=== PATIENT | male | born 1950 | race Caucasian/White ===

== ENCOUNTER → 2017-08-09 | Day surgery (SDC) | payer BC ==
[~2017-08-09] MED LIST: ACETAMINOPHEN 1000 MG/100 ML 100 ML IV ONE; BUPIVACAINE HCL PF 0.25% 30 ML VIAL ONE; KETOROLAC TROMETHAMINE 30 MG/ML (IVP) VIAL IV PUSH ONE; LACTATED RINGER'S 1000 ML INJ 1,000 ML ONE; LIDOCAINE 1%/EPINEPHrine 1:100,000 SOLN 30 ML VIAL ONE; MIDAZOLAM HCL 2 MG/2 ML VIAL ONE; PROPOFOL 200 MG/20 ML AMP IV ONE; ceFAZolin 2 GM PREMIX 50 ML ONE
--- NOTE | 2017-08-09 09:20 | TN ---
cc: Matt Devi MD, Joseph D MD DATE OF SURGERY: 08/09/2017 PREOPERATIVE DIAGNOSIS: Right inguinal hernia. POSTOPERATIVE DIAGNOSIS: Right direct inguinal hernia. PROCEDURE PERFORMED: Repair of right direct inguinal hernia with mesh. ANESTHESIA: General. SURGEON: Matt Devi MD INDICATIONS: This is a pleasant 67-year-old gentleman who has a symptomatic right inguinal hernia. Plans were made for operative repair. DESCRIPTION OF PROCEDURE: The patient was taken to the operating room, placed in the supine position. After anesthesia, his abdomen and groin were prepped with Betadine. Timeout is done. He was given preoperative antibiotics. We made an oblique incision overlying the internal and external ring, dissect down through Enio's fascia identifying the external oblique aponeurosis which was incised. It is noted the patient is very thin. The ilioinguinal nerve was identified. The direct defect was identified and completely reduced. He has no indirect defect. We then placed a piece of polypropylene mesh secured to the pubic tubercle, Bhargav's ligament, and iliopubic tract out laterally. The ilioinguinal nerve is going to be laying right on top of this mesh and for this reason, the ilioinguinal nerve was sacrificed all the way up into the internal oblique aponeurosis. The mesh was then secured to the medial edge with 0 Ethibond. Tails were fashioned and secured to themselves to the internal oblique aponeurosis. We then closed the external oblique aponeurosis with a 2-0 Vicryl, Enio's with 3-0 Vicryl, and skin with 4-0 Vicryl. Steri-Strips applied, sterile bandage was applied. The patient tolerated the procedure well, had no immediate postop complications. Matt Devi MD JDB/DL , 08:55 AM , 09:19 AM
== END | disposition home or self-care (01) ==
LOC: ESDC 06:41
PROVIDERS: ATTEND Surgery
DX: K40.90 Unilateral inguinal hernia, without obstruction or gangrene, not specified as recurrent (principal)
CPT/HCPCS: 00830; 49505; C1781; J0131; J0690; J1885; J3010; J7120; J2250

== ENCOUNTER 2018-02-13 18:20 | Inpatient (IN) ==
[2018-02-13] MEDS ORDERED: Piperacil/Tazo 4.5 GM Premix 4.5 GM/100 ML BAG IV.SIG SCH ×2 (19:45→21:00)
[2018-02-13] MEDS: Sod Chloride 0.9% Inj 1,000 ML IV.SIG SCH ×2 (19:46→21:41)
[2018-02-13] MEDS ORDERED: Vancomycin Inj 1,000 MG in Sodium Chlor 0.9% Inj 250 ML IV.SIG SCH (20:00)
--- NOTE | 2018-02-13 20:10 | XR ---
EXAM DATE: 02/13/2018 8:08 PM EST AGE/SEX: 67 years / Male INDICATIONS: Fever. CLINICAL DATA: This is the patient's initial encounter. Patient reports that signs and symptoms have been present for 1 day and indicates a pain score of 0/10. MEDICAL/SURGICAL HISTORY: Non-responsive. Non-responsive. COMPARISON: No prior exams available for comparison. FINDINGS: A single AP view of the chest demonstrates the lungs to be symmetrically aerated without evidence of mass, infiltrate or effusion. The cardiomediastinal contours are unremarkable. Osseous structures a re intact. CONCLUSION: 1. Negative portable chest. Electronically signed by: Gus Guan MD Board Certified Radiologist 02/13/2018 8:09 PM JUANA T
[2018-02-13 20:28] LABS: Baso % (Auto) 0.1 % (0.0-2.0); Hematocrit 43.5 % (39.0-51.0); Hemoglobin 14.7 gm/dL (13.0-17.0); Lymph % (Auto) 10.5 % (9.0-44.0); Mean Corpuscular HGB Conc 33.7 % (32.0-36.0); Mean Corpuscular Hemoglobin 31.3 pg (27.0-34.0); Mean Corpuscular Volume 92.9 fL (80.0-100.0); Mono # (Auto) 0.6 th/mm3 (0.0-0.9); Mono % (Auto) 6.7 % (0.0-8.0); Neut # (Auto) 7.9 th/mm3 (1.8-7.7); Neut % (Auto) 82.7 % (16.0-70.0); Platelet Count 111 th/mm3 (150-450); Red Blood Count 4.69 mil/mm3 (4.50-5.90); Red Cell Distribution Width 14.4 % (11.6-17.2); White Blood Count 9.6 th/mm3 (4.0-11.0)
[2018-02-13 20:36] LABS: Albumin 3.2 g/dL (3.4-5.0); Anion Gap 9 meq/L (5-15); Aspartate Aminotransferase 72 U/L (15-37); Blood Urea Nitrogen 32 mg/dL (7-18); Calcium 7.8 mg/dL (8.5-10.1); Carbon Dioxide 27.3 meq/L (21.0-32.0); Chloride 106 meq/L (98-107); Glomerular Filtration Rate 39 mL/min (>89); Glucose,Random 129 mg/dL (74-106); Potassium 3.4 meq/L (3.5-5.1); Sodium 142 meq/L (136-145)
[2018-02-13 20:37] LABS: Alanine Aminotransferase 41 U/L (12-78)
[2018-02-13 20:41] LABS: Alkaline Phosphatase 45 U/L (45-117); Total Protein 6.9 g/dL (6.4-8.2); Troponin I 0.09 ng/mL (0.02-0.05)
[2018-02-13 20:55] LABS: Bacteria,Urine Rare /hpf; Bilirubin,Urine Negative (Negative); Clarity,Urine Hazy (Clear); Color,Urine Yellow (Yellw/Straw); Glucose,Urine (UA) Negative (Negative); Leukocyte Esterase,Urine Negative (Negative); Mucus,Urine Few /lpf (Occasional); Nitrite,Urine Negative (Negative); Specific Gravity,Urine 1.021 (1.002-1.035); Squamous Epithelial Cell,Urine <1 /hpf (0-5)
--- NOTE | 2018-02-13 21:31 | CT ---
EXAM DATE: 02/13/2018 9:27 PM EST AGE/SEX: 67 years / Male INDICATIONS: Altered mental status. CLINICAL DATA: This is the patient's initial encounter. Patient reports that signs and symptoms have been present for 1 day and indicates a pain score of 0/10. MEDICAL/SURGICAL HISTORY: Hypertension. . Hernia repair. RADIATION DOSE: 33.68 CTDI (mGy) COMPARISON: No prior exams available for comparison. TECHNIQUE: CT of the head without contrast. Using automated exposure control and adjustment of the mA and/or kV according to patient size, radiation dose was kept as low as reasonably achievable to ob tain optimal diagnostic quality images. DICOM format image data is available electronically for revi ew and comparison. FINDINGS: Cerebrum: The ventricles are normal for age. No evidence of midline shift, mass lesion, hemorrhage or acute infarction. No extraaxial fluid collections are seen. Mild periventricular white matter sma ll vessel ischemic changes are noted bilaterally. Posterior Fossa: The cerebellum and brainstem are intact. The 4th ventricle is midline. The cerebe llopontine angle is unremarkable. Extracranial: The visualized portion of the orbits is intact. Skull: The calvaria is intact. No evidence of skull fracture. CONCLUSION: 1. Mild periventricular white matter small vessel ischemic changes bilaterally. 2. No acute infarct, acute hemorrhage, mass effect or extra axial fluid collections. . Electronically signed by: aJsbir Roman MD Board Certified Radiologist 02/13/2018 9:30 PM EST
--- NOTE | 2018-02-13 22:19 | ED ---
HPI General Chief Complaint: Altered Mental Status Stated Complaint: AMS Time Seen by Provider: 02/13/18 19:10 Source: patient Mode of arrival: EMS Limitations: no limitations History of Present Illness HPI narrative: 67-year-old male came to the emergency room with history of fever , altered mental status as was found by his neighbor today. Patient was last seen with his baseline mental status yesterday morning by another neighbor. Patient appears to be fatigued and a little bit confused. He does say that he has been feeling sick with cough and sore throat for past 4-5 days. The neighbor found out from another neighbor that patient took care of his brother 1 week back who is now with a MRSA infection. Patient had a temperature of 100.5 upon arrival. His oxygen saturation was 93% on room air. Patient has history of COPD and he is a smoker as well. No history of vomiting or diarrhea. He is not complaining of any pain anywhere. Related Data Home Medications Medication Instructions Recorded Confirmed atorvastatin 80 mg PO DAILY 02/13/18 02/13/18 clopidogrel 75 mg PO DAILY 02/13/18 02/13/18 codeine-guaifenesin [Virtussin AC] 5 ml PO Q6H PRN 02/13/18 02/13/18 hydrocodone-acetaminophen 1 tab PO Q6H 02/13/18 02/13/18 ibuprofen 800 mg PO TID 02/13/18 02/13/18 olmesartan 40 mg PO DAILY 02/13/18 02/13/18 vitamin [id number] acid 100 mcg SUBLINGUAL DAILY 02/13/18 02/13/18 cyanocobalamin (vitamin B-12) See Label Instructions .ROUTE 02/17/18 02/17/18 .COMPLEX Allergies Allergy/AdvReac Type Severity Reaction Status Date / Time No Known Allergies Allergy Verified 02/13/18 18:38 Review of Systems ROS Unobtainable ROS Unobtainable: unobtainable due to mental condition ROS: all other systems reviewed are negative [facility] Medical History Medical History Hypertension (Acute) Surgical History Surgical History History of hernia repair (Acute) Social History Social History Substance History: No History of Abuse Second Hand Smoke Exposure: No Smoking Status: Current every day smoker Tobacco Type: Cigarettes How Often Do You Have a Drink Containing Alcohol: Never Recent Travel in [facility] within the Last 8 Weeks: No Recent Out of Country Travel within the Last 8 Weeks: No Immunization History Tetanus Immunization: >5 Years Exam Narrative Exam Narrative: GENERAL: Lethargic, moderate distress, looks older than his age SKIN: Focused skin assessment warm/dry. HEAD: Atraumatic. Normocephalic. EYES: Pupils equal and round. No scleral icterus. No injection or drainage. ENT: No nasal bleeding or discharge. Dry mucous membrane and coated tongue. Erythematous pharynx with no exudate NECK: Trachea midline. No JVD. CARDIOVASCULAR: Regular rate and rhythm. No murmur appreciated. RESPIRATORY: No accessory muscle use. Clear to auscultation. Breath sounds equal bilaterally. GASTROINTESTINAL: Abdomen soft, non-tender, nondistended. Hepatic and splenic margins not palpable. MUSCULOSKELETAL: No obvious deformities. No clubbing. No cyanosis. No edema. NEUROLOGICAL: Lethargic and slightly confused. No obvious cranial nerve deficits. Motor grossly within normal limits. Normal speech. PSYCHIATRIC: Appropriate mood and affect; insight and judgment normal. Course Initial Documented Vital Signs Temperature 100.5 F H 02/13/18 18:26 Pulse Rate 92 H 02/13/18 18:26 Respiratory Rate 18 02/13/18 18:26 Blood Pressure 114/65 02/13/18 18:26 Pulse Oximetry 93 L 02/13/18 18:26 Last Documented Vital Signs Temperature 99.3 F 02/19/18 16:30 Pulse Rate 94 H 02/19/18 19:46 Respiratory Rate 20 02/19/18 19:46 Blood Pressure 111/65 02/19/18 18:30 Pulse Oximetry 98 02/19/18 19:46 Critical Care Time Critical Care Time: Yes Total Critical Care Time: 30 Attestation: Aggregate critical care time was 30 minutes. Time to perform other separately billable procedures was not included in the critical care time. My time did not include minutes spent treating any other patients simultaneously or on activities that did not directly contribute to the patient's treatment. The services I provided to this patient were to treat and/or prevent clinically significant deterioration that could result in: Sepsis, sepsis protocol I provided critical care services requiring my management, as noted below: Chart data review, documentation time, medication orders and management, vital sign assessments/reviewing monitor data, ordering and reviewing lab tests, ordering and interpreting/reviewing x-rays and diagnostic studies, care of the patient and discussion of the patient with the admitting physicians. Medical Decision Making MDM Narrative Medical decision making narrative: 10:17 PM patient was given 2 L of IV fluid bolus. IV Zosyn and vancomycin was initiated as per sepsis protocol. Lactic acid is slightly elevated. Rest of his blood test results are within acceptable limit except for elevated troponin and elevated BUN and creatinine. I discussed the case with the hospitalist and patient is admitted for sepsis. Medical Screen Exam Complete: Yes Emergency Medical Condition: Yes Lab Data Result diagrams: 02/19/18 03:14 02/19/18 03:14 Lab Results 02/13/18 02/13/18 02/13/18 Range/Units 20:00 20:00 20:00 WBC 9.6 (4.0-11.0) th/mm3 RBC 4.69 (4.50-5.90) mil/mm3 Hgb 14.7 (13.0-17.0) gm/dL Hct 43.5 (39.0-51.0) % MCV 92.9 (80.0-100.0) fL MCH 31.3 (27.0-34.0) pg MCHC 33.7 (32.0-36.0) % RDW 14.4 (11.6-17.2) % Plt Count 111 L (150-450) th/mm3 MPV 9.0 (7.0-11.0) fL Prelim Diff (Auto) Neut % (Auto) 82.7 H (16.0-70.0) % Lymph % (Auto) 10.5 (9.0-44.0) % [place] % (Auto) 6.7 (0.0-8.0) % Eos % (Auto) 0.0 (0.0-4.0) % Baso % (Auto) 0.1 (0.0-2.0) % Neut # (Auto) 7.9 H (1.8-7.7) th/mm3 Lymph # (Auto) 1.0 (1.0-4.8) th/mm3 [place] # (Auto) 0.6 (0.0-0.9) th/mm3 Eos # (Auto) 0.0 (0.0-0.4) th/mm3 Baso # (Auto) 0.0 (0.0-0.2) th/mm3 WBC Differential . Seg Neuts % (Manual) (16-70) % Band Neuts % (Manual) (0-6) % Lymphocytes % (Manual) (9-44) % Monocytes % (Manual) (0-8) % Eosinophils % (Manual) (0-4) % Abs Neuts (Manual) (1.8-7.7) th/mm3 Nucleated RBCs/100 WBC (0-0) /100 WBC Differential Comment Auto diff final Platelet Estimate (Normal) Platelet Morphology (Normal) Ovalocytes (None) Acanthocytes (Spur) (None) Smear Path Review Haptoglobin (30-200) mg/dL Puncture Site Patient Temperature O2 Saturation (90-100) % ABG pH (7.380-7.420) ABG pCO2 (38-42) mmHg ABG pO2 (61-120) mmHg ABG HCO3 (22-26) mmol/L ABG O2 Content (12.0-20.0) Vol % ABG Base Excess (-2-2) mmol/L ABG Methemoglobin (0-2) % Jeffery Test Hemoglobin (12.0-16.0) G/DL Carboxyhemoglobin (0-4) % O2 Delivery Device Liter Flow L/M Vent Setting Inspired O2 % Critical Value Sodium 142 (136-145) meq/L Potassium 3.4 L (3.5-5.1) meq/L Chloride 106 (98-107) meq/L Carbon Dioxide 27.3 (21.0-32.0) meq/L Anion Gap 9 (5-15) meq/L BUN 32 H (7-18) mg/dL Creatinine 1.75 H (0.60-1.30) mg/dL Estimated GFR 39 L (>89) mL/min POC Glucose (68-110) mg/dl Random Glucose 129 H (74-106) mg/dL Lactic Acid 2.1 H (0.4-2.0) mmol/L Calcium 7.8 L (8.5-10.1) mg/dL Calcium Adj for Albumin (8.5-10.1) mg/dL Phosphorus (2.5-4.9) mg/dL Magnesium 2.0 (1.5-2.5) mg/dL Total Bilirubin 0.3 (0.2-1.0) mg/dL AST 72 H (15-37) U/L ALT 41 (12-78) U/L Alkaline Phosphatase 45 (45-117) U/L Lactate Dehydrogenase (87-241) U/L Total Creatine Kinase (39-308) U/L CK-MB (CK-2) (0.5-3.6) ng/mL CK-MB (CK-2) % (0.0-4.0) % Troponin I 0.09 H (0.02-0.05) ng/mL B-Natriuretic Peptide (0-100) pg/mL Total Protein 6.9 (6.4-8.2) g/dL Albumin 3.2 L (3.4-5.0) g/dL TSH (0.358-3.740) uIU/mL Urine Color (Yellw/Straw) Urine Clarity (Clear) Urine pH (5.0-8.5) Ur Specific [place] (1.002-1.035) Urine Protein (Neg-Trace) mg/dL Urine Glucose (UA) (Negative) mg/dL Urine Ketones (Negative) mg/dL Urine Occult Blood (Negative) Urine Nitrate (Negative) Urine Bilirubin (Negative) Urine Urobilinogen (Less than 2) mg/dL Ur Leukocyte Esterase (Negative) Urine RBC (0-3) /hpf Urine WBC (0-5) /hpf Ur Squamous Epith Cells (0-5) /hpf Urine Bacteria (None) /hpf Urine Mucus (Occasional) /lpf Micro UA Comment Ur Microscopic Review Urine Culture Comments Urine Eosinophils (None Seen) /HPF Ur Random Creatinine (27-300) mg/dL Ur Random Sodium meq/L Vancomycin Trough (5.0-10.0) mcg/mL 02/13/18 02/13/18 02/14/18 Range/Units 20:36 22:35 02:55 WBC (4.0-11.0) th/mm3 RBC (4.50-5.90) mil/mm3 Hgb (13.0-17.0) gm/dL Hct (39.0-51.0) % MCV (80.0-100.0) fL MCH (27.0-34.0) pg MCHC (32.0-36.0) % RDW (11.6-17.2) % Plt Count (150-450) th/mm3 MPV (7.0-11.0) fL Prelim Diff (Auto) Neut % (Auto) (16.0-70.0) % Lymph % (Auto) (9.0-44.0) % [place] % (Auto) (0.0-8.0) % Eos % (Auto) (0.0-4.0) % Baso % (Auto) (0.0-2.0) % Neut # (Auto) (1.8-7.7) th/mm3 Lymph # (Auto) (1.0-4.8) th/mm3 [place] # (Auto) (0.0-0.9) th/mm3 Eos # (Auto) (0.0-0.4) th/mm3 Baso # (Auto) (0.0-0.2) th/mm3 WBC Differential Seg Neuts % (Manual) (16-70) % Band Neuts % (Manual) (0-6) % Lymphocytes % (Manual) (9-44) % Monocytes % (Manual) (0-8) % Eosinophils % (Manual) (0-4) % Abs Neuts (Manual) (1.8-7.7) th/mm3 Nucleated RBCs/100 WBC (0-0) /100 WBC Differential Comment Platelet Estimate (Normal) Platelet Morphology (Normal) Ovalocytes (None) Acanthocytes (Spur) (None) Smear Path Review Haptoglobin (30-200) mg/dL Puncture Site Patient Temperature O2 Saturation (90-100) % ABG pH (7.380-7.420) ABG pCO2 (38-42) mmHg ABG pO2 (61-120) mmHg ABG HCO3 (22-26) mmol/L ABG O2 Content (12.0-20.0) Vol % ABG Base Excess (-2-2) mmol/L ABG Methemoglobin (0-2) % Jeffery Test Hemoglobin (12.0-16.0) G/DL Carboxyhemoglobin (0-4) % O2 Delivery Device Liter Flow L/M Vent Setting Inspired O2 % Critical Value Sodium (136-145) meq/L Potassium (3.5-5.1) meq/L Chloride (98-107) meq/L Carbon Dioxide (21.0-32.0) meq/L Anion Gap (5-15) meq/L BUN (7-18) mg/dL Creatinine (0.60-1.30) mg/dL Estimated GFR (>89) mL/min POC Glucose (68-110) mg/dl Random Glucose (74-106) mg/dL Lactic Acid 0.9 (0.4-2.0) mmol/L Calcium (8.5-10.1) mg/dL Calcium Adj for Albumin (8.5-10.1) mg/dL Phosphorus (2.5-4.9) mg/dL Magnesium (1.5-2.5) mg/dL Total Bilirubin (0.2-1.0) mg/dL AST (15-37) U/L ALT (12-78) U/L Alkaline Phosphatase (45-117) U/L Lactate Dehydrogenase (87-241) U/L Total Creatine Kinase 751 H (39-308) U/L CK-MB (CK-2) 1.5 (0.5-3.6) ng/mL CK-MB (CK-2) % 0.2 (0.0-4.0) % Troponin I 0.09 H (0.02-0.05) ng/mL B-Natriuretic Peptide (0-100) pg/mL Total Protein (6.4-8.2) g/dL Albumin (3.4-5.0) g/dL TSH (0.358-3.740) uIU/mL Urine Color Yellow (Yellw/Straw) Urine Clarity Hazy H (Clear) Urine pH 5.0 (5.0-8.5) Ur Specific [place] 1.021 (1.002-1.035) Urine Protein 100 H (Neg-Trace) mg/dL Urine Glucose (UA) Negative (Negative) mg/dL Urine Ketones Negative (Negative) mg/dL Urine Occult Blood Small H (Negative) Urine Nitrate Negative (Negative) Urine Bilirubin Negative (Negative) Urine Urobilinogen Less than 2 (Less than 2) mg/dL Ur Leukocyte Esterase Negative (Negative) Urine RBC 8 H (0-3) /hpf Urine WBC 4 (0-5) /hpf Ur Squamous Epith Cells <1 (0-5) /hpf Urine Bacteria Rare H (None) /hpf Urine Mucus Few H (Occasional) /lpf Micro UA Comment Culture not ind Ur Microscopic Review Not Reportable Urine Culture Comments Culture not ind Urine Eosinophils (None Seen) /HPF Ur Random Creatinine (27-300) mg/dL Ur Random Sodium meq/L Vancomycin Trough (5.0-10.0) mcg/mL 02/14/18 02/14/18 02/15/18 Range/Units 08:14 16:50 06:22 WBC 5.7 (4.0-11.0) th/mm3 RBC 3.89 L (4.50-5.90) mil/mm3 Hgb 12.4 L D (13.0-17.0) gm/dL Hct 36.1 L (39.0-51.0) % MCV 92.6 (80.0-100.0) fL MCH 31.9 (27.0-34.0) pg MCHC 34.4 (32.0-36.0) % RDW 14.5 (11.6-17.2) % Plt Count 79 L (150-450) th/mm3 MPV 9.4 (7.0-11.0) fL Prelim Diff (Auto) Slide review pending Neut % (Auto) 79.8 H (16.0-70.0) % Lymph % (Auto) 12.4 (9.0-44.0) % [place] % (Auto) 7.7 (0.0-8.0) % Eos % (Auto) 0.0 (0.0-4.0) % Baso % (Auto) 0.1 (0.0-2.0) % Neut # (Auto) 4.5 (1.8-7.7) th/mm3 Lymph # (Auto) 0.7 L (1.0-4.8) th/mm3 [place] # (Auto) 0.4 (0.0-0.9) th/mm3 Eos # (Auto) 0.0 (0.0-0.4) th/mm3 Baso # (Auto) 0.0 (0.0-0.2) th/mm3 WBC Differential Manual diff final Seg Neuts % (Manual) 77 H (16-70) % Band Neuts % (Manual) 12 H (0-6) % Lymphocytes % (Manual) 8 L (9-44) % Monocytes % (Manual) 2 (0-8) % Eosinophils % (Manual) 1 (0-4) % Abs Neuts (Manual) 5.1 (1.8-7.7) th/mm3 Nucleated RBCs/100 WBC (0-0) /100 WBC Differential Comment . Platelet Estimate Low L (Normal) Platelet Morphology Enlarged H (Normal) Ovalocytes 1+ H (None) Acanthocytes (Spur) Occ H (None) Smear Path Review Haptoglobin (30-200) mg/dL Puncture Site Patient Temperature O2 Saturation (90-100) % ABG pH (7.380-7.420) ABG pCO2 (38-42) mmHg ABG pO2 (61-120) mmHg ABG HCO3 (22-26) mmol/L ABG O2 Content (12.0-20.0) Vol % ABG Base Excess (-2-2) mmol/L ABG Methemoglobin (0-2) % Jeffery Test Hemoglobin (12.0-16.0) G/DL Carboxyhemoglobin (0-4) % O2 Delivery Device Liter Flow L/M Vent Setting Inspired O2 % Critical Value Sodium 145 (136-145) meq/L Potassium 3.9 (3.5-5.1) meq/L Chloride 113 H (98-107) meq/L Carbon Dioxide 25.4 (21.0-32.0) meq/L Anion Gap 7 (5-15) meq/L BUN 24 H (7-18) mg/dL Creatinine 1.31 H (0.60-1.30) mg/dL Estimated GFR 55 L (>89) mL/min POC Glucose (68-110) mg/dl Random Glucose 114 H (74-106) mg/dL Lactic Acid (0.4-2.0) mmol/L Calcium 7.5 L (8.5-10.1) mg/dL Calcium Adj for Albumin (8.5-10.1) mg/dL Phosphorus (2.5-4.9) mg/dL Magnesium (1.5-2.5) mg/dL Total Bilirubin (0.2-1.0) mg/dL AST (15-37) U/L ALT (12-78) U/L Alkaline Phosphatase (45-117) U/L Lactate Dehydrogenase (87-241) U/L Total Creatine Kinase 686 H (39-308) U/L CK-MB (CK-2) 1.9 (0.5-3.6) ng/mL CK-MB (CK-2) % 0.3 (0.0-4.0) % Troponin I 0.08 H (0.02-0.05) ng/mL B-Natriuretic Peptide (0-100) pg/mL Total Protein (6.4-8.2) g/dL Albumin (3.4-5.0) g/dL TSH (0.358-3.740) uIU/mL Urine Color (Yellw/Straw) Urine Clarity (Clear) Urine pH (5.0-8.5) Ur Specific [place] (1.002-1.035) Urine Protein (Neg-Trace) mg/dL Urine Glucose (UA) (Negative) mg/dL Urine Ketones (Negative) mg/dL Urine Occult Blood (Negative) Urine Nitrate (Negative) Urine Bilirubin (Negative) Urine Urobilinogen (Less than 2) mg/dL Ur Leukocyte Esterase (Negative) Urine RBC (0-3) /hpf Urine WBC (0-5) /hpf Ur Squamous Epith Cells (0-5) /hpf Urine Bacteria (None) /hpf Urine Mucus (Occasional) /lpf Micro UA Comment Ur Microscopic Review Urine Culture Comments Urine Eosinophils (None Seen) /HPF Ur Random Creatinine (27-300) mg/dL Ur Random Sodium meq/L Vancomycin Trough (5.0-10.0) mcg/mL 02/15/18 02/15/18 02/16/18 Range/Units 06:22 18:35 05:53 WBC 6.8 (4.0-11.0) th/mm3 RBC 3.88 L (4.50-5.90) mil/mm3 Hgb 12.3 L (13.0-17.0) gm/dL Hct 36.4 L (39.0-51.0) % MCV 93.7 (80.0-100.0) fL MCH 31.7 (27.0-34.0) pg MCHC 33.9 (32.0-36.0) % RDW 14.7 (11.6-17.2) % Plt Count 80 L (150-450) th/mm3 MPV 9.4 (7.0-11.0) fL Prelim Diff (Auto) Slide review pending Neut % (Auto) 83.4 H (16.0-70.0) % Lymph % (Auto) 9.3 (9.0-44.0) % [place] % (Auto) 7.1 (0.0-8.0) % Eos % (Auto) 0.0 (0.0-4.0) % Baso % (Auto) 0.2 (0.0-2.0) % Neut # (Auto) 5.7 (1.8-7.7) th/mm3 Lymph # (Auto) 0.6 L (1.0-4.8) th/mm3 [place] # (Auto) 0.5 (0.0-0.9) th/mm3 Eos # (Auto) 0.0 (0.0-0.4) th/mm3 Baso # (Auto) 0.0 (0.0-0.2) th/mm3 WBC Differential Manual diff final Seg Neuts % (Manual) 79 H (16-70) % Band Neuts % (Manual) 12 H (0-6) % Lymphocytes % (Manual) 6 L (9-44) % Monocytes % (Manual) 3 (0-8) % Eosinophils % (Manual) (0-4) % Abs Neuts (Manual) 6.2 (1.8-7.7) th/mm3 Nucleated RBCs/100 WBC 1 H (0-0) /100 WBC Differential Comment . Platelet Estimate Low L (Normal) Platelet Morphology Normal (Normal) Ovalocytes (None) Acanthocytes (Spur) (None) Smear Path Review Haptoglobin (30-200) mg/dL Puncture Site Patient Temperature O2 Saturation (90-100) % ABG pH (7.380-7.420) ABG pCO2 (38-42) mmHg ABG pO2 (61-120) mmHg ABG HCO3 (22-26) mmol/L ABG O2 Content (12.0-20.0) Vol % ABG Base Excess (-2-2) mmol/L ABG Methemoglobin (0-2) % Jeffery Test Hemoglobin (12.0-16.0) G/DL Carboxyhemoglobin (0-4) % O2 Delivery Device Liter Flow L/M Vent Setting Inspired O2 % Critical Value Sodium 147 H (136-145) meq/L Potassium 3.6 (3.5-5.1) meq/L Chloride 114 H (98-107) meq/L Carbon Dioxide 25.6 (21.0-32.0) meq/L Anion Gap 7 (5-15) meq/L BUN 21 H (7-18) mg/dL Creatinine 1.38 H (0.60-1.30) mg/dL Estimated GFR 52 L (>89) mL/min POC Glucose (68-110) mg/dl Random Glucose 118 H (74-106) mg/dL Lactic Acid (0.4-2.0) mmol/L Calcium 7.1 L* (8.5-10.1) mg/dL Calcium Adj for Albumin 8.5 (8.5-10.1) mg/dL Phosphorus (2.5-4.9) mg/dL Magnesium (1.5-2.5) mg/dL Total Bilirubin (0.2-1.0) mg/dL AST (15-37) U/L ALT (12-78) U/L Alkaline Phosphatase (45-117) U/L Lactate Dehydrogenase (87-241) U/L Total Creatine Kinase (39-308) U/L CK-MB (CK-2) (0.5-3.6) ng/mL CK-MB (CK-2) % (0.0-4.0) % Troponin I (0.02-0.05) ng/mL B-Natriuretic Peptide (0-100) pg/mL Total Protein (6.4-8.2) g/dL Albumin 2.3 L D (3.4-5.0) g/dL TSH (0.358-3.740) uIU/mL Urine Color (Yellw/Straw) Urine Clarity (Clear) Urine pH (5.0-8.5) Ur Specific [place] (1.002-1.035) Urine Protein (Neg-Trace) mg/dL Urine Glucose (UA) (Negative) mg/dL Urine Ketones (Negative) mg/dL Urine Occult Blood (Negative) Urine Nitrate (Negative) Urine Bilirubin (Negative) Urine Urobilinogen (Less than 2) mg/dL Ur Leukocyte Esterase (Negative) Urine RBC (0-3) /hpf Urine WBC (0-5) /hpf Ur Squamous Epith Cells (0-5) /hpf Urine Bacteria (None) /hpf Urine Mucus (Occasional) /lpf Micro UA Comment Ur Microscopic Review Urine Culture Comments Urine Eosinophils (None Seen) /HPF Ur Random Creatinine 160 (27-300) mg/dL Ur Random Sodium 53 meq/L Vancomycin Trough (5.0-10.0) mcg/mL 02/16/18 02/16/18 02/16/18 Range/Units 05:53 05:53 17:08 WBC (4.0-11.0) th/mm3 RBC (4.50-5.90) mil/mm3 Hgb (13.0-17.0) gm/dL Hct (39.0-51.0) % MCV (80.0-100.0) fL MCH (27.0-34.0) pg MCHC (32.0-36.0) % RDW (11.6-17.2) % Plt Count (150-450) th/mm3 MPV (7.0-11.0) fL Prelim Diff (Auto) Neut % (Auto) (16.0-70.0) % Lymph % (Auto) (9.0-44.0) % [place] % (Auto) (0.0-8.0) % Eos % (Auto) (0.0-4.0) % Baso % (Auto) (0.0-2.0) % Neut # (Auto) (1.8-7.7) th/mm3 Lymph # (Auto) (1.0-4.8) th/mm3 [place] # (Auto) (0.0-0.9) th/mm3 Eos # (Auto) (0.0-0.4) th/mm3 Baso # (Auto) (0.0-0.2) th/mm3 WBC Differential Seg Neuts % (Manual) (16-70) % Band Neuts % (Manual) (0-6) % Lymphocytes % (Manual) (9-44) % Monocytes % (Manual) (0-8) % Eosinophils % (Manual) (0-4) % Abs Neuts (Manual) (1.8-7.7) th/mm3 Nucleated RBCs/100 WBC (0-0) /100 WBC Differential Comment Platelet Estimate (Normal) Platelet Morphology (Normal) Ovalocytes (None) Acanthocytes (Spur) (None) Smear Path Review Haptoglobin (30-200) mg/dL Puncture Site Right radial Patient Temperature 98.6 O2 Saturation 93 (90-100) % ABG pH 7.49 H (7.380-7.420) ABG pCO2 29 L (38-42) mmHg ABG pO2 73 (61-120) mmHg ABG HCO3 22 (22-26) mmol/L ABG O2 Content 16.1 (12.0-20.0) Vol % ABG Base Excess -0.9 (-2-2) mmol/L ABG Methemoglobin 1.3 (0-2) % Jeffery Test Present Hemoglobin 12.3 (12.0-16.0) G/DL Carboxyhemoglobin 1.0 (0-4) % O2 Delivery Device Nasal cannula Liter Flow 3.00 L/M Vent Setting Inspired O2 % Critical Value No Sodium 147 H (136-145) meq/L Potassium 3.4 L (3.5-5.1) meq/L Chloride 114 H (98-107) meq/L Carbon Dioxide 26.8 (21.0-32.0) meq/L Anion Gap 6 (5-15) meq/L BUN 21 H (7-18) mg/dL Creatinine 1.43 H (0.60-1.30) mg/dL Estimated GFR 50 L (>89) mL/min POC Glucose (68-110) mg/dl Random Glucose 143 H (74-106) mg/dL Lactic Acid (0.4-2.0) mmol/L Calcium 7.4 L* (8.5-10.1) mg/dL Calcium Adj for Albumin 8.7 (8.5-10.1) mg/dL Phosphorus (2.5-4.9) mg/dL Magnesium (1.5-2.5) mg/dL Total Bilirubin (0.2-1.0) mg/dL AST (15-37) U/L ALT (12-78) U/L Alkaline Phosphatase (45-117) U/L Lactate Dehydrogenase (87-241) U/L Total Creatine Kinase (39-308) U/L CK-MB (CK-2) (0.5-3.6) ng/mL CK-MB (CK-2) % (0.0-4.0) % Troponin I (0.02-0.05) ng/mL B-Natriuretic Peptide 166 H (0-100) pg/mL Total Protein (6.4-8.2) g/dL Albumin 2.4 L (3.4-5.0) g/dL TSH (0.358-3.740) uIU/mL Urine Color (Yellw/Straw) Urine Clarity (Clear) Urine pH (5.0-8.5) Ur Specific [place] (1.002-1.035) Urine Protein (Neg-Trace) mg/dL Urine Glucose (UA) (Negative) mg/dL Urine Ketones (Negative) mg/dL Urine Occult Blood (Negative) Urine Nitrate (Negative) Urine Bilirubin (Negative) Urine Urobilinogen (Less than 2) mg/dL Ur Leukocyte Esterase (Negative) Urine RBC (0-3) /hpf Urine WBC (0-5) /hpf Ur Squamous Epith Cells (0-5) /hpf Urine Bacteria (None) /hpf Urine Mucus (Occasional) /lpf Micro UA Comment Ur Microscopic Review Urine Culture Comments Urine Eosinophils (None Seen) /HPF Ur Random Creatinine (27-300) mg/dL Ur Random Sodium meq/L Vancomycin Trough (5.0-10.0) mcg/mL 02/16/18 02/16/18 02/16/18 Range/Units 18:39 19:51 19:51 WBC (4.0-11.0) th/mm3 RBC (4.50-5.90) mil/mm3 Hgb (13.0-17.0) gm/dL Hct (39.0-51.0) % MCV (80.0-100.0) fL MCH (27.0-34.0) pg MCHC (32.0-36.0) % RDW (11.6-17.2) % Plt Count (150-450) th/mm3 MPV (7.0-11.0) fL Prelim Diff (Auto) Neut % (Auto) (16.0-70.0) % Lymph % (Auto) (9.0-44.0) % [place] % (Auto) (0.0-8.0) % Eos % (Auto) (0.0-4.0) % Baso % (Auto) (0.0-2.0) % Neut # (Auto) (1.8-7.7) th/mm3 Lymph # (Auto) (1.0-4.8) th/mm3 [place] # (Auto) (0.0-0.9) th/mm3 Eos # (Auto) (0.0-0.4) th/mm3 Baso # (Auto) (0.0-0.2) th/mm3 WBC Differential Seg Neuts % (Manual) (16-70) % Band Neuts % (Manual) (0-6) % Lymphocytes % (Manual) (9-44) % Monocytes % (Manual) (0-8) % Eosinophils % (Manual) (0-4) % Abs Neuts (Manual) (1.8-7.7) th/mm3 Nucleated RBCs/100 WBC (0-0) /100 WBC Differential Comment Platelet Estimate (Normal) Platelet Morphology (Normal) Ovalocytes (None) Acanthocytes (Spur) (None) Smear Path Review Haptoglobin (30-200) mg/dL Puncture Site Patient Temperature O2 Saturation (90-100) % ABG pH (7.380-7.420) ABG pCO2 (38-42) mmHg ABG pO2 (61-120) mmHg ABG HCO3 (22-26) mmol/L ABG O2 Content (12.0-20.0) Vol % ABG Base Excess (-2-2) mmol/L ABG Methemoglobin (0-2) % Jeffery Test Hemoglobin (12.0-16.0) G/DL Carboxyhemoglobin (0-4) % O2 Delivery Device Liter Flow L/M Vent Setting Inspired O2 % Critical Value Sodium (136-145) meq/L Potassium (3.5-5.1) meq/L Chloride (98-107) meq/L Carbon Dioxide (21.0-32.0) meq/L Anion Gap (5-15) meq/L BUN (7-18) mg/dL Creatinine (0.60-1.30) mg/dL Estimated GFR (>89) mL/min POC Glucose 136 H (68-110) mg/dl Random Glucose (74-106) mg/dL Lactic Acid (0.4-2.0) mmol/L Calcium (8.5-10.1) mg/dL Calcium Adj for Albumin (8.5-10.1) mg/dL Phosphorus (2.5-4.9) mg/dL Magnesium (1.5-2.5) mg/dL Total Bilirubin (0.2-1.0) mg/dL AST (15-37) U/L ALT (12-78) U/L Alkaline Phosphatase (45-117) U/L Lactate Dehydrogenase (87-241) U/L Total Creatine Kinase (39-308) U/L CK-MB (CK-2) (0.5-3.6) ng/mL CK-MB (CK-2) % (0.0-4.0) % Troponin I (0.02-0.05) ng/mL B-Natriuretic Peptide (0-100) pg/mL Total Protein (6.4-8.2) g/dL Albumin (3.4-5.0) g/dL TSH (0.358-3.740) uIU/mL Urine Color (Yellw/Straw) Urine Clarity (Clear) Urine pH (5.0-8.5) Ur Specific [place] (1.002-1.035) Urine Protein (Neg-Trace) mg/dL Urine Glucose (UA) (Negative) mg/dL Urine Ketones (Negative) mg/dL Urine Occult Blood (Negative) Urine Nitrate (Negative) Urine Bilirubin (Negative) Urine Urobilinogen (Less than 2) mg/dL Ur Leukocyte Esterase (Negative) Urine RBC (0-3) /hpf Urine WBC (0-5) /hpf Ur Squamous Epith Cells (0-5) /hpf Urine Bacteria (None) /hpf Urine Mucus (Occasional) /lpf Micro UA Comment Ur Microscopic Review Urine Culture Comments Urine Eosinophils None seen (None Seen) /HPF Ur Random Creatinine 135 (27-300) mg/dL Ur Random Sodium 60 meq/L Vancomycin Trough (5.0-10.0) mcg/mL 02/16/18 02/16/18 02/17/18 Range/Units 20:23 23:34 04:37 WBC 11.3 H D (4.0-11.0) th/mm3 RBC 4.01 L (4.50-5.90) mil/mm3 Hgb 12.6 L (13.0-17.0) gm/dL Hct 36.9 L (39.0-51.0) % MCV 92.0 (80.0-100.0) fL MCH 31.5 (27.0-34.0) pg MCHC 34.2 (32.0-36.0) % RDW 14.5 (11.6-17.2) % Plt Count 103 L (150-450) th/mm3 MPV 10.0 (7.0-11.0) fL Prelim Diff (Auto) Neut % (Auto) 91.6 H (16.0-70.0) % Lymph % (Auto) 4.2 L (9.0-44.0) % [place] % (Auto) 4.2 (0.0-8.0) % Eos % (Auto) 0.0 (0.0-4.0) % Baso % (Auto) 0.0 (0.0-2.0) % Neut # (Auto) 10.3 H (1.8-7.7) th/mm3 Lymph # (Auto) 0.5 L (1.0-4.8) th/mm3 [place] # (Auto) 0.5 (0.0-0.9) th/mm3 Eos # (Auto) 0.0 (0.0-0.4) th/mm3 Baso # (Auto) 0.0 (0.0-0.2) th/mm3 WBC Differential . Seg Neuts % (Manual) (16-70) % Band Neuts % (Manual) (0-6) % Lymphocytes % (Manual) (9-44) % Monocytes % (Manual) (0-8) % Eosinophils % (Manual) (0-4) % Abs Neuts (Manual) (1.8-7.7) th/mm3 Nucleated RBCs/100 WBC (0-0) /100 WBC Differential Comment Auto diff final Platelet Estimate (Normal) Platelet Morphology (Normal) Ovalocytes (None) Acanthocytes (Spur) (None) Smear Path Review Haptoglobin (30-200) mg/dL Puncture Site Patient Temperature O2 Saturation (90-100) % ABG pH (7.380-7.420) ABG pCO2 (38-42) mmHg ABG pO2 (61-120) mmHg ABG HCO3 (22-26) mmol/L ABG O2 Content (12.0-20.0) Vol % ABG Base Excess (-2-2) mmol/L ABG Methemoglobin (0-2) % Jeffery Test Hemoglobin (12.0-16.0) G/DL Carboxyhemoglobin (0-4) % O2 Delivery Device Liter Flow L/M Vent Setting Inspired O2 % Critical Value Sodium (136-145) meq/L Potassium (3.5-5.1) meq/L Chloride (98-107) meq/L Carbon Dioxide (21.0-32.0) meq/L Anion Gap (5-15) meq/L BUN (7-18) mg/dL Creatinine (0.60-1.30) mg/dL Estimated GFR (>89) mL/min POC Glucose 138 H (68-110) mg/dl Random Glucose (74-106) mg/dL Lactic Acid (0.4-2.0) mmol/L Calcium (8.5-10.1) mg/dL Calcium Adj for Albumin (8.5-10.1) mg/dL Phosphorus (2.5-4.9) mg/dL Magnesium (1.5-2.5) mg/dL Total Bilirubin (0.2-1.0) mg/dL AST (15-37) U/L ALT (12-78) U/L Alkaline Phosphatase (45-117) U/L Lactate Dehydrogenase (87-241) U/L Total Creatine Kinase (39-308) U/L CK-MB (CK-2) (0.5-3.6) ng/mL CK-MB (CK-2) % (0.0-4.0) % Troponin I (0.02-0.05) ng/mL B-Natriuretic Peptide (0-100) pg/mL Total Protein (6.4-8.2) g/dL Albumin (3.4-5.0) g/dL TSH (0.358-3.740) uIU/mL Urine Color (Yellw/Straw) Urine Clarity (Clear) Urine pH (5.0-8.5) Ur Specific [place] (1.002-1.035) Urine Protein (Neg-Trace) mg/dL Urine Glucose (UA) (Negative) mg/dL Urine Ketones (Negative) mg/dL Urine Occult Blood (Negative) Urine Nitrate (Negative) Urine Bilirubin (Negative) Urine Urobilinogen (Less than 2) mg/dL Ur Leukocyte Esterase (Negative) Urine RBC (0-3) /hpf Urine WBC (0-5) /hpf Ur Squamous Epith Cells (0-5) /hpf Urine Bacteria (None) /hpf Urine Mucus (Occasional) /lpf Micro UA Comment Ur Microscopic Review Urine Culture Comments Urine Eosinophils (None Seen) /HPF Ur Random Creatinine (27-300) mg/dL Ur Random Sodium meq/L Vancomycin Trough (5.0-10.0) mcg/mL 02/17/18 02/17/18 02/17/18 Range/Units 04:37 04:37 11:36 WBC (4.0-11.0) th/mm3 RBC (4.50-5.90) mil/mm3 Hgb (13.0-17.0) gm/dL Hct (39.0-51.0) % MCV (80.0-100.0) fL MCH (27.0-34.0) pg MCHC (32.0-36.0) % RDW (11.6-17.2) % Plt Count (150-450) th/mm3 MPV (7.0-11.0) fL Prelim Diff (Auto) Neut % (Auto) (16.0-70.0) % Lymph % (Auto) (9.0-44.0) % [place] % (Auto) (0.0-8.0) % Eos % (Auto) (0.0-4.0) % Baso % (Auto) (0.0-2.0) % Neut # (Auto) (1.8-7.7) th/mm3 Lymph # (Auto) (1.0-4.8) th/mm3 [place] # (Auto) (0.0-0.9) th/mm3 Eos # (Auto) (0.0-0.4) th/mm3 Baso # (Auto) (0.0-0.2) th/mm3 WBC Differential Seg Neuts % (Manual) (16-70) % Band Neuts % (Manual) (0-6) % Lymphocytes % (Manual) (9-44) % Monocytes % (Manual) (0-8) % Eosinophils % (Manual) (0-4) % Abs Neuts (Manual) (1.8-7.7) th/mm3 Nucleated RBCs/100 WBC (0-0) /100 WBC Differential Comment Platelet Estimate (Normal) Platelet Morphology (Normal) Ovalocytes (None) Acanthocytes (Spur) (None) Smear Path Review Haptoglobin 405 H (30-200) mg/dL Puncture Site Patient Temperature O2 Saturation (90-100) % ABG pH (7.380-7.420) ABG pCO2 (38-42) mmHg ABG pO2 (61-120) mmHg ABG HCO3 (22-26) mmol/L ABG O2 Content (12.0-20.0) Vol % ABG Base Excess (-2-2) mmol/L ABG Methemoglobin (0-2) % Jeffery Test Hemoglobin (12.0-16.0) G/DL Carboxyhemoglobin (0-4) % O2 Delivery Device Liter Flow L/M Vent Setting Inspired O2 % Critical Value Sodium 146 H (136-145) meq/L Potassium 3.5 (3.5-5.1) meq/L Chloride 112 H (98-107) meq/L Carbon Dioxide 27.5 (21.0-32.0) meq/L Anion Gap 7 (5-15) meq/L BUN 20 H (7-18) mg/dL Creatinine 1.24 (0.60-1.30) mg/dL Estimated GFR 59 L (>89) mL/min POC Glucose (68-110) mg/dl Random Glucose 172 H (74-106) mg/dL Lactic Acid 2.3 H 1.8 (0.4-2.0) mmol/L Calcium 7.5 L (8.5-10.1) mg/dL Calcium Adj for Albumin (8.5-10.1) mg/dL Phosphorus (2.5-4.9) mg/dL Magnesium 2.3 (1.5-2.5) mg/dL Total Bilirubin (0.2-1.0) mg/dL AST (15-37) U/L ALT (12-78) U/L Alkaline Phosphatase (45-117) U/L Lactate Dehydrogenase 530 H (87-241) U/L Total Creatine Kinase (39-308) U/L CK-MB (CK-2) (0.5-3.6) ng/mL CK-MB (CK-2) % (0.0-4.0) % Troponin I 0.27 H (0.02-0.05) ng/mL B-Natriuretic Peptide (0-100) pg/mL Total Protein (6.4-8.2) g/dL Albumin (3.4-5.0) g/dL TSH 0.398 (0.358-3.740) uIU/mL Urine Color (Yellw/Straw) Urine Clarity (Clear) Urine pH (5.0-8.5) Ur Specific [place] (1.002-1.035) Urine Protein (Neg-Trace) mg/dL Urine Glucose (UA) (Negative) mg/dL Urine Ketones (Negative) mg/dL Urine Occult Blood (Negative) Urine Nitrate (Negative) Urine Bilirubin (Negative) Urine Urobilinogen (Less than 2) mg/dL Ur Leukocyte Esterase (Negative) Urine RBC (0-3) /hpf Urine WBC (0-5) /hpf Ur Squamous Epith Cells (0-5) /hpf Urine Bacteria (None) /hpf Urine Mucus (Occasional) /lpf Micro UA Comment Ur Microscopic Review Urine Culture Comments Urine Eosinophils (None Seen) /HPF Ur Random Creatinine (27-300) mg/dL Ur Random Sodium meq/L Vancomycin Trough (5.0-10.0) mcg/mL 02/17/18 02/17/18 02/17/18 Range/Units 11:39 16:28 17:31 WBC (4.0-11.0) th/mm3 RBC (4.50-5.90) mil/mm3 Hgb (13.0-17.0) gm/dL Hct (39.0-51.0) % MCV (80.0-100.0) fL MCH (27.0-34.0) pg MCHC (32.0-36.0) % RDW (11.6-17.2) % Plt Count (150-450) th/mm3 MPV (7.0-11.0) fL Prelim Diff (Auto) Neut % (Auto) (16.0-70.0) % Lymph % (Auto) (9.0-44.0) % [place] % (Auto) (0.0-8.0) % Eos % (Auto) (0.0-4.0) % Baso % (Auto) (0.0-2.0) % Neut # (Auto) (1.8-7.7) th/mm3 Lymph # (Auto) (1.0-4.8) th/mm3 [place] # (Auto) (0.0-0.9) th/mm3 Eos # (Auto) (0.0-0.4) th/mm3 Baso # (Auto) (0.0-0.2) th/mm3 WBC Differential Seg Neuts % (Manual) (16-70) % Band Neuts % (Manual) (0-6) % Lymphocytes % (Manual) (9-44) % Monocytes % (Manual) (0-8) % Eosinophils % (Manual) (0-4) % Abs Neuts (Manual) (1.8-7.7) th/mm3 Nucleated RBCs/100 WBC (0-0) /100 WBC Differential Comment Platelet Estimate (Normal) Platelet Morphology (Normal) Ovalocytes (None) Acanthocytes (Spur) (None) Smear Path Review Haptoglobin (30-200) mg/dL Puncture Site Patient Temperature O2 Saturation (90-100) % ABG pH (7.380-7.420) ABG pCO2 (38-42) mmHg ABG pO2 (61-120) mmHg ABG HCO3 (22-26) mmol/L ABG O2 Content (12.0-20.0) Vol % ABG Base Excess (-2-2) mmol/L ABG Methemoglobin (0-2) % Jeffery Test Hemoglobin (12.0-16.0) G/DL Carboxyhemoglobin (0-4) % O2 Delivery Device Liter Flow L/M Vent Setting Inspired O2 % Critical Value Sodium (136-145) meq/L Potassium 3.3 L (3.5-5.1) meq/L Chloride (98-107) meq/L Carbon Dioxide (21.0-32.0) meq/L Anion Gap (5-15) meq/L BUN (7-18) mg/dL Creatinine (0.60-1.30) mg/dL Estimated GFR (>89) mL/min POC Glucose 182 H 199 H (68-110) mg/dl Random Glucose (74-106) mg/dL Lactic Acid (0.4-2.0) mmol/L Calcium (8.5-10.1) mg/dL Calcium Adj for Albumin (8.5-10.1) mg/dL Phosphorus (2.5-4.9) mg/dL Magnesium (1.5-2.5) mg/dL Total Bilirubin (0.2-1.0) mg/dL AST (15-37) U/L ALT (12-78) U/L Alkaline Phosphatase (45-117) U/L Lactate Dehydrogenase (87-241) U/L Total Creatine Kinase (39-308) U/L CK-MB (CK-2) (0.5-3.6) ng/mL CK-MB (CK-2) % (0.0-4.0) % Troponin I (0.02-0.05) ng/mL B-Natriuretic Peptide (0-100) pg/mL Total Protein (6.4-8.2) g/dL Albumin (3.4-5.0) g/dL TSH (0.358-3.740) uIU/mL Urine Color (Yellw/Straw) Urine Clarity (Clear) Urine pH (5.0-8.5) Ur Specific [place] (1.002-1.035) Urine Protein (Neg-Trace) mg/dL Urine Glucose (UA) (Negative) mg/dL Urine Ketones (Negative) mg/dL Urine Occult Blood (Negative) Urine Nitrate (Negative) Urine Bilirubin (Negative) Urine Urobilinogen (Less than 2) mg/dL Ur Leukocyte Esterase (Negative) Urine RBC (0-3) /hpf Urine WBC (0-5) /hpf Ur Squamous Epith Cells (0-5) /hpf Urine Bacteria (None) /hpf Urine Mucus (Occasional) /lpf Micro UA Comment Ur Microscopic Review Urine Culture Comments Urine Eosinophils (None Seen) /HPF Ur Random Creatinine (27-300) mg/dL Ur Random Sodium meq/L Vancomycin Trough (5.0-10.0) mcg/mL 02/17/18 02/18/18 02/18/18 Range/Units 23:04 04:47 04:47 WBC 18.8 H (4.0-11.0) th/mm3 RBC 4.34 L (4.50-5.90) mil/mm3 Hgb 13.8 (13.0-17.0) gm/dL Hct 39.6 (39.0-51.0) % MCV 91.3 (80.0-100.0) fL MCH 31.8 (27.0-34.0) pg MCHC 34.9 (32.0-36.0) % RDW 14.6 (11.6-17.2) % Plt Count 190 D (150-450) th/mm3 MPV 9.7 (7.0-11.0) fL Prelim Diff (Auto) Neut % (Auto) 91.4 H (16.0-70.0) % Lymph % (Auto) 3.8 L (9.0-44.0) % [place] % (Auto) 4.6 (0.0-8.0) % Eos % (Auto) 0.0 (0.0-4.0) % Baso % (Auto) 0.2 (0.0-2.0) % Neut # (Auto) 17.2 H (1.8-7.7) th/mm3 Lymph # (Auto) 0.7 L (1.0-4.8) th/mm3 [place] # (Auto) 0.9 (0.0-0.9) th/mm3 Eos # (Auto) 0.0 (0.0-0.4) th/mm3 Baso # (Auto) 0.0 (0.0-0.2) th/mm3 WBC Differential . Seg Neuts % (Manual) (16-70) % Band Neuts % (Manual) (0-6) % Lymphocytes % (Manual) (9-44) % Monocytes % (Manual) (0-8) % Eosinophils % (Manual) (0-4) % Abs Neuts (Manual) (1.8-7.7) th/mm3 Nucleated RBCs/100 WBC (0-0) /100 WBC Differential Comment Auto diff final Platelet Estimate (Normal) Platelet Morphology (Normal) Ovalocytes (None) Acanthocytes (Spur) (None) Smear Path Review Haptoglobin (30-200) mg/dL Puncture Site Patient Temperature O2 Saturation (90-100) % ABG pH (7.380-7.420) ABG pCO2 (38-42) mmHg ABG pO2 (61-120) mmHg ABG HCO3 (22-26) mmol/L ABG O2 Content (12.0-20.0) Vol % ABG Base Excess (-2-2) mmol/L ABG Methemoglobin (0-2) % Jeffery Test Hemoglobin (12.0-16.0) G/DL Carboxyhemoglobin (0-4) % O2 Delivery Device Liter Flow L/M Vent Setting Inspired O2 % Critical Value Sodium 145 (136-145) meq/L Potassium 3.4 L (3.5-5.1) meq/L Chloride 109 H (98-107) meq/L Carbon Dioxide 26.9 (21.0-32.0) meq/L Anion Gap 9 (5-15) meq/L BUN 25 H (7-18) mg/dL Creatinine 1.19 (0.60-1.30) mg/dL Estimated GFR 61 L (>89) mL/min POC Glucose 132 H (68-110) mg/dl Random Glucose 136 H (74-106) mg/dL Lactic Acid (0.4-2.0) mmol/L Calcium 8.0 L (8.5-10.1) mg/dL Calcium Adj for Albumin (8.5-10.1) mg/dL Phosphorus 1.5 L (2.5-4.9) mg/dL Magnesium 2.1 (1.5-2.5) mg/dL Total Bilirubin (0.2-1.0) mg/dL AST (15-37) U/L ALT (12-78) U/L Alkaline Phosphatase (45-117) U/L Lactate Dehydrogenase (87-241) U/L Total Creatine Kinase (39-308) U/L CK-MB (CK-2) (0.5-3.6) ng/mL CK-MB (CK-2) % (0.0-4.0) % Troponin I (0.02-0.05) ng/mL B-Natriuretic Peptide (0-100) pg/mL Total Protein (6.4-8.2) g/dL Albumin (3.4-5.0) g/dL TSH (0.358-3.740) uIU/mL Urine Color (Yellw/Straw) Urine Clarity (Clear) Urine pH (5.0-8.5) Ur Specific [place] (1.002-1.035) Urine Protein (Neg-Trace) mg/dL Urine Glucose (UA) (Negative) mg/dL Urine Ketones (Negative) mg/dL Urine Occult Blood (Negative) Urine Nitrate (Negative) Urine Bilirubin (Negative) Urine Urobilinogen (Less than 2) mg/dL Ur Leukocyte Esterase (Negative) Urine RBC (0-3) /hpf Urine WBC (0-5) /hpf Ur Squamous Epith Cells (0-5) /hpf Urine Bacteria (None) /hpf Urine Mucus (Occasional) /lpf Micro UA Comment Ur Microscopic Review Urine Culture Comments Urine Eosinophils (None Seen) /HPF Ur Random Creatinine (27-300) mg/dL Ur Random Sodium meq/L Vancomycin Trough (5.0-10.0) mcg/mL 02/18/18 02/18/18 02/18/18 Range/Units 05:10 12:20 14:40 WBC (4.0-11.0) th/mm3 RBC (4.50-5.90) mil/mm3 Hgb (13.0-17.0) gm/dL Hct (39.0-51.0) % MCV (80.0-100.0) fL MCH (27.0-34.0) pg MCHC (32.0-36.0) % RDW (11.6-17.2) % Plt Count (150-450) th/mm3 MPV (7.0-11.0) fL Prelim Diff (Auto) Neut % (Auto) (16.0-70.0) % Lymph % (Auto) (9.0-44.0) % [place] % (Auto) (0.0-8.0) % Eos % (Auto) (0.0-4.0) % Baso % (Auto) (0.0-2.0) % Neut # (Auto) (1.8-7.7) th/mm3 Lymph # (Auto) (1.0-4.8) th/mm3 [place] # (Auto) (0.0-0.9) th/mm3 Eos # (Auto) (0.0-0.4) th/mm3 Baso # (Auto) (0.0-0.2) th/mm3 WBC Differential Seg Neuts % (Manual) (16-70) % Band Neuts % (Manual) (0-6) % Lymphocytes % (Manual) (9-44) % Monocytes % (Manual) (0-8) % Eosinophils % (Manual) (0-4) % Abs Neuts (Manual) (1.8-7.7) th/mm3 Nucleated RBCs/100 WBC (0-0) /100 WBC Differential Comment Platelet Estimate (Normal) Platelet Morphology (Normal) Ovalocytes (None) Acanthocytes (Spur) (None) Smear Path Review Haptoglobin (30-200) mg/dL Puncture Site Patient Temperature O2 Saturation (90-100) % ABG pH (7.380-7.420) ABG pCO2 (38-42) mmHg ABG pO2 (61-120) mmHg ABG HCO3 (22-26) mmol/L ABG O2 Content (12.0-20.0) Vol % ABG Base Excess (-2-2) mmol/L ABG Methemoglobin (0-2) % Jeffery Test Hemoglobin (12.0-16.0) G/DL Carboxyhemoglobin (0-4) % O2 Delivery Device Liter Flow L/M Vent Setting Inspired O2 % Critical Value Sodium (136-145) meq/L Potassium 3.3 L (3.5-5.1) meq/L Chloride (98-107) meq/L Carbon Dioxide (21.0-32.0) meq/L Anion Gap (5-15) meq/L BUN (7-18) mg/dL Creatinine (0.60-1.30) mg/dL Estimated GFR (>89) mL/min POC Glucose 127 H 155 H (68-110) mg/dl Random Glucose (74-106) mg/dL Lactic Acid (0.4-2.0) mmol/L Calcium (8.5-10.1) mg/dL Calcium Adj for Albumin (8.5-10.1) mg/dL Phosphorus 1.7 L (2.5-4.9) mg/dL Magnesium (1.5-2.5) mg/dL Total Bilirubin (0.2-1.0) mg/dL AST (15-37) U/L ALT (12-78) U/L Alkaline Phosphatase (45-117) U/L Lactate Dehydrogenase (87-241) U/L Total Creatine Kinase (39-308) U/L CK-MB (CK-2) (0.5-3.6) ng/mL CK-MB (CK-2) % (0.0-4.0) % Troponin I (0.02-0.05) ng/mL B-Natriuretic Peptide (0-100) pg/mL Total Protein (6.4-8.2) g/dL Albumin (3.4-5.0) g/dL TSH (0.358-3.740) uIU/mL Urine Color (Yellw/Straw) Urine Clarity (Clear) Urine pH (5.0-8.5) Ur Specific [place] (1.002-1.035) Urine Protein (Neg-Trace) mg/dL Urine Glucose (UA) (Negative) mg/dL Urine Ketones (Negative) mg/dL Urine Occult Blood (Negative) Urine Nitrate (Negative) Urine Bilirubin (Negative) Urine Urobilinogen (Less than 2) mg/dL Ur Leukocyte Esterase (Negative) Urine RBC (0-3) /hpf Urine WBC (0-5) /hpf Ur Squamous Epith Cells (0-5) /hpf Urine Bacteria (None) /hpf Urine Mucus (Occasional) /lpf Micro UA Comment Ur Microscopic Review Urine Culture Comments Urine Eosinophils (None Seen) /HPF Ur Random Creatinine (27-300) mg/dL Ur Random Sodium meq/L Vancomycin Trough (5.0-10.0) mcg/mL 02/18/18 02/18/18 02/18/18 Range/Units 17:16 18:05 20:58 WBC (4.0-11.0) th/mm3 RBC (4.50-5.90) mil/mm3 Hgb (13.0-17.0) gm/dL Hct (39.0-51.0) % MCV (80.0-100.0) fL MCH (27.0-34.0) pg MCHC (32.0-36.0) % RDW (11.6-17.2) % Plt Count (150-450) th/mm3 MPV (7.0-11.0) fL Prelim Diff (Auto) Neut % (Auto) (16.0-70.0) % Lymph % (Auto) (9.0-44.0) % [place] % (Auto) (0.0-8.0) % Eos % (Auto) (0.0-4.0) % Baso % (Auto) (0.0-2.0) % Neut # (Auto) (1.8-7.7) th/mm3 Lymph # (Auto) (1.0-4.8) th/mm3 [place] # (Auto) (0.0-0.9) th/mm3 Eos # (Auto) (0.0-0.4) th/mm3 Baso # (Auto) (0.0-0.2) th/mm3 WBC Differential Seg Neuts % (Manual) (16-70) % Band Neuts % (Manual) (0-6) % Lymphocytes % (Manual) (9-44) % Monocytes % (Manual) (0-8) % Eosinophils % (Manual) (0-4) % Abs Neuts (Manual) (1.8-7.7) th/mm3 Nucleated RBCs/100 WBC (0-0) /100 WBC Differential Comment Platelet Estimate (Normal) Platelet Morphology (Normal) Ovalocytes (None) Acanthocytes ([place]) (None) Smear Path Review Haptoglobin (30-200) mg/dL Puncture Site Right radial Right radial Patient Temperature 98.6 98.6 O2 Saturation 90 94 (90-100) % ABG pH 7.37 L 7.29 L* (7.380-7.420) ABG pCO2 42 53 H* (38-42) mmHg ABG pO2 69 96 (61-120) mmHg ABG HCO3 24 25 (22-26) mmol/L ABG O2 Content 17.7 17.4 (12.0-20.0) Vol % ABG Base Excess -0.8 -1.1 (-2-2) mmol/L ABG Methemoglobin 1.2 1.3 (0-2) % Jeffery Test Present Present Hemoglobin 13.9 13.0 (12.0-16.0) G/DL Carboxyhemoglobin 0.6 0.5 (0-4) % O2 Delivery Device Nasal cannula Ventilator Liter Flow 3.00 L/M Vent Setting Prvc/ac 18 vt 400 Inspired O2 70 % Critical Value No Yes Sodium (136-145) meq/L Potassium (3.5-5.1) meq/L Chloride (98-107) meq/L Carbon Dioxide (21.0-32.0) meq/L Anion Gap (5-15) meq/L BUN (7-18) mg/dL Creatinine (0.60-1.30) mg/dL Estimated GFR (>89) mL/min POC Glucose 157 H (68-110) mg/dl Random Glucose (74-106) mg/dL Lactic Acid (0.4-2.0) mmol/L Calcium (8.5-10.1) mg/dL Calcium Adj for Albumin (8.5-10.1) mg/dL Phosphorus (2.5-4.9) mg/dL Magnesium (1.5-2.5) mg/dL Total Bilirubin (0.2-1.0) mg/dL AST (15-37) U/L ALT (12-78) U/L Alkaline Phosphatase (45-117) U/L Lactate Dehydrogenase (87-241) U/L Total Creatine Kinase (39-308) U/L CK-MB (CK-2) (0.5-3.6) ng/mL CK-MB (CK-2) % (0.0-4.0) % Troponin I (0.02-0.05) ng/mL B-Natriuretic Peptide (0-100) pg/mL Total Protein (6.4-8.2) g/dL Albumin (3.4-5.0) g/dL TSH (0.358-3.740) uIU/mL Urine Color (Yellw/Straw) Urine Clarity (Clear) Urine pH (5.0-8.5) Ur Specific [place] (1.002-1.035) Urine Protein (Neg-Trace) mg/dL Urine Glucose (UA) (Negative) mg/dL Urine Ketones (Negative) mg/dL Urine Occult Blood (Negative) Urine Nitrate (Negative) Urine Bilirubin (Negative) Urine Urobilinogen (Less than 2) mg/dL Ur Leukocyte Esterase (Negative) Urine RBC (0-3) /hpf Urine WBC (0-5) /hpf Ur Squamous Epith Cells (0-5) /hpf Urine Bacteria (None) /hpf Urine Mucus (Occasional) /lpf Micro UA Comment Ur Microscopic Review Urine Culture Comments Urine Eosinophils (None Seen) /HPF Ur Random Creatinine (27-300) mg/dL Ur Random Sodium meq/L Vancomycin Trough (5.0-10.0) mcg/mL 02/18/18 02/19/18 02/19/18 Range/Units 23:30 03:14 03:14 WBC 14.6 H (4.0-11.0) th/mm3 RBC 3.89 L (4.50-5.90) mil/mm3 Hgb 12.1 L (13.0-17.0) gm/dL Hct 35.4 L (39.0-51.0) % MCV 91.1 (80.0-100.0) fL MCH 31.3 (27.0-34.0) pg MCHC 34.3 (32.0-36.0) % RDW 14.7 (11.6-17.2) % Plt Count 188 (150-450) th/mm3 MPV 9.1 (7.0-11.0) fL Prelim Diff (Auto) Neut % (Auto) 92.8 H (16.0-70.0) % Lymph % (Auto) 3.1 L (9.0-44.0) % [place] % (Auto) 3.9 (0.0-8.0) % Eos % (Auto) 0.0 (0.0-4.0) % Baso % (Auto) 0.2 (0.0-2.0) % Neut # (Auto) 13.5 H (1.8-7.7) th/mm3 Lymph # (Auto) 0.4 L (1.0-4.8) th/mm3 [place] # (Auto) 0.6 (0.0-0.9) th/mm3 Eos # (Auto) 0.0 (0.0-0.4) th/mm3 Baso # (Auto) 0.0 (0.0-0.2) th/mm3 WBC Differential . Seg Neuts % (Manual) (16-70) % Band Neuts % (Manual) (0-6) % Lymphocytes % (Manual) (9-44) % Monocytes % (Manual) (0-8) % Eosinophils % (Manual) (0-4) % Abs Neuts (Manual) (1.8-7.7) th/mm3 Nucleated RBCs/100 WBC (0-0) /100 WBC Differential Comment Auto diff final Platelet Estimate (Normal) Platelet Morphology (Normal) Ovalocytes (None) Acanthocytes (Spur) (None) Smear Path Review Haptoglobin (30-200) mg/dL Puncture Site Patient Temperature O2 Saturation (90-100) % ABG pH (7.380-7.420) ABG pCO2 (38-42) mmHg ABG pO2 (61-120) mmHg ABG HCO3 (22-26) mmol/L ABG O2 Content (12.0-20.0) Vol % ABG Base Excess (-2-2) mmol/L ABG Methemoglobin (0-2) % Jeffery Test Hemoglobin (12.0-16.0) G/DL Carboxyhemoglobin (0-4) % O2 Delivery Device Liter Flow L/M Vent Setting Inspired O2 % Critical Value Sodium 145 (136-145) meq/L Potassium 3.8 (3.5-5.1) meq/L Chloride 112 H (98-107) meq/L Carbon Dioxide 26.9 (21.0-32.0) meq/L Anion Gap 6 (5-15) meq/L BUN 31 H (7-18) mg/dL Creatinine 1.32 H (0.60-1.30) mg/dL Estimated GFR 54 L (>89) mL/min POC Glucose 204 H (68-110) mg/dl Random Glucose 189 H (74-106) mg/dL Lactic Acid (0.4-2.0) mmol/L Calcium 7.2 L* D (8.5-10.1) mg/dL Calcium Adj for Albumin 8.6 (8.5-10.1) mg/dL Phosphorus 3.5 D (2.5-4.9) mg/dL Magnesium 2.3 (1.5-2.5) mg/dL Total Bilirubin 0.4 (0.2-1.0) mg/dL AST 82 H (15-37) U/L ALT 72 (12-78) U/L Alkaline Phosphatase 44 L (45-117) U/L Lactate Dehydrogenase (87-241) U/L Total Creatine Kinase (39-308) U/L CK-MB (CK-2) (0.5-3.6) ng/mL CK-MB (CK-2) % (0.0-4.0) % Troponin I (0.02-0.05) ng/mL B-Natriuretic Peptide (0-100) pg/mL Total Protein 5.6 L D (6.4-8.2) g/dL Albumin 2.2 L (3.4-5.0) g/dL TSH (0.358-3.740) uIU/mL Urine Color (Yellw/Straw) Urine Clarity (Clear) Urine pH (5.0-8.5) Ur Specific [place] (1.002-1.035) Urine Protein (Neg-Trace) mg/dL Urine Glucose (UA) (Negative) mg/dL Urine Ketones (Negative) mg/dL Urine Occult Blood (Negative) Urine Nitrate (Negative) Urine Bilirubin (Negative) Urine Urobilinogen (Less than 2) mg/dL Ur Leukocyte Esterase (Negative) Urine RBC (0-3) /hpf Urine WBC (0-5) /hpf Ur Squamous Epith Cells (0-5) /hpf Urine Bacteria (None) /hpf Urine Mucus (Occasional) /lpf Micro UA Comment Ur Microscopic Review Urine Culture Comments Urine Eosinophils (None Seen) /HPF Ur Random Creatinine (27-300) mg/dL Ur Random Sodium meq/L Vancomycin Trough (5.0-10.0) mcg/mL 02/19/18 02/19/18 02/19/18 Range/Units 06:19 11:26 16:15 WBC (4.0-11.0) th/mm3 RBC (4.50-5.90) mil/mm3 Hgb (13.0-17.0) gm/dL Hct (39.0-51.0) % MCV (80.0-100.0) fL MCH (27.0-34.0) pg MCHC (32.0-36.0) % RDW (11.6-17.2) % Plt Count (150-450) th/mm3 MPV (7.0-11.0) fL Prelim Diff (Auto) Neut % (Auto) (16.0-70.0) % Lymph % (Auto) (9.0-44.0) % [place] % (Auto) (0.0-8.0) % Eos % (Auto) (0.0-4.0) % Baso % (Auto) (0.0-2.0) % Neut # (Auto) (1.8-7.7) th/mm3 Lymph # (Auto) (1.0-4.8) th/mm3 [place] # (Auto) (0.0-0.9) th/mm3 Eos # (Auto) (0.0-0.4) th/mm3 Baso # (Auto) (0.0-0.2) th/mm3 WBC Differential Seg Neuts % (Manual) (16-70) % Band Neuts % (Manual) (0-6) % Lymphocytes % (Manual) (9-44) % Monocytes % (Manual) (0-8) % Eosinophils % (Manual) (0-4) % Abs Neuts (Manual) (1.8-7.7) th/mm3 Nucleated RBCs/100 WBC (0-0) /100 WBC Differential Comment Platelet Estimate (Normal) Platelet Morphology (Normal) Ovalocytes (None) Acanthocytes (Spur) (None) Smear Path Review Haptoglobin (30-200) mg/dL Puncture Site Patient Temperature O2 Saturation (90-100) % ABG pH (7.380-7.420) ABG pCO2 (38-42) mmHg ABG pO2 (61-120) mmHg ABG HCO3 (22-26) mmol/L ABG O2 Content (12.0-20.0) Vol % ABG Base Excess (-2-2) mmol/L ABG Methemoglobin (0-2) % Jeffery Test Hemoglobin (12.0-16.0) G/DL Carboxyhemoglobin (0-4) % O2 Delivery Device Liter Flow L/M Vent Setting Inspired O2 % Critical Value Sodium (136-145) meq/L Potassium (3.5-5.1) meq/L Chloride (98-107) meq/L Carbon Dioxide (21.0-32.0) meq/L Anion Gap (5-15) meq/L BUN (7-18) mg/dL Creatinine (0.60-1.30) mg/dL Estimated GFR (>89) mL/min POC Glucose 154 H 132 H (68-110) mg/dl Random Glucose (74-106) mg/dL Lactic Acid (0.4-2.0) mmol/L Calcium (8.5-10.1) mg/dL Calcium Adj for Albumin (8.5-10.1) mg/dL Phosphorus (2.5-4.9) mg/dL Magnesium (1.5-2.5) mg/dL Total Bilirubin (0.2-1.0) mg/dL AST (15-37) U/L ALT (12-78) U/L Alkaline Phosphatase (45-117) U/L Lactate Dehydrogenase (87-241) U/L Total Creatine Kinase (39-308) U/L CK-MB (CK-2) (0.5-3.6) ng/mL CK-MB (CK-2) % (0.0-4.0) % Troponin I (0.02-0.05) ng/mL B-Natriuretic Peptide (0-100) pg/mL Total Protein (6.4-8.2) g/dL Albumin (3.4-5.0) g/dL TSH (0.358-3.740) uIU/mL Urine Color (Yellw/Straw) Urine Clarity (Clear) Urine pH (5.0-8.5) Ur Specific [place] (1.002-1.035) Urine Protein (Neg-Trace) mg/dL Urine Glucose (UA) (Negative) mg/dL Urine Ketones (Negative) mg/dL Urine Occult Blood (Negative) Urine Nitrate (Negative) Urine Bilirubin (Negative) Urine Urobilinogen (Less than 2) mg/dL Ur Leukocyte Esterase (Negative) Urine RBC (0-3) /hpf Urine WBC (0-5) /hpf Ur Squamous Epith Cells (0-5) /hpf Urine Bacteria (None) /hpf Urine Mucus (Occasional) /lpf Micro UA Comment Ur Microscopic Review Urine Culture Comments Urine Eosinophils (None Seen) /HPF Ur Random Creatinine (27-300) mg/dL Ur Random Sodium meq/L Vancomycin Trough 7.8 (5.0-10.0) mcg/mL 02/19/18 Range/Units 20:37 WBC (4.0-11.0) th/mm3 RBC (4.50-5.90) mil/mm3 Hgb (13.0-17.0) gm/dL Hct (39.0-51.0) % MCV (80.0-100.0) fL MCH (27.0-34.0) pg MCHC (32.0-36.0) % RDW (11.6-17.2) % Plt Count (150-450) th/mm3 MPV (7.0-11.0) fL Prelim Diff (Auto) Neut % (Auto) (16.0-70.0) % Lymph % (Auto) (9.0-44.0) % [place] % (Auto) (0.0-8.0) % Eos % (Auto) (0.0-4.0) % Baso % (Auto) (0.0-2.0) % Neut # (Auto) (1.8-7.7) th/mm3 Lymph # (Auto) (1.0-4.8) th/mm3 [place] # (Auto) (0.0-0.9) th/mm3 Eos # (Auto) (0.0-0.4) th/mm3 Baso # (Auto) (0.0-0.2) th/mm3 WBC Differential Seg Neuts % (Manual) (16-70) % Band Neuts % (Manual) (0-6) % Lymphocytes % (Manual) (9-44) % Monocytes % (Manual) (0-8) % Eosinophils % (Manual) (0-4) % Abs Neuts (Manual) (1.8-7.7) th/mm3 Nucleated RBCs/100 WBC (0-0) /100 WBC Differential Comment Platelet Estimate (Normal) Platelet Morphology (Normal) Ovalocytes (None) Acanthocytes (Spur) (None) Smear Path Review Haptoglobin (30-200) mg/dL Puncture Site Right radial Patient Temperature 98.6 O2 Saturation 96 (90-100) % ABG pH 7.38 (7.380-7.420) ABG pCO2 43 H (38-42) mmHg ABG pO2 109 (61-120) mmHg ABG HCO3 25 (22-26) mmol/L ABG O2 Content 16.3 (12.0-20.0) Vol % ABG Base Excess 0.2 (-2-2) mmol/L ABG Methemoglobin 1.4 (0-2) % Jeffery Test Present Hemoglobin 12.0 (12.0-16.0) G/DL Carboxyhemoglobin 0.5 (0-4) % O2 Delivery Device Ventilator Liter Flow L/M Vent Setting Prvc/ac Inspired O2 45 % Critical Value No Sodium (136-145) meq/L Potassium (3.5-5.1) meq/L Chloride (98-107) meq/L Carbon Dioxide (21.0-32.0) meq/L Anion Gap (5-15) meq/L BUN (7-18) mg/dL Creatinine (0.60-1.30) mg/dL Estimated GFR (>89) mL/min POC Glucose (68-110) mg/dl Random Glucose (74-106) mg/dL Lactic Acid (0.4-2.0) mmol/L Calcium (8.5-10.1) mg/dL Calcium Adj for Albumin (8.5-10.1) mg/dL Phosphorus (2.5-4.9) mg/dL Magnesium (1.5-2.5) mg/dL Total Bilirubin (0.2-1.0) mg/dL AST (15-37) U/L ALT (12-78) U/L Alkaline Phosphatase (45-117) U/L Lactate Dehydrogenase (87-241) U/L Total Creatine Kinase (39-308) U/L CK-MB (CK-2) (0.5-3.6) ng/mL CK-MB (CK-2) % (0.0-4.0) % Troponin I (0.02-0.05) ng/mL B-Natriuretic Peptide (0-100) pg/mL Total Protein (6.4-8.2) g/dL Albumin (3.4-5.0) g/dL TSH (0.358-3.740) uIU/mL Urine Color (Yellw/Straw) Urine Clarity (Clear) Urine pH (5.0-8.5) Ur Specific [place] (1.002-1.035) Urine Protein (Neg-Trace) mg/dL Urine Glucose (UA) (Negative) mg/dL Urine Ketones (Negative) mg/dL Urine Occult Blood (Negative) Urine Nitrate (Negative) Urine Bilirubin (Negative) Urine Urobilinogen (Less than 2) mg/dL Ur Leukocyte Esterase (Negative) Urine RBC (0-3) /hpf Urine WBC (0-5) /hpf Ur Squamous Epith Cells (0-5) /hpf Urine Bacteria (None) /hpf Urine Mucus (Occasional) /lpf Micro UA Comment Ur Microscopic Review Urine Culture Comments Urine Eosinophils (None Seen) /HPF Ur Random Creatinine (27-300) mg/dL Ur Random Sodium meq/L Vancomycin Trough (5.0-10.0) mcg/mL Imaging Data Radiologist's impression: Chest X-Ray 02/13/18 19:41 CONCLUSION: 1. Negative portable chest. Head CT 02/13/18 19:41 CONCLUSION: 1. Mild periventricular white matter small vessel ischemic changes bilaterally. 2. No acute infarct, acute hemorrhage, mass effect or extra axial fluid collections. . Chest X-Ray 02/15/18 14:58 CONCLUSION: 1. Mild streakiness is noted involving the right medial lung base consistent with possible developing infiltrates. Clinical correlation is recommended. 2. Minimal increased perihilar streakiness is noted bilaterally. Chest CT 02/16/18 00:00 CONCLUSION: 1. Nonspecific bilateral pneumonia as described. 2. Tiny right pleural effusion. 3. Upper limits of normal to slightly enlarged mediastinal and hilar lymph nodes. Chest X-Ray 02/16/18 00:00 CONCLUSION: 1. Persistent hazy opacification of the medial right lung base. Recommend clinical correlation for infection. 2. Hyperinflation with streaky opacities radiating from the des, which may be related to underlying chronic obstructive pulmonary disease. Abdomen/Bladder Ultrasound 02/16/18 18:18 CONCLUSION: 1. Echogenic kidneys consistent with medical renal disease. 2. No sonographic evidence for obstructive uropathy. 3. 5 mm cyst in the inferior pole the right kidney. 4. Nonspecific prostate enlargement. Chest X-Ray 02/18/18 00:00 CONCLUSION: NG looped back on itself in the esophagus. This should be repositioned. Endotracheal tube in good position. Worsening bilateral airspace disease since earlier exam. Small effusions. Chest X-Ray 02/18/18 06:00 CONCLUSION: Modest worsening bilateral basilar and upper lobe airspace disease. Small bilateral effusions. Chest X-Ray 02/19/18 06:00 CONCLUSION: Airspace disease seen at the bases being worse on the right. Underlying interstitial disease. Some degree of effusion especially on the right cannot be excluded. Chest X-Ray 02/19/18 07:55 CONCLUSION: 1. Left IJ central line in good position without pneumothorax. 2. Persistent right lower lobe airspace disease and probable small pleural effusion. 3. Persistent minimal airspace disease at the left lung base. ECG Data Attestation: I personally reviewed and interpreted this ECG as follows: Interpretation: Twelve-lead EKG was reviewed by me. Normal sinus rhythm, normal axis, nonspecific ST-T wave changes, PVC. Heart rate of 83 bpm per Discharge Plan Discharge Disposition Patient Disposition: ED Admit(ED Internal Use Only) Discharge Order Discharge Orders: ED Use Only Admit Order (Routine); Ordered 02/13/18 Ordered By: Tu Trinidad Physicians Team ED Provider: Tu Trinidad Primary Care Provider: Yogi Lee Attending Provider: Cayden Du Other Providers: Benigno Kong ; Jessie Valdez ; Branden Sawant V ; Carolynn Moss Status ED Status: Left Department Discharge Information Discharge Date/Time: 02/14/18 01:41
[2018-02-13] MEDS ORDERED: Vancomycin Consult Pharmacy OTHER PRN (23:53)
[2018-02-13] MEDS ORDERED: Bisacodyl 10 MG Supp RECTAL PRN (23:57)
--- NOTE | 2018-02-14 00:15 | P.HP ---
History of Present Illness Service: [facility] Primary Care Physician: Yogi Lee MD History of Present Illness: 67-year-old male with a past medical history significant for peripheral vascular disease s/p right leg stent on Plavix, COPD, hypertension and hyperlipidemia presents to the emergency department for the evaluation of altered mental status. The patient is unclear as to the events that transpired earlier this evening that resulted in his coming to the emergency department for further evaluation. The patient reports he has been feeling ill for approximately 4-5 days. He states he has had a nonproductive cough, fever and diarrhea with accompanying shortness of breath. He endorses associated nausea and anorexia. Denies any chest pain. No focal neurologic deficits. According to his neighbor who is bedside, they went to check on him today and found his door to be partially ajar. They found the patient lying down and he could not remember what day it was. He stated he had not had anything to eat or drink in many days. Inpatient Certification: I certify that the inpatient services were ordered in accordance with Medicare regulations governing the order. This includes certification that hospital inpatient services are reasonable and necessary and in the case of services not specified as inpatient-only under 42 CFR 419.22(n), that they are appropriately provided as inpatient services in accordance to with the 2-midnight benchmark under 43 CFR 412.3(e) Estimated Total Length of Stay (Days): 2 Plans for Post Hospital Care: Not yet determined Review of Systems All other systems reviewed negative except as [facility] - History History Provided By: Patient - Medical History Medical History: Medical History (Last Updated 02/14/18 @ 00:08 by Hawa Pena MD) COPD (chronic obstructive pulmonary disease) Hyperlipidemia Peripheral vascular disease Hypertension - Surgical History Surgical History: Surgical History (Last Reviewed 02/14/18 @ 00:08 by Hawa Pena MD) History of hernia repair - Family History Family History: Family History (Last Updated 02/14/18 @ 00:08 by Hawa Pena MD) Other Family history normal - Social History I have reviewed the patient's Social History: Yes - Tobacco History Smoking Status: Never smoker - Alcohol History How Often Do You Have a Drink Containing Alcohol: Never - Substance Use History Substance History: No History of Abuse - Travel History Recent Travel in the [place] Within the Last 8 Weeks: No Recent Travel Out of the Country Within the Last 8 Weeks: No - Immunization History Tetanus Immunization: >5 Years Medications and Allergies Active Medications: Active Medications Acetaminophen (Tylenol) 650 mg PO Q4H PRN PRN Reason: Temp > 100.4 Al Hydroxide/Mg Hydroxide (Milk Of Magnesia Liq) 30 ml PO Q12H PRN PRN Reason: Mild Constipation Albuterol (Duoneb Neb (Prn)) 1 ampul NEB Q4HR NEB PRN PRN Reason: sob/wheezing Atorvastatin Calcium (Lipitor) 80 mg PO DAILY ERWIN Bisacodyl (Dulcolax Supp) 10 mg RECTAL DAILY PRN PRN Reason: SEVERE CONSITIPATION Clopidogrel Bisulfate (Plavix) 75 mg PO DAILY ERWIN Heparin Sodium (Porcine) (Heparin Inj) 5,000 units SQ Q12H ERWIN Piperacillin/Tazobactam/Dextrose (Zosyn 4.5 Gm Premix) 4.5 gm in 100 mls @ 200 mls/hr IV.SIG ONCE ERWIN Last Infusion: 02/13/18 21:23 Dose: Infused Vancomycin HCl 1,000 mg/ (Sodium Chloride) 250 mls @ 250 mls/hr IV.SIG LICENSED PRACTICAL VOCATIONAL NURSE ERWIN Last Infusion: 02/13/18 22:59 Dose: Infused Piperacillin/Tazobactam/Dextrose (Zosyn 4.5 Gm Premix) 4.5 gm in 100 mls @ 200 mls/hr IV.SIG ONCE ERWIN Lactulose (Lactulose Liq) 30 ml PO DAILY PRN PRN Reason: SEVERE CONSITIPATION Allergies Allergy/AdvReac Type Severity Reaction Status Date / Time No Known Allergies Allergy Verified 02/13/18 18:38 Home Medications Medication Instructions Recorded Confirmed Type atorvastatin 80 mg PO DAILY 02/13/18 02/13/18 History clopidogrel 75 mg PO DAILY 02/13/18 02/13/18 History codeine-guaifenesin [Virtussin AC] 5 ml PO Q6H PRN 02/13/18 02/13/18 History hydrocodone-acetaminophen 1 tab PO Q6H 02/13/18 02/13/18 History ibuprofen 800 mg PO TID 02/13/18 02/13/18 History olmesartan 40 mg PO DAILY 02/13/18 02/13/18 History vitamin T34-pqqad acid 100 mcg SUBLINGUAL DAILY 02/13/18 02/13/18 History Exam Vital signs: Vital Signs 02/13/18 18:26 02/13/18 18:43 02/13/18 20:54 Temperature 100.5 F H Pulse Rate 92 H 78 Respiratory Rate 18 18 Blood Pressure 114/65 142/63 H Pulse Oximetry 93 L 94 L 92 L 02/13/18 20:55 02/13/18 22:13 02/13/18 23:13 Temperature Pulse Rate 71 63 68 Respiratory Rate 20 17 17 Blood Pressure 120/63 130/68 131/70 Pulse Oximetry 92 L 96 96 Intake & Output 02/13/18 02/13/18 02/14/18 06:59 18:59 06:59 Intake Total 2350 / 2350 Balance 2350 / 2350 Weight 72.575 kg Intake: IV 2350 / 2350 Zosyn 4.5 GM Premix 4.5 gm In 100 / 100 100 ml @ 200 mls/hr IV.SIG ONCE ERWIN Rx#:[id number] NS Inj 1,000 ML @ 2000 mls/hr 1999 / 2000 IV.SIG Q30M ERWIN Rx#:[id number] Vancomycin Inj 1,000 MG In NS 250 / 250 Inj 250 ML @ 250 mls/hr IV.SIG LICENSED PRACTICAL VOCATIONAL NURSE ERWIN Rx#:[id number] Narrative: Gen.: No acute distress Head: Normocephalic. Atraumatic. EENT: Pupils equal round and reactive to light. Nose without drainage. Airway intact. Throat without injection. Cardiovascular: Regular rate and rhythm. No murmurs, rubs or gallops. Respiratory: Bilateral rhonchi and poor air movement. No wheezes. Abdomen: Soft, nontender, nondistended. No peritoneal signs. Musculoskeletal: No gross deformities. No edema. Skin: No obvious rashes or erythema. Neuro: Sensory and motor grossly intact. Cranial nerves II through XII grossly intact. Results - Labs CBC & Chem 7: 02/13/18 20:00 02/13/18 20:00 Labs: Laboratory Results - last 24 hr 02/13/18 02/13/18 02/13/18 20:00 20:00 20:00 WBC 9.6 RBC 4.69 Hgb 14.7 Hct 43.5 MCV 92.9 MCH 31.3 MCHC 33.7 RDW 14.4 Plt Count 111 L MPV 9.0 Neut % (Auto) 82.7 H Lymph % (Auto) 10.5 [place] % (Auto) 6.7 Eos % (Auto) 0.0 Baso % (Auto) 0.1 Neut # (Auto) 7.9 H Lymph # (Auto) 1.0 [place] # (Auto) 0.6 Eos # (Auto) 0.0 Baso # (Auto) 0.0 WBC Differential . Differential Comment Auto diff final Sodium 142 Potassium 3.4 L Chloride 106 Carbon Dioxide 27.3 Anion Gap 9 BUN 32 H Creatinine 1.75 H Estimated GFR 39 L Random Glucose 129 H Lactic Acid 2.1 H Calcium 7.8 L Magnesium 2.0 Total Bilirubin 0.3 AST 72 H ALT 41 Alkaline Phosphatase 45 Troponin I 0.09 H Total Protein 6.9 Albumin 3.2 L Urine Color Urine Clarity Urine pH Ur Specific [place] Urine Protein Urine Glucose (UA) Urine Ketones Urine Occult Blood Urine Nitrate Urine Bilirubin Urine Urobilinogen Ur Leukocyte Esterase Urine RBC Urine WBC Ur Squamous Epith Cells Urine Bacteria Urine Mucus Micro UA Comment Ur Microscopic Review Urine Culture Comments 02/13/18 02/13/18 20:36 22:35 WBC RBC Hgb Hct MCV MCH MCHC RDW Plt Count MPV Neut % (Auto) Lymph % (Auto) [place] % (Auto) Eos % (Auto) Baso % (Auto) Neut # (Auto) Lymph # (Auto) [place] # (Auto) Eos # (Auto) Baso # (Auto) WBC Differential Differential Comment Sodium Potassium Chloride Carbon Dioxide Anion Gap BUN Creatinine Estimated GFR Random Glucose Lactic Acid 0.9 Calcium Magnesium Total Bilirubin AST ALT Alkaline Phosphatase Troponin I Total Protein Albumin Urine Color Yellow Urine Clarity Hazy H Urine pH 5.0 Ur Specific [place] 1.021 Urine Protein 100 H Urine Glucose (UA) Negative Urine Ketones Negative Urine Occult Blood Small H Urine Nitrate Negative Urine Bilirubin Negative Urine Urobilinogen Less than 2 Ur Leukocyte Esterase Negative Urine RBC 8 H Urine WBC 4 Ur Squamous Epith Cells <1 Urine Bacteria Rare H Urine Mucus Few H Micro UA Comment Culture not ind Ur Microscopic Review Not Reportable Urine Culture Comments Culture not ind - Imaging Impressions Chest X-Ray 02/13/18 19:41 CONCLUSION: 1. Negative portable chest. Head CT 02/13/18 19:41 CONCLUSION: 1. Mild periventricular white matter small vessel ischemic changes bilaterally. 2. No acute infarct, acute hemorrhage, mass effect or extra axial fluid collections. . Caprini VTE Risk Assessment Caprini VTE Risk Assessment: Moderate/High Risk (score >= 2) Caprini Risk Assessment Model: Point Value = 1 Point Value = 2 Point Value = 3 Point Value = 5 Age 41-60 Minor surgery BMI > 25 kg/m2 Swollen legs Varicose veins or History of unexplained or recurrent spontaneous Oral contraceptives or hormone replacement Sepsis (< 1 month) Serious lung disease, including pneumonia (< 1 month) Abnormal pulmonary function Acute myocardial infarction Congestive heart failure (< 1 month) History of inflammatory bowel disease Medical patient at bed rest Age 61-74 Arthroscopic surgery Major open surgery (> 45 min) Laparoscopic surgery (> 45 min) Malignancy Confined to bed (> 72 hours) Immobilizing plaster cast Central venous access Age >= 75 History of VTE Family history of VTE Factor V Leiden Prothrombin [id number] Lupus anticoagulant Anticardiolipin antibodies Elevated serum homocysteine Heparin-induced thrombocytopenia Other congenital or acquired thrombophilia Stroke (< 1 month) Elective arthroplasty Hip, pelvis, or leg fracture Acute spinal cord injury (< 1 month) Prophylaxis Regimen: Total Risk Factor Score Risk Level Prophylaxis Regimen 0-1 Low Early ambulation 2 Moderate Order ONE of the following: *Sequential Compression Device (SCD) *Heparin 5000 units SQ BID 3-4 Higher Order ONE of the following medications: *Heparin 5000 units SQ TID *Enoxaparin/Lovenox 40 mg SQ daily (WT < 150 kg, CrCl > 30 mL/min) *Enoxaparin/Lovenox 30 mg SQ daily (WT < 150 kg, CrCl > 10-29 mL/min) *Enoxaparin/Lovenox 30 mg SQ BID (WT < 150 kg, CrCl > 30 mL/min) AND/OR *Sequential Compression Device (SCD) 5 or more Highest Order ONE of the following medications: *Heparin 5000 units SQ TID (Preferred with Epidurals) *Enoxaparin/Lovenox 40 mg SQ daily (WT < 150 kg, CrCl > 30 mL/min) *Enoxaparin/Lovenox 30 mg SQ daily (WT < 150 kg, CrCl > 10-29 mL/min) *Enoxaparin/Lovenox 30 mg SQ BID (WT < 150 kg, CrCl > 30 mL/min) AND *Sequential Compression Device (SCD) Assessment and Plan - Plan Assessment/plan: 1. Elevated troponin Patient denies chest pain, endorses shortness of breath Troponin 0.09 EKG shows sinus rhythm with PVCs, no ST segment elevation or depression, personally reviewed ACS rule out pending; serial troponins/EKGs 2. Clinical pneumonia Patient with fever, shortness of breath and cough Treated for sepsis in the emergency department with vancomycin/Zosyn, elevated lactic acid at 2.1, now 0.9 No leukocytosis, + fever Continue IV antibiotics pending culture results 3. Altered mental status Resolved Head CT negative Monitor 4. Peripheral vascular disease Patient reports stent in the right lower extremity Continue Plavix 5. Hypertension/hyperlipidemia Continue home medications Holding ARB for MONICA 6. Shortness of breath/COPD Supplemental oxygen as needed Duo nebs 7. MONICA BUN/creatinine 32/1.75 Likely secondary to dehydration IV fluid hydration Monitor renal function DN N.p.o. Electrolytes: Status post p.o. repletion of potassium, monitor BMP NS at 100 cc/hour Heparin
[2018-02-14] MEDS: Sod Chloride 0.9% Inj 1,000 ML IV.CONT SCH ×3 (01:28→21:38)
[2018-02-14] MEDS: Piperacil/Tazo 3.375 GM Premix 3.375 GM/50 ML PIGGYBACK IV.SIG SCH ×4 (01:55→20:00)
[2018-02-14 03:28] LABS: Troponin I 0.09 ng/mL (0.02-0.05)
[2018-02-14 03:41] LABS: CKMB Percent 0.2 % (0.0-4.0); Creatine Kinase MB 1.5 ng/mL (0.5-3.6)
[2018-02-14 09:07] LABS: Troponin I 0.08 ng/mL (0.02-0.05)
[2018-02-14 09:20] LABS: CKMB Percent 0.3 % (0.0-4.0); Creatine Kinase MB 1.9 ng/mL (0.5-3.6)
[2018-02-14] MEDS: Senna/Docusate Sodium 8.6/50 MG Tablet PO SCH ×2 (09:50→21:43)
--- NOTE | 2018-02-14 10:48 | P.PNIM ---
Subjective Interval history: Follow up cough, clinical pneumonia. Patient denies any chest pain. More alert today. Still complaining of a cough. No fever or chills. Physical Exam Vital signs: Last Vital Signs Temp 98.6 F 02/14/18 08:00 Pulse 62 02/14/18 08:00 Resp 17 02/14/18 08:00 BP 133/78 02/14/18 08:00 Pulse Ox 94 L 02/14/18 08:00 Intake & Output 02/12/18 02/13/18 02/14/18 02/15/18 06:59 06:59 06:59 06:59 Intake Total 2400 / 2400 50 / 50 Balance 2400 / 2400 50 / 50 Weight 68.9 kg Narrative: Gen.: No acute distress Head: Normocephalic. Atraumatic. EENT: Pupils equal round and reactive to light. Nose without drainage. Airway intact. Throat without injection. Cardiovascular: Regular rate and rhythm. No murmurs, rubs or gallops. Respiratory: Bilateral rhonchi and poor air movement. No wheezes. Abdomen: Soft, nontender, nondistended. No peritoneal signs. Musculoskeletal: No gross deformities. No edema. Skin: No obvious rashes or erythema. Neuro: Sensory and motor grossly intact. Alert and oriented. Cranial nerves II through XII grossly intact. Results Labs CBC & Chem 7: 02/13/18 20:00 02/13/18 20:00 Labs: Microbiology 02/13/18 20:36 Urine - Clean Catch Urine Legionella Antigen - Final Presumptive negative for Legionella pneumophila serogroup 1 antigen in urine, suggesting no recent or recurrent infection. Infection due to Legionella cannot be ruled out since other serogroups and species may cause disease, antigen may not be present in urine in early infection, and the level of antigen present in the urine may be below the detection limit of the test. 02/13/18 20:36 Urine - Clean Catch Urine Streptococcus pneumoniae Antigen ( M - Final POS S. pneumoniae antigen 02/13/18 21:00 Throat Group A Streptococcus Screen (CRUZ) - Final 02/13/18 20:32 Nasal Wash Influenza Types A,B Antigen - Final Negative for FLU A and B antigen Infection due to influenza A or B cannot be ruled out since the antigen present in the sample may be below the detection limit of the test. Imaging Imaging: Impressions Chest X-Ray 02/13/18 19:41 CONCLUSION: 1. Negative portable chest. Head CT 02/13/18 19:41 CONCLUSION: 1. Mild periventricular white matter small vessel ischemic changes bilaterally. 2. No acute infarct, acute hemorrhage, mass effect or extra axial fluid collections. . Assessment and Plan Plan Elevated troponin, likey secondary to MONICA Patient denies chest pain, endorses shortness of breath -Troponin 0.09-->.09-->.08 -EKG shows sinus rhythm with PVCs, no ST segment elevation or depression -Patient continues to deny chest pain, will hold off on cardiology as troponin is likely related to acute kidney injury Clinical pneumonia,sepsis, fever, tachycardia, elevated lactic acid at 2.1, now 0.9, in patient with COPD -Cont IV vanco and Zosyn -DuoNeb -Tessalon pearls for cough Altered mental status, Resolved Head CT negative -Monitor Peripheral vascular disease Patient reports stent in the right lower extremity -Continue Plavix Hypertension/hyperlipidemia -Continue home medications -Holding ARB for MONICA MONICA BUN/creatinine 32/1.75 -Likely secondary to dehydration -IV fluid hydration -BMP pending DVT prophylaxis: Heparin Progress Note: Quality VTE Deep Vein Thrombosis/Pulmonary Embolism Present on Admission: No
[2018-02-14] MEDS ORDERED: Benzonatate 100 MG Capsule PO PRN (12:33)
[2018-02-14 17:18] LABS: Calcium 7.5 mg/dL (8.5-10.1); Carbon Dioxide 25.4 meq/L (21.0-32.0); Potassium 3.9 meq/L (3.5-5.1)
--- NOTE | 2018-02-14 18:16 | ECG ---
Date Performed: 02/14/2018 Time Performed: 07:03:22 PTAGE: 67 years EKG: Sinus rhythm MODERATE INTRAVENTRICULAR CONDUCTION DELAY BORDERLINE ECG PREVIOUS TRACING : 02/14/2018 02.15 Since the previous tracing, no significant change noted DOCTOR: Scot Harden Interpretating Date/Time 02/14/2018 18:14:47
--- NOTE | 2018-02-14 18:22 | ECG ---
Date Performed: 02/14/2018 Time Performed: 02:15:44 PTAGE: 67 years EKG: Sinus rhythm . Poor R wave progression Borderline ECG PREVIOUS TRACING : 02/13/2018 19.34 Since the previous tracing, no significant change noted DOCTOR: Scot Harden Interpretating Date/Time 02/14/2018 18:22:18
--- NOTE | 2018-02-14 18:39 | ECG ---
Date Performed: 02/13/2018 Time Performed: 19:34:05 PTAGE: 67 years EKG: Sinus rhythm WITH OCCASIONAL VENTRICULAR PREMATURE COMPLEXES INDETERMINATE AXIS MODERATE INTRAVENTRICULAR CONDUCT ION DELAY BORDERLINE ECG NO PREVIOUS TRACING DOCTOR: Scot Harden Interpretating Date/Time 02/14/2018 18:38:44
[2018-02-14] MEDS ORDERED: Vancomycin Inj 1,000 MG in Sodium Chlor 0.9% Inj 250 ML IV.SIG SCH (21:00)
[2018-02-15] MEDS: Piperacil/Tazo 3.375 GM Premix 3.375 GM/50 ML PIGGYBACK IV.SIG SCH ×3 (01:27→14:20)
[2018-02-15] MEDS: Heparin - SQ 10,000 UNITS/ML Vial SQ SCH ×3 (01:28→23:16)
[2018-02-15] MEDS: Sod Chloride 0.9% Inj 1,000 ML IV.CONT SCH ×2 (04:52→12:22)
[2018-02-15 07:48] LABS: Baso % (Auto) 0.1 % (0.0-2.0); Hematocrit 36.1 % (39.0-51.0); Hemoglobin 12.4 gm/dL (13.0-17.0); Lymph # (Auto) 0.7 th/mm3 (1.0-4.8); Lymph % (Auto) 12.4 % (9.0-44.0); Mean Corpuscular HGB Conc 34.4 % (32.0-36.0); Mean Corpuscular Hemoglobin 31.9 pg (27.0-34.0); Mean Corpuscular Volume 92.6 fL (80.0-100.0); Mean Platelet Volume 9.4 fL (7.0-11.0); Mono # (Auto) 0.4 th/mm3 (0.0-0.9); Mono % (Auto) 7.7 % (0.0-8.0); Neut # (Auto) 4.5 th/mm3 (1.8-7.7); Neut % (Auto) 79.8 % (16.0-70.0); Platelet Count 79 th/mm3 (150-450); Red Blood Count 3.89 mil/mm3 (4.50-5.90); Red Cell Distribution Width 14.5 % (11.6-17.2); White Blood Count 5.7 th/mm3 (4.0-11.0)
[2018-02-15 08:07] LABS: Calcium 7.1 mg/dL (8.5-10.1); Carbon Dioxide 25.6 meq/L (21.0-32.0); Potassium 3.6 meq/L (3.5-5.1)
[2018-02-15 08:14] LABS: Albumin 2.3 g/dL (3.4-5.0); Calcium-Albumin Corrected 8.5 mg/dL (8.5-10.1)
[2018-02-15 08:42] LABS: Eosinophils 1 % (0-4); Lymphocytes 8 % (9-44); Monocytes 2 % (0-8); Ovalocytes 1+
[2018-02-15 08:43] LABS: Acanthocytes Occ
[2018-02-15] MEDS: Senna/Docusate Sodium 8.6/50 MG Tablet PO SCH ×2 (09:20→20:46)
[2018-02-15] MEDS: Sodium Chloride 0.45 % Inj 1,000 ML IV.CONT SCH (14:58)
--- NOTE | 2018-02-15 15:03 | P.PNIM ---
Subjective Interval history: The patient feels very congested in the chest and around his neck. He is having some shortness of breath. He feels like he is having a fever. He denies any chest pain. He has not been able to eat too much. He says he will not smoke anymore cigarettes. Discussed with nursing. Physical Exam Vital signs: Vital Signs 02/14/18 16:00 02/14/18 16:59 02/14/18 19:51 Temperature 98.7 F Pulse Rate 68 68 63 Respiratory Rate 19 Blood Pressure 143/74 H Pulse Oximetry 92 L 02/14/18 20:00 02/14/18 23:18 02/14/18 23:49 Temperature 98 F 98.6 F Pulse Rate 66 62 52 L Respiratory Rate 18 20 Blood Pressure 144/78 H 140/76 Pulse Oximetry 95 94 L 02/15/18 03:57 02/15/18 04:00 02/15/18 08:00 Temperature 99.9 F H 99.4 F Pulse Rate 51 L 54 L 59 L Respiratory Rate 18 16 Blood Pressure 129/102 H 137/72 Pulse Oximetry 93 L 94 L 02/15/18 12:00 Temperature 99.2 F Pulse Rate 64 Respiratory Rate 16 Blood Pressure 143/72 H Pulse Oximetry 96 Intake & Output 02/14/18 02/15/18 02/15/18 18:59 06:59 18:59 Intake Total 1580 / 1580 1450 / 1450 1150 / 1150 Output Total 600 / 600 200 / 200 Balance 980 / 980 1250 / 1250 1150 / 1150 Weight 70.3 kg Intake: IV 1100 / 1100 1350 / 1350 1150 / 1150 NS Inj 1,000 ML @ 100 mls/hr IV 1000 / 1000 1000 / 1000 1050 / 1050 .CONT .Q10H [facility] Rx#:[id number] Zosyn 3.375 GM Premix 3.375 gm 100 / 100 100 / 100 100 / 100 In 50 ml @ 100 mls/hr IV.SIG Q6H [facility] Rx#:[id number] Vancomycin Inj 1,000 MG In NS 250 / 250 Inj 250 ML @ 250 mls/hr IV.SIG Q24H [facility] Rx#:[id number] Oral 480 / 480 100 / 100 Output: Urine 600 / 600 200 / 200 Other: Date of Last Bowel Movement 02/14/18 02/14/18 # Bowel Movements 0 Narrative: Gen.: No acute distress. Head: Normocephalic. Atraumatic. EENT: Pupils equal round and reactive to light. Nose without drainage. Airway intact. Throat without injection. Cardiovascular: Regular rate and rhythm. No murmurs, rubs or gallops. Respiratory: Mild wheezing appreciated. Abdomen: Soft, nontender, nondistended. No peritoneal signs. Musculoskeletal: No gross deformities. No edema. Skin: No obvious rashes or erythema. Neuro: Sensory and motor grossly intact. Alert and oriented. Cranial nerves II through XII grossly intact. Results - Labs CBC & Chem 7: 02/15/18 06:22 02/15/18 06:22 Laboratory Results - last 24 hr 02/14/18 02/15/18 02/15/18 16:50 06:22 06:22 WBC 5.7 RBC 3.89 L Hgb 12.4 L D Hct 36.1 L MCV 92.6 MCH 31.9 MCHC 34.4 RDW 14.5 Plt Count 79 L MPV 9.4 Prelim Diff (Auto) Slide review pending Neut % (Auto) 79.8 H Lymph % (Auto) 12.4 [place] % (Auto) 7.7 Eos % (Auto) 0.0 Baso % (Auto) 0.1 Neut # (Auto) 4.5 Lymph # (Auto) 0.7 L [place] # (Auto) 0.4 Eos # (Auto) 0.0 Baso # (Auto) 0.0 WBC Differential Manual diff final Seg Neuts % (Manual) 77 H Band Neuts % (Manual) 12 H Lymphocytes % (Manual) 8 L Monocytes % (Manual) 2 Eosinophils % (Manual) 1 Abs Neuts (Manual) 5.1 Differential Comment . Platelet Estimate Low L Platelet Morphology Enlarged H Ovalocytes 1+ H Acanthocytes (Spur) Occ H Sodium 145 147 H Potassium 3.9 3.6 Chloride 113 H 114 H Carbon Dioxide 25.4 25.6 Anion Gap 7 7 BUN 24 H 21 H Creatinine 1.31 H 1.38 H Estimated GFR 55 L 52 L Random Glucose 114 H 118 H Calcium 7.5 L 7.1 L* Calcium Adj for Albumin 8.5 Albumin 2.3 L D Microbiology 02/13/18 21:00 Throat Group A Streptococcus Screen/Cult - Final No Beta Streptococci isolated. 02/13/18 20:00 Blood - Peripheral Aerobic Blood Culture - Preliminary No growth in 2 days 02/13/18 20:00 Blood - Peripheral Anaerobic Blood Culture - Preliminary No growth in 2 days 02/13/18 19:50 Blood - Peripheral Aerobic Blood Culture - Preliminary No growth in 2 days 02/13/18 19:50 Blood - Peripheral Anaerobic Blood Culture - Preliminary No growth in 2 days 02/13/18 20:36 Urine - Clean Catch Urine Legionella Antigen - Final Presumptive negative for Legionella pneumophila serogroup 1 antigen in urine, suggesting no recent or recurrent infection. Infection due to Legionella cannot be ruled out since other serogroups and species may cause disease, antigen may not be present in urine in early infection, and the level of antigen present in the urine may be below the detection limit of the test. 02/13/18 20:36 Urine - Clean Catch Urine Streptococcus pneumoniae Antigen ( M - Final POS S. pneumoniae antigen Assessment and Plan - Plan Elevated troponin, likey secondary to MONICA and sepsis Patient denies chest pain, endorses shortness of breath -Troponin 0.09-->.09-->.08 -EKG shows sinus rhythm with PVCs, no ST segment elevation or depression -Patient continues to deny chest pain, will hold off on cardiology as troponin is likely related to acute kidney injury and sepsis Clinical pneumonia,sepsis, fever, tachycardia, elevated lactic acid at 2.1, now 0.9, in patient with COPD Urine streptococcal antigen positive. -Change antibiotics to ceftriaxone and azithromycin IV. -DuoNeb as needed and standing -Tessalon pearls for cough -Mucinex for congestion -Incentive spirometry Altered mental status, Resolved Head CT negative -Monitor -Treat sepsis as above -Physical therapy evaluation Peripheral vascular disease Patient reports stent in the right lower extremity -Continue Plavix Hypertension/hyperlipidemia -Continue home medications -Holding ARB for MONICA MONICA BUN/creatinine 32/1.75 -Likely secondary to dehydration -IV fluid hydration -Calculate FENa. DVT prophylaxis: Heparin
--- NOTE | 2018-02-15 16:00 | XR ---
EXAM DATE: 02/15/2018 3:56 PM EST AGE/SEX: 67 years / Male INDICATIONS: Pneumonia CLINICAL DATA: This is the patient's subsequent encounter. Patient reports that signs and symptoms h ave been present for 3 days and indicates a pain score of 0/10. MEDICAL/SURGICAL HISTORY: Chronic obstructive pulmonary disease. None. COMPARISON: [facility] – [place]ST 1V SINGLE AP, 02/13/2018. . FINDINGS: Mild streakiness is noted involving the right medial lung base consistent with possible developing in filtrates. Clinical correlation is recommended. Minimal increased perihilar streakiness is noted bila terally. The heart is stable. CONCLUSION: 1. Mild streakiness is noted involving the right medial lung base consistent with possible developin g infiltrates. Clinical correlation is recommended. 2. Minimal increased perihilar streakiness is noted bilaterally. Electronically signed by: Jasbir Roman MD Board Certified Radiologist 02/15/2018 3:59 PM EST
[2018-02-15] MEDS: Azithromycin Inj 500 MG in Sodium Chlor 0.9% Inj 250 ML IV.SIG SCH (16:10)
[2018-02-15 19:00] LABS: Creatinine,Urine Random 160 mg/dL (27-300); Sodium,Urine Random 53 meq/L
[2018-02-15] MEDS: Acetaminophen 325 MG Tablet PO PRN (20:46)
[2018-02-16] MEDS: Sodium Chloride 0.45 % Inj 1,000 ML IV.CONT SCH ×3 (01:20→19:16)
[2018-02-16 06:11] LABS: Baso % (Auto) 0.2 % (0.0-2.0); Hematocrit 36.4 % (39.0-51.0); Hemoglobin 12.3 gm/dL (13.0-17.0); Lymph # (Auto) 0.6 th/mm3 (1.0-4.8); Lymph % (Auto) 9.3 % (9.0-44.0); Mean Corpuscular HGB Conc 33.9 % (32.0-36.0); Mean Corpuscular Hemoglobin 31.7 pg (27.0-34.0); Mean Corpuscular Volume 93.7 fL (80.0-100.0); Mean Platelet Volume 9.4 fL (7.0-11.0); Mono # (Auto) 0.5 th/mm3 (0.0-0.9); Mono % (Auto) 7.1 % (0.0-8.0); Neut # (Auto) 5.7 th/mm3 (1.8-7.7); Neut % (Auto) 83.4 % (16.0-70.0); Platelet Count 80 th/mm3 (150-450); Red Blood Count 3.88 mil/mm3 (4.50-5.90); Red Cell Distribution Width 14.7 % (11.6-17.2); White Blood Count 6.8 th/mm3 (4.0-11.0)
[2018-02-16 06:40] LABS: Calcium 7.4 mg/dL (8.5-10.1); Carbon Dioxide 26.8 meq/L (21.0-32.0); Potassium 3.4 meq/L (3.5-5.1)
[2018-02-16 06:47] LABS: Albumin 2.4 g/dL (3.4-5.0); Calcium-Albumin Corrected 8.7 mg/dL (8.5-10.1)
[2018-02-16 08:17] LABS: Lymphocytes 6 % (9-44); Monocytes 3 % (0-8); Platelet Morphology Normal (Normal); Tallied Nucleated RBC 1 (0-0)
[2018-02-16] MEDS: Senna/Docusate Sodium 8.6/50 MG Tablet PO SCH ×2 (08:27→20:40)
[2018-02-16] MEDS: Acetaminophen 325 MG Tablet PO PRN ×2 (08:29→16:55)
[2018-02-16] MEDS: Heparin - SQ 10,000 UNITS/ML Vial SQ SCH ×2 (12:00→23:25)
[2018-02-16] MEDS ORDERED: Sodium Chloride 0.45 % Inj 1,000 ML IV.CONT SCH (12:00)
[2018-02-16] MEDS: Azithromycin Inj 500 MG in Sodium Chlor 0.9% Inj 250 ML IV.SIG SCH (15:20)
--- NOTE | 2018-02-16 15:34 | P.PNIM ---
Subjective Interval history: The patient feels a little bit better compared to yesterday. He has not been eating much because he does not like the taste of the food here. He has some chest discomfort from the shortness of breath and coughing. Discussed with nursing. Physical Exam Vital signs: Vital Signs 02/15/18 15:51 02/15/18 16:00 02/15/18 19:45 Temperature 100.4 F H 101.3 F H Pulse Rate 80 59 L 65 Respiratory Rate 22 15 20 Blood Pressure 156/69 H 146/75 H Pulse Oximetry 96 94 L 02/15/18 19:46 02/15/18 19:47 02/15/18 20:00 Temperature Pulse Rate 71 72 Respiratory Rate 22 Blood Pressure Pulse Oximetry 93 L 02/15/18 23:16 02/16/18 00:00 02/16/18 03:11 Temperature 98.7 F 99.6 F Pulse Rate 63 57 L 73 Respiratory Rate 20 20 Blood Pressure 111/64 161/79 H Pulse Oximetry 96 95 02/16/18 04:00 02/16/18 04:24 02/16/18 04:26 Temperature Pulse Rate 55 L 75 Respiratory Rate 24 Blood Pressure Pulse Oximetry 97 02/16/18 08:00 02/16/18 08:53 02/16/18 12:00 Temperature 102.6 F H 98.9 F Pulse Rate 68 88 69 Respiratory Rate 14 22 16 Blood Pressure 144/73 H 137/63 Pulse Oximetry 96 93 L 95 Intake & Output 02/15/18 02/16/18 02/16/18 18:59 06:59 18:59 Intake Total 1880 / 1880 1220 / 1220 1000 / 1000 Output Total 200 / 200 300 / 300 Balance 1680 / 1680 920 / 920 1000 / 1000 Weight 70.8 kg Intake: IV 1400 / 1400 1100 / 1100 1000 / 1000 NS Inj 1,000 ML @ 100 mls/hr IV 1050 / 1050 .CONT .Q10H [facility] Rx#:[id number] 1/2 Normal Saline Inj 1,000 ML 1000 / 1000 1000 / 1000 @ 100 mls/hr IV.CONT .Q10H [facility] Rx#:[id number] Azithromycin Inj 500 MG In NS 250 / 250 Inj 250 ML @ 250 mls/hr IV.SIG Q24H [facility] Rx#:[id number] Zosyn 3.375 GM Premix 3.375 gm 100 / 100 In 50 ml @ 100 mls/hr IV.SIG Q6H [facility] Rx#:[id number] Rocephin Inj 1,000 MG In NS Inj 100 / 100 100 ML @ 200 mls/hr IV.SIG Q24H [facility] Rx#:[id number] Oral 480 / 480 120 / 120 Output: Urine 200 / 200 300 / 300 Other: Date of Last Bowel Movement 02/14/18 # Bowel Movements 0 Narrative: Gen.: No acute distress. Head: Normocephalic. Atraumatic. EENT: Pupils equal round and reactive to light. Nose without drainage. Airway intact. Throat without injection. Cardiovascular: Regular rate and rhythm. No murmurs, rubs or gallops. Respiratory: Diffuse wheezing appreciated. Abdomen: Soft, nontender, nondistended. No peritoneal signs. Musculoskeletal: No gross deformities. No edema. Skin: No obvious rashes or erythema. Neuro: Sensory and motor grossly intact. Alert and oriented. Cranial nerves II through XII grossly intact. Results - Labs CBC & Chem 7: 02/16/18 05:53 02/16/18 05:53 Laboratory Results - last 24 hr 02/15/18 02/16/18 02/16/18 18:35 05:53 05:53 WBC 6.8 RBC 3.88 L Hgb 12.3 L Hct 36.4 L MCV 93.7 MCH 31.7 MCHC 33.9 RDW 14.7 Plt Count 80 L MPV 9.4 Prelim Diff (Auto) Slide review pending Neut % (Auto) 83.4 H Lymph % (Auto) 9.3 [place] % (Auto) 7.1 Eos % (Auto) 0.0 Baso % (Auto) 0.2 Neut # (Auto) 5.7 Lymph # (Auto) 0.6 L [place] # (Auto) 0.5 Eos # (Auto) 0.0 Baso # (Auto) 0.0 WBC Differential Manual diff final Seg Neuts % (Manual) 79 H Band Neuts % (Manual) 12 H Lymphocytes % (Manual) 6 L Monocytes % (Manual) 3 Abs Neuts (Manual) 6.2 Nucleated RBCs/100 WBC 1 H Differential Comment . Platelet Estimate Low L Platelet Morphology Normal Sodium 147 H Potassium 3.4 L Chloride 114 H Carbon Dioxide 26.8 Anion Gap 6 BUN 21 H Creatinine 1.43 H Estimated GFR 50 L Random Glucose 143 H Calcium 7.4 L* Calcium Adj for Albumin 8.7 Albumin 2.4 L Ur Random Creatinine 160 Ur Random Sodium 53 Microbiology 02/13/18 20:00 Blood - Peripheral Aerobic Blood Culture - Preliminary No growth in 3 days 02/13/18 20:00 Blood - Peripheral Anaerobic Blood Culture - Preliminary No growth in 3 days 02/13/18 19:50 Blood - Peripheral Aerobic Blood Culture - Preliminary No growth in 3 days 02/13/18 19:50 Blood - Peripheral Anaerobic Blood Culture - Preliminary No growth in 3 days 02/13/18 21:00 Throat Group A Streptococcus Screen/Cult - Final No Beta Streptococci isolated. - Imaging Impressions Chest X-Ray 02/15/18 14:58 CONCLUSION: 1. Mild streakiness is noted involving the right medial lung base consistent with possible developing infiltrates. Clinical correlation is recommended. 2. Minimal increased perihilar streakiness is noted bilaterally. Assessment and Plan - Plan Elevated troponin, likey secondary to MONICA and sepsis Patient denies chest pain, endorses shortness of breath -Troponin 0.09-->.09-->.08 -EKG shows sinus rhythm with PVCs, no ST segment elevation or depression -Patient continues to deny chest pain, will hold off on cardiology as troponin is likely related to acute kidney injury and sepsis Clinical pneumonia,sepsis, fever, tachycardia, elevated lactic acid at 2.1, now 0.9, in patient with COPD Urine streptococcal antigen positive. Repeat CXR indicative of PNA. -Changed antibiotics to ceftriaxone and azithromycin IV. -DuoNeb as needed and standing. -Tessalon pearls standing for now. -Mucinex for congestion. -Incentive spirometry. -add IV Solumedrol. -sputum culture. Altered mental status, Resolved Head CT negative -Monitor -Treat sepsis as above -Physical therapy evaluation Peripheral vascular disease Patient reports stent in the right lower extremity -Continue Plavix Hypertension/hyperlipidemia -Continue home medications -Holding ARB for MONICA MONICA BUN/creatinine 32/1.75 FENa indicated pre-renal etiology. -IV fluid hydration -avoid nephrotoxins. DVT prophylaxis: Heparin
[2018-02-16] MEDS: MethylPREDNISolone Sod Succinate Inj 40 MG/ML Vial IV.PUSH SCH ×2 (15:59→23:27)
[2018-02-16] MEDS: Benzonatate 100 MG Capsule PO SCH ×2 (15:59→23:26)
[2018-02-16 17:19] LABS: ABG Base Excess -0.9 mmol/L (-2-2); ABG PCO2 29 mmHg (38-42); ABG PO2 73 mmHg (61-120)
[2018-02-16] MEDS ORDERED: Vancomycin Consult Pharmacy OTHER PRN (17:23)
[2018-02-16] MEDS ORDERED: Vancomycin Inj 1,000 MG in Sodium Chlor 0.9% Inj 250 ML IV.SIG SCH (17:24)
--- NOTE | 2018-02-16 17:40 | XR ---
EXAM DATE: 02/16/2018 5:34 PM EST AGE/SEX: 67 years / Male INDICATIONS: Shortness of breath. CLINICAL DATA: This is the patient's initial encounter. Patient reports that signs and symptoms have been present for 1 day and indicates a pain score of 0/10. MEDICAL/SURGICAL HISTORY: Chronic obstructive pulmonary disease. None. COMPARISON: [facility] – [place] 1V SINGLE AP, 02/15/2018. . FINDINGS: A single AP view of the chest demonstrates the lungs to be symmetrically hyperinflated, consistent wi th history of chronic obstructive pulmonary disease. Streaky opacities again radiate from the des, p articularly superiorly, and may represent interstitial prominence related to underlying chronic obstr uctive pulmonary disease. Persistent hazy opacification of the medial right lung base. Stable mild b lunting of the left lateral costophrenic angle. The cardiomediastinal contours are unremarkable. Deg enerative changes of the spine. CONCLUSION: 1. Persistent hazy opacification of the medial right lung base. Recommend clinical correlation for i nfection. 2. Hyperinflation with streaky opacities radiating from the des, which may be related to underlying chronic obstructive pulmonary disease. Electronically signed by: Sara Diego MD Board Certified Radiologist 02/16/2018 5:39 PM EST
[2018-02-16] MEDS ORDERED: Acetaminophen 325 MG Tablet PO PRN (18:03)
[2018-02-16] MEDS ORDERED: Sodium Phosphate Inj 30 MMOL in Sodium Chlor 0.9% Inj 250 ML IV.SIG PRN (18:17)
[2018-02-16] MEDS ORDERED: Magnesium Oxide 400 MG Tablet PO PRN (18:17)
[2018-02-16] MEDS ORDERED: Potassium Chlor 20 mEq Premix 20 MEQ/100 ML PIGGYBACK IV.SIG PRN ×2 (18:17)
[2018-02-16] MEDS ORDERED: Potassium Phosphate 500 MG Soluble Tablet PO PRN ×2 (18:17)
[2018-02-16] MEDS ORDERED: Potassium Chlor 40 mEq Premix 40 MEQ/100 ML PIGGYBACK IV.SIG PRN ×2 (18:17)
[2018-02-16] MEDS ORDERED: Magnesium Sulfate Inj 2 GM in Sodium Chlor 0.9% Inj 96 ML IV.SIG PRN (18:17)
[2018-02-16] MEDS ORDERED: Magnesium Sulfate Inj 4 GM in Sodium Chlor 0.9% Inj 92 ML IV.SIG PRN (18:17)
[2018-02-16] MEDS ORDERED: Potassium Phosphate Inj 30 MMOL in Sodium Chlor 0.9% Inj 250 ML IV.SIG PRN (18:17)
--- NOTE | 2018-02-16 18:17 | P.CONCC ---
History of Present Illness Service: Critical care medicine Consult date: 02/16/18 Requesting Physician: Kenneth Peña Reason for Consult: Management of streptococcal pneumonia Primary Care Provider: Yogi Lee MD Chief Complaint: Shortness of breath History of Present Illness: This is a 67-year-old male. Date of admission 02/13/2018. Date of consultation 02/08/2018. Past medical history includes ongoing tobaccoism, COPD , peripheral vascular disease including sent to the right lower extremity on clopidogrel, hyperlipidemia, essential hypertension who presents to the emergency department at [facility] on 02/13 for the evaluation of altered mental status. Events is document states he had acute delirium times 4-5 days. He also was documented stating he had a nonproductive cough, fever and diarrhea with accompanying shortness of breath. Lack of appetite. He denied any chest pain. According to his neighbor per documentation, they went to check on him and found his door to be partially ajar. They found the patient lying down and he could not remember what day it was. He stated he had not had anything to eat or drink in many days. Patient was admitted on the hospital service after CT of the brain revealed small vessel ischemic changes. Influenza a and B are negative. Blood cultures negative. His urine pneumococcal antigen was positive. He was treated with ceftriaxone and azithromycin. He was treated with bronchodilators every 6 hours and methylprednisolone Succinate 40 mg IV every 8 hours. He is on 2 L nasal cannula. Today, breath. Rapid response was called. He was noted to be febrile temperature of 102.5 Fahrenheit and noted to be tachypneic. He received bronchodilator therapy. Chest x-ray revealed a right middle lobe infiltrate. He was transferred to the ICU for evaluation. On my evaluation patient is on 2 L nasal cannula. He is not using accessory muscles. He is able to complete sentences. He does have a cough present time with white sputum. Denies hemoptysis. Review of Systems Constitutional: Reports anorexia, Reports body ache(s), Reports chills, Reports daytime sleepiness, Reports weakness, Denies weight gain Eyes: Denies blind spots, Denies blurry vision, Denies dry eyes Ears, Nose, Mouth, and Throat: Reports sore throat, Denies abnormal hearing, Denies nasal obstruction, Denies nasal trauma, Denies poor balance, Denies post nasal drip, Denies sinus pressure Cardiovascular: Reports shortness of breath, Reports shortness of breath with activity, Denies chest pain, Denies chest pain at rest, Denies chest pain with activity, Denies irregular heart rhythm, Denies shortness of breath when lying down Respiratory: Reports change in phlegm color, Reports chest congestion, Reports cough, Denies coughing up blood, Denies excessive phlegm production Gastrointestinal: Denies abdominal pain, Denies black, tarry stools, Denies nausea, Denies vomiting Genitourinary: Denies urinary frequency, Denies urinary hesitancy Musculoskeletal: Denies abnormal walking, Denies back pain Skin/Breast: Denies acne, Denies bleeding lesions, Denies non-healing lesions Neurologic: Denies abnormal hearing, Denies abnormal movements, Denies convulsions, Denies sensory deficit Psychiatric: Denies abnormal sleep pattern, Denies anxiety, Denies confusion, Denies depression, Denies difficulty concentrating Endocrine: Denies cold intolerance, Denies excessive sweating Hematologic/Lymphatic: Denies easy bleeding Allergic/Immunologic: Denies GI upset with certain foods PMFSH - History History Provided By: Patient - Medical History Medical History: Medical History (Last Reviewed 02/16/18 @ 18:10 by Cayden Du MD) COPD (chronic obstructive pulmonary disease) Hyperlipidemia Peripheral vascular disease Hypertension - Surgical History Surgical History: Surgical History (Last Reviewed 02/16/18 @ 18:10 by Cayden Du MD) History of hernia repair - Family History Family History: Family History (Last Reviewed 02/16/18 @ 18:10 by Cayden Du MD) Other Family history normal - Tobacco History Second Hand Smoke Exposure: No Tobacco Use In Past 30 Days: Yes Smoking Status: Current every day smoker Tobacco Type: Cigarettes - Alcohol History How Often Do You Have a Drink Containing Alcohol: Never - Substance Use History Substance History: No History of Abuse - Travel History Recent Travel in the [place] Within the Last 8 Weeks: No Recent Travel Out of the Country Within the Last 8 Weeks: No - Immunization History Tetanus Immunization: <5 Years Hx Influenza Vaccine This Season: No Medications and Allergies Active Medications: Active Medications Acetaminophen (Tylenol) 650 mg PO Q6H PRN PRN Reason: Temp > 100.4 Al Hydroxide/Mg Hydroxide (Milk Of Magnesia Liq) 30 ml PO Q12H PRN PRN Reason: Mild Constipation Albuterol (Duoneb Neb (Jakob)) 1 ampul NEB Q4HR NEB JAKOB Albuterol (Albuterol Neb (Prn)) 2.5 mg NEB Q2HR NEB PRN PRN Reason: DYSPNEA Atorvastatin Calcium (Lipitor) 80 mg PO DAILY [facility] Last Admin: 02/16/18 08:26 Dose: 80 mg Benzonatate (Tessalon Perles) 200 mg PO Q8H [facility] Last Admin: 02/16/18 15:59 Dose: 200 mg Bisacodyl (Dulcolax Supp) 10 mg RECTAL DAILY PRN PRN Reason: SEVERE CONSITIPATION Budesonide (Pulmocort Respule Neb) 0.5 mg NEB Q12HR NEB JAKOB Clopidogrel Bisulfate (Plavix) 75 mg PO DAILY [facility] Last Admin: 02/16/18 08:26 Dose: 75 mg Famotidine (Pepcid) 20 mg PO HS JAKOB Heparin Sodium (Porcine) (Heparin Inj) 5,000 units SQ Q12H [facility] Last Admin: 02/16/18 12:00 Dose: 5,000 units Azithromycin 500 mg/ Sodium (Chloride) 250 mls @ 250 mls/hr IV.SIG Q24H [facility] Last Infusion: 02/16/18 16:26 Dose: Infused Sodium Chloride (1/2 Normal Saline Inj) 1,000 mls @ 125 mls/hr IV.CONT .Q8H [facility] Stop: 02/17/18 11:59 Last Admin: 02/16/18 11:57 Dose: 125 mls/hr Vancomycin HCl 1,000 mg/ (Sodium Chloride) 250 mls @ 250 mls/hr IV.SIG Q12H JAKOB Piperacillin/Tazobactam/Dextrose (Zosyn 4.5 Gm Premix) 4.5 gm in 100 mls @ 200 mls/hr IV.SIG Q6H JAKOB Lactulose (Lactulose Liq) 30 ml PO DAILY PRN PRN Reason: SEVERE CONSITIPATION Methylprednisolone Sodium Succinate (Solumedrol Inj) 40 mg IV.PUSH Q8H [facility] Last Admin: 02/16/18 15:59 Dose: 40 mg Ondansetron HCl (Zofran Inj) 4 mg IV.PUSH Q6H PRN PRN Reason: NAUSEA OR VOMITING Pharmacy Profile Note (Vancomycin Consult Pharmacy) 1 each OTHER UNSCH PRN PRN Reason: Pharmacy to dose Senna/Docusate Sodium (Tiera-Colace) 1 tab PO BID [facility] Last Admin: 02/16/18 08:27 Dose: Not Given Sennosides (Senokot) 17.2 mg PO Q12H PRN PRN Reason: Moderate Constipation Sodium Chloride (Ns Flush) 2 ml IV.FLUSH BID [facility] Last Admin: 02/16/18 08:27 Dose: Not Given Sodium Chloride (Ns Flush) 2 ml IV.FLUSH PRN PRN PRN Reason: FLUSH AFTER USING IV ACCESS Allergies Allergy/AdvReac Type Severity Reaction Status Date / Time No Known Allergies Allergy Verified 02/13/18 18:38 Home Medications Medication Instructions Recorded Confirmed Type atorvastatin 80 mg PO DAILY 02/13/18 02/13/18 History clopidogrel 75 mg PO DAILY 02/13/18 02/13/18 History codeine-guaifenesin [Virtussin AC] 5 ml PO Q6H PRN 02/13/18 02/13/18 History hydrocodone-acetaminophen 1 tab PO Q6H 02/13/18 02/13/18 History ibuprofen 800 mg PO TID 02/13/18 02/13/18 History olmesartan 40 mg PO DAILY 02/13/18 02/13/18 History vitamin H47-oduve acid 100 mcg SUBLINGUAL DAILY 02/13/18 02/13/18 History Physical Exam Vital signs: Vital Signs 02/15/18 19:45 02/15/18 19:46 02/15/18 19:47 Temperature 101.3 F H Pulse Rate 65 71 Respiratory Rate 20 22 Blood Pressure 146/75 H Pulse Oximetry 94 L 93 L 02/15/18 20:00 02/15/18 23:16 02/16/18 00:00 Temperature 98.7 F Pulse Rate 72 63 57 L Respiratory Rate 20 Blood Pressure 111/64 Pulse Oximetry 96 02/16/18 03:11 02/16/18 04:00 02/16/18 04:24 Temperature 99.6 F Pulse Rate 73 55 L 75 Respiratory Rate 20 24 Blood Pressure 161/79 H Pulse Oximetry 95 02/16/18 04:26 02/16/18 08:00 02/16/18 08:53 Temperature 102.6 F H Pulse Rate 68 88 Respiratory Rate 14 22 Blood Pressure 144/73 H Pulse Oximetry 97 96 93 L 02/16/18 12:00 02/16/18 16:09 02/16/18 16:56 Temperature 98.9 F 102.5 F H Pulse Rate 69 69 90 Respiratory Rate 16 16 31 H Blood Pressure 137/63 147/70 H Pulse Oximetry 95 95 Intake & Output 02/15/18 02/16/18 02/16/18 18:59 06:59 18:59 Intake Total 1880 / 1880 1220 / 1220 1250 / 1250 Output Total 200 / 200 300 / 300 Balance 1680 / 1680 920 / 920 1250 / 1250 Weight 70.8 kg Intake: IV 1400 / 1400 1100 / 1100 1250 / 1250 NS Inj 1,000 ML @ 100 mls/hr IV 1050 / 1050 .CONT .Q10H JAKOB Rx#:[id number] 1/2 Normal Saline Inj 1,000 ML 1000 / 1000 1000 / 1000 @ 100 mls/hr IV.CONT .Q10H JAKOB Rx#:[id number] Azithromycin Inj 500 MG In NS 250 / 250 250 / 250 Inj 250 ML @ 250 mls/hr IV.SIG Q24H JAKOB Rx#:[id number] Zosyn 3.375 GM Premix 3.375 gm 100 / 100 In 50 ml @ 100 mls/hr IV.SIG Q6H JAKOB Rx#:[id number] Rocephin Inj 1,000 MG In NS Inj 100 / 100 100 ML @ 200 mls/hr IV.SIG Q24H JAKOB Rx#:[id number] Oral 480 / 480 120 / 120 Output: Urine 200 / 200 300 / 300 Other: Date of Last Bowel Movement 02/14/18 # Bowel Movements 0 - Constitutional no acute distress - Routine HEENT Exam Head: Present: normocephalic, atraumatic Eye: Present: EOMI, PERRL, normal accommodation ENT: Present: mucous membranes moist - Routine Neck Exam Present: supple, full ROM. Absent: JVD - Routine Respiratory Exam Present: wheezes, crackles. Absent: accessory muscle use, prolonged expiratory phase - Routine Cardiovascular Exam Present: RRR, S1, S2. Absent: murmur - Routine Abdominal Exam Present: soft, normoactive bowel sounds - Routine Exam Patient deferred: penile exam, testicular exam, scrotal exam, groin exam, perineal exam Groin: Absent: inguinal hernia - Routine Extremities Exam Absent: cyanosis, clubbing, edema - Routine Skin Exam Present: intact - Routine Neurological Exam Present: alert, oriented X3, CN II-XII intact. Absent: sensory deficit, motor deficit - Detailed Neurological Exam: Coma Scale Eye Opening: Spontaneous Verbal Response: Oriented Motor Response: Obey commands Iliana Coma Scale Total: 15 - Routine Psychiatric Exam Present: normal affect Septic Shock Reassessment Septic shock perfusion: reassessment completed Assessment and Plan - Assessment and Plan Plan: Neuro/Psych: Admission with acute delirium/encephalopathy toxic metabolic due to underlying pneumonia/community acquired Acetaminophen 650 p.o. every 6 hours as needed fever Hydrocodone/acetaminophen 5/325 1 tablet every 4 hours as needed pain [address] brain 02/13 revealed small vessel ischemic changes bilaterally. No acute infarction CV: Essential hypertension Hyperlipidemia Peripheral vascular disease stenting to right lower extremity Holding olmesartan 40 mg daily/home medication for hypertension. Resume if clinically indicated Currently on atorvastatin 80 mg daily for hyperlipidemia. We will check 2D echocardiogram with underlying shortness of breath. EKG chest troponin will be ordered for a.m. Continue home medication clopidogrel 75 mg daily Resp: Acute respiratory insufficiency COPD Community-acquired pneumonia ongoing tobaccoism Nasal cannula to maintain saturations greater than or equal to 92% Incentive spirometry while awake Lung hyperinflation protocol initiated Albuterol/ipratropium aerosols every 4 hours with albuterol aerosols every 2 hours as needed dyspnea Continue furosemide 0.5/2 1 inhalation twice daily Blunting left costophrenic angle. Medial right lobe infiltrate on hyperinflation likely secondary to emphysema. Continue methylprednisolone succinate 40 mg IV every 8 hours Tobacco cessation self evaluation booklet provided. Currently not requesting nicotine patch GI: Hypoalbuminemia Currently on a regular diet Famotidine for GI prophylaxis Docusate sodium/senna 1 tablet twice daily for bowel regimen : No indication for Armstrong catheter Endo: Sliding scale insulin with aspart insulin Accu-Cheks AC/at bedtime to maintain euglycemia while on steroids Check TSH Renal: Acute kidney injury Check urine eosinophils, sodium and creatinine Avoid nephrotoxic medications. Patient was on ibuprofen as an outpatient. Check renal ultrasound Heme: Normocytic anemia Thrombocytopenia Monitor CBC daily. Follow trends. No indication for transfusion of blood products at this time. ID: Streptococcal urinary antigen positive for community acquired pneumonia Currently on vancomycin, piperacillin/tazobactam started 02/16 azithromycin started 02/13. Previously on ceftriaxone since 02/13 Blood cultures x2/influenza A/B 02/13 no growth today. MSK: PT evaluate and treat FEN: Hypernatremia Hypopotassemia Replace electrolytes as clinically indicated per ICU electrolyte protocol Currently on one half normal saline 42 cc an hour Access -Utilize peripheral IV. Central line if indicated Prophylaxis -GI -famotidine -DVT -SCD/heparin subcu Level 3 consult Code Status: Full code Discussed Condition With: Patient. ISC RN. CARE plan discussed and all questions answered.
[2018-02-16] MEDS ORDERED: Dextrose 50% in Water 50 ML Vial IV.PUSH PRN (18:19)
[2018-02-16] MEDS ORDERED: Vancomycin Inj 1,000 MG in Sodium Chlor 0.9% Inj 250 ML IV.SIG ONE (18:20)
[2018-02-16] MEDS: Piperacil/Tazo 4.5 GM Premix 4.5 GM/100 ML BAG IV.SIG SCH ×2 (19:16→23:26)
[2018-02-16 20:08] LABS: Creatinine,Urine Random 135 mg/dL (27-300); Sodium,Urine Random 60 meq/L
[2018-02-16] MEDS: Famotidine 20 MG Tablet PO SCH (20:40)
[2018-02-16] MEDS ORDERED: Pharmacy Ordered Lab Info OTHER ONE (20:45)
--- NOTE | 2018-02-16 21:19 | US ---
EXAM DATE: 02/16/2018 9:10 PM EST AGE/SEX: 67 years / Male INDICATIONS: Increased lab values. CLINICAL DATA: This is the patient's initial encounter. Patient reports that signs and symptoms have been present for 1 day and indicates a pain score of 0/10. MEDICAL/SURGICAL HISTORY: Chronic obstructive pulmonary disease. Hypertension. Peripheral vas cular disease. Hyperlipidemia. . History of hernia repair. COMPARISON: No prior exams available for comparison. MEASUREMENTS: Right Kidney:__10.6 x 5.4 x 4.9 cm Left Kidney:__11.8 x 6.2 x 5.5 cm FINDINGS: Right Kidney: Increased echogenicity. No mass or hydronephrosis. Small anechoic cyst measuring 5 x 5 x 5 mm in the inferior pole. Left Kidney: Slightly increased echogenicity and cortical thickness. No mass or hydronephrosis. Bladder: Within normal limits given the degree of distension. Other: Enlarged prostate measuring 7.9 x 6.0 x 3.3 cm. CONCLUSION: 1. Echogenic kidneys consistent with medical renal disease. 2. No sonographic evidence for obstructive uropathy. 3. 5 mm cyst in the inferior pole the right kidney. 4. Nonspecific prostate enlargement. Electronically signed by: Gus Guan MD Board Certified Radiologist 02/16/2018 9:18 PM JUANA Acevedo
--- NOTE | 2018-02-16 23:17 | CT ---
EXAM DATE: 02/16/2018 11:07 PM EST AGE/SEX: 67 years / Male INDICATIONS: Shortness of breath. CLINICAL DATA: This is the patient's subsequent encounter. Patient reports that signs and symptoms h ave been present for 3 days and indicates a pain score of 0/10. MEDICAL/SURGICAL HISTORY: Chronic obstructive pulmonary disease. None. RADIATION DOSE: 6.25 CTDI (mGy) COMPARISON: No prior exams available for comparison. TECHNIQUE: Multiple contiguous axial images were obtained through the chest without contrast. Image s were obtained in suspended respiration using multiple row detector helical technique. Using automa evette exposure control and adjustment of the mA and/or kV according to patient size, radiation dose was kept as low as reasonably achievable to obtain optimal diagnostic quality images. DICOM format imag e data is available electronically for review and comparison. FINDINGS: Patchy pneumonia seen of both lungs. There is a perihilar, subpleural and posterior basilar predomina nce. A very small right pleural effusion is present. There is no pneumothorax. There are bilateral hilar lymph nodes that measure up to 1.4 cm in greatest short axis dimension ther e are scattered mediastinal lymph nodes that measure up to 1.1 cm. Heart size within normal limits. There is coronary artery calcification. CONCLUSION: 1. Nonspecific bilateral pneumonia as described. 2. Tiny right pleural effusion. 3. Upper limits of normal to slightly enlarged mediastinal and hilar lymph nodes. Electronically signed by: Branden Black MD Board Certified Radiologist 02/16/2018 11:16 PM EST
[2018-02-16] MEDS: Insulin NovoLOG Aspart Correctional Sugar Inj SQ SCH (23:37)
[2018-02-17 04:50] LABS: Hematocrit 36.9 % (39.0-51.0); Hemoglobin 12.6 gm/dL (13.0-17.0); Lymph # (Auto) 0.5 th/mm3 (1.0-4.8); Lymph % (Auto) 4.2 % (9.0-44.0); Mean Corpuscular HGB Conc 34.2 % (32.0-36.0); Mean Corpuscular Hemoglobin 31.5 pg (27.0-34.0); Mono # (Auto) 0.5 th/mm3 (0.0-0.9); Mono % (Auto) 4.2 % (0.0-8.0); Neut # (Auto) 10.3 th/mm3 (1.8-7.7); Neut % (Auto) 91.6 % (16.0-70.0); Platelet Count 103 th/mm3 (150-450); Red Blood Count 4.01 mil/mm3 (4.50-5.90); Red Cell Distribution Width 14.5 % (11.6-17.2); White Blood Count 11.3 th/mm3 (4.0-11.0)
[2018-02-17 05:12] LABS: Calcium 7.5 mg/dL (8.5-10.1); Carbon Dioxide 27.5 meq/L (21.0-32.0); Magnesium 2.3 mg/dL (1.5-2.5); Potassium 3.5 meq/L (3.5-5.1)
[2018-02-17 05:20] LABS: Thyroid Stimulating Hormone 0.398 uIU/mL (0.358-3.740); Troponin I 0.27 ng/mL (0.02-0.05)
[2018-02-17] MEDS: Piperacil/Tazo 4.5 GM Premix 4.5 GM/100 ML BAG IV.SIG SCH ×4 (06:03→23:36)
[2018-02-17] MEDS: Insulin NovoLOG Aspart Correctional Sugar Inj SQ SCH ×4 (06:04→23:37)
[2018-02-17] MEDS: Benzonatate 100 MG Capsule PO SCH ×3 (08:27→23:36)
[2018-02-17] MEDS: MethylPREDNISolone Sod Succinate Inj 40 MG/ML Vial IV.PUSH SCH ×4 (08:28→22:02)
[2018-02-17] MEDS: Senna/Docusate Sodium 8.6/50 MG Tablet PO SCH ×2 (08:28→22:02)
--- NOTE | 2018-02-17 10:08 | P.PNCC ---
Subjective Subjective Remarks/Hospital Course: This is a 67-year-old male. Date of admission 02/13/2018. Date of consultation 02/08/2018. Past medical history includes ongoing tobaccoism, COPD , peripheral vascular disease including sent to the right lower extremity on clopidogrel, hyperlipidemia, essential hypertension who presents to the emergency department at [facility] on 02/13 for the evaluation of altered mental status. Events is document states he had acute delirium times 4-5 days. He also was documented stating he had a nonproductive cough, fever and diarrhea with accompanying shortness of breath. Lack of appetite. He denied any chest pain. According to his neighbor per documentation, they went to check on him and found his door to be partially ajar. They found the patient lying down and he could not remember what day it was. He stated he had not had anything to eat or drink in many days. Patient was admitted on the hospital service after CT of the brain revealed small vessel ischemic changes. Influenza a and B are negative. Blood cultures negative. His urine pneumococcal antigen was positive. He was treated with ceftriaxone and azithromycin. He was treated with bronchodilators every 6 hours and methylprednisolone Succinate 40 mg IV every 8 hours. He is on 2 L nasal cannula. Today, breath. Rapid response was called. He was noted to be febrile temperature of 102.5 Fahrenheit and noted to be tachypneic. He received bronchodilator therapy. Chest x-ray revealed a right middle lobe infiltrate. He was transferred to the ICU for evaluation. On my evaluation patient is on 2 L nasal cannula. He is not using accessory muscles. He is able to complete sentences. He does have a cough present time with white sputum. Denies hemoptysis. Subjective 02/17: Afebrile. Continues to be quite wheezy. Slight retractions. Will increase methylprednisolone. On aggressive pulmonary toilet therapy at the present time. CT chest revealed bilateral patchy pneumonia. Objective Vital Signs / I&O: Vital Signs 02/16/18 12:00 02/16/18 16:09 02/16/18 16:56 Temperature 98.9 F 102.5 F H Pulse Rate 69 69 90 Respiratory Rate 16 16 31 H Blood Pressure 137/63 147/70 H Pulse Oximetry 95 95 02/16/18 18:27 02/16/18 19:00 02/16/18 20:00 Temperature 98.7 F Pulse Rate 84 64 Respiratory Rate 24 24 Blood Pressure 124/66 144/67 H Pulse Oximetry 94 L 97 96 02/16/18 20:16 02/16/18 21:00 02/16/18 22:00 Temperature Pulse Rate 78 67 72 Respiratory Rate 20 24 30 H Blood Pressure 150/68 H 139/71 Pulse Oximetry 100 97 97 02/16/18 22:12 02/16/18 23:00 02/16/18 23:09 Temperature Pulse Rate 72 65 64 Respiratory Rate 30 H 37 H 28 H Blood Pressure 139/71 141/68 H Pulse Oximetry 97 96 98 02/16/18 23:34 02/16/18 23:37 02/17/18 00:00 Temperature 98.6 F Pulse Rate 66 79 Respiratory Rate 24 26 H Blood Pressure 164/77 H Pulse Oximetry 97 94 L 02/17/18 00:47 02/17/18 01:00 02/17/18 02:00 Temperature Pulse Rate 78 70 61 Respiratory Rate 25 H 24 24 Blood Pressure 140/68 136/65 154/70 H Pulse Oximetry 98 98 98 02/17/18 03:00 02/17/18 03:25 02/17/18 04:00 Temperature 98.6 F Pulse Rate 61 92 H 73 Respiratory Rate 25 H 22 26 H Blood Pressure 158/72 H 164/77 H Pulse Oximetry 94 L 98 02/17/18 05:00 02/17/18 06:00 02/17/18 07:30 Temperature Pulse Rate 66 64 76 Respiratory Rate 27 H 20 20 Blood Pressure 157/71 H 162/71 H Pulse Oximetry 98 97 95 02/17/18 08:00 Temperature Pulse Rate 91 H Respiratory Rate Blood Pressure Pulse Oximetry Intake & Output 02/16/18 02/17/18 02/17/18 18:59 06:59 18:59 Intake Total 1250 / 1250 200 / 200 1350 / 1350 Output Total 840 / 840 Balance 1250 / 1250 -640 / -640 1350 / 1350 Weight 72.1 kg Intake: IV 1250 / 1250 200 / 200 1350 / 1350 1/2 Normal Saline Inj 1,000 ML 1000 / 1000 @ 100 mls/hr IV.CONT .Q10H [facility] Rx#:[id number] Azithromycin Inj 500 MG In NS 250 / 250 Inj 250 ML @ 250 mls/hr IV.SIG Q24H [facility] Rx#:[id number] Zosyn 4.5 GM Premix 4.5 gm In 200 / 200 100 / 100 100 ml @ 200 mls/hr IV.SIG Q6H [facility] Rx#:[id number] Output: Urine 840 / 840 Other: # Voids 3 Date of Last Bowel Movement 02/16/18 Result Diagrams: 02/17/18 04:37 02/17/18 04:37 Other Results: Microbiology 02/17/18 04:30 Sputum - Expectorated Sputum Gram Stain - Final 02/13/18 20:00 Blood - Peripheral Aerobic Blood Culture - Preliminary No growth in 3 days 02/13/18 20:00 Blood - Peripheral Anaerobic Blood Culture - Preliminary No growth in 3 days 02/13/18 19:50 Blood - Peripheral Aerobic Blood Culture - Preliminary No growth in 3 days 02/13/18 19:50 Blood - Peripheral Anaerobic Blood Culture - Preliminary No growth in 3 days 02/13/18 21:00 Throat Group A Streptococcus Screen/Cult - Final No Beta Streptococci isolated. 02/13/18 20:36 Urine - Clean Catch Urine Legionella Antigen - Final Presumptive negative for Legionella pneumophila serogroup 1 antigen in urine, suggesting no recent or recurrent infection. Infection due to Legionella cannot be ruled out since other serogroups and species may cause disease, antigen may not be present in urine in early infection, and the level of antigen present in the urine may be below the detection limit of the test. 02/13/18 20:36 Urine - Clean Catch Urine Streptococcus pneumoniae Antigen ( M - Final POS S. pneumoniae antigen 02/13/18 21:00 Throat Group A Streptococcus Screen ([facility]) - Final 02/13/18 20:32 Nasal Wash Influenza Types A,B Antigen - Final Negative for FLU A and B antigen Infection due to influenza A or B cannot be ruled out since the antigen present in the sample may be below the detection limit of the test. Imaging: Chest X-Ray 02/13/18 19:41 CONCLUSION: 1. Negative portable chest. Head CT 02/13/18 19:41 CONCLUSION: 1. Mild periventricular white matter small vessel ischemic changes bilaterally. 2. No acute infarct, acute hemorrhage, mass effect or extra axial fluid collections. . Chest X-Ray 02/15/18 14:58 CONCLUSION: 1. Mild streakiness is noted involving the right medial lung base consistent with possible developing infiltrates. Clinical correlation is recommended. 2. Minimal increased perihilar streakiness is noted bilaterally. Chest CT 02/16/18 00:00 CONCLUSION: 1. Nonspecific bilateral pneumonia as described. 2. Tiny right pleural effusion. 3. Upper limits of normal to slightly enlarged mediastinal and hilar lymph nodes. Chest X-Ray 02/16/18 00:00 CONCLUSION: 1. Persistent hazy opacification of the medial right lung base. Recommend clinical correlation for infection. 2. Hyperinflation with streaky opacities radiating from the des, which may be related to underlying chronic obstructive pulmonary disease. Abdomen/Bladder Ultrasound 02/16/18 18:18 CONCLUSION: 1. Echogenic kidneys consistent with medical renal disease. 2. No sonographic evidence for obstructive uropathy. 3. 5 mm cyst in the inferior pole the right kidney. 4. Nonspecific prostate enlargement. Objective Remarks: GENERAL: 67-year-old male currently resting in bed in mild distress secondary wheezing on nasal cannula SKIN: Warm and dry. HEAD: Atraumatic. Normocephalic. EYES: Pupils equal and round. No scleral icterus. No injection or drainage. ENT: No nasal bleeding or discharge. Mucous membranes pink and moist. NECK: Trachea midline. No JVD. CARDIOVASCULAR: Tachycardic, RR. S1, S2 no S4. RESPIRATORY: Occasional accessory muscle use. Positive inspiratory and expiratory wheeze. Tachypnea. GASTROINTESTINAL: Abdomen soft, non-tender, nondistended. Hepatic and splenic margins not palpable. MUSCULOSKELETAL: Extremities without clubbing, cyanosis, or edema. No obvious deformities. NEUROLOGICAL: Awake and alert. No obvious cranial nerve deficits. Motor grossly within normal limits. Five out of 5 muscle strength in the arms and legs. Normal speech. PSYCHIATRIC: Appropriate mood and affect; insight and judgment normal. Assessment and Plan - Assessment and Plan Plan: Neuro/Psych: Admission with acute delirium/encephalopathy toxic metabolic due to underlying pneumonia/community acquired Acetaminophen 650 p.o. every 6 hours as needed fever Hydrocodone/acetaminophen 5/325 1 tablet every 4 hours as needed pain [address] brain 02/13 revealed small vessel ischemic changes bilaterally. No acute infarction CV: Essential hypertension Hyperlipidemia Peripheral vascular disease stenting to right lower extremity Holding olmesartan 40 mg daily/home medication for hypertension. Resume if clinically indicated Currently on atorvastatin 80 mg daily for hyperlipidemia. We will check 2D echocardiogram with underlying shortness of breath. EKG chest troponin will be ordered for a.m. septal infarct. Troponin 0 0.27. Recheck knee. Likely strain/demand ischemia secondary to tachypnea Continue home medication clopidogrel 75 mg daily Resp: Acute respiratory insufficiency COPD Community-acquired pneumonia ongoing tobaccoism Nasal cannula to maintain saturations greater than or equal to 92% Incentive spirometry while awake Lung hyperinflation protocol initiated Albuterol/ipratropium aerosols every 4 hours with albuterol aerosols every 2 hours as needed dyspnea Continue furosemide 0.5/2 1 inhalation twice daily Blunting left costophrenic angle. Medial right lobe infiltrate on hyperinflation likely secondary to emphysema. Continue methylprednisolone succinate 60 mg IV every 6 hours Tobacco cessation self evaluation booklet provided. Currently not requesting nicotine patch CT thorax revealed patchy bilateral pneumonia. Lymphadenopathy. GI: Hypoalbuminemia Currently on a regular diet Famotidine for GI prophylaxis Docusate sodium/senna 1 tablet twice daily for bowel regimen : No indication for Armstrong catheter Endo: Sliding scale insulin with aspart insulin Accu-Cheks AC/at bedtime to maintain euglycemia while on steroids Normal TSH Renal: Acute kidney injury Right renal cyst Follow-up on urine eosinophils, sodium and creatinine Avoid nephrotoxic medications. Patient was on ibuprofen as an outpatient. Check renal ultrasound -medical renal disease. Right renal cyst Heme: Leukocytosis Normocytic anemia Thrombocytopenia Monitor CBC daily. Follow trends. No indication for transfusion of blood products at this time. ID: Streptococcal urinary antigen positive for community acquired pneumonia Currently on vancomycin, piperacillin/tazobactam started 02/16 azithromycin started 02/13. Previously on ceftriaxone since 02/13 Blood cultures x2/influenza A/B 02/13 no growth to date MSK: PT evaluate and treat FEN: Hypernatremia Replace electrolytes as clinically indicated per ICU electrolyte protocol Currently on one half normal saline 42 cc an hour Access -Utilize peripheral IV. Central line if indicated Prophylaxis -GI -famotidine -DVT -SCD/heparin subcu Level 3 follow-up Code Status: Full code
--- NOTE | 2018-02-17 11:28 | ECG ---
Date Performed: 02/17/2018 Time Performed: 07:21:25 PTAGE: 67 years EKG: Sinus rhythm SEPTAL MYOCARDIAL INFARCTION , OF INDETERMINATE AGE ABNORMAL ECG PREVIOUS TRACING : 02/14/2018 07.03 Since the previous tracing, no significant change noted DOCTOR: Alexandro Schilling Interpretating Date/Time 02/17/2018 11:27:10
[2018-02-17] MEDS: Heparin - SQ 10,000 UNITS/ML Vial SQ SCH ×2 (11:31→23:37)
--- NOTE | 2018-02-17 15:45 | ECHRPT ---
Indication: SHORTNESS OF BREATH CONCLUSIONS The left ventricular systolic function is severely reduced with an estimated ejection fraction in th e range of 30-35%. Moderately dilated left ventricle. Wall thickness is normal. There is global left ventricular dysfunction. BP: / HR: Rhythm: MEASUREMENTS (Male / Female) Normal Values Technical Quality: 2D ECHO LV Diastolic Diameter PLAX 5.9 cm 4.2 - 5.9 / 3.9 - 5.3 cm LV Systolic Diameter PLAX 5.1 cm IVS Diastolic Thickness 1.0 cm 0.6 - 1.0 / 0.6 - 0.9 cm LVPW Diastolic Thickness 1.0 cm 0.6 - 1.0 / 0.6 - 0.9 cm LV Relative Wall Thickness 0.3 LV Ejection Fraction MOD 4C 34.5 % LV Ejection Fraction 4C AL 36.3 % M-MODE LV Diastolic Diameter MM 6.4 cm 4.2 - 5.9 / 3.9 - 5.3 cm LV Systolic Diameter MM 5.5 cm LV Ejection Fraction MM Teich 28.2 % IVS Diastolic Thickness MM 0.9 cm 0.6 - 1.0 / 0.6 - 0.9 cm LVPW Diastolic Thickness MM 0.9 cm 0.6 - 1.0 / 0.6 - 0.9 cm LV Relative Wall Thickness MM 0.3 0.24 - 0.42 / 0.22 - 0.42 FINDINGS LEFT VENTRICLE The left ventricular systolic function is severely reduced with an estimated ejection fraction in th e range of 30-35%. Moderately dilated left ventricle. Wall thickness is normal. There is global left ventricular dysfunction. RIGHT VENTRICLE Normal right ventricular size and systolic function. LEFT ATRIUM The left atrial size is normal. RIGHT ATRIUM The right atrial size is normal. ATRIAL SEPTUM Normal atrial septal thickness without atrial level shunting by limited color doppler interrogation. AORTA The aortic root and proximal ascending aorta are normal in size on limited imaging. MITRAL VALVE Structurally normal mitral valve. No mitral valve stenosis or regurgitation. AORTIC VALVE Trileaflet aortic valve. No aortic valve stenosis or regurgitation. TRICUSPID VALVE Structurally normal tricuspid valve. No tricuspid valve stenosis or regurgitation. PULMONARY VALVE The pulmonary valve is not well visualized. VESSELS The inferior vena cava is normal in size. PERICARDIUM No pericardial effusion. Nato Vázquez MD, FACC (Electronically Signed) Final Date:17 February 2018 15:44
[2018-02-17] MEDS: Azithromycin Inj 500 MG in Sodium Chlor 0.9% Inj 250 ML IV.SIG SCH (16:48)
[2018-02-17] MEDS: Vancomycin Inj 1,250 MG in Sodium Chlor 0.9% Inj 250 ML IV.SIG SCH (18:22)
[2018-02-17] MEDS: Sodium Chloride 0.45 % Inj 1,000 ML IV.CONT SCH (18:22)
[2018-02-17] MEDS: Famotidine 20 MG Tablet PO SCH (22:02)
--- NOTE | 2018-02-17 23:10 | MB ---
cc: Maicol Schaefer MD DATE: 02/17/2018 REASON FOR CONSULTATION: Respiratory insufficiency and COPD. HISTORY OF PRESENT ILLNESS: This is a 67-year-old white male with a history of COPD, hypertension, hyperlipidemia, and peripheral vascular disease, who was admitted with altered mental status and shortness of breath. The patient apparently has been ill for a few days with congestion, cough, fever and nausea. He was seen in the emergency room where he was noted to be hypoxic and apparently was quite dehydrated and was acidotic. He was then admitted to intensive care, was initially on BiPAP and had to be hydrated and started on broad spectrum antibiotic coverage. A chest CT and a head CT were done and the patient had evidence of pneumonia and sepsis and now seems to be better hydrated and running an O2 saturation of 96% on 2 liters of oxygen. Denies any chest pain. He has a cough, but brings up very little mucus. There is no hemoptysis. He has no leg or calf muscle pains. PAST MEDICAL HISTORY: The patient's past history includes a history of COPD and emphysema, hypertension, peripheral vascular disease and a previous history of hernia repair. HABITS: The patient has a prior history of smoking for over 20 years and alcohol use is minimal. ALLERGIES: NO DRUG ALLERGIES ARE LISTED. MEDICATIONS: List included: 1. Atorvastatin 80 mg a day. 2. Plavix 75 mg daily. 3. Olmesartan 40 mg a day. 4. [place] 1 tab every 6 hours p.r.n. REVIEW OF SYSTEMS: The patient has no chest pains. No headaches or blackouts. No urinary symptoms. He has some epigastric distress and nausea as well as loose stools and weakness of his extremities. No calf muscle pains. He has some joint pains of his extremities and some depression. PHYSICAL EXAMINATION: GENERAL: This is an averagely built, elderly man pale and mildly dyspneic at rest. VITAL SIGNS: Blood pressure 110/70, pulse is 88, respirations 20, temperature 97.8. HEENT: Head is normocephalic. Pupils reactive. Tongue is dry. Throat is injected. Ears: No inflammation. NECK: Supple. No venous distention. No thyromegaly or lymphadenopathy. CHEST: Distant breath sounds with occasional basilar crackles. HEART: The heart sounds are irregular. S1 and S2 with no murmur. No S3. ABDOMEN: Soft, protuberant. No mass. No organomegaly or tenderness. Bowel sounds are active. EXTREMITIES: With minimal edema and decreased peripheral pulses. NEUROLOGIC: The patient does move all his extremities with no gross motor deficits. Cranial nerves grossly intact. RECTAL: Deferred. IMPRESSION: 1. Sepsis with basilar pneumonia. 2. Chronic obstructive pulmonary disease with an acute exacerbation. 3. Peripheral vascular disease. 4. Hypertension. 5. Encephalopathy. PLAN: The patient will be maintained on antibiotic coverage including vancomycin and Zosyn. Blood cultures and sputum cultures are pending. The patient will be placed on O2 at 2 liters and also continued on IV fluids for hydration. Nebulized DuoNeb solution added every 6 hours and Solu-Medrol 40 mg IV every 8 hours. Followup chest x-ray tomorrow and once his clinical condition improves, a PFT will be obtained. We will get a blood gas study and a repeat lactic acid level. Thank you for this consultation. Maicol Schaefer MD VJD/debbie , 10:23 PM , 10:34 PM
[2018-02-17] MEDS: Potassium Chloride 25 MEQ Effervescent Tablet PO PRN (23:40)
--- NOTE | 2018-02-18 04:02 | XR ---
EXAM DATE: 02/18/2018 3:57 AM EST AGE/SEX: 67 years / Male INDICATIONS: Shortness of breath. CLINICAL DATA: This is the patient's subsequent encounter. Patient reports that signs and symptoms h ave been present for 4 - 6 days and indicates a pain score of 0/10. MEDICAL/SURGICAL HISTORY: Hypertension. Chronic obstructive pulmonary disease. Smoker. None. COMPARISON: [facility], CT CHEST W/O CONTRAST, 02/16/2018. [facility], CHEST 1V SINGLE AP, 02/16/2018. . FINDINGS: Ill-defined parenchymal opacities of the bilateral bases and upper lobes seen and modestly worse in t he interim. Very small, bilateral pleural effusions are likely. No pneumothorax. Heart size stable, within normal limits. CONCLUSION: Modest worsening bilateral basilar and upper lobe airspace disease. Small bilateral effusions. Electronically signed by: Branden Black MD Board Certified Radiologist 02/18/2018 4:01 AM EST
[2018-02-18] MEDS: MethylPREDNISolone Sod Succinate Inj 40 MG/ML Vial IV.PUSH SCH ×4 (05:12→22:39)
[2018-02-18] MEDS: Piperacil/Tazo 4.5 GM Premix 4.5 GM/100 ML BAG IV.SIG SCH ×4 (05:15→23:01)
[2018-02-18] MEDS: Insulin NovoLOG Aspart Correctional Sugar Inj SQ SCH ×4 (05:20→23:37)
[2018-02-18 05:55] LABS: Baso % (Auto) 0.2 % (0.0-2.0); Hematocrit 39.6 % (39.0-51.0); Hemoglobin 13.8 gm/dL (13.0-17.0); Lymph # (Auto) 0.7 th/mm3 (1.0-4.8); Lymph % (Auto) 3.8 % (9.0-44.0); Mean Corpuscular HGB Conc 34.9 % (32.0-36.0); Mean Corpuscular Hemoglobin 31.8 pg (27.0-34.0); Mean Corpuscular Volume 91.3 fL (80.0-100.0); Mean Platelet Volume 9.7 fL (7.0-11.0); Mono # (Auto) 0.9 th/mm3 (0.0-0.9); Mono % (Auto) 4.6 % (0.0-8.0); Neut # (Auto) 17.2 th/mm3 (1.8-7.7); Neut % (Auto) 91.4 % (16.0-70.0); Platelet Count 190 th/mm3 (150-450); Red Blood Count 4.34 mil/mm3 (4.50-5.90); Red Cell Distribution Width 14.6 % (11.6-17.2); White Blood Count 18.8 th/mm3 (4.0-11.0)
[2018-02-18 06:14] LABS: Carbon Dioxide 26.9 meq/L (21.0-32.0); Magnesium 2.1 mg/dL (1.5-2.5); Phosphorus 1.5 mg/dL (2.5-4.9); Potassium 3.4 meq/L (3.5-5.1)
[2018-02-18] MEDS: Benzonatate 100 MG Capsule PO SCH ×3 (09:37→23:33)
[2018-02-18] MEDS: Senna/Docusate Sodium 8.6/50 MG Tablet PO SCH ×2 (09:38→20:23)
[2018-02-18] MEDS: Potassium Chloride 25 MEQ Effervescent Tablet PO PRN (09:38)
--- NOTE | 2018-02-18 10:12 | P.PNCC ---
Subjective Subjective Remarks/Hospital Course: This is a 67-year-old male. Date of admission 02/13/2018. Date of consultation 02/08/2018. Past medical history includes ongoing tobaccoism, COPD , peripheral vascular disease including sent to the right lower extremity on clopidogrel, hyperlipidemia, essential hypertension who presents to the emergency department at [facility] on 02/13 for the evaluation of altered mental status. Events is document states he had acute delirium times 4-5 days. He also was documented stating he had a nonproductive cough, fever and diarrhea with accompanying shortness of breath. Lack of appetite. He denied any chest pain. According to his neighbor per documentation, they went to check on him and found his door to be partially ajar. They found the patient lying down and he could not remember what day it was. He stated he had not had anything to eat or drink in many days. Patient was admitted on the hospital service after CT of the brain revealed small vessel ischemic changes. Influenza a and B are negative. Blood cultures negative. His urine pneumococcal antigen was positive. He was treated with ceftriaxone and azithromycin. He was treated with bronchodilators every 6 hours and methylprednisolone Succinate 40 mg IV every 8 hours. He is on 2 L nasal cannula. Today, breath. Rapid response was called. He was noted to be febrile temperature of 102.5 Fahrenheit and noted to be tachypneic. He received bronchodilator therapy. Chest x-ray revealed a right middle lobe infiltrate. He was transferred to the ICU for evaluation. On my evaluation patient is on 2 L nasal cannula. He is not using accessory muscles. He is able to complete sentences. He does have a cough present time with white sputum. Denies hemoptysis. 02/17: Afebrile. Continues to be quite wheezy. Slight retractions. Will increase methylprednisolone. On aggressive pulmonary toilet therapy at the present time. CT chest revealed bilateral patchy pneumonia. Subjective 02/18: Afebrile. On 3 L nasal cannula satting 94-97%. Less wheezy today. In much better spirits. Objective Vital Signs / I&O: Vital Signs 02/17/18 11:00 02/17/18 11:43 02/17/18 12:00 Temperature 98.3 F Pulse Rate 74 104 H 102 H Respiratory Rate 29 H 24 30 H Blood Pressure 161/82 H 164/79 H Pulse Oximetry 97 94 L 02/17/18 13:00 02/17/18 14:00 02/17/18 15:00 Temperature Pulse Rate 110 H 111 H 80 Respiratory Rate 33 H 23 30 H Blood Pressure 151/70 H 130/78 169/78 H Pulse Oximetry 92 L 96 96 02/17/18 15:25 02/17/18 16:00 02/17/18 16:05 Temperature Pulse Rate 116 H 106 H 96 H Respiratory Rate 26 H 28 H 32 H Blood Pressure 155/76 H Pulse Oximetry 96 96 02/17/18 17:00 02/17/18 18:00 02/17/18 19:36 Temperature Pulse Rate 91 H 90 97 H Respiratory Rate 28 H 26 H 17 Blood Pressure 159/73 H 148/72 H Pulse Oximetry 95 95 02/17/18 20:00 02/17/18 21:00 02/17/18 22:00 Temperature 99.6 F Pulse Rate 90 96 H 116 H Respiratory Rate 24 20 22 Blood Pressure 154/81 H 151/77 H 160/83 H Pulse Oximetry 96 95 02/17/18 23:00 02/17/18 23:17 02/18/18 00:00 Temperature 99.2 F Pulse Rate 81 112 H 80 Respiratory Rate 20 22 18 Blood Pressure 142/76 H 135/66 Pulse Oximetry 94 L 02/18/18 01:00 02/18/18 02:00 02/18/18 03:00 Temperature Pulse Rate 98 H 99 H 83 Respiratory Rate 22 20 22 Blood Pressure 159/81 H 167/87 H 148/92 H Pulse Oximetry 95 94 L 94 L 02/18/18 04:00 02/18/18 05:00 02/18/18 06:00 Temperature 98.8 F 98.3 F Pulse Rate 75 83 78 Respiratory Rate 18 22 20 Blood Pressure 170/87 H 165/94 H 155/95 H Pulse Oximetry 97 96 96 02/18/18 07:00 02/18/18 07:42 Temperature Pulse Rate 118 H 130 H Respiratory Rate 22 28 H Blood Pressure 164/97 H Pulse Oximetry 94 L 94 L Intake & Output 02/17/18 02/18/18 02/18/18 18:59 06:59 18:59 Intake Total 2700 / 2700 1182.5 / 1182.5 Output Total 850 / 850 1450 / 1450 Balance 1850 / 1850 -267.5 / -267.5 Weight 72.4 kg Intake: IV 2700 / 2700 462.5 / 462.5 1/2 Normal Saline Inj 1,000 ML 800 / 800 @ 42 mls/hr IV.CONT .[id number] [facility] Rx#:[id number] Azithromycin Inj 500 MG In NS 250 / 250 Inj 250 ML @ 250 mls/hr IV.SIG Q24H [facility] Rx#:[id number] Zosyn 4.5 GM Premix 4.5 gm In 300 / 300 200 / 200 100 ml @ 200 mls/hr IV.SIG Q6H [facility] Rx#:[id number] KCl 20 mEq Premix Inj 20 meq In 100 / 100 100 ml @ 50 mls/hr IV.SIG Q2H PRN Rx#:[id number] Vancomycin Inj 1,250 MG In NS 262.5 / 262.5 Inj 250 ML @ 262.5 mls/hr IV. SIG Q24H [facility] Rx#:[id number] Oral 720 / 720 Output: Urine 850 / 850 1450 / 1450 Other: Date of Last Bowel Movement 02/17/18 02/17/18 # Bowel Movements 2 1 Result Diagrams: 02/18/18 04:47 02/18/18 04:47 Other Results: Microbiology 02/13/18 20:00 Blood - Peripheral Aerobic Blood Culture - Preliminary No growth in 4 days 02/13/18 20:00 Blood - Peripheral Anaerobic Blood Culture - Preliminary No growth in 4 days 02/13/18 19:50 Blood - Peripheral Aerobic Blood Culture - Preliminary No growth in 4 days 02/13/18 19:50 Blood - Peripheral Anaerobic Blood Culture - Preliminary No growth in 4 days 02/17/18 04:30 Sputum - Expectorated Sputum Gram Stain - Final 02/13/18 21:00 Throat Group A Streptococcus Screen/Cult - Final No Beta Streptococci isolated. 02/13/18 20:36 Urine - Clean Catch Urine Legionella Antigen - Final Presumptive negative for Legionella pneumophila serogroup 1 antigen in urine, suggesting no recent or recurrent infection. Infection due to Legionella cannot be ruled out since other serogroups and species may cause disease, antigen may not be present in urine in early infection, and the level of antigen present in the urine may be below the detection limit of the test. 02/13/18 20:36 Urine - Clean Catch Urine Streptococcus pneumoniae Antigen ( M - Final POS S. pneumoniae antigen 02/13/18 21:00 Throat Group A Streptococcus Screen (CRUZ) - Final 02/13/18 20:32 Nasal Wash Influenza Types A,B Antigen - Final Negative for FLU A and B antigen Infection due to influenza A or B cannot be ruled out since the antigen present in the sample may be below the detection limit of the test. Imaging: Chest X-Ray 02/13/18 19:41 CONCLUSION: 1. Negative portable chest. Head CT 02/13/18 19:41 CONCLUSION: 1. Mild periventricular white matter small vessel ischemic changes bilaterally. 2. No acute infarct, acute hemorrhage, mass effect or extra axial fluid collections. . Chest X-Ray 02/15/18 14:58 CONCLUSION: 1. Mild streakiness is noted involving the right medial lung base consistent with possible developing infiltrates. Clinical correlation is recommended. 2. Minimal increased perihilar streakiness is noted bilaterally. Chest CT 02/16/18 00:00 CONCLUSION: 1. Nonspecific bilateral pneumonia as described. 2. Tiny right pleural effusion. 3. Upper limits of normal to slightly enlarged mediastinal and hilar lymph nodes. Chest X-Ray 02/16/18 00:00 CONCLUSION: 1. Persistent hazy opacification of the medial right lung base. Recommend clinical correlation for infection. 2. Hyperinflation with streaky opacities radiating from the des, which may be related to underlying chronic obstructive pulmonary disease. Abdomen/Bladder Ultrasound 02/16/18 18:18 CONCLUSION: 1. Echogenic kidneys consistent with medical renal disease. 2. No sonographic evidence for obstructive uropathy. 3. 5 mm cyst in the inferior pole the right kidney. 4. Nonspecific prostate enlargement. Chest X-Ray 02/18/18 06:00 CONCLUSION: Modest worsening bilateral basilar and upper lobe airspace disease. Small bilateral effusions. Objective Remarks: GENERAL: 67-year-old male currently resting in bed in no acute distress. Previously in some distress secondary wheezing on nasal cannula SKIN: Warm and dry. HEAD: Atraumatic. Normocephalic. EYES: Pupils equal and round. No scleral icterus. No injection or drainage. ENT: No nasal bleeding or discharge. Mucous membranes pink and moist. NECK: Trachea midline. No JVD. CARDIOVASCULAR: Tachycardic, RR. S1, S2 no S4. No murmur appreciated RESPIRATORY: Occasional accessory muscle use. Positive inspiratory and expiratory wheeze appreciated bases bilaterally. Really not cachectic. GASTROINTESTINAL: Abdomen soft, non-tender, nondistended. Hepatic and splenic margins not palpable. MUSCULOSKELETAL: Extremities without clubbing, cyanosis, or edema. No obvious deformities. NEUROLOGICAL: Awake and alert. No obvious cranial nerve deficits. Motor grossly within normal limits. Five out of 5 muscle strength in the arms and legs. Normal speech. PSYCHIATRIC: Appropriate mood and affect; insight and judgment normal. Assessment and Plan - Assessment and Plan Plan: Neuro/Psych: Admission with acute delirium/encephalopathy toxic metabolic due to underlying pneumonia/community acquired Acetaminophen 650 p.o. every 6 hours as needed fever Hydrocodone/acetaminophen 5/325 1 tablet every 4 hours as needed pain [address] brain 02/13 revealed small vessel ischemic changes bilaterally. No acute infarction CV: Essential hypertension Hyperlipidemia Peripheral vascular disease stenting to right lower extremity Holding olmesartan 40 mg daily/home medication for hypertension. Resume if clinically indicated Currently on atorvastatin 80 mg daily for hyperlipidemia. We will check 2D echocardiogram with underlying shortness of breath. EKG chest troponin will be ordered for a.m. septal infarct. Troponin 0 0.27. Recheck tomorrow. Likely strain/demand ischemia secondary to tachypnea Continue home medication clopidogrel 75 mg daily Resp: Acute respiratory insufficiency COPD Community-acquired pneumonia ongoing tobaccoism Nasal cannula to maintain saturations greater than or equal to 92% Incentive spirometry while awake Lung hyperinflation protocol initiated Albuterol/ipratropium aerosols every 4 hours with albuterol aerosols every 2 hours as needed dyspnea Continue budesonide 0.5/2 1 inhalation twice daily Blunting left costophrenic angle. Medial right lobe infiltrate on hyperinflation likely secondary to emphysema. Continue methylprednisolone succinate 60 mg IV every 6 hours Tobacco cessation self evaluation booklet provided. Currently not requesting nicotine patch CT thorax revealed patchy bilateral pneumonia. Lymphadenopathy. GI: Hypoalbuminemia Currently on a regular diet Famotidine for GI prophylaxis Docusate sodium/senna 1 tablet twice daily for bowel regimen : No indication for Armstrong catheter Endo: Sliding scale insulin with aspart insulin Accu-Cheks AC/at bedtime to maintain euglycemia while on steroids Normal TSH Renal: Acute kidney injury -resolving Right renal cyst Avoid nephrotoxic medications. Patient was on ibuprofen as an outpatient. Check renal ultrasound -medical renal disease. Right renal cyst Heme: Leukocytosis Normocytic anemia Monitor CBC daily. Follow trends. No indication for transfusion of blood products at this time. ID: Streptococcal urinary antigen positive for community acquired pneumonia Currently on vancomycin, piperacillin/tazobactam started 02/16 azithromycin started 02/13. Previously on ceftriaxone since 02/13 Blood cultures x2/influenza A/B 02/13 no growth to date MSK: PT evaluate and treat FEN: Hypokalemia Hypophosphatemia Replace electrolytes as clinically indicated per ICU electrolyte protocol Currently on one half normal saline 42 cc an hour Access -Utilize peripheral IV. Central line if indicated Prophylaxis -GI -famotidine -DVT -SCD/heparin subcu Level 2 follow-up Stable from critical care medicine standpoint. Assign care to hospitalist in a.m. 02/19. Code Status: Full code Discussed Condition With: Patient. IMC RN. CARE plan discussed and all questions answered.
[2018-02-18] MEDS ORDERED: Potassium Phosphate Inj 30 MMOL in Sodium Chlor 0.9% Inj 250 ML IV.SIG ONE (11:00)
[2018-02-18] MEDS: Heparin - SQ 10,000 UNITS/ML Vial SQ SCH ×2 (12:13→23:02)
[2018-02-18] MEDS ORDERED: ALPRAZolam 0.25 MG Tablet PO PRN (14:00)
--- NOTE | 2018-02-18 15:01 | P.PN ---
Subjective Interval history: Up in a chair and breathing better. No cough but has wheezing. Physical Exam Vital signs: Vital Signs 02/17/18 15:00 02/17/18 15:25 02/17/18 16:00 Temperature Pulse Rate 80 116 H 106 H Respiratory Rate 30 H 26 H 28 H Blood Pressure 169/78 H Pulse Oximetry 96 96 02/17/18 16:05 02/17/18 17:00 02/17/18 18:00 Temperature Pulse Rate 96 H 91 H 90 Respiratory Rate 32 H 28 H 26 H Blood Pressure 155/76 H 159/73 H 148/72 H Pulse Oximetry 96 95 95 02/17/18 19:00 02/17/18 19:36 02/17/18 20:00 Temperature 99.6 F Pulse Rate 107 H 97 H 92 H Respiratory Rate 17 31 H Blood Pressure 166/81 H 154/81 H Pulse Oximetry 93 L 97 02/17/18 21:00 02/17/18 22:00 02/17/18 23:00 Temperature Pulse Rate 87 116 H 81 Respiratory Rate 46 H 22 20 Blood Pressure 151/77 H 160/83 H 148/76 H Pulse Oximetry 95 88 L 94 L 02/17/18 23:17 02/18/18 00:00 02/18/18 01:00 Temperature 99.2 F Pulse Rate 112 H 92 H 80 Respiratory Rate 22 59 H 49 H Blood Pressure 133/66 159/81 H Pulse Oximetry 93 L 96 02/18/18 02:00 02/18/18 03:00 02/18/18 04:00 Temperature 98.8 F Pulse Rate 100 H 109 H 74 Respiratory Rate 28 H 39 H 27 H Blood Pressure 167/87 H 148/92 H 170/87 H Pulse Oximetry 94 L 90 L 96 02/18/18 05:00 02/18/18 05:06 02/18/18 05:22 Temperature 98.3 F Pulse Rate 83 103 H 92 H Respiratory Rate 22 57 H Blood Pressure 165/94 H 165/94 H Pulse Oximetry 96 89 L 96 02/18/18 06:00 02/18/18 06:05 02/18/18 07:00 Temperature Pulse Rate 78 72 99 H Respiratory Rate 36 H 39 H 45 H Blood Pressure 182/106 H 155/95 H 164/97 H Pulse Oximetry 96 96 94 L 02/18/18 07:42 02/18/18 08:00 02/18/18 09:00 Temperature Pulse Rate 130 H 105 H 95 H Respiratory Rate 28 H 46 H Blood Pressure 160/79 H 152/99 H Pulse Oximetry 94 L 95 97 02/18/18 10:00 02/18/18 11:31 02/18/18 12:00 Temperature Pulse Rate 107 H 80 80 Respiratory Rate 48 H 20 Blood Pressure 158/96 H Pulse Oximetry 95 02/18/18 12:04 Temperature Pulse Rate Respiratory Rate Blood Pressure Pulse Oximetry 96 Intake & Output 02/17/18 02/18/18 02/18/18 18:59 06:59 18:59 Intake Total 2700 / 2700 1182.5 / 1182.5 100 / 100 Output Total 850 / 850 1450 / 1450 Balance 1850 / 1850 -267.5 / -267.5 100 / 100 Weight 72.4 kg Intake: IV 2700 / 2700 462.5 / 462.5 100 / 100 1/2 Normal Saline Inj 1,000 ML 800 / 800 @ 42 mls/hr IV.CONT .[id number] [facility] Rx#:[id number] Azithromycin Inj 500 MG In NS 250 / 250 Inj 250 ML @ 250 mls/hr IV.SIG Q24H [facility] Rx#:[id number] Zosyn 4.5 GM Premix 4.5 gm In 300 / 300 200 / 200 100 / 100 100 ml @ 200 mls/hr IV.SIG Q6H [facility] Rx#:[id number] KCl 20 mEq Premix Inj 20 meq In 100 / 100 100 ml @ 50 mls/hr IV.SIG Q2H PRN Rx#:[id number] Vancomycin Inj 1,250 MG In NS 262.5 / 262.5 Inj 250 ML @ 262.5 mls/hr IV. SIG Q24H [facility] Rx#:[id number] Oral 720 / 720 Output: Urine 850 / 850 1450 / 1450 Other: Date of Last Bowel Movement 02/17/18 02/17/18 02/18/18 # Bowel Movements 2 1 Narrative: Gen.: Elderly W/M alert in No acute distress. Head: Normocephalic. Atraumatic. EENT: Pupils equal round and reactive to light. Nose without drainage. Airway intact. Throat without injection. Cardiovascular: Regular rate and rhythm. No murmurs, rubs or gallops. Respiratory: Diffuse wheezing with basal crackles.. Abdomen: Soft, nontender, nondistended. Musculoskeletal: No gross deformities. No edema. Skin: No obvious rashes or erythema. Neuro: Sensory and motor grossly intact. Alert and oriented. Cranial nerves II through XII grossly intact. Results - Labs CBC & Chem 7: 02/18/18 04:47 02/18/18 04:47 Laboratory Results - last 24 hr 02/17/18 02/17/18 02/17/18 16:28 17:31 23:04 WBC RBC Hgb Hct MCV MCH MCHC RDW Plt Count MPV Neut % (Auto) Lymph % (Auto) [place] % (Auto) Eos % (Auto) Baso % (Auto) Neut # (Auto) Lymph # (Auto) [place] # (Auto) Eos # (Auto) Baso # (Auto) WBC Differential Differential Comment Sodium Potassium 3.3 L Chloride Carbon Dioxide Anion Gap BUN Creatinine Estimated GFR POC Glucose 199 H 132 H Random Glucose Calcium Phosphorus Magnesium 02/18/18 02/18/18 02/18/18 04:47 04:47 05:10 WBC 18.8 H RBC 4.34 L Hgb 13.8 Hct 39.6 MCV 91.3 MCH 31.8 MCHC 34.9 RDW 14.6 Plt Count 190 D MPV 9.7 Neut % (Auto) 91.4 H Lymph % (Auto) 3.8 L [place] % (Auto) 4.6 Eos % (Auto) 0.0 Baso % (Auto) 0.2 Neut # (Auto) 17.2 H Lymph # (Auto) 0.7 L [place] # (Auto) 0.9 Eos # (Auto) 0.0 Baso # (Auto) 0.0 WBC Differential . Differential Comment Auto diff final Sodium 145 Potassium 3.4 L Chloride 109 H Carbon Dioxide 26.9 Anion Gap 9 BUN 25 H Creatinine 1.19 Estimated GFR 61 L POC Glucose 127 H Random Glucose 136 H Calcium 8.0 L Phosphorus 1.5 L Magnesium 2.1 02/18/18 12:20 WBC RBC Hgb Hct MCV MCH MCHC RDW Plt Count MPV Neut % (Auto) Lymph % (Auto) [place] % (Auto) Eos % (Auto) Baso % (Auto) Neut # (Auto) Lymph # (Auto) [place] # (Auto) Eos # (Auto) Baso # (Auto) WBC Differential Differential Comment Sodium Potassium Chloride Carbon Dioxide Anion Gap BUN Creatinine Estimated GFR POC Glucose 155 H Random Glucose Calcium Phosphorus Magnesium Microbiology 02/17/18 04:30 Sputum - Expectorated Sputum Gram Stain - Final 02/17/18 04:30 Sputum - Expectorated Sputum Sputum Culture - Preliminary Mold species-ID to follow 02/13/18 20:00 Blood - Peripheral Aerobic Blood Culture - Final No growth in 5 days 02/13/18 20:00 Blood - Peripheral Anaerobic Blood Culture - Final No growth in 5 days 02/13/18 19:50 Blood - Peripheral Aerobic Blood Culture - Final No growth in 5 days 02/13/18 19:50 Blood - Peripheral Anaerobic Blood Culture - Final No growth in 5 days - Imaging Impressions Chest X-Ray 02/18/18 06:00 CONCLUSION: Modest worsening bilateral basilar and upper lobe airspace disease. Small bilateral effusions. Assessment and Plan - Assessment (1) COPD (chronic obstructive pulmonary disease) with acute bronchitis Code(s): J44.0 - Chronic obstructive pulmonary disease with acute lower respiratory infection; J20.9 - Acute bronchitis, unspecified Status: Acute (2) Emphysema of lung Code(s): J43.9 - Emphysema, unspecified Status: Acute (3) Encephalopathy Code(s): G93.40 - Encephalopathy, unspecified Status: Acute (4) Atelectasis Code(s): J98.11 - Atelectasis Status: Acute - Plan 1. Continue O2 at 3 L. 2. Nebs qid , duoneb. 3. Solumedrol 60 mg IV Q6H 4. Chest Xray , BMP in am 5. Continue antibiotics Zosyn/Zithromax 6. PFT in am. 7. Symbicort 160/4.5 mcg , 2puffs BID
[2018-02-18 15:39] LABS: Phosphorus 1.7 mg/dL (2.5-4.9); Potassium 3.3 meq/L (3.5-5.1)
[2018-02-18] MEDS: Azithromycin Inj 500 MG in Sodium Chlor 0.9% Inj 250 ML IV.SIG SCH (15:54)
[2018-02-18] MEDS ORDERED: Dexmedetomidine Inj 200 MCG in Sodium Chlor 0.9% Inj 48 ML IV.CONT PRN (16:46)
[2018-02-18] MEDS: Sodium Chloride 0.45 % Inj 1,000 ML IV.CONT SCH (17:04)
[2018-02-18] MEDS: Vancomycin Inj 1,250 MG in Sodium Chlor 0.9% Inj 250 ML IV.SIG SCH (17:37)
[2018-02-18 18:15] LABS: ABG Base Excess -0.8 mmol/L (-2-2); ABG PCO2 42 mmHg (38-42); ABG PO2 69 mmHg (61-120)
[2018-02-18] MEDS ORDERED: Midazolam Inj 5 MG/ML 1 ML Vial ONE ×2 (19:17→20:39)
[2018-02-18] MEDS ORDERED: Albumin Human 5% Inj 500 ML IV.SIG ONE (20:00)
--- NOTE | 2018-02-18 20:21 | XR ---
EXAM DATE: 02/18/2018 8:07 PM EST AGE/SEX: 67 years / Male INDICATIONS: S/P ET tube placement. CLINICAL DATA: This is the patient's initial encounter. Patient reports that signs and symptoms have been present for 1 day and indicates a pain score of Nonresponsive. MEDICAL/SURGICAL HISTORY: . Hypertension. Chronic obstructive pulmonary disease. Smoker. None. COMPARISON: [facility], CHEST 1V SINGLE AP, 02/18/2018. . FINDINGS: Endotracheal tube is in good position at the level of the aortic arch. NG is looped back on itself in the distal esophagus and should be repositioned. Bilateral airspace disease relatively perihilar and basilar which is increased from earlier exam. Small effusions. No pneumothorax. CONCLUSION: NG looped back on itself in the esophagus. This should be repositioned. Endotracheal tube in good pos ition. Worsening bilateral airspace disease since earlier exam. Small effusions. Electronically signed by: Matt Horn MD Board Certified Radiologist 02/18/2018 8:20 PM EST
[2018-02-18] MEDS: Famotidine 20 MG Tablet PO SCH (20:34)
[2018-02-18] MEDS ORDERED: Propofol Inj 500 MG/50 ML Vial ONE (20:39)
[2018-02-18] MEDS ORDERED: Sod Chloride 0.9% Inj 1,000 ML IV.SIG ONE (21:00)
[2018-02-18] MEDS ORDERED: Midazolam Inj 5 MG/ML 1 ML Vial IV.PUSH ONE (21:00)
[2018-02-18 21:13] LABS: ABG Base Excess -1.1 mmol/L (-2-2); ABG PCO2 53 mmHg (38-42); ABG PO2 96 mmHg (61-120)
--- NOTE | 2018-02-18 23:18 | P.PCN ---
Date of procedure: 02/18/18 Procedure: Endotracheal Intubation Diagnosis: Acute hypoxic respiratory failure Indications: Acute hypoxic respiratory failure Consent: Emergent Anesthesia: Versed 5 mg IV, rocuronium 50 mill grams IV Description of the Procedure: The patient was positioned in the sniffing position. Pre-oxygenation was performed using a [id number]. Anesthesia was induced via rapid sequence. A Anne Marie #4 was used for laryngoscopy and a Grade I view was obtained. A 8.5 cuffed endotracheal tube was inserted atraumatically through the vocal cords. Confirmation of correct endotracheal tube placement was made by equal and bilateral breath sounds and colorimetric CO2 detection. The endotracheal tube was secured at 23 cm at the teeth. There were no immediate complications noted. The patient remained hemodynamically stable throughout the procedure. A chest x-ray has been ordered. I personally performed the procedure.
[2018-02-19] MEDS: Sodium Chloride 0.45 % Inj 1,000 ML IV.CONT SCH ×2 (04:19→21:46)
[2018-02-19 04:28] LABS: Baso % (Auto) 0.2 % (0.0-2.0); Hematocrit 35.4 % (39.0-51.0); Hemoglobin 12.1 gm/dL (13.0-17.0); Lymph # (Auto) 0.4 th/mm3 (1.0-4.8); Lymph % (Auto) 3.1 % (9.0-44.0); Mean Corpuscular HGB Conc 34.3 % (32.0-36.0); Mean Corpuscular Hemoglobin 31.3 pg (27.0-34.0); Mean Corpuscular Volume 91.1 fL (80.0-100.0); Mean Platelet Volume 9.1 fL (7.0-11.0); Mono # (Auto) 0.6 th/mm3 (0.0-0.9); Mono % (Auto) 3.9 % (0.0-8.0); Neut # (Auto) 13.5 th/mm3 (1.8-7.7); Neut % (Auto) 92.8 % (16.0-70.0); Platelet Count 188 th/mm3 (150-450); Red Blood Count 3.89 mil/mm3 (4.50-5.90); Red Cell Distribution Width 14.7 % (11.6-17.2); White Blood Count 14.6 th/mm3 (4.0-11.0)
--- NOTE | 2018-02-19 04:37 | XR ---
EXAM DATE: 02/19/2018 4:20 AM EST AGE/SEX: 67 years / Male INDICATIONS: Respiratory failure. CLINICAL DATA: This is the patient's subsequent encounter. Patient reports that signs and symptoms h ave been present for 3 days and indicates a pain score of Nonresponsive. MEDICAL/SURGICAL HISTORY: Hypertension. Chronic obstructive pulmonary disease. Smoker. None. [place] [facility] [place] 02/18/2018. [facility] [place]. . FINDINGS: The ET tube and NG tube are well placed. There is increased density seen at the bases being worse on the right. There is underlying interstitial disease. There is silhouetting of much of the right hemid iaphragm. The heart size is normal. CONCLUSION: Airspace disease seen at the bases being worse on the right. Underlying interstitial disease. Some degree of effusion especially on the right cannot be excluded. Electronically signed by: Branden Kulkarni MD Board Certified Radiologist 02/19/2018 4:36 AM EST
[2018-02-19 04:43] LABS: Albumin 2.2 g/dL (3.4-5.0); Calcium 7.2 mg/dL (8.5-10.1); Carbon Dioxide 26.9 meq/L (21.0-32.0); Magnesium 2.3 mg/dL (1.5-2.5); Phosphorus 3.5 mg/dL (2.5-4.9); Potassium 3.8 meq/L (3.5-5.1); Total Protein 5.6 g/dL (6.4-8.2)
[2018-02-19] MEDS: Propofol 1000 mg/100 ml Inj 1,000 MG/100 ML BOTTLE IV.CONT PRN ×3 (05:21→17:45)
[2018-02-19] MEDS: Piperacil/Tazo 4.5 GM Premix 4.5 GM/100 ML BAG IV.SIG SCH ×3 (05:22→17:27)
[2018-02-19] MEDS: MethylPREDNISolone Sod Succinate Inj 40 MG/ML Vial IV.PUSH SCH ×5 (05:22→23:24)
[2018-02-19] MEDS: Insulin NovoLOG Aspart Correctional Sugar Inj SQ SCH ×3 (06:26→18:57)
--- NOTE | 2018-02-19 08:05 | P.PNCC ---
Subjective Subjective Remarks/Hospital Course: This is a 67-year-old male. Date of admission 02/13/2018. Date of consultation 02/08/2018. Past medical history includes ongoing tobaccoism, COPD , peripheral vascular disease including sent to the right lower extremity on clopidogrel, hyperlipidemia, essential hypertension who presents to the emergency department at [facility] on 02/13 for the evaluation of altered mental status. Events is document states he had acute delirium times 4-5 days. He also was documented stating he had a nonproductive cough, fever and diarrhea with accompanying shortness of breath. Lack of appetite. He denied any chest pain. According to his neighbor per documentation, they went to check on him and found his door to be partially ajar. They found the patient lying down and he could not remember what day it was. He stated he had not had anything to eat or drink in many days. Patient was admitted on the hospital service after CT of the brain revealed small vessel ischemic changes. Influenza a and B are negative. Blood cultures negative. His urine pneumococcal antigen was positive. He was treated with ceftriaxone and azithromycin. He was treated with bronchodilators every 6 hours and methylprednisolone Succinate 40 mg IV every 8 hours. He is on 2 L nasal cannula. Today, breath. Rapid response was called. He was noted to be febrile temperature of 102.5 Fahrenheit and noted to be tachypneic. He received bronchodilator therapy. Chest x-ray revealed a right middle lobe infiltrate. He was transferred to the ICU for evaluation. On my evaluation patient is on 2 L nasal cannula. He is not using accessory muscles. He is able to complete sentences. He does have a cough present time with white sputum. Denies hemoptysis. 02/17: Afebrile. Continues to be quite wheezy. Slight retractions. Will increase methylprednisolone. On aggressive pulmonary toilet therapy at the present time. CT chest revealed bilateral patchy pneumonia. 02/18: Afebrile. On 3 L nasal cannula satting 94-97%. Less wheezy today. In much better spirits. Subjective 02/19: Decompensated overnight requiring mechanical intubation. Hypotensive so central line placed earlier this a.m. Creatinine stable 1.3. White blood cell count slightly improved to 14,000. Continue antibiotic therapy. Objective Vital Signs / I&O: Vital Signs 02/18/18 09:00 02/18/18 10:00 02/18/18 11:31 Temperature Pulse Rate 95 H 107 H 80 Respiratory Rate 46 H 48 H 20 Blood Pressure 152/99 H 158/96 H Pulse Oximetry 97 95 02/18/18 12:00 02/18/18 12:04 02/18/18 13:00 Temperature 99 F Pulse Rate 112 H 136 H Respiratory Rate 34 H 30 H Blood Pressure 140/84 144/94 H Pulse Oximetry 96 96 87 L 02/18/18 14:00 02/18/18 15:00 02/18/18 16:00 Temperature 98.3 F Pulse Rate 120 H 119 H 120 H Respiratory Rate 34 H 34 H 30 H Blood Pressure 153/97 H 142/85 H 159/98 H Pulse Oximetry 94 L 94 L 94 L 02/18/18 16:24 02/18/18 17:00 02/18/18 17:21 Temperature Pulse Rate 124 H 141 H 139 H Respiratory Rate 28 H 36 H 35 H Blood Pressure 191/90 H 141/90 H Pulse Oximetry 91 L 92 L 02/18/18 18:00 02/18/18 18:02 02/18/18 19:00 Temperature Pulse Rate 128 H 122 H 126 H Respiratory Rate 37 H 37 H 38 H Blood Pressure 160/107 H 148/96 H 161/102 H Pulse Oximetry 91 L 90 L 89 L 02/18/18 19:15 02/18/18 20:00 02/18/18 20:05 Temperature 98.8 F Pulse Rate 98 H 84 Respiratory Rate 22 30 H Blood Pressure 88/57 L 104/67 Pulse Oximetry 100 100 100 02/18/18 20:06 02/18/18 20:10 02/18/18 20:11 Temperature Pulse Rate 89 82 Respiratory Rate 24 23 23 Blood Pressure 105/70 Pulse Oximetry 100 100 02/18/18 20:15 02/18/18 20:25 02/18/18 20:30 Temperature Pulse Rate 86 98 H 101 H Respiratory Rate 27 H 19 24 Blood Pressure 109/76 98/68 L 116/71 Pulse Oximetry 100 100 100 02/18/18 20:35 02/18/18 20:40 02/18/18 20:45 Temperature Pulse Rate 101 H 103 H 104 H Respiratory Rate 22 24 19 Blood Pressure 114/72 115/72 114/74 Pulse Oximetry 100 99 99 02/18/18 20:50 02/18/18 20:55 02/18/18 21:00 Temperature Pulse Rate 104 H 103 H 101 H Respiratory Rate 18 19 Blood Pressure 114/76 109/77 118/79 Pulse Oximetry 98 98 98 02/18/18 21:15 02/18/18 21:20 02/18/18 21:25 Temperature Pulse Rate 96 H 94 H 93 H Respiratory Rate 18 20 23 Blood Pressure 107/74 120/80 119/79 Pulse Oximetry 98 99 99 02/18/18 21:30 02/18/18 21:35 02/18/18 21:40 Temperature Pulse Rate 92 H 90 91 H Respiratory Rate 23 22 18 Blood Pressure 120/80 121/82 124/82 Pulse Oximetry 99 99 99 02/18/18 21:45 02/18/18 21:50 02/18/18 21:55 Temperature Pulse Rate 88 89 87 Respiratory Rate 18 20 21 Blood Pressure 122/76 119/77 119/79 Pulse Oximetry 99 99 100 02/18/18 22:00 02/18/18 22:05 02/18/18 22:10 Temperature Pulse Rate 88 88 87 Respiratory Rate 18 20 23 Blood Pressure 118/80 117/75 119/79 Pulse Oximetry 99 100 100 02/18/18 22:15 02/18/18 22:20 02/18/18 22:25 Temperature Pulse Rate 87 88 86 Respiratory Rate 19 20 18 Blood Pressure 118/81 117/81 117/82 Pulse Oximetry 100 100 100 02/18/18 22:30 02/18/18 22:35 02/18/18 22:40 Temperature Pulse Rate 86 85 85 Respiratory Rate 21 23 19 Blood Pressure 115/77 120/82 120/82 Pulse Oximetry 100 99 100 02/18/18 22:45 02/18/18 22:50 02/18/18 22:55 Temperature Pulse Rate 85 110 H 108 H Respiratory Rate 20 19 30 H Blood Pressure 128/90 135/96 H 128/91 H Pulse Oximetry 99 100 99 02/18/18 23:00 02/18/18 23:05 02/18/18 23:10 Temperature Pulse Rate 112 H 92 H 114 H Respiratory Rate 21 18 22 Blood Pressure 131/89 119/85 140/94 H Pulse Oximetry 100 100 100 02/18/18 23:15 02/18/18 23:31 02/18/18 23:46 Temperature 98.3 F Pulse Rate 115 H 118 H 108 H Respiratory Rate 21 20 20 Blood Pressure 137/98 H 135/99 H 126/89 Pulse Oximetry 100 100 100 02/19/18 00:00 02/19/18 00:01 02/19/18 00:12 Temperature Pulse Rate 88 88 112 H Respiratory Rate 20 24 18 Blood Pressure 116/79 Pulse Oximetry 100 100 100 02/19/18 00:16 02/19/18 00:31 02/19/18 00:46 Temperature Pulse Rate 114 H 113 H 112 H Respiratory Rate 32 H 30 H 23 Blood Pressure 133/91 H 131/93 H 132/94 H Pulse Oximetry 100 100 100 02/19/18 01:00 02/19/18 01:01 02/19/18 01:16 Temperature Pulse Rate 117 H 104 H 120 H Respiratory Rate 24 19 29 H Blood Pressure 117/82 127/92 H Pulse Oximetry 100 100 100 02/19/18 01:31 02/19/18 01:46 02/19/18 02:00 Temperature Pulse Rate 115 H 90 89 Respiratory Rate 19 22 24 Blood Pressure 126/90 106/73 Pulse Oximetry 100 100 100 02/19/18 02:01 02/19/18 02:16 02/19/18 02:31 Temperature Pulse Rate 88 102 H 86 Respiratory Rate 25 H 21 22 Blood Pressure 101/71 118/82 101/69 Pulse Oximetry 100 100 100 02/19/18 02:46 02/19/18 03:00 02/19/18 03:01 Temperature Pulse Rate 84 98 H 98 H Respiratory Rate 23 49 H 44 H Blood Pressure 104/71 110/75 Pulse Oximetry 100 100 100 02/19/18 03:16 02/19/18 03:31 02/19/18 03:46 Temperature Pulse Rate 82 90 81 Respiratory Rate 24 26 H 0 L Blood Pressure 108/77 119/90 114/80 Pulse Oximetry 100 100 100 02/19/18 04:00 02/19/18 04:01 02/19/18 04:16 Temperature 98.8 F Pulse Rate 100 H 99 H 111 H Respiratory Rate 29 H 39 H 30 H Blood Pressure 126/89 132/88 Pulse Oximetry 100 100 100 02/19/18 04:31 02/19/18 04:46 02/19/18 04:55 Temperature Pulse Rate 103 H 114 H Respiratory Rate 30 H 29 H 24 Blood Pressure 117/82 119/82 Pulse Oximetry 100 100 100 02/19/18 04:57 02/19/18 05:00 02/19/18 05:01 Temperature Pulse Rate 109 H 105 H 108 H Respiratory Rate 26 H 32 H 28 H Blood Pressure 112/71 Pulse Oximetry 100 100 02/19/18 05:16 02/19/18 05:31 02/19/18 05:46 Temperature Pulse Rate 89 83 83 Respiratory Rate 24 24 23 Blood Pressure 102/71 90/60 L 90/64 L Pulse Oximetry 99 99 99 02/19/18 06:00 02/19/18 06:01 02/19/18 06:16 Temperature Pulse Rate 79 79 90 Respiratory Rate 23 22 26 H Blood Pressure 90/53 L 94/58 L Pulse Oximetry 99 99 99 02/19/18 06:31 02/19/18 06:46 02/19/18 07:00 Temperature Pulse Rate 79 88 82 Respiratory Rate 23 30 H 24 Blood Pressure 109/75 106/73 Pulse Oximetry 100 100 100 02/19/18 07:01 02/19/18 07:16 Temperature Pulse Rate 74 89 Respiratory Rate 22 27 H Blood Pressure 105/65 107/65 Pulse Oximetry 100 100 Intake & Output 02/18/18 02/19/18 02/19/18 18:59 06:59 18:59 Intake Total 1170 / 1170 2962.5 / 2962.5 Output Total 850 / 850 750 / 750 Balance 320 / 320 2212.5 / 2212.5 Weight 76.8 kg Intake: IV 450 / 450 2962.5 / 2962.5 1/2 Normal Saline Inj 1,000 ML 1000 / 1000 @ 42 mls/hr IV.CONT .[id number] [facility] Rx#:[id number] Alburx 5% Inj 500 ML @ 200 mls/ 500 / 500 hr IV.SIG ONCE ONE Rx#:[id number] Azithromycin Inj 500 MG In NS 250 / 250 Inj 250 ML @ 250 mls/hr IV.SIG Q24H [facility] Rx#:[id number] Zosyn 4.5 GM Premix 4.5 gm In 200 / 200 200 / 200 100 ml @ 200 mls/hr IV.SIG Q6H [facility] Rx#:[id number] NS Inj 1,000 ML @ Wide Open IV. 1000 / 1000 SIG .Q0M ONE Rx#:[id number] Vancomycin Inj 1,250 MG In NS 262.5 / 262.5 Inj 250 ML @ 262.5 mls/hr IV. SIG Q24H [facility] Rx#:[id number] Oral 720 / 720 Output: Urine 850 / 850 Urine Amount (Catheter) 600 / 600 Straight 600 / 600 Gastric Drainage 150 / 150 Left Nare 150 / 150 Other: Date of Last Bowel Movement 02/18/18 02/19/18 # Bowel Movements 2 Result Diagrams: 02/19/18 03:14 02/19/18 03:14 Other Results: Microbiology 02/17/18 04:30 Sputum - Expectorated Sputum Gram Stain - Final 02/17/18 04:30 Sputum - Expectorated Sputum Sputum Culture - Preliminary Mold species-ID to follow 02/13/18 20:00 Blood - Peripheral Aerobic Blood Culture - Final No growth in 5 days 02/13/18 20:00 Blood - Peripheral Anaerobic Blood Culture - Final No growth in 5 days 02/13/18 19:50 Blood - Peripheral Aerobic Blood Culture - Final No growth in 5 days 02/13/18 19:50 Blood - Peripheral Anaerobic Blood Culture - Final No growth in 5 days 02/13/18 21:00 Throat Group A Streptococcus Screen/Cult - Final No Beta Streptococci isolated. 02/13/18 20:36 Urine - Clean Catch Urine Legionella Antigen - Final Presumptive negative for Legionella pneumophila serogroup 1 antigen in urine, suggesting no recent or recurrent infection. Infection due to Legionella cannot be ruled out since other serogroups and species may cause disease, antigen may not be present in urine in early infection, and the level of antigen present in the urine may be below the detection limit of the test. 02/13/18 20:36 Urine - Clean Catch Urine Streptococcus pneumoniae Antigen ( M - Final POS S. pneumoniae antigen 02/13/18 21:00 Throat Group A Streptococcus Screen ([facility]) - Final 02/13/18 20:32 Nasal Wash Influenza Types A,B Antigen - Final Negative for FLU A and B antigen Infection due to influenza A or B cannot be ruled out since the antigen present in the sample may be below the detection limit of the test. Imaging: Chest X-Ray 02/13/18 19:41 CONCLUSION: 1. Negative portable chest. Head CT 02/13/18 19:41 CONCLUSION: 1. Mild periventricular white matter small vessel ischemic changes bilaterally. 2. No acute infarct, acute hemorrhage, mass effect or extra axial fluid collections. . Chest X-Ray 02/15/18 14:58 CONCLUSION: 1. Mild streakiness is noted involving the right medial lung base consistent with possible developing infiltrates. Clinical correlation is recommended. 2. Minimal increased perihilar streakiness is noted bilaterally. Chest CT 02/16/18 00:00 CONCLUSION: 1. Nonspecific bilateral pneumonia as described. 2. Tiny right pleural effusion. 3. Upper limits of normal to slightly enlarged mediastinal and hilar lymph nodes. Chest X-Ray 02/16/18 00:00 CONCLUSION: 1. Persistent hazy opacification of the medial right lung base. Recommend clinical correlation for infection. 2. Hyperinflation with streaky opacities radiating from the des, which may be related to underlying chronic obstructive pulmonary disease. Abdomen/Bladder Ultrasound 02/16/18 18:18 CONCLUSION: 1. Echogenic kidneys consistent with medical renal disease. 2. No sonographic evidence for obstructive uropathy. 3. 5 mm cyst in the inferior pole the right kidney. 4. Nonspecific prostate enlargement. Chest X-Ray 02/18/18 00:00 CONCLUSION: NG looped back on itself in the esophagus. This should be repositioned. Endotracheal tube in good position. Worsening bilateral airspace disease since earlier exam. Small effusions. Chest X-Ray 02/18/18 06:00 CONCLUSION: Modest worsening bilateral basilar and upper lobe airspace disease. Small bilateral effusions. Chest X-Ray 02/19/18 06:00 CONCLUSION: Airspace disease seen at the bases being worse on the right. Underlying interstitial disease. Some degree of effusion especially on the right cannot be excluded. Objective Remarks: GENERAL: 67-year-old male currently resting in bed orotracheally intubated SKIN: Warm and dry. HEAD: Atraumatic. Normocephalic. EYES: Pupils equal and round. No scleral icterus. No injection or drainage. ENT: No nasal bleeding or discharge. Mucous membranes pink and moist. NECK: Trachea midline. No JVD. Left IJ CVL is clean dry and intact CARDIOVASCULAR: RRR. S1, S2 no S4. No murmur appreciated RESPIRATORY: Positive inspiratory and expiratory wheeze. Diminished at bases. GASTROINTESTINAL: Abdomen soft, non-tender, nondistended. Hepatic and splenic margins not palpable. MUSCULOSKELETAL: Extremities without clubbing, cyanosis, or edema. No obvious deformities. NEUROLOGICAL: Moves all 4 extremities spontaneously. Positive cough and gag and corneal reflex. Assessment and Plan - Assessment and Plan Plan: Neuro/Psych: Admission with acute delirium/encephalopathy toxic metabolic due to underlying pneumonia/community acquired On propofol/dexmedetomidine drips for sedation/vent synchrony Goal of RA SS -2 Daily sedation vacation Acetaminophen 650 p.o. every 6 hours as needed fever Hydrocodone/acetaminophen 5/325 1 tablet every 4 hours as needed pain [address] brain 02/13 revealed small vessel ischemic changes bilaterally. No acute infarction CV: Essential hypertension Hyperlipidemia Peripheral vascular disease stenting to right lower extremity Holding olmesartan 40 mg daily/home medication for hypertension. Resume if clinically indicated Currently on atorvastatin 80 mg daily for hyperlipidemia. We will check 2D echocardiogram with underlying shortness of breath. EKG chest troponin will be ordered for a.m. septal infarct. Troponin 0 0.27. Recheck tomorrow. Likely strain/demand ischemia secondary to tachypnea Continue home medication clopidogrel 75 mg daily As needed norepinephrine to maintain mean artery pressure equal to 65 Resp: Acute respiratory failure/hypoxic hypercapnic COPD Community-acquired pneumonia ongoing tobaccoism PRVC ventilation Head of bed at 30 degrees with ventilator bundle Albuterol/ipratropium aerosols every 4 hours with albuterol aerosols every 2 hours as needed dyspnea Continue budesonide 0.5/2 1 inhalation twice daily Blunting left and right costophrenic angle. Medial right lobe infiltrate on hyperinflation likely secondary to emphysema. Continue methylprednisolone succinate 60 mg IV every 6 hours Tobacco cessation self evaluation booklet provided. 30 nicotine patch [address] thorax revealed patchy bilateral pneumonia. Lymphadenopathy. GI: Hypoalbuminemia Currently on a tube feeds Jevity 1.5 goal 55 cc an hour Lansoprazole for GI prophylaxis Docusate sodium/senna 1 tablet twice daily for bowel regimen. Add lactulose 30 cc twice daily : No indication for Armstrong catheter catheterization Endo: Sliding scale insulin with aspart insulin Accu-Cheks AC/at bedtime to maintain euglycemia while on steroids Normal TSH 0.398 Renal: Acute kidney injury -resolving Right renal cyst Avoid nephrotoxic medications. Patient was on ibuprofen as an outpatient. Check renal ultrasound -medical renal disease. Right renal cyst Heme: Leukocytosis Normocytic anemia Monitor CBC daily. Follow trends. No indication for transfusion of blood products at this time. ID: Streptococcal urinary antigen positive for community acquired pneumonia Currently on vancomycin, piperacillin/tazobactam started 02/16 azithromycin started 02/13. Previously on ceftriaxone since 02/13 02/16 -sputum with mold. Added fluconazole Blood cultures x2/influenza A/B 02/13 no growth to date MSK: PT evaluate and treat FEN: Hyper magnesia Replace electrolytes as clinically indicated per ICU electrolyte protocol Currently on one half normal saline 42 cc an hour Access -Utilize peripheral IV. Central line if indicated Prophylaxis -GI -lansoprazole -DVT -SCD/heparin subcu Critical care time 35 minutes follow-up Code Status: Full code Discussed Condition With: No family at bedside. RN.
--- NOTE | 2018-02-19 08:42 | XR ---
EXAM DATE: 02/19/2018 8:38 AM EST AGE/SEX: 67 years / Male INDICATIONS: Left sided central line placement. CLINICAL DATA: This is the patient's subsequent encounter. Patient reports that signs and symptoms h ave been present for 3 days and indicates a pain score of Nonresponsive. MEDICAL/SURGICAL HISTORY: . Hypertension. Chronic obstructive pulmonary disease. Smoker. None. COMPARISON: . FINDINGS: Stable ETT and NGT coursing beyond the GE junction. Interval placement of left IJ central line with t ip in the very proximal SVC. No significant pneumothorax. Redemonstration of hazy opacity in the righ t mid to lower lung zone as well as minimal ill-defined airspace disease at the left lung base. Cardi omegaly saw contours are stable. Remainder of the exam is unchanged. CONCLUSION: 1. Left IJ central line in good position without pneumothorax. 2. Persistent right lower lobe airspace disease and probable small pleural effusion. 3. Persistent minimal airspace disease at the left lung base. Electronically signed by: Gus Guan MD Board Certified Radiologist 02/19/2018 8:41 AM JUANA Acevedo
[2018-02-19] MEDS: Artificial Tears Opth Drops 15 ML Bottle EACH EYE SCH ×3 (09:29→23:25)
--- NOTE | 2018-02-19 11:39 | P.PCN ---
Date of procedure: 02/19/18 Pre-op diagnosis: Hypertension Post-op diagnosis: same Procedure: DATE: 02/19/2018 CENTRAL LINE PLACEMENT: Left internal jugular vein. Ultrasound-guided INDICATION: Central venous access CONSENT Informed consent for procedure was done obtaining considered emergent due to hypotension. DESCRIPTION OF THE PROCEDURE The patient was placed in supine position. The skin was cleansed with Chloraprep. Additional barrier precautions included large sterile drape, sterile gloves, sterile gown, face mask, and hat. 1 % lidocaine was used for local anesthesia. Under direct ultrasound guidance and on initial attempt, the vein was accessed with an introducer needle. The guide wire was advanced and the tract was dilated. Using Seldinger technique a 7 [place] 20 cm antimicrobial coated triple-lumen catheter was advanced to a depth of 20 centimeters. The guide wire was removed. All ports had good return of dark venous blood and flushed easily with saline. The central line was secured with StatLock. A sterile dressing with antibiotic disc was applied. ESTIMATED BLOOD LOSS: Minimal COMPLICATIONS: No apparent complications. STAT chest x-ray adequate positioning of central line without pneumothorax
--- NOTE | 2018-02-19 13:31 | P.DIET ---
Nutritional Evaluation Type of nutrition evaluation: initial Nutrition consult regarding: Tube Feeding Screening comments: 02/19 TF review Objective - Diagnosis sepsis, AMS - Objective Body Mass Index: 23.0 % IBW: 95 (IBW = 178lb) Body Weight Used for Calculations: Actual (76.8kg) Energy Needs - Lower Range (kCal/kg): 28 Energy Needs - Upper Range (kCal/kg): 32 Lower Limit kCal/kg (kCals): 2,150 Upper Limit kCal/kg (kCals): 2,458 Lower Limit Protein Factor (Grams per Kg): 1.2 Upper Limit Protein Factor (Grams per Kg): 1.4 Lower Protein Needs (Protein): 92 Upper Protein Needs (Protein): 108 Dietitian Reviewed in Medical Record: Curent medications, Intake & Output, Labs , Medical history, Tube feeding Diet Order: NPO, TF'ing Objective Comments: PMH: COPD, HLD, HTN, PVD Meds: novolog, propofol Labs: BUN 31, Cr 1.32, estGFR 54, POC glucose 127 204 132, Ca+ 7.2 LBM 02/19 Assessment Assessment: Pt currently intubated with trach, sedated w/ propofol. Pt receiving Jevity 1.5 @ 55mL/hr as goal rate. RD to recommend increasing TF to Jevity 1.5 @ 65mL/hr to provide 2340kcal, 100g of protein, and 1186mL of free water to best meet pts nutritional needs. Continue to monitor TF tolerance and glucose labs. Labs reviewed, dietitian following. Recommendations: 1. RD to recommend increasing TF to Jevity 1.5 @ 65mL/hr to best meet pts nutritional needs 2. Continue to monitor TF tolerance and glucose labs 3. Dietitian following Dietitian to Monitor: Lab values, Glucose level, Intake & Output, Tube feeding tolerance, Weight change, Medical course
[2018-02-19] MEDS: Senna/Docusate Sodium 8.6/50 MG Tablet PO SCH ×2 (13:33→21:45)
[2018-02-19] MEDS: Heparin - SQ 10,000 UNITS/ML Vial SQ SCH ×2 (13:33→23:24)
[2018-02-19] MEDS: Azithromycin Inj 500 MG in Sodium Chlor 0.9% Inj 250 ML IV.SIG SCH (16:11)
[2018-02-19] MEDS ORDERED: Pharmacy Ordered Lab Info OTHER ONE (16:45)
[2018-02-19] MEDS: Vancomycin Inj 1,250 MG in Sodium Chlor 0.9% Inj 250 ML IV.SIG SCH (17:27)
--- NOTE | 2018-02-19 18:25 | P.CONID ---
History of Present Illness Service: Infectious disease Consult date: 02/19/18 Requesting Physician: Cayden Du Reason for Consult: Evaluate patient with strep, Aspergillus in the sputum, assist with antibio Primary Care Provider: Yogi Lee MD Chief Complaint: Shortness of breath History of Present Illness: Patient seen and examined. Records reviewed. Patient is a 67-year-old male, brought into the hospital for further evaluation of cough fever diarrhea and confusion. Patient apparently has not been feeling well for about 4-5 days. He has been having a nonproductive cough, fever and diarrhea. He also has significant weakness. His neighbor apparently checked on him on the day of admission and found him lying down and he was somewhat confused. He apparently has not had anything to eat or drink in several days. He was brought into the hospital, and he initial chest x-ray did not show any acute infiltrate. CT of the head did not show any acute disease. His WBC was normal. Creatinine was elevated at 1.75. Urine for pneumococcal antigen came back positive. Blood cultures were negative. Patient was put on empiric antibiotics for community-acquired pneumonia. He was also having a lot of shortness of breath and a lot of wheezing, and has been getting IV steroids. Pulmonary is on the case. Yesterday he had desaturation, and progressive respiratory distress, and ended up getting intubated. Patient currently is on the vent, and sedated. He does not have a lot of secretions from his endotracheal tube. His blood pressure is okay. Temperature is okay. He is currently on vancomycin and Zosyn, as well as Zithromax and Diflucan. The sputum culture from February 17 is reported as growing Aspergillus. His WBC was up to 18,000 yesterday, and is down to 14,000. His creatinine is slowly improving and down to 1.32. CT of the chest showed patchy bilateral pulmonary infiltrates. Infectious disease consultation has been requested to assist with evaluation and treatment, and antibiotic management. Review of Systems unobtainable due to endotracheal tube PMFSH - History History Provided By: Patient - Medical History Medical History: Medical History (Last Reviewed 02/19/18 @ 18:19 by Carolynn Moss MD) COPD (chronic obstructive pulmonary disease) Hyperlipidemia Peripheral vascular disease Hypertension - Surgical History Surgical History: Surgical History (Last Reviewed 02/19/18 @ 18:19 by Carolynn Moss MD) History of hernia repair - Family History Family History: Family History (Last Reviewed 02/19/18 @ 18:19 by Carolynn Moss MD) Other Family history normal - Tobacco History Second Hand Smoke Exposure: No Tobacco Use In Past 30 Days: Yes Smoking Status: Current every day smoker Tobacco Type: Cigarettes - Alcohol History How Often Do You Have a Drink Containing Alcohol: Never - Substance Use History Substance History: No History of Abuse - Travel History Recent Travel in the [place] Within the Last 8 Weeks: No Recent Travel Out of the Country Within the Last 8 Weeks: No - Immunization History Tetanus Immunization: <5 Years Hx Influenza Vaccine This Season: No Medications and Allergies Active Medications: Active Medications Acetaminophen (Tylenol) 650 mg PO Q6H PRN PRN Reason: Temp > 100.4 Al Hydroxide/Mg Hydroxide (Milk Of Michael Watt) 30 ml PO Q12H PRN PRN Reason: Mild Constipation Albuterol (Duoneb Neb (Jakob)) 1 ampul NEB Q4HR NEB [facility] Last Admin: 02/19/18 16:35 Dose: 1 ampul Albuterol (Albuterol Neb (Prn)) 2.5 mg NEB Q2HR NEB PRN PRN Reason: DYSPNEA Artificial Tears (Tears Naturale Opth Drops) 1 drop EACH EYE Q8H [facility] Last Admin: 02/19/18 16:12 Dose: 1 drop Atorvastatin Calcium (Lipitor) 80 mg PO DAILY [facility] Last Admin: 02/19/18 09:29 Dose: 80 mg Bisacodyl (Dulcolax Supp) 10 mg RECTAL DAILY PRN PRN Reason: SEVERE CONSITIPATION Budesonide (Pulmocort Respule Neb) 0.5 mg NEB Q12HR NEB [facility] Last Admin: 02/19/18 08:45 Dose: 0.5 mg Buspirone HCl (Buspar) 5 mg PO TID [facility] Last Admin: 02/19/18 13:34 Dose: Not Given Clopidogrel Bisulfate (Plavix) 75 mg PO DAILY [facility] Last Admin: 02/19/18 09:29 Dose: 75 mg Dextrose (D50w Vial) 50 ml IV.PUSH UNSCH PRN PRN Reason: PER HYPOGLYCEMIA PROTOCOL Glucagon (Glucagon Inj) 1 mg OTHER PRN PRN PRN Reason: for Hypoglycemia Protocol Heparin Sodium (Porcine) (Heparin Inj) 5,000 units SQ Q12H [facility] Last Admin: 02/19/18 13:33 Dose: 5,000 units Azithromycin 500 mg/ Sodium (Chloride) 250 mls @ 250 mls/hr IV.SIG Q24H [facility] Last Admin: 02/19/18 16:11 Dose: 250 mls/hr Magnesium Sulfate 4 gm/ Sodium (Chloride) 100 mls @ 50 mls/hr IV.SIG UNSCH PRN PRN Reason: For Magnesium 0.9 - 1.1 mg/dL Magnesium Sulfate 2 gm/ Sodium (Chloride) 100 mls @ 50 mls/hr IV.SIG UNSCH PRN PRN Reason: For Magnesium 1.2 - 1.6 mg/dL Potassium Chloride (Kcl 40 Meq Premix Inj) 40 meq in 100 mls @ 50 mls/hr IV.SIG Q2H PRN PRN Reason: For Potassium 2.8 - 3.2 mEq/L Potassium Chloride (Kcl 20 Meq Premix Inj) 20 meq in 100 mls @ 50 mls/hr IV.SIG Q2H PRN PRN Reason: For Potassium 3.3 - 3.5 mEq/L Last Infusion: 02/17/18 09:00 Dose: Infused Potassium Chloride (Kcl 40 Meq Premix Inj) 40 meq in 100 mls @ 25 mls/hr IV.SIG UNSCH PRN PRN Reason: For Potassium 3.3 - 3.5 mEq/L Potassium Chloride (Kcl 20 Meq Premix Inj) 20 meq in 100 mls @ 50 mls/hr IV.SIG Q2H PRN PRN Reason: For Potassium 2.8 - 3.2 mEq/L Potassium Phosphate 30 mmol/ (Sodium Chloride) 260 mls @ 42 mls/hr IV.SIG UNSCH PRN PRN Reason: SEE LABEL COMMENTS Sodium Phosphate 30 mmol/ (Sodium Chloride) 260 mls @ 42 mls/hr IV.SIG UNSCH PRN PRN Reason: For Phosphorus < 2.5 mg/dL Sodium Chloride (1/2 Normal Saline Inj) 1,000 mls @ 42 mls/hr IV.CONT .[id number] [facility] Last Admin: 02/19/18 04:19 Dose: 42 mls/hr Vancomycin HCl 1,250 mg/ (Sodium Chloride) 262.5 mls @ 262.5 mls/hr IV.SIG Q24H [facility] Last Admin: 02/19/18 17:27 Dose: 262 mls/hr Dexmedetomidine HCl 200 mcg/ (Sodium Chloride) 50 mls @ 3.62 mls/hr IV.CONT TITRATE PRN; Protocol PRN Reason: Per Protocol Norepinephrine Bitartrate (Levophed-Dextrose 4 Mg/250 Ml Drip) 4 mg in 250 mls @ 7.5 mls/hr IV.SIG TITRATE PRN; Protocol PRN Reason: Per Protocol Last Titration: 02/19/18 04:19 Dose: 0 mcg/min, 0 mls/hr Propofol (Diprivan 1000 Mg/100 Ml Inj) 1,000 mg in 100 mls @ 2.172 mls/hr IV.CONT TITRATE PRN; Protocol PRN Reason: Per Protocol Last Admin: 02/19/18 17:45 Dose: 25 mcg/kg/min, 10.86 mls/hr Fluconazole (Diflucan 200 Mg Premix Bag) 100 mls @ 100 mls/hr IV.SIG Q24H [facility] Last Admin: 02/19/18 08:30 Dose: 100 mls/hr Cefepime HCl 2,000 mg/ Sodium (Chloride) 100 mls @ 200 mls/hr IV.SIG Q12H JAKOB Insulin Aspart (Novolog Insulin Correctional Sugar Inj) 0 unit SQ Q6HR JAKOB; Protocol Last Admin: 02/19/18 13:33 Dose: Not Given Lactulose (Lactulose Liq) 30 ml PO DAILY PRN PRN Reason: SEVERE CONSITIPATION Lactulose (Lactulose Liq) 30 ml PO BID [facility] Last Admin: 02/19/18 13:36 Dose: Not Given Lansoprazole (Prevacid Solutab) 30 mg NG/OG DAILY [facility] Last Admin: 02/19/18 09:29 Dose: 30 mg Magnesium Oxide (Mag-Ox) 800 mg PO UNSCH PRN PRN Reason: For Magnesium 1.2 - 1.6 mg/dL Methylprednisolone Sodium Succinate (Solumedrol Inj) 60 mg IV.PUSH Q6H [facility] Last Admin: 02/19/18 17:26 Dose: 60 mg Nicotine (Habitrol 14 Mg Patch.24 Hr) 1 patch T-DERMAL DAILY [facility] Last Admin: 02/19/18 09:31 Dose: 1 patch Ondansetron HCl (Zofran Inj) 4 mg IV.PUSH Q6H PRN PRN Reason: NAUSEA OR VOMITING Patch Removal (Remove Old Patch) 1 each T-DERMAL HS [facility] Last Admin: 02/18/18 21:43 Dose: 1 each Pharmacy Profile Note (Vancomycin Consult Pharmacy) 1 each OTHER UNSCH PRN PRN Reason: Pharmacy to dose Potassium Bicarb/Potassium Chloride (K-Lyte Cl Eff) 50 meq PO UNSCH PRN PRN Reason: For Potassium 3.3 - 3.5 mEq/L Last Admin: 02/18/18 09:38 Dose: 50 meq Potassium Phosphate (K-Phos Original) 2,000 mg PO Q4H PRN PRN Reason: Phosphorus Less Than 2.5 mg/dL Last Admin: 02/18/18 23:01 Dose: 2,000 mg Potassium Phosphate (K-Phos Original) 2,000 mg PO UNSCH PRN PRN Reason: SEE LABEL COMMENTS Last Admin: 02/18/18 09:42 Dose: 2,000 mg Senna/Docusate Sodium (Tiera-Colace) 1 tab PO BID [facility] Last Admin: 02/19/18 13:33 Dose: Not Given Sennosides (Senokot) 17.2 mg PO Q12H PRN PRN Reason: Moderate Constipation Sodium Chloride (Ns Flush) 2 ml IV.FLUSH BID [facility] Last Admin: 02/19/18 13:36 Dose: Not Given Sodium Chloride (Ns Flush) 2 ml IV.FLUSH PRN PRN PRN Reason: FLUSH AFTER USING IV ACCESS Sodium Chloride (Ns Flush) 0 ml IV.FLUSH DAILY [facility] Last Admin: 02/19/18 13:36 Dose: Not Given Sterile Water (Free Water) 0 ml G-TUBE Q8HR [facility] Last Admin: 02/19/18 13:34 Dose: 100 ml Terbutaline Sulfate (Brethine Inj) 1 mg SQ UNSCH PRN PRN Reason: For Extravasation Allergies Allergy/AdvReac Type Severity Reaction Status Date / Time No Known Allergies Allergy Verified 02/13/18 18:38 Home Medications Medication Instructions Recorded Confirmed Type atorvastatin 80 mg PO DAILY 02/13/18 02/13/18 History clopidogrel 75 mg PO DAILY 02/13/18 02/13/18 History codeine-guaifenesin [Virtussin AC] 5 ml PO Q6H PRN 02/13/18 02/13/18 History hydrocodone-acetaminophen 1 tab PO Q6H 02/13/18 02/13/18 History ibuprofen 800 mg PO TID 02/13/18 02/13/18 History olmesartan 40 mg PO DAILY 02/13/18 02/13/18 History vitamin [id number] acid 100 mcg SUBLINGUAL DAILY 02/13/18 02/13/18 History cyanocobalamin (vitamin B-12) See Label Instructions .ROUTE 02/17/18 02/17/18 History .COMPLEX Exam Vital signs: Vital Signs 02/18/18 19:00 02/18/18 19:15 02/18/18 20:00 Temperature 98.8 F Pulse Rate 126 H 98 H Respiratory Rate 38 H 22 Blood Pressure 161/102 H 88/57 L Pulse Oximetry 89 L 100 100 02/18/18 20:05 02/18/18 20:06 02/18/18 20:10 Temperature Pulse Rate 84 89 Respiratory Rate 30 H 24 23 Blood Pressure 104/67 105/70 Pulse Oximetry 100 100 100 02/18/18 20:11 02/18/18 20:15 02/18/18 20:25 Temperature Pulse Rate 82 86 98 H Respiratory Rate 23 27 H 19 Blood Pressure 109/76 98/68 L Pulse Oximetry 100 100 02/18/18 20:30 02/18/18 20:35 02/18/18 20:40 Temperature Pulse Rate 101 H 101 H 103 H Respiratory Rate 24 22 24 Blood Pressure 116/71 114/72 115/72 Pulse Oximetry 100 100 99 02/18/18 20:45 02/18/18 20:50 02/18/18 20:55 Temperature Pulse Rate 104 H 104 H 103 H Respiratory Rate 19 18 19 Blood Pressure 114/74 114/76 109/77 Pulse Oximetry 99 98 98 02/18/18 21:00 02/18/18 21:15 02/18/18 21:20 Temperature Pulse Rate 101 H 96 H 94 H Respiratory Rate 18 20 Blood Pressure 118/79 107/74 120/80 Pulse Oximetry 98 98 99 02/18/18 21:25 02/18/18 21:30 02/18/18 21:35 Temperature Pulse Rate 93 H 92 H 90 Respiratory Rate 23 23 22 Blood Pressure 119/79 120/80 121/82 Pulse Oximetry 99 99 99 02/18/18 21:40 02/18/18 21:45 02/18/18 21:50 Temperature Pulse Rate 91 H 88 89 Respiratory Rate 18 18 20 Blood Pressure 124/82 122/76 119/77 Pulse Oximetry 99 99 99 02/18/18 21:55 02/18/18 22:00 02/18/18 22:05 Temperature Pulse Rate 87 88 88 Respiratory Rate 21 18 20 Blood Pressure 119/79 118/80 117/75 Pulse Oximetry 100 99 100 02/18/18 22:10 02/18/18 22:15 02/18/18 22:20 Temperature Pulse Rate 87 87 88 Respiratory Rate 23 19 20 Blood Pressure 119/79 118/81 117/81 Pulse Oximetry 100 100 100 02/18/18 22:25 02/18/18 22:30 02/18/18 22:35 Temperature Pulse Rate 86 86 85 Respiratory Rate 18 21 23 Blood Pressure 117/82 115/77 120/82 Pulse Oximetry 100 100 99 02/18/18 22:40 02/18/18 22:45 02/18/18 22:50 Temperature Pulse Rate 85 85 110 H Respiratory Rate 19 20 19 Blood Pressure 120/82 128/90 135/96 H Pulse Oximetry 100 99 100 02/18/18 22:55 02/18/18 23:00 02/18/18 23:05 Temperature Pulse Rate 108 H 112 H 92 H Respiratory Rate 30 H 21 18 Blood Pressure 128/91 H 131/89 119/85 Pulse Oximetry 99 100 100 02/18/18 23:10 02/18/18 23:15 02/18/18 23:31 Temperature 98.3 F Pulse Rate 114 H 115 H 118 H Respiratory Rate 22 21 20 Blood Pressure 140/94 H 137/98 H 135/99 H Pulse Oximetry 100 100 100 02/18/18 23:46 02/19/18 00:00 02/19/18 00:01 Temperature Pulse Rate 108 H 88 88 Respiratory Rate 20 20 24 Blood Pressure 126/89 116/79 Pulse Oximetry 100 100 100 02/19/18 00:12 02/19/18 00:16 02/19/18 00:31 Temperature Pulse Rate 112 H 114 H 113 H Respiratory Rate 18 32 H 30 H Blood Pressure 133/91 H 131/93 H Pulse Oximetry 100 100 100 02/19/18 00:46 02/19/18 01:00 02/19/18 01:01 Temperature Pulse Rate 112 H 117 H 104 H Respiratory Rate 23 24 19 Blood Pressure 132/94 H 117/82 Pulse Oximetry 100 100 100 02/19/18 01:16 02/19/18 01:31 02/19/18 01:46 Temperature Pulse Rate 120 H 115 H 90 Respiratory Rate 29 H 19 22 Blood Pressure 127/92 H 126/90 106/73 Pulse Oximetry 100 100 100 02/19/18 02:00 02/19/18 02:01 02/19/18 02:16 Temperature Pulse Rate 89 88 102 H Respiratory Rate 24 25 H 21 Blood Pressure 101/71 118/82 Pulse Oximetry 100 100 100 02/19/18 02:31 02/19/18 02:46 02/19/18 03:00 Temperature Pulse Rate 86 84 98 H Respiratory Rate 22 23 49 H Blood Pressure 101/69 104/71 Pulse Oximetry 100 100 100 02/19/18 03:01 02/19/18 03:16 02/19/18 03:31 Temperature Pulse Rate 98 H 82 90 Respiratory Rate 44 H 24 26 H Blood Pressure 110/75 108/77 119/90 Pulse Oximetry 100 100 100 02/19/18 03:46 02/19/18 04:00 02/19/18 04:01 Temperature 98.8 F Pulse Rate 81 100 H 99 H Respiratory Rate 0 L 29 H 39 H Blood Pressure 114/80 126/89 Pulse Oximetry 100 100 100 02/19/18 04:16 02/19/18 04:31 02/19/18 04:46 Temperature Pulse Rate 111 H 103 H 114 H Respiratory Rate 30 H 30 H 29 H Blood Pressure 132/88 117/82 119/82 Pulse Oximetry 100 100 100 02/19/18 04:55 02/19/18 04:57 02/19/18 05:00 Temperature Pulse Rate 109 H 105 H Respiratory Rate 24 26 H 32 H Blood Pressure Pulse Oximetry 100 100 02/19/18 05:01 02/19/18 05:16 02/19/18 05:31 Temperature Pulse Rate 108 H 89 83 Respiratory Rate 28 H 24 24 Blood Pressure 112/71 102/71 90/60 L Pulse Oximetry 100 99 99 02/19/18 05:46 02/19/18 06:00 02/19/18 06:01 Temperature Pulse Rate 83 79 79 Respiratory Rate 23 23 22 Blood Pressure 90/64 L 90/53 L Pulse Oximetry 99 99 99 02/19/18 06:16 02/19/18 06:31 02/19/18 06:46 Temperature Pulse Rate 90 79 88 Respiratory Rate 26 H 23 30 H Blood Pressure 94/58 L 109/75 106/73 Pulse Oximetry 99 100 100 02/19/18 07:00 02/19/18 07:01 02/19/18 07:16 Temperature Pulse Rate 82 74 89 Respiratory Rate 24 22 27 H Blood Pressure 105/65 107/65 Pulse Oximetry 100 100 100 02/19/18 07:35 02/19/18 07:40 02/19/18 07:45 Temperature Pulse Rate 80 66 67 Respiratory Rate 48 H 23 23 Blood Pressure 108/73 111/73 108/75 Pulse Oximetry 100 100 100 02/19/18 07:50 02/19/18 07:55 02/19/18 08:00 Temperature Pulse Rate 66 65 66 Respiratory Rate 26 H 25 H 21 Blood Pressure 107/71 104/67 102/67 Pulse Oximetry 100 100 100 02/19/18 08:05 02/19/18 08:10 02/19/18 08:15 Temperature Pulse Rate 80 79 70 Respiratory Rate 32 H 29 H 33 H Blood Pressure 98/70 L 100/68 100/70 Pulse Oximetry 100 100 100 02/19/18 08:25 02/19/18 08:30 02/19/18 08:40 Temperature Pulse Rate 66 66 65 Respiratory Rate 43 H 40 H 23 Blood Pressure 105/70 108/72 Pulse Oximetry 100 99 02/19/18 08:41 02/19/18 08:52 02/19/18 09:00 Temperature Pulse Rate 79 70 Respiratory Rate 24 26 H 22 Blood Pressure 111/72 Pulse Oximetry 100 73 L 99 02/19/18 09:30 02/19/18 10:00 02/19/18 10:30 Temperature Pulse Rate 86 70 67 Respiratory Rate 25 H 23 20 Blood Pressure 109/71 111/67 Pulse Oximetry 97 97 96 02/19/18 11:00 02/19/18 12:00 02/19/18 12:18 Temperature 98 F Pulse Rate 64 69 90 Respiratory Rate 28 H 18 28 H Blood Pressure 116/68 Pulse Oximetry 96 98 96 02/19/18 12:30 02/19/18 12:34 02/19/18 12:35 Temperature Pulse Rate 91 H 77 Respiratory Rate 26 H 27 H 25 H Blood Pressure 111/72 Pulse Oximetry 96 97 02/19/18 13:00 02/19/18 13:30 02/19/18 14:00 Temperature Pulse Rate 85 119 H 112 H Respiratory Rate 43 H 28 H 45 H Blood Pressure 114/75 Pulse Oximetry 95 94 L 02/19/18 14:30 02/19/18 15:00 02/19/18 15:30 Temperature Pulse Rate 105 H 112 H 115 H Respiratory Rate 25 H 27 H 28 H Blood Pressure 114/74 119/77 Pulse Oximetry 94 L 94 L 93 L 02/19/18 16:00 02/19/18 16:33 02/19/18 18:00 Temperature 99.3 F Pulse Rate 96 H 96 H Respiratory Rate 26 H 23 Blood Pressure Pulse Oximetry 93 L 95 Intake & Output 02/18/18 02/19/18 02/19/18 18:59 06:59 18:59 Intake Total 1170 / 1170 2962.5 / 2962.5 590 / 590 Output Total 850 / 850 750 / 750 630 / 630 Balance 320 / 320 2212.5 / 2212.5 -40 / -40 Weight 76.8 kg Intake: IV 450 / 450 2962.5 / 2962.5 300 / 300 Diprivan 1000 mg/100 ml Inj 1, 200 / 200 000 mg In 100 ml @ 5 MCG/KG/MIN 2.172 mls/hr IV.CONT TITRATE PRN Rx#:[id number] 1/2 Normal Saline Inj 1,000 ML 1000 / 1000 @ 42 mls/hr IV.CONT .[id number] [facility] Rx#:[id number] Alburx 5% Inj 500 ML @ 200 mls/ 500 / 500 hr IV.SIG ONCE ONE Rx#:[id number] Azithromycin Inj 500 MG In NS 250 / 250 Inj 250 ML @ 250 mls/hr IV.SIG Q24H [facility] Rx#:[id number] Zosyn 4.5 GM Premix 4.5 gm In 200 / 200 200 / 200 100 / 100 100 ml @ 200 mls/hr IV.SIG Q6H [facility] Rx#:[id number] NS Inj 1,000 ML @ Wide Open IV. 1000 / 1000 SIG .Q0M ONE Rx#:[id number] Vancomycin Inj 1,250 MG In NS 262.5 / 262.5 Inj 250 ML @ 262.5 mls/hr IV. SIG Q24H [facility] Rx#:[id number] Oral 720 / 720 Tube Feeding 190 / 190 Water Bolus Amount 100 / 100 Output: Urine 850 / 850 Urine Amount (Catheter) 600 / 600 530 / 530 Straight 600 / 600 530 / 530 Gastric Drainage 150 / 150 100 / 100 Left Nare 150 / 150 100 / 100 Other: Date of Last Bowel Movement 02/18/18 02/19/18 02/19/18 # Bowel Movements 2 4 # Incontinent Bowel Movements 4 Narrative: Physical examination GENERAL: Patient is a well-nourished, well-developed male, sedated on the vent, not in distress, looks older than stated age. SKIN: Cool and dry. Has blanching red macules mostly seen in his torso. No ecchymoses and no evidence of embolic lesions. HEAD: Atraumatic. Normocephalic. No temporal wasting, or tenderness. EYES: [place] conjunctiva. No petechia or hemorrhage. Pupils equal, round and reactive to light. No scleral icterus. No injection or drainage. EARS, NOSE AND THROAT: Nose without bleeding or purulent nasal discharge. He is orally intubated. NECK: Trachea midline. Supple and not tender, no meningeal signs CARDIOVASCULAR: Regular rate and rhythm. No murmurs, rubs or gallops heard RESPIRATORY: He has decreased breath sounds on the right lung field. Did not appreciate any wheezing on auscultation. ABDOMEN: Soft, not distended, no reaction to palpation. Bowel sounds are present and hypoactive. EXTREMITIES: No clubbing, cyanosis, or edema. Has a lot of small varicosities in both feet/ankle. No joint effusion. NEUROLOGICAL: Sedated on the vent PSYCHIATRIC: Unable to assess LINE: No evidence of infection Results - Labs CBC & Chem 7: 02/19/18 03:14 02/19/18 03:14 Labs: Laboratory Results - last 24 hr 02/18/18 02/18/18 02/18/18 17:16 18:05 20:58 WBC RBC Hgb Hct MCV MCH MCHC RDW Plt Count MPV Neut % (Auto) Lymph % (Auto) [place] % (Auto) Eos % (Auto) Baso % (Auto) Neut # (Auto) Lymph # (Auto) [place] # (Auto) Eos # (Auto) Baso # (Auto) WBC Differential Differential Comment Puncture Site Right radial Right radial Patient Temperature 98.6 98.6 O2 Saturation 90 94 ABG pH 7.37 L 7.29 L* ABG pCO2 42 53 H* ABG pO2 69 96 ABG HCO3 24 25 ABG O2 Content 17.7 17.4 ABG Base Excess -0.8 -1.1 ABG Methemoglobin 1.2 1.3 Jeffery Test Present Present Hemoglobin 13.9 13.0 Carboxyhemoglobin 0.6 0.5 O2 Delivery Device Nasal cannula Ventilator Liter Flow 3.00 Vent Setting Prvc/ac 18 vt 400 Inspired O2 70 Critical Value No Yes Sodium Potassium Chloride Carbon Dioxide Anion Gap BUN Creatinine Estimated GFR POC Glucose 157 H Random Glucose Calcium Calcium Adj for Albumin Phosphorus Magnesium Total Bilirubin AST ALT Alkaline Phosphatase Total Protein Albumin Vancomycin Trough 02/18/18 02/19/18 02/19/18 23:30 03:14 03:14 WBC 14.6 H RBC 3.89 L Hgb 12.1 L Hct 35.4 L MCV 91.1 MCH 31.3 MCHC 34.3 RDW 14.7 Plt Count 188 MPV 9.1 Neut % (Auto) 92.8 H Lymph % (Auto) 3.1 L [place] % (Auto) 3.9 Eos % (Auto) 0.0 Baso % (Auto) 0.2 Neut # (Auto) 13.5 H Lymph # (Auto) 0.4 L [place] # (Auto) 0.6 Eos # (Auto) 0.0 Baso # (Auto) 0.0 WBC Differential . Differential Comment Auto diff final Puncture Site Patient Temperature O2 Saturation ABG pH ABG pCO2 ABG pO2 ABG HCO3 ABG O2 Content ABG Base Excess ABG Methemoglobin Jeffery Test Hemoglobin Carboxyhemoglobin O2 Delivery Device Liter Flow Vent Setting Inspired O2 Critical Value Sodium 145 Potassium 3.8 Chloride 112 H Carbon Dioxide 26.9 Anion Gap 6 BUN 31 H Creatinine 1.32 H Estimated GFR 54 L POC Glucose 204 H Random Glucose 189 H Calcium 7.2 L* D Calcium Adj for Albumin 8.6 Phosphorus 3.5 D Magnesium 2.3 Total Bilirubin 0.4 AST 82 H ALT 72 Alkaline Phosphatase 44 L Total Protein 5.6 L D Albumin 2.2 L Vancomycin Trough 02/19/18 02/19/18 02/19/18 06:19 11:26 16:15 WBC RBC Hgb Hct MCV MCH MCHC RDW Plt Count MPV Neut % (Auto) Lymph % (Auto) [place] % (Auto) Eos % (Auto) Baso % (Auto) Neut # (Auto) Lymph # (Auto) [place] # (Auto) Eos # (Auto) Baso # (Auto) WBC Differential Differential Comment Puncture Site Patient Temperature O2 Saturation ABG pH ABG pCO2 ABG pO2 ABG HCO3 ABG O2 Content ABG Base Excess ABG Methemoglobin Jeffery Test Hemoglobin Carboxyhemoglobin O2 Delivery Device Liter Flow Vent Setting Inspired O2 Critical Value Sodium Potassium Chloride Carbon Dioxide Anion Gap BUN Creatinine Estimated GFR POC Glucose 154 H 132 H Random Glucose Calcium Calcium Adj for Albumin Phosphorus Magnesium Total Bilirubin AST ALT Alkaline Phosphatase Total Protein Albumin Vancomycin Trough 7.8 - Imaging Impressions Chest X-Ray 02/18/18 00:00 CONCLUSION: NG looped back on itself in the esophagus. This should be repositioned. Endotracheal tube in good position. Worsening bilateral airspace disease since earlier exam. Small effusions. Chest X-Ray 02/19/18 06:00 CONCLUSION: Airspace disease seen at the bases being worse on the right. Underlying interstitial disease. Some degree of effusion especially on the right cannot be excluded. Chest X-Ray 02/19/18 07:55 CONCLUSION: 1. Left IJ central line in good position without pneumothorax. 2. Persistent right lower lobe airspace disease and probable small pleural effusion. 3. Persistent minimal airspace disease at the left lung base. Assessment and Plan - Plan Impression Pneumonia, bilateral. 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
--- NOTE | 2018-02-19 18:28 | P.PN ---
Subjective Interval history: He was intubated for respiratory failure . Now on vent support and FIo2 50 %. Sedated with propofol. Physical Exam Vital signs: Vital Signs 02/18/18 19:00 02/18/18 19:15 02/18/18 20:00 Temperature 98.8 F Pulse Rate 126 H 98 H Respiratory Rate 38 H 22 Blood Pressure 161/102 H 88/57 L Pulse Oximetry 89 L 100 100 02/18/18 20:05 02/18/18 20:06 02/18/18 20:10 Temperature Pulse Rate 84 89 Respiratory Rate 30 H 24 23 Blood Pressure 104/67 105/70 Pulse Oximetry 100 100 100 02/18/18 20:11 02/18/18 20:15 02/18/18 20:25 Temperature Pulse Rate 82 86 98 H Respiratory Rate 23 27 H 19 Blood Pressure 109/76 98/68 L Pulse Oximetry 100 100 02/18/18 20:30 02/18/18 20:35 02/18/18 20:40 Temperature Pulse Rate 101 H 101 H 103 H Respiratory Rate 24 22 24 Blood Pressure 116/71 114/72 115/72 Pulse Oximetry 100 100 99 02/18/18 20:45 02/18/18 20:50 02/18/18 20:55 Temperature Pulse Rate 104 H 104 H 103 H Respiratory Rate 19 18 19 Blood Pressure 114/74 114/76 109/77 Pulse Oximetry 99 98 98 02/18/18 21:00 02/18/18 21:15 02/18/18 21:20 Temperature Pulse Rate 101 H 96 H 94 H Respiratory Rate 18 20 Blood Pressure 118/79 107/74 120/80 Pulse Oximetry 98 98 99 02/18/18 21:25 02/18/18 21:30 02/18/18 21:35 Temperature Pulse Rate 93 H 92 H 90 Respiratory Rate 23 23 22 Blood Pressure 119/79 120/80 121/82 Pulse Oximetry 99 99 99 02/18/18 21:40 02/18/18 21:45 02/18/18 21:50 Temperature Pulse Rate 91 H 88 89 Respiratory Rate 18 18 20 Blood Pressure 124/82 122/76 119/77 Pulse Oximetry 99 99 99 02/18/18 21:55 02/18/18 22:00 02/18/18 22:05 Temperature Pulse Rate 87 88 88 Respiratory Rate 21 18 20 Blood Pressure 119/79 118/80 117/75 Pulse Oximetry 100 99 100 02/18/18 22:10 02/18/18 22:15 02/18/18 22:20 Temperature Pulse Rate 87 87 88 Respiratory Rate 23 19 20 Blood Pressure 119/79 118/81 117/81 Pulse Oximetry 100 100 100 02/18/18 22:25 02/18/18 22:30 02/18/18 22:35 Temperature Pulse Rate 86 86 85 Respiratory Rate 18 21 23 Blood Pressure 117/82 115/77 120/82 Pulse Oximetry 100 100 99 02/18/18 22:40 02/18/18 22:45 02/18/18 22:50 Temperature Pulse Rate 85 85 110 H Respiratory Rate 19 20 19 Blood Pressure 120/82 128/90 135/96 H Pulse Oximetry 100 99 100 02/18/18 22:55 02/18/18 23:00 02/18/18 23:05 Temperature Pulse Rate 108 H 112 H 92 H Respiratory Rate 30 H 21 18 Blood Pressure 128/91 H 131/89 119/85 Pulse Oximetry 99 100 100 02/18/18 23:10 02/18/18 23:15 02/18/18 23:31 Temperature 98.3 F Pulse Rate 114 H 115 H 118 H Respiratory Rate 22 21 20 Blood Pressure 140/94 H 137/98 H 135/99 H Pulse Oximetry 100 100 100 02/18/18 23:46 02/19/18 00:00 02/19/18 00:01 Temperature Pulse Rate 108 H 88 88 Respiratory Rate 20 20 24 Blood Pressure 126/89 116/79 Pulse Oximetry 100 100 100 02/19/18 00:12 02/19/18 00:16 02/19/18 00:31 Temperature Pulse Rate 112 H 114 H 113 H Respiratory Rate 18 32 H 30 H Blood Pressure 133/91 H 131/93 H Pulse Oximetry 100 100 100 02/19/18 00:46 02/19/18 01:00 02/19/18 01:01 Temperature Pulse Rate 112 H 117 H 104 H Respiratory Rate 23 24 19 Blood Pressure 132/94 H 117/82 Pulse Oximetry 100 100 100 02/19/18 01:16 02/19/18 01:31 02/19/18 01:46 Temperature Pulse Rate 120 H 115 H 90 Respiratory Rate 29 H 19 22 Blood Pressure 127/92 H 126/90 106/73 Pulse Oximetry 100 100 100 02/19/18 02:00 02/19/18 02:01 02/19/18 02:16 Temperature Pulse Rate 89 88 102 H Respiratory Rate 24 25 H 21 Blood Pressure 101/71 118/82 Pulse Oximetry 100 100 100 02/19/18 02:31 02/19/18 02:46 02/19/18 03:00 Temperature Pulse Rate 86 84 98 H Respiratory Rate 22 23 49 H Blood Pressure 101/69 104/71 Pulse Oximetry 100 100 100 02/19/18 03:01 02/19/18 03:16 02/19/18 03:31 Temperature Pulse Rate 98 H 82 90 Respiratory Rate 44 H 24 26 H Blood Pressure 110/75 108/77 119/90 Pulse Oximetry 100 100 100 02/19/18 03:46 02/19/18 04:00 02/19/18 04:01 Temperature 98.8 F Pulse Rate 81 100 H 99 H Respiratory Rate 0 L 29 H 39 H Blood Pressure 114/80 126/89 Pulse Oximetry 100 100 100 02/19/18 04:16 02/19/18 04:31 02/19/18 04:46 Temperature Pulse Rate 111 H 103 H 114 H Respiratory Rate 30 H 30 H 29 H Blood Pressure 132/88 117/82 119/82 Pulse Oximetry 100 100 100 02/19/18 04:55 02/19/18 04:57 02/19/18 05:00 Temperature Pulse Rate 109 H 105 H Respiratory Rate 24 26 H 32 H Blood Pressure Pulse Oximetry 100 100 02/19/18 05:01 02/19/18 05:16 02/19/18 05:31 Temperature Pulse Rate 108 H 89 83 Respiratory Rate 28 H 24 24 Blood Pressure 112/71 102/71 90/60 L Pulse Oximetry 100 99 99 02/19/18 05:46 02/19/18 06:00 02/19/18 06:01 Temperature Pulse Rate 83 79 79 Respiratory Rate 23 23 22 Blood Pressure 90/64 L 90/53 L Pulse Oximetry 99 99 99 02/19/18 06:16 02/19/18 06:31 02/19/18 06:46 Temperature Pulse Rate 90 79 88 Respiratory Rate 26 H 23 30 H Blood Pressure 94/58 L 109/75 106/73 Pulse Oximetry 99 100 100 02/19/18 07:00 02/19/18 07:01 02/19/18 07:16 Temperature Pulse Rate 82 74 89 Respiratory Rate 24 22 27 H Blood Pressure 105/65 107/65 Pulse Oximetry 100 100 100 02/19/18 07:35 02/19/18 07:40 02/19/18 07:45 Temperature Pulse Rate 80 66 67 Respiratory Rate 48 H 23 23 Blood Pressure 108/73 111/73 108/75 Pulse Oximetry 100 100 100 02/19/18 07:50 02/19/18 07:55 02/19/18 08:00 Temperature Pulse Rate 66 65 66 Respiratory Rate 26 H 25 H 21 Blood Pressure 107/71 104/67 102/67 Pulse Oximetry 100 100 100 02/19/18 08:05 02/19/18 08:10 02/19/18 08:15 Temperature Pulse Rate 80 79 70 Respiratory Rate 32 H 29 H 33 H Blood Pressure 98/70 L 100/68 100/70 Pulse Oximetry 100 100 100 02/19/18 08:25 02/19/18 08:30 02/19/18 08:40 Temperature Pulse Rate 66 66 65 Respiratory Rate 43 H 40 H 23 Blood Pressure 105/70 108/72 Pulse Oximetry 100 99 02/19/18 08:41 02/19/18 08:52 02/19/18 09:00 Temperature Pulse Rate 79 70 Respiratory Rate 24 26 H 22 Blood Pressure 111/72 Pulse Oximetry 100 73 L 99 02/19/18 09:30 02/19/18 10:00 02/19/18 10:30 Temperature Pulse Rate 86 70 67 Respiratory Rate 25 H 23 20 Blood Pressure 109/71 111/67 Pulse Oximetry 97 97 96 02/19/18 11:00 02/19/18 12:00 02/19/18 12:18 Temperature 98 F Pulse Rate 64 69 90 Respiratory Rate 28 H 18 28 H Blood Pressure 116/68 Pulse Oximetry 96 98 96 02/19/18 12:30 02/19/18 12:34 02/19/18 12:35 Temperature Pulse Rate 91 H 77 Respiratory Rate 26 H 27 H 25 H Blood Pressure 111/72 Pulse Oximetry 96 97 02/19/18 13:00 02/19/18 13:30 02/19/18 14:00 Temperature Pulse Rate 85 119 H 112 H Respiratory Rate 43 H 28 H 45 H Blood Pressure 114/75 Pulse Oximetry 95 94 L 02/19/18 14:30 02/19/18 15:00 02/19/18 15:30 Temperature Pulse Rate 105 H 112 H 115 H Respiratory Rate 25 H 27 H 28 H Blood Pressure 114/74 119/77 Pulse Oximetry 94 L 94 L 93 L 02/19/18 16:00 02/19/18 16:33 02/19/18 18:00 Temperature 99.3 F Pulse Rate 96 H 96 H Respiratory Rate 26 H 23 Blood Pressure Pulse Oximetry 93 L 95 Intake & Output 02/18/18 02/19/18 02/19/18 18:59 06:59 18:59 Intake Total 1170 / 1170 2962.5 / 2962.5 590 / 590 Output Total 850 / 850 750 / 750 630 / 630 Balance 320 / 320 2212.5 / 2212.5 -40 / -40 Weight 76.8 kg Intake: IV 450 / 450 2962.5 / 2962.5 300 / 300 Diprivan 1000 mg/100 ml Inj 1, 200 / 200 000 mg In 100 ml @ 5 MCG/KG/MIN 2.172 mls/hr IV.CONT TITRATE PRN Rx#:[id number] 1/2 Normal Saline Inj 1,000 ML 1000 / 1000 @ 42 mls/hr IV.CONT .[id number] [facility] Rx#:[id number] Alburx 5% Inj 500 ML @ 200 mls/ 500 / 500 hr IV.SIG ONCE ONE Rx#:[id number] Azithromycin Inj 500 MG In NS 250 / 250 Inj 250 ML @ 250 mls/hr IV.SIG Q24H [facility] Rx#:[id number] Zosyn 4.5 GM Premix 4.5 gm In 200 / 200 200 / 200 100 / 100 100 ml @ 200 mls/hr IV.SIG Q6H [facility] Rx#:[id number] NS Inj 1,000 ML @ Wide Open IV. 1000 / 1000 SIG .Q0M ONE Rx#:[id number] Vancomycin Inj 1,250 MG In NS 262.5 / 262.5 Inj 250 ML @ 262.5 mls/hr IV. SIG Q24H [facility] Rx#:[id number] Oral 720 / 720 Tube Feeding 190 / 190 Water Bolus Amount 100 / 100 Output: Urine 850 / 850 Urine Amount (Catheter) 600 / 600 530 / 530 Straight 600 / 600 530 / 530 Gastric Drainage 150 / 150 100 / 100 Left Nare 150 / 150 100 / 100 Other: Date of Last Bowel Movement 02/18/18 02/19/18 02/19/18 # Bowel Movements 2 4 # Incontinent Bowel Movements 4 Narrative: Gen.: Elderly W/M sedated and on the vent Head: Normocephalic. Atraumatic. EENT: Pupils equal round and reactive to light. Nose without drainage. Airway intact. Throat without injection. Cardiovascular: Regular rate and rhythm. No murmurs, rubs or gallops. Respiratory: Diffuse wheezing with basal crackles.. Abdomen: Soft, nontender, nondistended. Musculoskeletal: No gross deformities. No edema. Skin: No obvious rashes or erythema. Neuro: Sedated. - Urinary Catheter Management Straight Cath placed during this visit: no Results - Labs CBC & Chem 7: 02/19/18 03:14 02/19/18 03:14 Laboratory Results - last 24 hr 02/18/18 02/18/18 02/18/18 17:16 20:58 23:30 WBC RBC Hgb Hct MCV MCH MCHC RDW Plt Count MPV Neut % (Auto) Lymph % (Auto) Swift % (Auto) Eos % (Auto) Baso % (Auto) Neut # (Auto) Lymph # (Auto) Swift # (Auto) Eos # (Auto) Baso # (Auto) WBC Differential Differential Comment Puncture Site Right radial Patient Temperature 98.6 O2 Saturation 94 ABG pH 7.29 L* ABG pCO2 53 H* ABG pO2 96 ABG HCO3 25 ABG O2 Content 17.4 ABG Base Excess -1.1 ABG Methemoglobin 1.3 Jeffery Test Present Hemoglobin 13.0 Carboxyhemoglobin 0.5 O2 Delivery Device Ventilator Vent Setting Prvc/ac 18 vt 400 Inspired O2 70 Critical Value Yes Sodium Potassium Chloride Carbon Dioxide Anion Gap BUN Creatinine Estimated GFR POC Glucose 157 H 204 H Random Glucose Calcium Calcium Adj for Albumin Phosphorus Magnesium Total Bilirubin AST ALT Alkaline Phosphatase Total Protein Albumin Vancomycin Trough 02/19/18 02/19/18 02/19/18 03:14 03:14 06:19 WBC 14.6 H RBC 3.89 L Hgb 12.1 L Hct 35.4 L MCV 91.1 MCH 31.3 MCHC 34.3 RDW 14.7 Plt Count 188 MPV 9.1 Neut % (Auto) 92.8 H Lymph % (Auto) 3.1 L Swift % (Auto) 3.9 Eos % (Auto) 0.0 Baso % (Auto) 0.2 Neut # (Auto) 13.5 H Lymph # (Auto) 0.4 L Swift # (Auto) 0.6 Eos # (Auto) 0.0 Baso # (Auto) 0.0 WBC Differential . Differential Comment Auto diff final Puncture Site Patient Temperature O2 Saturation ABG pH ABG pCO2 ABG pO2 ABG HCO3 ABG O2 Content ABG Base Excess ABG Methemoglobin Jeffery Test Hemoglobin Carboxyhemoglobin O2 Delivery Device Vent Setting Inspired O2 Critical Value Sodium 145 Potassium 3.8 Chloride 112 H Carbon Dioxide 26.9 Anion Gap 6 BUN 31 H Creatinine 1.32 H Estimated GFR 54 L POC Glucose 154 H Random Glucose 189 H Calcium 7.2 L* D Calcium Adj for Albumin 8.6 Phosphorus 3.5 D Magnesium 2.3 Total Bilirubin 0.4 AST 82 H ALT 72 Alkaline Phosphatase 44 L Total Protein 5.6 L D Albumin 2.2 L Vancomycin Trough 02/19/18 02/19/18 11:26 16:15 WBC RBC Hgb Hct MCV MCH MCHC RDW Plt Count MPV Neut % (Auto) Lymph % (Auto) Swift % (Auto) Eos % (Auto) Baso % (Auto) Neut # (Auto) Lymph # (Auto) Swift # (Auto) Eos # (Auto) Baso # (Auto) WBC Differential Differential Comment Puncture Site Patient Temperature O2 Saturation ABG pH ABG pCO2 ABG pO2 ABG HCO3 ABG O2 Content ABG Base Excess ABG Methemoglobin Jeffery Test Hemoglobin Carboxyhemoglobin O2 Delivery Device Vent Setting Inspired O2 Critical Value Sodium Potassium Chloride Carbon Dioxide Anion Gap BUN Creatinine Estimated GFR POC Glucose 132 H Random Glucose Calcium Calcium Adj for Albumin Phosphorus Magnesium Total Bilirubin AST ALT Alkaline Phosphatase Total Protein Albumin Vancomycin Trough 7.8 Microbiology 02/17/18 04:30 Sputum - Expectorated Sputum Gram Stain - Final 02/17/18 04:30 Sputum - Expectorated Sputum Sputum Culture - Preliminary Aspergillus species - Imaging Impressions Chest X-Ray 02/18/18 00:00 CONCLUSION: NG looped back on itself in the esophagus. This should be repositioned. Endotracheal tube in good position. Worsening bilateral airspace disease since earlier exam. Small effusions. Chest X-Ray 02/19/18 06:00 CONCLUSION: Airspace disease seen at the bases being worse on the right. Underlying interstitial disease. Some degree of effusion especially on the right cannot be excluded. Chest X-Ray 02/19/18 07:55 CONCLUSION: 1. Left IJ central line in good position without pneumothorax. 2. Persistent right lower lobe airspace disease and probable small pleural effusion. 3. Persistent minimal airspace disease at the left lung base. Assessment and Plan - Assessment (1) COPD (chronic obstructive pulmonary disease) with acute bronchitis Code(s): J44.0 - Chronic obstructive pulmonary disease with acute lower respiratory infection; J20.9 - Acute bronchitis, unspecified Status: Acute (2) Emphysema of lung Code(s): J43.9 - Emphysema, unspecified Status: Acute (3) Encephalopathy Code(s): G93.40 - Encephalopathy, unspecified Status: Acute (4) Atelectasis Code(s): J98.11 - Atelectasis Status: Acute - Plan 1. Wean FIo2 and Vent rates 2. Nebs qid , duoneb. 3. Cont Solumedrol 60 mg IV Q6H 4. Chest Xray , CBC BMP in am 5. Continue antibiotics per ID 6. Add Mucomyst ,2-0 % 2 CC with nebs q6h 7. Symbicort 160/4.5 mcg , 2puffs BID 8. Keep sedated for vent control
[2018-02-19 20:47] LABS: ABG Base Excess 0.2 mmol/L (-2-2); ABG PCO2 43 mmHg (38-42); ABG PO2 109 mmHg (61-120)
[2018-02-20] MEDS: Insulin NovoLOG Aspart Correctional Sugar Inj SQ SCH ×4 (00:57→17:15)
[2018-02-20] MEDS: Propofol 1000 mg/100 ml Inj 1,000 MG/100 ML BOTTLE IV.CONT PRN ×5 (03:09→22:00)
[2018-02-20] MEDS: MethylPREDNISolone Sod Succinate Inj 40 MG/ML Vial IV.PUSH SCH ×3 (05:42→17:16)
--- NOTE | 2018-02-20 05:57 | XR ---
EXAM DATE: 02/20/2018 5:51 AM EST AGE/SEX: 67 years / Male INDICATIONS: Difficulty breathing. CLINICAL DATA: This is the patient's subsequent encounter. Patient reports that signs and symptoms h ave been present for 4 - 6 days and indicates a pain score of Nonresponsive. MEDICAL/SURGICAL HISTORY: Hypertension. Chronic obstructive pulmonary disease. None. COMPARISON: [facility] [place], CHEST 1V SINGLE AP, 02/19/2018. . FINDINGS: The ET tube and NG tube are well placed. The heart size is normal. There is increased density seen in the mid and lower right lung with silhouetting the right hemidiaphragm. There some minimal increased density at the lateral left lung. Lungs appear hyperinflated. CONCLUSION: Consolidation or atelectasis in the right mid and lower lung and to a lesser grade the left lower laith g. Some degree of fusion should be considered. Electronically signed by: Branden Kulkarni MD Board Certified Radiologist 02/20/2018 5:56 AM EST
[2018-02-20 06:17] LABS: Baso % (Auto) 0.3 % (0.0-2.0); Hematocrit 35.6 % (39.0-51.0); Hemoglobin 11.9 gm/dL (13.0-17.0); Lymph # (Auto) 0.2 th/mm3 (1.0-4.8); Lymph % (Auto) 1.4 % (9.0-44.0); Mean Corpuscular HGB Conc 33.5 % (32.0-36.0); Mean Corpuscular Volume 92.7 fL (80.0-100.0); Mean Platelet Volume 9.3 fL (7.0-11.0); Mono # (Auto) 0.6 th/mm3 (0.0-0.9); Mono % (Auto) 4.1 % (0.0-8.0); Neut # (Auto) 13.8 th/mm3 (1.8-7.7); Neut % (Auto) 94.2 % (16.0-70.0); Platelet Count 229 th/mm3 (150-450); Red Blood Count 3.85 mil/mm3 (4.50-5.90); White Blood Count 14.6 th/mm3 (4.0-11.0)
[2018-02-20 06:41] LABS: Albumin 1.7 g/dL (3.4-5.0); Carbon Dioxide 27.8 meq/L (21.0-32.0); Magnesium 2.7 mg/dL (1.5-2.5); Phosphorus 2.1 mg/dL (2.5-4.9); Potassium 3.4 meq/L (3.5-5.1); Total Protein 5.3 g/dL (6.4-8.2)
[2018-02-20] MEDS: Heparin - SQ 10,000 UNITS/ML Vial SQ SCH (11:33)
[2018-02-20] MEDS: Senna/Docusate Sodium 8.6/50 MG Tablet PO SCH ×2 (11:36→20:47)
[2018-02-20] MEDS: Vancomycin Inj 1,250 MG in Sodium Chlor 0.9% Inj 250 ML IV.SIG SCH (11:38)
--- NOTE | 2018-02-20 12:07 | P.PNID ---
Subjective Remarks: Patient is a 67-year-old male, brought into the hospital for further evaluation of cough fever diarrhea and confusion. Patient apparently has not been feeling well for about 4-5 days. He has been having a nonproductive cough, fever and diarrhea. He also has significant weakness. His neighbor apparently checked on him on the day of admission and found him lying down and he was somewhat confused. He apparently has not had anything to eat or drink in several days. He was brought into the hospital, and he initial chest x-ray did not show any acute infiltrate. CT of the head did not show any acute disease. His WBC was normal. Creatinine was elevated at 1.75. Urine for pneumococcal antigen came back positive. Blood cultures were negative. Patient was put on empiric antibiotics for community-acquired pneumonia. He was also having a lot of shortness of breath and a lot of wheezing, and has been getting IV steroids. Pulmonary is on the case. Yesterday he had desaturation, and progressive respiratory distress, and ended up getting intubated. Patient currently is on the vent, and sedated. He does not have a lot of secretions from his endotracheal tube. His blood pressure is okay. Temperature is okay. He is currently on vancomycin and Zosyn, as well as Zithromax and Diflucan. The sputum culture from February 17 is reported as growing Aspergillus. His WBC was up to 18,000 yesterday, and is down to 14,000. His creatinine is slowly improving and down to 1.32. CT of the chest showed patchy bilateral pulmonary infiltrates. Infectious disease consultation has been requested to assist with evaluation and treatment, and antibiotic management. Notes reviewed Temps ok Repeat C/S pending CXR stable Antibiotics: Cefepime Zithromax Diflucan Vancomycin Past Medical History: COPD (chronic obstructive pulmonary disease) Hyperlipidemia Peripheral vascular disease Hypertension History of hernia repair Allergies/Adverse Reactions: Allergies No Known Allergies Allergy (Verified 02/13/18 18:38) Objective Vital Signs 02/19/18 12:18 02/19/18 12:30 02/19/18 12:34 Temperature Pulse Rate 90 91 H 77 Respiratory Rate 28 H 26 H 27 H Blood Pressure 116/68 111/72 Pulse Oximetry 96 96 02/19/18 12:35 02/19/18 13:00 02/19/18 13:30 Temperature Pulse Rate 85 119 H Respiratory Rate 25 H 43 H 28 H Blood Pressure 114/75 Pulse Oximetry 97 95 02/19/18 14:00 02/19/18 14:30 02/19/18 15:00 Temperature Pulse Rate 112 H 105 H 112 H Respiratory Rate 45 H 25 H 27 H Blood Pressure 114/74 Pulse Oximetry 94 L 94 L 94 L 02/19/18 15:30 02/19/18 16:00 02/19/18 16:30 Temperature 99.3 F 99.3 F Pulse Rate 115 H 96 H 92 H Respiratory Rate 28 H 26 H 23 Blood Pressure 119/77 107/72 Pulse Oximetry 93 L 93 L 94 L 02/19/18 16:33 02/19/18 17:00 02/19/18 17:30 Temperature Pulse Rate 111 H 114 H Respiratory Rate 23 23 24 Blood Pressure 107/69 Pulse Oximetry 95 97 97 02/19/18 18:00 02/19/18 18:30 02/19/18 19:00 Temperature Pulse Rate 102 H 100 H 92 H Respiratory Rate 22 23 19 Blood Pressure 111/65 Pulse Oximetry 97 98 98 02/19/18 19:30 02/19/18 19:46 02/19/18 20:00 Temperature Pulse Rate 91 H 94 H 84 Respiratory Rate 20 20 20 Blood Pressure 115/66 Pulse Oximetry 98 98 98 02/19/18 20:30 02/19/18 21:00 02/19/18 21:30 Temperature 98.8 F Pulse Rate 126 H 128 H 112 H Respiratory Rate 27 H 24 22 Blood Pressure 107/64 109/68 Pulse Oximetry 96 97 97 02/19/18 22:00 02/19/18 22:30 02/19/18 23:00 Temperature Pulse Rate 119 H 121 H 117 H Respiratory Rate 30 H 27 H 25 H Blood Pressure 109/72 Pulse Oximetry 96 96 97 02/19/18 23:30 02/19/18 23:51 02/19/18 23:54 Temperature 98.7 F Pulse Rate 117 H 115 H Respiratory Rate 30 H 28 H 28 H Blood Pressure 125/83 Pulse Oximetry 95 97 02/20/18 00:00 02/20/18 00:30 02/20/18 01:00 Temperature Pulse Rate 112 H 123 H 122 H Respiratory Rate 23 27 H 30 H Blood Pressure 119/77 Pulse Oximetry 02/20/18 01:30 02/20/18 02:00 02/20/18 02:30 Temperature Pulse Rate 115 H 96 H 109 H Respiratory Rate 23 19 25 H Blood Pressure 115/68 120/79 Pulse Oximetry 96 02/20/18 03:00 02/20/18 03:21 02/20/18 03:30 Temperature Pulse Rate 107 H 110 H 108 H Respiratory Rate 8 L 22 0 L Blood Pressure 107/74 Pulse Oximetry 96 98 02/20/18 04:00 02/20/18 04:30 02/20/18 05:00 Temperature 98.5 F Pulse Rate 98 H 92 H 100 H Respiratory Rate 10 L 8 L 19 Blood Pressure 105/65 Pulse Oximetry 97 96 96 02/20/18 05:30 02/20/18 06:00 02/20/18 06:30 Temperature Pulse Rate 106 H 107 H 105 H Respiratory Rate 22 20 19 Blood Pressure 120/79 124/76 Pulse Oximetry 96 94 L 98 02/20/18 08:07 Temperature Pulse Rate 103 H Respiratory Rate 23 Blood Pressure Pulse Oximetry 98 Intake & Output 02/19/18 02/20/18 02/20/18 18:59 06:59 18:59 Intake Total 690 / 690 1966 / 1968 100 / 100 Output Total 630 / 630 775 / 775 Balance 60 / 60 1193 / 1193 100 / 100 Weight 75 kg Intake: IV 400 / 400 1300 / 1300 100 / 100 Diprivan 1000 mg/100 ml Inj 1, 200 / 200 100 / 100 100 / 100 000 mg In 100 ml @ 5 MCG/KG/MIN 2.172 mls/hr IV.CONT TITRATE PRN Rx#:[id number] 1/2 Normal Saline Inj 1,000 ML 1000 / 1000 @ 42 mls/hr IV.CONT .[id number] ERWIN Rx#:[id number] Maxipime Inj 2,000 MG In NS Inj 200 / 200 100 ML @ 200 mls/hr IV.SIG Q12H ERWIN Rx#:[id number] Diflucan 200 mg Premix Bag 100 100 / 100 ML @ 100 mls/hr IV.SIG Q24H ERWIN Rx#:[id number] Zosyn 4.5 GM Premix 4.5 gm In 100 / 100 100 ml @ 200 mls/hr IV.SIG Q6H ERWIN Rx#:[id number] Tube Feeding 190 / 190 468 / 468 Water Bolus Amount 100 / 100 200 / 200 Output: Urine Amount (Catheter) 530 / 530 775 / 775 Straight 530 / 530 775 / 775 Gastric Drainage 100 / 100 Left Nare 100 / 100 Other: Date of Last Bowel Movement 02/19/18 02/19/18 # Bowel Movements 4 # Incontinent Bowel Movements 4 02/19/18 21:10 Blood - Peripheral Aerobic Blood Culture - Preliminary No growth in 1 day 02/19/18 21:10 Blood - Peripheral Anaerobic Blood Culture - Preliminary No growth in 1 day 02/19/18 21:15 Blood - Peripheral Aerobic Blood Culture - Preliminary No growth in 1 day 02/19/18 21:15 Blood - Peripheral Anaerobic Blood Culture - Preliminary No growth in 1 day 02/20/18 01:30 Sputum - Endotracheal Gram Stain - Final 02/20/18 01:30 Sputum - Endotracheal Sputum Culture - Pending 02/17/18 04:30 Sputum - Expectorated Sputum Gram Stain - Final 02/17/18 04:30 Sputum - Expectorated Sputum Sputum Culture - Preliminary Aspergillus species 02/13/18 20:00 Blood - Peripheral Aerobic Blood Culture - Final No growth in 5 days 02/13/18 20:00 Blood - Peripheral Anaerobic Blood Culture - Final No growth in 5 days 02/13/18 19:50 Blood - Peripheral Aerobic Blood Culture - Final No growth in 5 days 02/13/18 19:50 Blood - Peripheral Anaerobic Blood Culture - Final No growth in 5 days Lab - Hematology Results 02/19/18 02/20/18 03:14 05:19 WBC 14.6 H 14.6 H RBC 3.89 L 3.85 L Hgb 12.1 L 11.9 L Hct 35.4 L 35.6 L MCV 91.1 92.7 MCH 31.3 31.0 MCHC 34.3 33.5 RDW 14.7 15.0 Plt Count 188 229 MPV 9.1 9.3 Neut % (Auto) 92.8 H 94.2 H Lymph % (Auto) 3.1 L 1.4 L [place] % (Auto) 3.9 4.1 Eos % (Auto) 0.0 0.0 Baso % (Auto) 0.2 0.3 Neut # (Auto) 13.5 H 13.8 H Lymph # (Auto) 0.4 L 0.2 L [place] # (Auto) 0.6 0.6 Eos # (Auto) 0.0 0.0 Baso # (Auto) 0.0 0.0 WBC Differential . . Differential Comment Auto diff final Auto diff final Lab - Chemistry Results 02/18/18 02/18/18 02/18/18 12:20 14:40 17:16 Sodium Potassium 3.3 L Chloride Carbon Dioxide Anion Gap BUN Creatinine Estimated GFR POC Glucose 155 H 157 H Random Glucose Calcium Calcium Adj for Albumin Phosphorus 1.7 L Magnesium Total Bilirubin AST ALT Alkaline Phosphatase Total Protein Albumin 02/18/18 02/19/18 02/19/18 23:30 03:14 06:19 Sodium 145 Potassium 3.8 Chloride 112 H Carbon Dioxide 26.9 Anion Gap 6 BUN 31 H Creatinine 1.32 H Estimated GFR 54 L POC Glucose 204 H 154 H Random Glucose 189 H Calcium 7.2 L* D Calcium Adj for Albumin 8.6 Phosphorus 3.5 D Magnesium 2.3 Total Bilirubin 0.4 AST 82 H ALT 72 Alkaline Phosphatase 44 L Total Protein 5.6 L D Albumin 2.2 L 02/19/18 02/19/18 02/20/18 11:26 23:34 05:19 Sodium 147 H Potassium 3.4 L Chloride 113 H Carbon Dioxide 27.8 Anion Gap 6 BUN 32 H Creatinine 1.46 H Estimated GFR 48 L POC Glucose 132 H 225 H Random Glucose 196 H Calcium 7.0 L* Calcium Adj for Albumin 8.8 Phosphorus 2.1 L D Magnesium 2.7 H Total Bilirubin 0.2 AST 82 H ALT 70 Alkaline Phosphatase 45 Total Protein 5.3 L Albumin 1.7 L 02/20/18 02/20/18 02/20/18 05:46 11:22 11:23 Sodium Potassium Chloride Carbon Dioxide Anion Gap BUN Creatinine Estimated GFR POC Glucose 177 H 245 H 245 H Random Glucose Calcium Calcium Adj for Albumin Phosphorus Magnesium Total Bilirubin AST ALT Alkaline Phosphatase Total Protein Albumin Imaging: ITS Impressions Head CT 02/13/18 19:41 CONCLUSION: 1. Mild periventricular white matter small vessel ischemic changes bilaterally. 2. No acute infarct, acute hemorrhage, mass effect or extra axial fluid collections. . Chest CT 02/16/18 00:00 CONCLUSION: 1. Nonspecific bilateral pneumonia as described. 2. Tiny right pleural effusion. 3. Upper limits of normal to slightly enlarged mediastinal and hilar lymph nodes. Abdomen/Bladder Ultrasound 12/28/18 18:18 CONCLUSION: 1. Echogenic kidneys consistent with medical renal disease. 2. No sonographic evidence for obstructive uropathy. 3. 5 mm cyst in the inferior pole the right kidney. 4. Nonspecific prostate enlargement. Chest X-Ray 02/20/18 06:00 CONCLUSION: Consolidation or atelectasis in the right mid and lower lung and to a lesser grade the left lower lung. Some degree of fusion should be considered. Physical Exam: GENERAL: sedated on the vent, not in distress. SKIN: Cool and dry. Has blanching red macules mostly seen in his torso. No ecchymoses and no evidence of embolic lesions. HEAD: Atraumatic. Normocephalic. No temporal wasting, or tenderness. EYES: [place] conjunctiva. No petechia or hemorrhage. Pupils equal, round and reactive to light. No scleral icterus. No injection or drainage. EARS, NOSE AND THROAT: Nose without bleeding or purulent nasal discharge. He is orally intubated. NECK: Trachea midline. Supple and not tender, no meningeal signs CARDIOVASCULAR: Regular rate and rhythm. No murmurs, rubs or gallops heard RESPIRATORY: He has decreased breath sounds on the right lung field. Did not appreciate any wheezing on auscultation. ABDOMEN: Soft, not distended, no reaction to palpation. Bowel sounds are present and hypoactive. EXTREMITIES: No clubbing, cyanosis, or edema. Has a lot of small varicosities in both feet/ankle. No joint effusion. NEUROLOGICAL: Sedated on the vent PSYCHIATRIC: Unable to assess LINE: No evidence of infection Assessment and Plan - Plan Impression Pneumonia, bilateral. - urine pneumococcal Ag (+) - ?other pathogens COPD Respiratory failure Aspergillus in sputum likely contaminant Renal insufficiency Recommendation Follow C/S Serum galactomannan Continue cefepime Continue vanco Continue Zithromax Also on Diflucan Follow C/S Monitor progress
--- NOTE | 2018-02-20 14:02 | P.PN ---
Subjective Interval history: Sedated and on vent support. ABG's were OK. Now on 45 % FIO2. No Fever. Physical Exam Vital signs: Vital Signs 02/19/18 14:30 02/19/18 15:00 02/19/18 15:30 Temperature Pulse Rate 105 H 112 H 115 H Respiratory Rate 25 H 27 H 28 H Blood Pressure 114/74 119/77 Pulse Oximetry 94 L 94 L 93 L 02/19/18 16:00 02/19/18 16:30 02/19/18 16:33 Temperature 99.3 F 99.3 F Pulse Rate 96 H 92 H Respiratory Rate 26 H 23 23 Blood Pressure 107/72 Pulse Oximetry 93 L 94 L 95 02/19/18 17:00 02/19/18 17:30 02/19/18 18:00 Temperature Pulse Rate 111 H 114 H 102 H Respiratory Rate 23 24 22 Blood Pressure 107/69 Pulse Oximetry 97 97 97 02/19/18 18:30 02/19/18 19:00 02/19/18 19:30 Temperature Pulse Rate 100 H 92 H 91 H Respiratory Rate 23 19 20 Blood Pressure 111/65 115/66 Pulse Oximetry 98 98 98 02/19/18 19:46 02/19/18 20:00 02/19/18 20:30 Temperature Pulse Rate 94 H 84 126 H Respiratory Rate 20 20 27 H Blood Pressure 107/64 Pulse Oximetry 98 98 96 02/19/18 21:00 02/19/18 21:30 02/19/18 22:00 Temperature 98.8 F Pulse Rate 128 H 112 H 119 H Respiratory Rate 24 22 30 H Blood Pressure 109/68 Pulse Oximetry 97 97 96 02/19/18 22:30 02/19/18 23:00 02/19/18 23:30 Temperature 98.7 F Pulse Rate 121 H 117 H 117 H Respiratory Rate 27 H 25 H 30 H Blood Pressure 109/72 125/83 Pulse Oximetry 96 97 95 02/19/18 23:51 02/19/18 23:54 02/20/18 00:00 Temperature Pulse Rate 115 H 112 H Respiratory Rate 28 H 28 H 23 Blood Pressure Pulse Oximetry 97 02/20/18 00:30 02/20/18 01:00 02/20/18 01:30 Temperature Pulse Rate 123 H 122 H 115 H Respiratory Rate 27 H 30 H 23 Blood Pressure 119/77 115/68 Pulse Oximetry 02/20/18 02:00 02/20/18 02:30 02/20/18 03:00 Temperature Pulse Rate 96 H 109 H 107 H Respiratory Rate 19 25 H 8 L Blood Pressure 120/79 Pulse Oximetry 96 96 02/20/18 03:21 02/20/18 03:30 02/20/18 04:00 Temperature Pulse Rate 110 H 108 H 98 H Respiratory Rate 22 0 L 10 L Blood Pressure 107/74 Pulse Oximetry 98 97 02/20/18 04:30 02/20/18 05:00 02/20/18 05:30 Temperature 98.5 F Pulse Rate 92 H 100 H 106 H Respiratory Rate 8 L 19 22 Blood Pressure 105/65 120/79 Pulse Oximetry 96 96 96 02/20/18 06:00 02/20/18 06:30 02/20/18 07:00 Temperature Pulse Rate 107 H 105 H 92 H Respiratory Rate 20 19 17 Blood Pressure 124/76 Pulse Oximetry 94 L 98 97 02/20/18 07:30 02/20/18 08:00 02/20/18 08:07 Temperature 97.6 F Pulse Rate 100 H 87 103 H Respiratory Rate 18 15 23 Blood Pressure 118/74 Pulse Oximetry 96 97 98 02/20/18 08:30 02/20/18 09:00 02/20/18 09:30 Temperature Pulse Rate 96 H 117 H 115 H Respiratory Rate 22 20 20 Blood Pressure 119/79 124/81 Pulse Oximetry 99 99 98 02/20/18 10:00 02/20/18 10:30 02/20/18 11:00 Temperature Pulse Rate 109 H 115 H 108 H Respiratory Rate 18 21 19 Blood Pressure 125/78 Pulse Oximetry 99 98 98 02/20/18 11:30 02/20/18 12:00 02/20/18 12:24 Temperature 97.7 F Pulse Rate 94 H 85 Respiratory Rate 14 21 23 Blood Pressure 131/80 Pulse Oximetry 99 99 02/20/18 12:30 02/20/18 13:00 Temperature Pulse Rate 82 84 Respiratory Rate 19 21 Blood Pressure 122/74 Pulse Oximetry 97 96 Intake & Output 02/19/18 02/20/18 02/20/18 18:59 06:59 18:59 Intake Total 690 / 690 1968 / 1968 562.5 / 562.5 Output Total 630 / 630 775 / 775 Balance 60 / 60 1193 / 1193 562.5 / 562.5 Weight 75 kg Intake: IV 400 / 400 1300 / 1300 562.5 / 562.5 Diprivan 1000 mg/100 ml Inj 1, 200 / 200 100 / 100 200 / 200 000 mg In 100 ml @ 5 MCG/KG/MIN 2.172 mls/hr IV.CONT TITRATE PRN Rx#:[id number] 1/2 Normal Saline Inj 1,000 ML 1000 / 1000 @ 42 mls/hr IV.CONT .[id number] ERWIN Rx#:[id number] Maxipime Inj 2,000 MG In NS Inj 200 / 200 100 ML @ 200 mls/hr IV.SIG Q12H ERWIN Rx#:[id number] Diflucan 200 mg Premix Bag 100 100 / 100 100 / 100 ML @ 100 mls/hr IV.SIG Q24H ERWIN Rx#:[id number] Zosyn 4.5 GM Premix 4.5 gm In 100 / 100 100 ml @ 200 mls/hr IV.SIG Q6H ERWIN Rx#:[id number] Vancomycin Inj 1,250 MG In NS 262.5 / 262.5 Inj 250 ML @ 262.5 mls/hr IV. SIG Q18H ERWIN Rx#:[id number] Tube Feeding 190 / 190 468 / 468 Water Bolus Amount 100 / 100 200 / 200 Output: Urine Amount (Catheter) 530 / 530 775 / 775 Straight 530 / 530 775 / 775 Gastric Drainage 100 / 100 Left Nare 100 / 100 Other: Date of Last Bowel Movement 02/19/18 02/19/18 02/19/18 # Bowel Movements 4 # Incontinent Bowel Movements 4 Narrative: Gen.: Elderly W/M sedated and on the vent Head: Normocephalic. Atraumatic. EENT: Pupils equal round and reactive to light. Nose without drainage. Cardiovascular: Regular rate and rhythm. No murmurs, rubs or gallops. Respiratory: Diffuse wheezing with few basal crackles.. Abdomen: Soft, nontender, nondistended. Musculoskeletal: No gross deformities. No edema. Skin: No obvious rashes or erythema. Neuro: Sedated. - Urinary Catheter Management Straight Cath placed during this visit: no Results - Labs CBC & Chem 7: 02/20/18 05:19 02/20/18 05:19 Laboratory Results - last 24 hr 02/19/18 02/19/18 02/19/18 16:15 20:37 23:34 WBC RBC Hgb Hct MCV MCH MCHC RDW Plt Count MPV Neut % (Auto) Lymph % (Auto) [place] % (Auto) Eos % (Auto) Baso % (Auto) Neut # (Auto) Lymph # (Auto) [place] # (Auto) Eos # (Auto) Baso # (Auto) WBC Differential Differential Comment Puncture Site Right radial Patient Temperature 98.6 O2 Saturation 96 ABG pH 7.38 ABG pCO2 43 H ABG pO2 109 ABG HCO3 25 ABG O2 Content 16.3 ABG Base Excess 0.2 ABG Methemoglobin 1.4 [place]ery Test Present Hemoglobin 12.0 Carboxyhemoglobin 0.5 O2 Delivery Device Ventilator Vent Setting Prvc/ac Inspired O2 45 Critical Value No Sodium Potassium Chloride Carbon Dioxide Anion Gap BUN Creatinine Estimated GFR POC Glucose 225 H Random Glucose Calcium Calcium Adj for Albumin Phosphorus Magnesium Total Bilirubin AST ALT Alkaline Phosphatase Total Protein Albumin Vancomycin Trough 7.8 02/20/18 02/20/18 02/20/18 05:19 05:19 05:46 WBC 14.6 H RBC 3.85 L Hgb 11.9 L Hct 35.6 L MCV 92.7 MCH 31.0 MCHC 33.5 RDW 15.0 Plt Count 229 MPV 9.3 Neut % (Auto) 94.2 H Lymph % (Auto) 1.4 L [place] % (Auto) 4.1 Eos % (Auto) 0.0 Baso % (Auto) 0.3 Neut # (Auto) 13.8 H Lymph # (Auto) 0.2 L [place] # (Auto) 0.6 Eos # (Auto) 0.0 Baso # (Auto) 0.0 WBC Differential . Differential Comment Auto diff final Puncture Site Patient Temperature O2 Saturation ABG pH ABG pCO2 ABG pO2 ABG HCO3 ABG O2 Content ABG Base Excess ABG Methemoglobin [place] Test Hemoglobin Carboxyhemoglobin O2 Delivery Device Vent Setting Inspired O2 Critical Value Sodium 147 H Potassium 3.4 L Chloride 113 H Carbon Dioxide 27.8 Anion Gap 6 BUN 32 H Creatinine 1.46 H Estimated GFR 48 L POC Glucose 177 H Random Glucose 196 H Calcium 7.0 L* Calcium Adj for Albumin 8.8 Phosphorus 2.1 L D Magnesium 2.7 H Total Bilirubin 0.2 AST 82 H ALT 70 Alkaline Phosphatase 45 Total Protein 5.3 L Albumin 1.7 L Vancomycin Trough 02/20/18 02/20/18 11:22 11:23 WBC RBC Hgb Hct MCV MCH MCHC RDW Plt Count MPV Neut % (Auto) Lymph % (Auto) [place] % (Auto) Eos % (Auto) Baso % (Auto) Neut # (Auto) Lymph # (Auto) [place] # (Auto) Eos # (Auto) Baso # (Auto) WBC Differential Differential Comment Puncture Site Patient Temperature O2 Saturation ABG pH ABG pCO2 ABG pO2 ABG HCO3 ABG O2 Content ABG Base Excess ABG Methemoglobin [place] Test Hemoglobin Carboxyhemoglobin O2 Delivery Device Vent Setting Inspired O2 Critical Value Sodium Potassium Chloride Carbon Dioxide Anion Gap BUN Creatinine Estimated GFR POC Glucose 245 H 245 H Random Glucose Calcium Calcium Adj for Albumin Phosphorus Magnesium Total Bilirubin AST ALT Alkaline Phosphatase Total Protein Albumin Vancomycin Trough Microbiology 02/17/18 04:30 Sputum - Expectorated Sputum Gram Stain - Final 02/17/18 04:30 Sputum - Expectorated Sputum Sputum Culture - Final Aspergillus sp not fumigatus 02/19/18 21:10 Blood - Peripheral Aerobic Blood Culture - Preliminary No growth in 1 day 02/19/18 21:10 Blood - Peripheral Anaerobic Blood Culture - Preliminary No growth in 1 day 02/19/18 21:15 Blood - Peripheral Aerobic Blood Culture - Preliminary No growth in 1 day 02/19/18 21:15 Blood - Peripheral Anaerobic Blood Culture - Preliminary No growth in 1 day 02/20/18 01:30 Sputum - Endotracheal Gram Stain - Final - Imaging Impressions Chest X-Ray 02/20/18 06:00 CONCLUSION: Consolidation or atelectasis in the right mid and lower lung and to a lesser grade the left lower lung. Some degree of fusion should be considered. Assessment and Plan - Assessment (1) COPD (chronic obstructive pulmonary disease) with acute bronchitis Code(s): J44.0 - Chronic obstructive pulmonary disease with acute lower respiratory infection; J20.9 - Acute bronchitis, unspecified Status: Acute (2) Emphysema of lung Code(s): J43.9 - Emphysema, unspecified Status: Acute (3) Encephalopathy Code(s): G93.40 - Encephalopathy, unspecified Status: Acute (4) Atelectasis Code(s): J98.11 - Atelectasis Status: Acute (5) Respiratory failure requiring intubation Code(s): J96.90 - Respiratory failure, unspecified, unspecified whether with hypoxia or hypercapnia Status: Acute - Plan 1. Wean FIo2 and Vent rates 2. Nebs qid , duoneb. 3. Reduce Solumedrol 40 mg IV Q6H 4. Chest Xray , CBC BMP in am 5. Continue antibiotics per ID 6. Mucomyst ,2-0 % 2 CC with nebs q6h 7. Symbicort 160/4.5 mcg , 2puffs BID 8. Keep sedated for vent control 9. Tube feeds at 55 CC .
--- NOTE | 2018-02-20 14:48 | P.PNCC ---
Subjective Subjective Remarks/Hospital Course: This is a 67-year-old male. Date of admission 02/13/2018. Date of consultation 02/08/2018. Past medical history includes ongoing tobaccoism, COPD , peripheral vascular disease including sent to the right lower extremity on clopidogrel, hyperlipidemia, essential hypertension who presents to the emergency department at [facility] on 02/13 for the evaluation of altered mental status. Events is document states he had acute delirium times 4-5 days. He also was documented stating he had a nonproductive cough, fever and diarrhea with accompanying shortness of breath. Lack of appetite. He denied any chest pain. According to his neighbor per documentation, they went to check on him and found his door to be partially ajar. They found the patient lying down and he could not remember what day it was. He stated he had not had anything to eat or drink in many days. Patient was admitted on the hospital service after CT of the brain revealed small vessel ischemic changes. Influenza a and B are negative. Blood cultures negative. His urine pneumococcal antigen was positive. He was treated with ceftriaxone and azithromycin. He was treated with bronchodilators every 6 hours and methylprednisolone Succinate 40 mg IV every 8 hours. He is on 2 L nasal cannula. Today, breath. Rapid response was called. He was noted to be febrile temperature of 102.5 Fahrenheit and noted to be tachypneic. He received bronchodilator therapy. Chest x-ray revealed a right middle lobe infiltrate. He was transferred to the ICU for evaluation. On my evaluation patient is on 2 L nasal cannula. He is not using accessory muscles. He is able to complete sentences. He does have a cough present time with white sputum. Denies hemoptysis. 02/17: Afebrile. Continues to be quite wheezy. Slight retractions. Will increase methylprednisolone. On aggressive pulmonary toilet therapy at the present time. CT chest revealed bilateral patchy pneumonia. 02/18: Afebrile. On 3 L nasal cannula satting 94-97%. Less wheezy today. In much better spirits. Subjective 02/19: Decompensated overnight requiring mechanical intubation. Hypotensive so central line placed earlier this a.m. Creatinine stable 1.3. White blood cell count slightly improved to 14,000. Continue antibiotic therapy. 02/20: Oxygenation acceptable at 40% FiO2. Glucose control problematic owing largely to tube feeds and steroids. Will augment sliding scale with very low- dose Levemir. Switch to Glucerna if problem continues. GFR declining modestly , concern for osmotic diuresis. Watch carefully, add hydration if necessary. Attempted CPAP trial today which resulted in tachypnea and small volumes; patient appeared to be talking pretty hard despite pressure support of 12. Objective Vital Signs / I&O: Vital Signs 02/19/18 15:00 02/19/18 15:30 02/19/18 16:00 Temperature 99.3 F Pulse Rate 112 H 115 H 96 H Respiratory Rate 27 H 28 H 26 H Blood Pressure 119/77 Pulse Oximetry 94 L 93 L 93 L 02/19/18 16:30 02/19/18 16:33 02/19/18 17:00 Temperature 99.3 F Pulse Rate 92 H 111 H Respiratory Rate 23 23 23 Blood Pressure 107/72 Pulse Oximetry 94 L 95 97 02/19/18 17:30 02/19/18 18:00 02/19/18 18:30 Temperature Pulse Rate 114 H 102 H 100 H Respiratory Rate 24 22 23 Blood Pressure 107/69 111/65 Pulse Oximetry 97 97 98 02/19/18 19:00 02/19/18 19:30 02/19/18 19:46 Temperature Pulse Rate 92 H 91 H 94 H Respiratory Rate 19 20 20 Blood Pressure 115/66 Pulse Oximetry 98 98 98 02/19/18 20:00 02/19/18 20:30 02/19/18 21:00 Temperature Pulse Rate 84 126 H 128 H Respiratory Rate 20 27 H 24 Blood Pressure 107/64 Pulse Oximetry 98 96 97 02/19/18 21:30 02/19/18 22:00 02/19/18 22:30 Temperature 98.8 F Pulse Rate 112 H 119 H 121 H Respiratory Rate 22 30 H 27 H Blood Pressure 109/68 109/72 Pulse Oximetry 97 96 96 02/19/18 23:00 02/19/18 23:30 02/19/18 23:51 Temperature 98.7 F Pulse Rate 117 H 117 H Respiratory Rate 25 H 30 H 28 H Blood Pressure 125/83 Pulse Oximetry 97 95 97 02/19/18 23:54 02/20/18 00:00 02/20/18 00:30 Temperature Pulse Rate 115 H 112 H 123 H Respiratory Rate 28 H 23 27 H Blood Pressure 119/77 Pulse Oximetry 02/20/18 01:00 02/20/18 01:30 02/20/18 02:00 Temperature Pulse Rate 122 H 115 H 96 H Respiratory Rate 30 H 23 19 Blood Pressure 115/68 Pulse Oximetry 02/20/18 02:30 02/20/18 03:00 02/20/18 03:21 Temperature Pulse Rate 109 H 107 H 110 H Respiratory Rate 25 H 8 L 22 Blood Pressure 120/79 Pulse Oximetry 96 96 02/20/18 03:30 02/20/18 04:00 02/20/18 04:30 Temperature 98.5 F Pulse Rate 108 H 98 H 92 H Respiratory Rate 0 L 10 L 8 L Blood Pressure 107/74 105/65 Pulse Oximetry 98 97 96 02/20/18 05:00 02/20/18 05:30 02/20/18 06:00 Temperature Pulse Rate 100 H 106 H 107 H Respiratory Rate 19 22 20 Blood Pressure 120/79 Pulse Oximetry 96 96 94 L 02/20/18 06:30 02/20/18 07:00 02/20/18 07:30 Temperature Pulse Rate 105 H 92 H 100 H Respiratory Rate 19 17 18 Blood Pressure 124/76 118/74 Pulse Oximetry 98 97 96 02/20/18 08:00 02/20/18 08:07 02/20/18 08:30 Temperature 97.6 F Pulse Rate 87 103 H 96 H Respiratory Rate 15 23 22 Blood Pressure 119/79 Pulse Oximetry 97 98 99 02/20/18 09:00 02/20/18 09:30 02/20/18 10:00 Temperature Pulse Rate 117 H 115 H 109 H Respiratory Rate 20 20 18 Blood Pressure 124/81 Pulse Oximetry 99 98 99 02/20/18 10:30 02/20/18 11:00 02/20/18 11:30 Temperature Pulse Rate 115 H 108 H 94 H Respiratory Rate 21 19 14 Blood Pressure 125/78 131/80 Pulse Oximetry 98 98 99 02/20/18 12:00 02/20/18 12:24 02/20/18 12:30 Temperature 97.7 F Pulse Rate 85 82 Respiratory Rate 21 23 19 Blood Pressure 122/74 Pulse Oximetry 99 97 02/20/18 13:00 Temperature Pulse Rate 84 Respiratory Rate 21 Blood Pressure Pulse Oximetry 96 Intake & Output 02/19/18 02/20/18 02/20/18 18:59 06:59 18:59 Intake Total 690 / 690 1967 / 1967 562.5 / 562.5 Output Total 630 / 630 775 / 775 Balance 60 / 60 1193 / 1193 562.5 / 562.5 Weight 75 kg Intake: IV 400 / 400 1300 / 1300 562.5 / 562.5 Diprivan 1000 mg/100 ml Inj 1, 200 / 200 100 / 100 200 / 200 000 mg In 100 ml @ 5 MCG/KG/MIN 2.172 mls/hr IV.CONT TITRATE PRN Rx#:[id number] 1/2 Normal Saline Inj 1,000 ML 1000 / 1000 @ 42 mls/hr IV.CONT .[id number] ERWIN Rx#:[id number] Maxipime Inj 2,000 MG In NS Inj 200 / 200 100 ML @ 200 mls/hr IV.SIG Q12H ERWIN Rx#:[id number] Diflucan 200 mg Premix Bag 100 100 / 100 100 / 100 ML @ 100 mls/hr IV.SIG Q24H ERWIN Rx#:[id number] Zosyn 4.5 GM Premix 4.5 gm In 100 / 100 100 ml @ 200 mls/hr IV.SIG Q6H ERWIN Rx#:[id number] Vancomycin Inj 1,250 MG In NS 262.5 / 262.5 Inj 250 ML @ 262.5 mls/hr IV. SIG Q18H ERWIN Rx#:[id number] Tube Feeding 190 / 190 468 / 468 Water Bolus Amount 100 / 100 200 / 200 Output: Urine Amount (Catheter) 530 / 530 775 / 775 Straight 530 / 530 775 / 775 Gastric Drainage 100 / 100 Left Nare 100 / 100 Other: Date of Last Bowel Movement 02/19/18 02/19/18 02/19/18 # Bowel Movements 4 # Incontinent Bowel Movements 4 Result Diagrams: 02/20/18 05:19 02/20/18 05:19 Objective Remarks: GENERAL: 67-year-old male, lightly sedated on mechanical ventilation SKIN: Warm and dry. HEAD: Atraumatic. Normocephalic. EYES: Pupils equal and round. No scleral icterus. No injection or drainage. ENT: No nasal bleeding or discharge. Mucous membranes pink and moist. NECK: Trachea midline. Left IJ CVL is clean dry and intact. Orotracheal intubation CARDIOVASCULAR: RRR. S1, S2 no S4. No murmur appreciated RESPIRATORY: Mild bronchospasm persists but air movement is good. Accessory muscle use during spontaneous breathing trials. GASTROINTESTINAL: Abdomen soft, non-tender, nondistended. No guarding, bowel sounds active MUSCULOSKELETAL: Extremities without clubbing, cyanosis, or edema. Warm, well- perfused. NEUROLOGICAL: Moves all 4 extremities spontaneously. Positive cough and gag and corneal reflex. Assessment and Plan - Assessment and Plan Plan: Neuro/Psych: Admission with acute delirium/encephalopathy toxic metabolic due to underlying pneumonia/community acquired On propofol/dexmedetomidine drips for sedation/vent synchrony Goal of RA SS -2 Daily sedation vacation Acetaminophen 650 p.o. every 6 hours as needed fever Hydrocodone/acetaminophen 5/325 1 tablet every 4 hours as needed pain [address] brain 02/13 revealed small vessel ischemic changes bilaterally. No acute infarction. , On sedation. CV: Essential hypertension Hyperlipidemia Peripheral vascular disease stenting to right lower extremity Holding olmesartan 40 mg daily/home medication for hypertension. Resume if clinically indicated Currently on atorvastatin 80 mg daily for hyperlipidemia. We will check 2D echocardiogram with underlying shortness of breath. EKG chest troponin will be ordered for a.m. septal infarct. Troponin 0 0.27. Recheck tomorrow. Likely strain/demand ischemia secondary to tachypnea Continue home medication clopidogrel 75 mg daily As needed norepinephrine to maintain mean artery pressure equal to 65 Resp: Acute respiratory failure/hypoxic hypercapnic COPD Community-acquired pneumonia ongoing tobaccoism PRVC ventilation Head of bed at 30 degrees with ventilator bundle Albuterol/ipratropium aerosols every 4 hours with albuterol aerosols every 2 hours as needed dyspnea Continue budesonide 0.5/2 1 inhalation twice daily Blunting left and right costophrenic angle. Medial right lobe infiltrate on hyperinflation likely secondary to emphysema. Continue methylprednisolone succinate 60 mg IV every 6 hours Tobacco cessation self evaluation booklet provided. 30 nicotine patch [address] thorax revealed patchy bilateral pneumonia. Lymphadenopathy. Small tidal volumes and accessory muscle use during spontaneous breathing trial today GI: Hypoalbuminemia Currently on a tube feeds Jevity 1.5 goal 55 cc an hour Lansoprazole for GI prophylaxis Docusate sodium/senna 1 tablet twice daily for bowel regimen. Add lactulose 30 cc twice daily : No indication for Armstrong catheter catheterization Endo: Sliding scale insulin with aspart insulin Accu-Cheks AC/at bedtime to maintain euglycemia while on steroids Normal TSH 0.398 Persistent hyperglycemia mid 200s. Levemir 4 units subcu every 12 hours well tube feedings run at continuous rate. Renal: Acute kidney injury -resolving Right renal cyst Avoid nephrotoxic medications. Patient was on ibuprofen as an outpatient. Check renal ultrasound -medical renal disease. Right renal cyst GFR declining over the last 48 hours Heme: Leukocytosis Normocytic anemia Monitor CBC daily. Follow trends. No indication for transfusion of blood products at this time. ID: Streptococcal urinary antigen positive for community acquired pneumonia Currently on vancomycin, piperacillin/tazobactam started 02/16 azithromycin started 02/13. Previously on ceftriaxone since 02/13 02/16 -sputum with mold. Added fluconazole Blood cultures x2/influenza A/B 02/13 no growth to date MSK: PT evaluate and treat FEN: Hyper magnesia Replace electrolytes as clinically indicated per ICU electrolyte protocol Currently on one half normal saline 42 cc an hour Access -Utilize peripheral IV. Central line if indicated Prophylaxis -GI -lansoprazole -DVT -SCD/heparin subcu Overall impression: Continued hypoxemic respiratory failure and we are unable to wean from the ventilator. Bronchospasm persists though much improved. Patient remains critically ill. Critical care time 38 minutes
[2018-02-20] MEDS: Azithromycin Inj 500 MG in Sodium Chlor 0.9% Inj 250 ML IV.SIG SCH (15:59)
[2018-02-20] MEDS: Artificial Tears Opth Drops 15 ML Bottle EACH EYE SCH ×2 (16:03→20:46)
[2018-02-20] MEDS: Insulin Detemir Inj 1,000 UNIT/10 ML Vial SQ SCH ×2 (16:03→20:46)
[2018-02-21] MEDS: Insulin NovoLOG Aspart Correctional Sugar Inj SQ SCH ×4 (00:14→17:49)
[2018-02-21] MEDS: Heparin - SQ 10,000 UNITS/ML Vial SQ SCH ×3 (00:14→23:51)
[2018-02-21] MEDS: MethylPREDNISolone Sod Succinate Inj 40 MG/ML Vial IV.PUSH SCH ×5 (00:14→23:52)
[2018-02-21] MEDS: Artificial Tears Opth Drops 15 ML Bottle EACH EYE SCH ×4 (00:17→23:53)
[2018-02-21] MEDS: Sodium Chloride 0.45 % Inj 1,000 ML IV.CONT SCH (02:06)
[2018-02-21] MEDS: Propofol 1000 mg/100 ml Inj 1,000 MG/100 ML BOTTLE IV.CONT PRN ×4 (02:37→20:16)
[2018-02-21] MEDS ORDERED: Pharmacy Ordered Lab Info OTHER ONE (05:45)
[2018-02-21] MEDS: Vancomycin Inj 1,250 MG in Sodium Chlor 0.9% Inj 250 ML IV.SIG SCH ×2 (06:45→23:53)
[2018-02-21 07:25] LABS: Baso # (Auto) 0.1 th/mm3 (0.0-0.2); Baso % (Auto) 0.3 % (0.0-2.0); Hematocrit 35.4 % (39.0-51.0); Hemoglobin 11.9 gm/dL (13.0-17.0); Lymph # (Auto) 0.3 th/mm3 (1.0-4.8); Lymph % (Auto) 1.4 % (9.0-44.0); Mean Corpuscular HGB Conc 33.6 % (32.0-36.0); Mean Corpuscular Hemoglobin 31.4 pg (27.0-34.0); Mean Corpuscular Volume 93.3 fL (80.0-100.0); Mean Platelet Volume 9.3 fL (7.0-11.0); Mono % (Auto) 5.1 % (0.0-8.0); Neut # (Auto) 19.2 th/mm3 (1.8-7.7); Neut % (Auto) 93.2 % (16.0-70.0); Platelet Count 226 th/mm3 (150-450); Red Blood Count 3.79 mil/mm3 (4.50-5.90); Red Cell Distribution Width 15.6 % (11.6-17.2); White Blood Count 20.6 th/mm3 (4.0-11.0)
[2018-02-21 07:47] LABS: Calcium 7.4 mg/dL (8.5-10.1)
[2018-02-21 08:00] LABS: Albumin 1.6 g/dL (3.4-5.0); Calcium-Albumin Corrected 9.3 mg/dL (8.5-10.1)
[2018-02-21] MEDS: Senna/Docusate Sodium 8.6/50 MG Tablet PO SCH ×2 (08:00→20:17)
[2018-02-21 08:27] LABS: Lymphocytes 2 % (9-44); Monocytes 2 % (0-8); Myelocytes 1 % (0-0)
[2018-02-21 08:29] LABS: Acanthocytes Occ; Toxic Granulation 1+
[2018-02-21 08:30] LABS: Platelet Estimate Normal (Normal)
[2018-02-21] MEDS ORDERED: Potassium Chloride 25 MEQ Effervescent Tablet PO ONE (09:02)
--- NOTE | 2018-02-21 09:06 | P.PNCC ---
Subjective Subjective Remarks/Hospital Course: This is a 67-year-old male. Date of admission 02/13/2018. Date of consultation 02/08/2018. Past medical history includes ongoing tobaccoism, COPD , peripheral vascular disease including sent to the right lower extremity on clopidogrel, hyperlipidemia, essential hypertension who presents to the emergency department at [facility] on 02/13 for the evaluation of altered mental status. Events is document states he had acute delirium times 4-5 days. He also was documented stating he had a nonproductive cough, fever and diarrhea with accompanying shortness of breath. Lack of appetite. He denied any chest pain. According to his neighbor per documentation, they went to check on him and found his door to be partially ajar. They found the patient lying down and he could not remember what day it was. He stated he had not had anything to eat or drink in many days. Patient was admitted on the hospital service after CT of the brain revealed small vessel ischemic changes. Influenza a and B are negative. Blood cultures negative. His urine pneumococcal antigen was positive. He was treated with ceftriaxone and azithromycin. He was treated with bronchodilators every 6 hours and methylprednisolone Succinate 40 mg IV every 8 hours. He is on 2 L nasal cannula. Today, breath. Rapid response was called. He was noted to be febrile temperature of 102.5 Fahrenheit and noted to be tachypneic. He received bronchodilator therapy. Chest x-ray revealed a right middle lobe infiltrate. He was transferred to the ICU for evaluation. On my evaluation patient is on 2 L nasal cannula. He is not using accessory muscles. He is able to complete sentences. He does have a cough present time with white sputum. Denies hemoptysis. 02/17: Afebrile. Continues to be quite wheezy. Slight retractions. Will increase methylprednisolone. On aggressive pulmonary toilet therapy at the present time. CT chest revealed bilateral patchy pneumonia. 02/18: Afebrile. On 3 L nasal cannula satting 94-97%. Less wheezy today. In much better spirits. 02/19: Decompensated overnight requiring mechanical intubation. Hypotensive so central line placed earlier this a.m. Creatinine stable 1.3. White blood cell count slightly improved to 14,000. Continue antibiotic therapy. 02/20: Oxygenation acceptable at 40% FiO2. Glucose control problematic owing largely to tube feeds and steroids. Will augment sliding scale with very low- dose Levemir. Switch to Glucerna if problem continues. GFR declining modestly , concern for osmotic diuresis. Watch carefully, add hydration if necessary. Attempted CPAP trial today which resulted in tachypnea and small volumes; patient appeared to be talking pretty hard despite pressure support of 12. Subjective 1/2: Afebrile. Oxygenation 40%. We will continue to wean. Appears volume overloaded with positive intake versus output. Tolerating tube feeding. Objective Vital Signs / I&O: Vital Signs 02/20/18 09:30 02/20/18 10:00 02/20/18 10:30 Temperature Pulse Rate 115 H 109 H 115 H Respiratory Rate 20 18 21 Blood Pressure 124/81 125/78 Pulse Oximetry 98 99 98 02/20/18 11:00 02/20/18 11:30 02/20/18 12:00 Temperature 97.7 F Pulse Rate 108 H 94 H 85 Respiratory Rate 19 14 21 Blood Pressure 131/80 Pulse Oximetry 98 99 99 02/20/18 12:24 02/20/18 12:30 02/20/18 13:00 Temperature Pulse Rate 82 84 Respiratory Rate 23 19 21 Blood Pressure 122/74 Pulse Oximetry 97 96 02/20/18 13:30 02/20/18 14:00 02/20/18 14:30 Temperature Pulse Rate 97 H 95 H 116 H Respiratory Rate 20 17 20 Blood Pressure 118/74 121/74 Pulse Oximetry 95 96 95 02/20/18 15:00 02/20/18 15:30 02/20/18 15:44 Temperature Pulse Rate 109 H 106 H 113 H Respiratory Rate 19 17 21 Blood Pressure 127/77 Pulse Oximetry 95 95 94 L 02/20/18 16:00 02/20/18 16:30 02/20/18 17:00 Temperature 98.6 F Pulse Rate 124 H 134 H 130 H Respiratory Rate 24 22 20 Blood Pressure 135/76 Pulse Oximetry 98 92 L 91 L 02/20/18 17:30 02/20/18 18:00 02/20/18 18:30 Temperature 97.3 F L 97.3 F L 97.3 F L Pulse Rate 122 H 111 H 106 H Respiratory Rate 19 20 18 Blood Pressure 120/78 120/77 Pulse Oximetry 91 L 93 L 94 L 02/20/18 19:00 02/20/18 19:30 02/20/18 19:40 Temperature 97.5 F L 97.5 F L Pulse Rate 106 H 104 H 100 H Respiratory Rate 18 18 23 Blood Pressure 131/80 Pulse Oximetry 95 95 95 02/20/18 20:00 02/20/18 20:30 02/20/18 21:00 Temperature 97.7 F 97.9 F 98.1 F Pulse Rate 105 H 110 H 100 H Respiratory Rate 18 16 15 Blood Pressure 123/78 Pulse Oximetry 98 98 98 02/20/18 21:30 02/20/18 22:00 02/20/18 22:30 Temperature 98.2 F 98.4 F 98.4 F Pulse Rate 100 H 90 108 H Respiratory Rate 15 14 17 Blood Pressure 135/77 129/74 Pulse Oximetry 96 96 93 L 02/20/18 23:00 02/20/18 23:30 02/20/18 23:53 Temperature 98.2 F 98.1 F Pulse Rate 106 H 104 H Respiratory Rate 16 16 13 Blood Pressure 126/76 Pulse Oximetry 94 L 94 L 96 02/21/18 00:00 02/21/18 00:30 02/21/18 01:00 Temperature 98.1 F 98.2 F 98.1 F Pulse Rate 91 H 106 H 105 H Respiratory Rate 14 17 17 Blood Pressure 130/75 Pulse Oximetry 95 95 95 02/21/18 01:30 02/21/18 02:00 02/21/18 02:30 Temperature 98.1 F 98.1 F 98.1 F Pulse Rate 105 H 104 H 106 H Respiratory Rate 17 16 18 Blood Pressure 137/77 133/75 Pulse Oximetry 95 94 L 95 02/21/18 03:00 02/21/18 03:28 02/21/18 03:30 Temperature 98.1 F 98.1 F Pulse Rate 106 H 103 H 103 H Respiratory Rate 17 16 16 Blood Pressure 130/79 Pulse Oximetry 94 L 94 L 95 02/21/18 04:00 02/21/18 04:30 02/21/18 05:00 Temperature 98.1 F 98.1 F 98.1 F Pulse Rate 105 H 107 H 104 H Respiratory Rate 17 16 16 Blood Pressure 131/78 Pulse Oximetry 97 97 97 02/21/18 05:30 02/21/18 06:00 02/21/18 06:30 Temperature 98.1 F 98.2 F 98.2 F Pulse Rate 89 86 96 H Respiratory Rate 13 13 17 Blood Pressure 126/77 127/73 Pulse Oximetry 97 97 97 02/21/18 07:00 02/21/18 07:30 02/21/18 07:50 Temperature 98.1 F Pulse Rate 90 103 H 102 H Respiratory Rate 13 16 24 Blood Pressure 135/77 Pulse Oximetry 97 96 97 02/21/18 08:31 Temperature 98.1 F Pulse Rate Respiratory Rate Blood Pressure Pulse Oximetry Intake & Output 02/20/18 02/21/18 02/21/18 18:59 06:59 18:59 Intake Total 1525.5 / 1525.5 2342 / 2342 100 / 100 Output Total 525 / 525 800 / 800 Balance 1000.5 / 1000.5 1542 / 1542 100 / 100 Weight 78.2 kg Intake: IV 662.5 / 662.5 1820 / 1820 100 / 100 Diprivan 1000 mg/100 ml Inj 1, 300 / 300 260 / 260 100 / 100 000 mg In 100 ml @ 5 MCG/KG/MIN 2.172 mls/hr IV.CONT TITRATE PRN Rx#:[id number] 1/2 Normal Saline Inj 1,000 ML 1460 / 1460 @ 42 mls/hr IV.CONT .[id number] ERWIN Rx#:[id number] Maxipime Inj 2,000 MG In NS Inj 100 / 100 100 ML @ 200 mls/hr IV.SIG Q12H ERWIN Rx#:[id number] Diflucan 200 mg Premix Bag 100 100 / 100 ML @ 100 mls/hr IV.SIG Q24H ERWIN Rx#:[id number] Vancomycin Inj 1,250 MG In NS 262.5 / 262.5 Inj 250 ML @ 262.5 mls/hr IV. SIG Q18H ERWIN Rx#:[id number] Tube Feeding 603 / 603 422 / 422 Tube Irrigant 60 / 60 Water Bolus Amount 200 / 200 100 / 100 Output: Urine Amount (Catheter) 525 / 525 800 / 800 Indwelling Temp Sensing 525 / 525 800 / 800 Catheter Other: Date of Last Bowel Movement 02/20/18 02/21/18 # Bowel Movements 1 1 # Incontinent Bowel Movements 1 Result Diagrams: 02/21/18 07:00 02/21/18 07:00 Other Results: Microbiology 02/17/18 04:30 Sputum - Expectorated Sputum Gram Stain - Final 02/17/18 04:30 Sputum - Expectorated Sputum Sputum Culture - Final Aspergillus sp not fumigatus 02/19/18 21:10 Blood - Peripheral Aerobic Blood Culture - Preliminary No growth in 1 day 02/19/18 21:10 Blood - Peripheral Anaerobic Blood Culture - Preliminary No growth in 1 day 02/19/18 21:15 Blood - Peripheral Aerobic Blood Culture - Preliminary No growth in 1 day 02/19/18 21:15 Blood - Peripheral Anaerobic Blood Culture - Preliminary No growth in 1 day 02/20/18 01:30 Sputum - Endotracheal Gram Stain - Final 02/13/18 20:00 Blood - Peripheral Aerobic Blood Culture - Final No growth in 5 days 02/13/18 20:00 Blood - Peripheral Anaerobic Blood Culture - Final No growth in 5 days 02/13/18 19:50 Blood - Peripheral Aerobic Blood Culture - Final No growth in 5 days 02/13/18 19:50 Blood - Peripheral Anaerobic Blood Culture - Final No growth in 5 days 02/13/18 21:00 Throat Group A Streptococcus Screen/Cult - Final No Beta Streptococci isolated. 02/13/18 20:36 Urine - Clean Catch Urine Legionella Antigen - Final Presumptive negative for Legionella pneumophila serogroup 1 antigen in urine, suggesting no recent or recurrent infection. Infection due to Legionella cannot be ruled out since other serogroups and species may cause disease, antigen may not be present in urine in early infection, and the level of antigen present in the urine may be below the detection limit of the test. 02/13/18 20:36 Urine - Clean Catch Urine Streptococcus pneumoniae Antigen ( M - Final POS S. pneumoniae antigen 02/13/18 21:00 Throat Group A Streptococcus Screen ([facility]) - Final 02/13/18 20:32 Nasal Wash Influenza Types A,B Antigen - Final Negative for FLU A and B antigen Infection due to influenza A or B cannot be ruled out since the antigen present in the sample may be below the detection limit of the test. Imaging: Chest X-Ray 02/13/18 19:41 CONCLUSION: 1. Negative portable chest. Head CT 02/13/18 19:41 CONCLUSION: 1. Mild periventricular white matter small vessel ischemic changes bilaterally. 2. No acute infarct, acute hemorrhage, mass effect or extra axial fluid collections. . Chest X-Ray 02/15/18 14:58 CONCLUSION: 1. Mild streakiness is noted involving the right medial lung base consistent with possible developing infiltrates. Clinical correlation is recommended. 2. Minimal increased perihilar streakiness is noted bilaterally. Chest CT 02/16/18 00:00 CONCLUSION: 1. Nonspecific bilateral pneumonia as described. 2. Tiny right pleural effusion. 3. Upper limits of normal to slightly enlarged mediastinal and hilar lymph nodes. Chest X-Ray 02/16/18 00:00 CONCLUSION: 1. Persistent hazy opacification of the medial right lung base. Recommend clinical correlation for infection. 2. Hyperinflation with streaky opacities radiating from the des, which may be related to underlying chronic obstructive pulmonary disease. Abdomen/Bladder Ultrasound 02/16/18 18:18 CONCLUSION: 1. Echogenic kidneys consistent with medical renal disease. 2. No sonographic evidence for obstructive uropathy. 3. 5 mm cyst in the inferior pole the right kidney. 4. Nonspecific prostate enlargement. Chest X-Ray 02/18/18 00:00 CONCLUSION: NG looped back on itself in the esophagus. This should be repositioned. Endotracheal tube in good position. Worsening bilateral airspace disease since earlier exam. Small effusions. Chest X-Ray 02/18/18 06:00 CONCLUSION: Modest worsening bilateral basilar and upper lobe airspace disease. Small bilateral effusions. Chest X-Ray 02/19/18 06:00 CONCLUSION: Airspace disease seen at the bases being worse on the right. Underlying interstitial disease. Some degree of effusion especially on the right cannot be excluded. Chest X-Ray 02/19/18 07:55 CONCLUSION: 1. Left IJ central line in good position without pneumothorax. 2. Persistent right lower lobe airspace disease and probable small pleural effusion. 3. Persistent minimal airspace disease at the left lung base. Chest X-Ray 02/20/18 06:00 CONCLUSION: Consolidation or atelectasis in the right mid and lower lung and to a lesser grade the left lower lung. Some degree of fusion should be considered. Objective Remarks: GENERAL: 67-year-old male, lightly sedated on mechanical ventilation in no acute distress SKIN: Warm and dry. HEAD: Atraumatic. Normocephalic. EYES: Pupils equal and round. No scleral icterus. No injection or drainage. ENT: No nasal bleeding or discharge. Mucous membranes pink and moist. NECK: Trachea midline. Left IJ CVL is clean dry and intact. Orotracheal intubation CARDIOVASCULAR: RRR. S1, S2 no S4. No murmur appreciated RESPIRATORY: Mild bronchospasm persists but air movement is good. GASTROINTESTINAL: Abdomen soft, non-tender, nondistended. No guarding, bowel sounds active MUSCULOSKELETAL: Extremities without clubbing, cyanosis, or edema. Warm, well- perfused. NEUROLOGICAL: Moves all 4 extremities spontaneously. Positive cough and gag and corneal reflex. Assessment and Plan - Assessment and Plan Plan: Neuro/Psych: Admission with acute delirium/encephalopathy toxic metabolic due to underlying pneumonia/community acquired On propofol/dexmedetomidine drips for sedation/vent synchrony Goal of RA SS -2 Daily sedation vacation Acetaminophen 650 p.o. every 6 hours as needed fever Hydrocodone/acetaminophen 5/325 1 tablet every 4 hours as needed pain [address] brain 02/13 revealed small vessel ischemic changes bilaterally. No acute infarction. CV: Essential hypertension Hyperlipidemia Peripheral vascular disease stenting to right lower extremity Holding olmesartan 40 mg daily/home medication for hypertension. Resume if clinically indicated Currently on atorvastatin 80 mg daily for hyperlipidemia. We will check 2D echocardiogram with underlying shortness of breath. EKG chest troponin will be ordered for a.m. septal infarct. Troponin 0 0.27. Recheck tomorrow. Likely strain/demand ischemia secondary to tachypnea Continue home medication clopidogrel 75 mg daily As needed norepinephrine to maintain mean artery pressure equal to 65 Resp: Acute respiratory failure/hypoxic hypercapnic COPD Community-acquired pneumonia ongoing tobaccoism PRVC ventilation Head of bed at 30 degrees with ventilator bundle Albuterol/ipratropium aerosols every 4 hours with albuterol aerosols every 2 hours as needed dyspnea Continue budesonide 0.5/2 1 inhalation twice daily Follow-up chest x-ray in a.m. 02/22 Continue methylprednisolone succinate 60 mg IV every 6 hours Tobacco cessation self evaluation booklet provided. 30 nicotine patch [address] thorax revealed patchy bilateral pneumonia. GI: Hypoalbuminemia Currently on a tube feeds Jevity 1.5 goal 55 cc an hour pursue Glucerna 1.5 cm rate Lansoprazole for GI prophylaxis Docusate sodium/senna 1 tablet twice daily for bowel regimen. Add lactulose 30 cc twice daily : No indication for Armstrong catheter catheterization Endo: Sliding scale insulin with aspart insulin Accu-Cheks AC/at bedtime to maintain euglycemia while on steroids Normal TSH 0.398 Persistent hyperglycemia mid 200s. Levemir 4 units subcu every 12 hours well tube feedings run at continuous rate. Renal: Acute kidney injury -resolving Right renal cyst Avoid nephrotoxic medications. Patient was on ibuprofen as an outpatient. Check renal ultrasound -medical renal disease. Right renal cyst GFR declining over the last 48 hours Heme: Leukocytosis Normocytic anemia Monitor CBC daily. Follow trends. No indication for transfusion of blood products at this time. ID: Streptococcal urinary antigen positive for community acquired pneumonia Currently on cefepime, his azithromycin, vancomycin and fluconazole Previously on ceftriaxone since 02/13. Discontinued 02/17. Piperacillin/ tazobactam discontinued 02/16 -sputum with Aspergillus. Added fluconazole Blood cultures x2/influenza A/B 02/13 no growth to date Appreciated infectious disease consultation. Chlamydia and mycoplasma pending MSK: PT evaluate and treat FEN: Hypernatremia Replace electrolytes as clinically indicated per ICU electrolyte protocol Currently on one half normal saline 42 cc an hour. Discontinue /2. Free water flushes 100 cc every 8 hours Access -Utilize peripheral IV. Central line if indicated Prophylaxis -GI -lansoprazole -DVT -SCD/heparin subcu Level 3 follow-up
[2018-02-21] MEDS: Insulin Detemir Inj 1,000 UNIT/10 ML Vial SQ SCH ×2 (10:01→21:33)
--- NOTE | 2018-02-21 10:04 | P.PNID ---
Subjective Remarks: Patient is a 67-year-old male, brought into the hospital for further evaluation of cough fever diarrhea and confusion. Patient apparently has not been feeling well for about 4-5 days. He has been having a nonproductive cough, fever and diarrhea. He also has significant weakness. His neighbor apparently checked on him on the day of admission and found him lying down and he was somewhat confused. He apparently has not had anything to eat or drink in several days. He was brought into the hospital, and he initial chest x-ray did not show any acute infiltrate. CT of the head did not show any acute disease. His WBC was normal. Creatinine was elevated at 1.75. Urine for pneumococcal antigen came back positive. Blood cultures were negative. Patient was put on empiric antibiotics for community-acquired pneumonia. He was also having a lot of shortness of breath and a lot of wheezing, and has been getting IV steroids. Pulmonary is on the case. Yesterday he had desaturation, and progressive respiratory distress, and ended up getting intubated. Patient currently is on the vent, and sedated. He does not have a lot of secretions from his endotracheal tube. His blood pressure is okay. Temperature is okay. He is currently on vancomycin and Zosyn, as well as Zithromax and Diflucan. The sputum culture from February 17 is reported as growing Aspergillus. His WBC was up to 18,000 yesterday, and is down to 14,000. His creatinine is slowly improving and down to 1.32. CT of the chest showed patchy bilateral pulmonary infiltrates. Infectious disease consultation has been requested to assist with evaluation and treatment, and antibiotic management. Notes reviewed Erwin tobar D/W RN Having problems with urinary retention yesterday - now with abraham cath On CPAP, RR 22 WBC higher Steroid dose has been decreased Repeat C/S pending CXR stable Antibiotics: Cefepime Zithromax Diflucan Vancomycin Past Medical History: COPD (chronic obstructive pulmonary disease) Hyperlipidemia Peripheral vascular disease Hypertension History of hernia repair Allergies/Adverse Reactions: Allergies No Known Allergies Allergy (Verified 02/13/18 18:38) Objective Vital Signs 02/20/18 10:30 02/20/18 11:00 02/20/18 11:30 Temperature Pulse Rate 115 H 108 H 94 H Respiratory Rate 21 19 14 Blood Pressure 125/78 131/80 Pulse Oximetry 98 98 99 02/20/18 12:00 02/20/18 12:24 02/20/18 12:30 Temperature 97.7 F Pulse Rate 85 82 Respiratory Rate 21 23 19 Blood Pressure 122/74 Pulse Oximetry 99 97 02/20/18 13:00 02/20/18 13:30 02/20/18 14:00 Temperature Pulse Rate 84 97 H 95 H Respiratory Rate 21 20 17 Blood Pressure 118/74 Pulse Oximetry 96 95 96 02/20/18 14:30 02/20/18 15:00 02/20/18 15:30 Temperature Pulse Rate 116 H 109 H 106 H Respiratory Rate 20 19 17 Blood Pressure 121/74 127/77 Pulse Oximetry 95 95 95 02/20/18 15:44 02/20/18 16:00 02/20/18 16:30 Temperature 98.6 F Pulse Rate 113 H 124 H 134 H Respiratory Rate 21 24 22 Blood Pressure 135/76 Pulse Oximetry 94 L 98 92 L 02/20/18 17:00 02/20/18 17:30 02/20/18 18:00 Temperature 97.3 F L 97.3 F L Pulse Rate 130 H 122 H 111 H Respiratory Rate 20 19 20 Blood Pressure 120/78 Pulse Oximetry 91 L 91 L 93 L 02/20/18 18:30 02/20/18 19:00 02/20/18 19:30 Temperature 97.3 F L 97.5 F L 97.5 F L Pulse Rate 106 H 106 H 104 H Respiratory Rate 18 18 18 Blood Pressure 120/77 131/80 Pulse Oximetry 94 L 95 95 02/20/18 19:40 02/20/18 20:00 02/20/18 20:30 Temperature 97.7 F 97.9 F Pulse Rate 100 H 105 H 110 H Respiratory Rate 23 18 16 Blood Pressure 123/78 Pulse Oximetry 95 98 98 02/20/18 21:00 02/20/18 21:30 02/20/18 22:00 Temperature 98.1 F 98.2 F 98.4 F Pulse Rate 100 H 100 H 90 Respiratory Rate 15 15 14 Blood Pressure 135/77 Pulse Oximetry 98 96 96 02/20/18 22:30 02/20/18 23:00 02/20/18 23:30 Temperature 98.4 F 98.2 F 98.1 F Pulse Rate 108 H 106 H 104 H Respiratory Rate 17 16 16 Blood Pressure 129/74 126/76 Pulse Oximetry 93 L 94 L 94 L 02/20/18 23:53 02/21/18 00:00 02/21/18 00:30 Temperature 98.1 F 98.2 F Pulse Rate 91 H 106 H Respiratory Rate 13 14 17 Blood Pressure 130/75 Pulse Oximetry 96 95 95 02/21/18 01:00 02/21/18 01:30 02/21/18 02:00 Temperature 98.1 F 98.1 F 98.1 F Pulse Rate 105 H 105 H 104 H Respiratory Rate 17 17 16 Blood Pressure 137/77 Pulse Oximetry 95 95 94 L 02/21/18 02:30 02/21/18 03:00 02/21/18 03:28 Temperature 98.1 F 98.1 F Pulse Rate 106 H 106 H 103 H Respiratory Rate 18 17 16 Blood Pressure 133/75 Pulse Oximetry 95 94 L 94 L 02/21/18 03:30 02/21/18 04:00 02/21/18 04:30 Temperature 98.1 F 98.1 F 98.1 F Pulse Rate 103 H 105 H 107 H Respiratory Rate 16 17 16 Blood Pressure 130/79 131/78 Pulse Oximetry 95 97 97 02/21/18 05:00 02/21/18 05:30 02/21/18 06:00 Temperature 98.1 F 98.1 F 98.2 F Pulse Rate 104 H 89 86 Respiratory Rate 16 13 13 Blood Pressure 126/77 Pulse Oximetry 97 97 97 02/21/18 06:30 02/21/18 07:00 02/21/18 07:30 Temperature 98.2 F 98.1 F Pulse Rate 96 H 90 103 H Respiratory Rate 17 13 16 Blood Pressure 127/73 135/77 Pulse Oximetry 97 97 96 02/21/18 07:50 02/21/18 08:31 Temperature 98.1 F Pulse Rate 102 H Respiratory Rate 24 Blood Pressure Pulse Oximetry 97 Intake & Output 02/20/18 02/21/18 02/21/18 18:59 06:59 18:59 Intake Total 1775.5 / 1775.5 2342 / 2342 562.5 / 562.5 Output Total 525 / 525 800 / 800 Balance 1250.5 / 1250.5 1542 / 1542 562.5 / 562.5 Weight 78.2 kg Intake: IV 912.5 / 912.5 1820 / 1820 562.5 / 562.5 Diprivan 1000 mg/100 ml Inj 1, 300 / 300 260 / 260 100 / 100 000 mg In 100 ml @ 5 MCG/KG/MIN 2.172 mls/hr IV.CONT TITRATE PRN Rx#:[id number] 1/2 Normal Saline Inj 1,000 ML 1460 / 1460 @ 42 mls/hr IV.CONT .[id number] [facility] Rx#:[id number] Azithromycin Inj 500 MG In NS 250 / 250 Inj 250 ML @ 250 mls/hr IV.SIG Q24H [facility] Rx#:[id number] Maxipime Inj 2,000 MG In NS Inj 100 / 100 100 / 100 100 ML @ 200 mls/hr IV.SIG Q12H [facility] Rx#:[id number] Diflucan 200 mg Premix Bag 100 100 / 100 100 / 100 ML @ 100 mls/hr IV.SIG Q24H [facility] Rx#:[id number] Vancomycin Inj 1,250 MG In NS 262.5 / 262.5 262.5 / 262.5 Inj 250 ML @ 262.5 mls/hr IV. SIG Q18H [facility] Rx#:[id number] Tube Feeding 603 / 603 422 / 422 Tube Irrigant 60 / 60 Water Bolus Amount 200 / 200 100 / 100 Output: Urine Amount (Catheter) 525 / 525 800 / 800 Indwelling Temp Sensing 525 / 525 800 / 800 Catheter Other: Date of Last Bowel Movement 02/20/18 02/21/18 # Bowel Movements 1 1 # Incontinent Bowel Movements 1 02/17/18 04:30 Sputum - Expectorated Sputum Gram Stain - Final 02/17/18 04:30 Sputum - Expectorated Sputum Sputum Culture - Final Aspergillus fumigatis 02/19/18 21:10 Blood - Peripheral Aerobic Blood Culture - Preliminary No growth in 1 day 02/19/18 21:10 Blood - Peripheral Anaerobic Blood Culture - Preliminary No growth in 1 day 02/19/18 21:15 Blood - Peripheral Aerobic Blood Culture - Preliminary No growth in 1 day 02/19/18 21:15 Blood - Peripheral Anaerobic Blood Culture - Preliminary No growth in 1 day 02/20/18 01:30 Sputum - Endotracheal Gram Stain - Final 02/20/18 01:30 Sputum - Endotracheal Sputum Culture - Pending 02/13/18 20:00 Blood - Peripheral Aerobic Blood Culture - Final No growth in 5 days 02/13/18 20:00 Blood - Peripheral Anaerobic Blood Culture - Final No growth in 5 days 02/13/18 19:50 Blood - Peripheral Aerobic Blood Culture - Final No growth in 5 days 02/13/18 19:50 Blood - Peripheral Anaerobic Blood Culture - Final No growth in 5 days Lab - Hematology Results 02/20/18 02/21/18 05:19 07:00 WBC 14.6 H 20.6 H RBC 3.85 L 3.79 L Hgb 11.9 L 11.9 L Hct 35.6 L 35.4 L MCV 92.7 93.3 MCH 31.0 31.4 MCHC 33.5 33.6 RDW 15.0 15.6 Plt Count 229 226 MPV 9.3 9.3 Prelim Diff (Auto) Slide review pending Neut % (Auto) 94.2 H 93.2 H Lymph % (Auto) 1.4 L 1.4 L [place] % (Auto) 4.1 5.1 Eos % (Auto) 0.0 0.0 Baso % (Auto) 0.3 0.3 Neut # (Auto) 13.8 H 19.2 H Lymph # (Auto) 0.2 L 0.3 L [place] # (Auto) 0.6 1.0 H Eos # (Auto) 0.0 0.0 Baso # (Auto) 0.0 0.1 WBC Differential . Manual diff final Seg Neuts % (Manual) 88 H Band Neuts % (Manual) 7 H Lymphocytes % (Manual) 2 L Monocytes % (Manual) 2 Myelocytes % (Man) 1 H Abs Neuts (Manual) 19.8 H Differential Comment Auto diff final . Toxic Granulation 1+ H Platelet Estimate Normal Platelet Morphology Enlarged H Acanthocytes (Spur) Occ H Lab - Chemistry Results 02/19/18 02/19/18 02/20/18 11:26 23:34 05:19 Sodium 147 H Potassium 3.4 L Chloride 113 H Carbon Dioxide 27.8 Anion Gap 6 BUN 32 H Creatinine 1.46 H Estimated GFR 48 L POC Glucose 132 H 225 H Random Glucose 196 H Calcium 7.0 L* Calcium Adj for Albumin 8.8 Phosphorus 2.1 L D Magnesium 2.7 H Total Bilirubin 0.2 AST 82 H ALT 70 Alkaline Phosphatase 45 Total Protein 5.3 L Albumin 1.7 L 02/20/18 02/20/18 02/20/18 05:46 11:22 11:23 Sodium Potassium Chloride Carbon Dioxide Anion Gap BUN Creatinine Estimated GFR POC Glucose 177 H 245 H 245 H Random Glucose Calcium Calcium Adj for Albumin Phosphorus Magnesium Total Bilirubin AST ALT Alkaline Phosphatase Total Protein Albumin 02/20/18 02/20/18 02/21/18 17:04 20:35 00:04 Sodium Potassium Chloride Carbon Dioxide Anion Gap BUN Creatinine Estimated GFR POC Glucose 233 H 200 H 163 H Random Glucose Calcium Calcium Adj for Albumin Phosphorus Magnesium Total Bilirubin AST ALT Alkaline Phosphatase Total Protein Albumin 02/21/18 07:00 Sodium 148 H Potassium 4.0 Chloride 114 H Carbon Dioxide 30.0 Anion Gap 4 L BUN 34 H Creatinine 1.34 H Estimated GFR 53 L POC Glucose Random Glucose 126 H Calcium 7.4 L* Calcium Adj for Albumin 9.3 Phosphorus Magnesium Total Bilirubin AST ALT Alkaline Phosphatase Total Protein Albumin 1.6 L Imaging: ITS Impressions Head CT 02/13/18 19:41 CONCLUSION: 1. Mild periventricular white matter small vessel ischemic changes bilaterally. 2. No acute infarct, acute hemorrhage, mass effect or extra axial fluid collections. . Chest CT 02/16/18 00:00 CONCLUSION: 1. Nonspecific bilateral pneumonia as described. 2. Tiny right pleural effusion. 3. Upper limits of normal to slightly enlarged mediastinal and hilar lymph nodes. Abdomen/Bladder Ultrasound 02/16/18 18:18 CONCLUSION: 1. Echogenic kidneys consistent with medical renal disease. 2. No sonographic evidence for obstructive uropathy. 3. 5 mm cyst in the inferior pole the right kidney. 4. Nonspecific prostate enlargement. Chest X-Ray 02/20/18 06:00 CONCLUSION: Consolidation or atelectasis in the right mid and lower lung and to a lesser grade the left lower lung. Some degree of fusion should be considered. Physical Exam: GENERAL: sedated on the vent, not in distress. SKIN: Cool and dry. HEAD: Atraumatic. Normocephalic. No temporal wasting, or tenderness. EYES: [place]room conjunctiva. No petechia or hemorrhage. Pupils equal, round and reactive to light. No scleral icterus. No injection or drainage. EARS, NOSE AND THROAT: Nose without bleeding or purulent nasal discharge. He is orally intubated. NECK: Trachea midline. Supple and not tender, no meningeal signs CARDIOVASCULAR: Regular rate and rhythm. No murmurs, rubs or gallops heard RESPIRATORY: He has decreased breath sounds on the right lung field. Did not appreciate any wheezing on auscultation. ABDOMEN: Soft, not distended, no reaction to palpation. Bowel sounds are present and hypoactive. EXTREMITIES: No clubbing, cyanosis, or edema. Has a lot of small varicosities in both feet/ankle. NEUROLOGICAL: Sedated on the vent PSYCHIATRIC: Unable to assess LINE: No evidence of infection Assessment and Plan - Plan Impression Pneumonia, bilateral. - urine pneumococcal Ag (+) - ?other pathogens COPD Respiratory failure Aspergillus in sputum likely contaminant Renal insufficiency Worsening leukocytosis, etiology? - was having problems with yesterday Recommendation Follow C/S Ua and C/S today Continue cefepime Continue vanco Continue Zithromax Also on Diflucan Monitor progress Weaning per CCM D/W RN
--- NOTE | 2018-02-21 12:25 | P.PN ---
Subjective Interval history: On PSV since last night and seems to more SOB. CXR shows basal infiltrates. Output was good. Physical Exam Vital signs: Vital Signs 02/20/18 12:24 02/20/18 12:30 02/20/18 13:00 Temperature Pulse Rate 82 84 Respiratory Rate 23 19 21 Blood Pressure 122/74 Pulse Oximetry 97 96 02/20/18 13:30 02/20/18 14:00 02/20/18 14:30 Temperature Pulse Rate 97 H 95 H 116 H Respiratory Rate 20 17 20 Blood Pressure 118/74 121/74 Pulse Oximetry 95 96 95 02/20/18 15:00 02/20/18 15:30 02/20/18 15:44 Temperature Pulse Rate 109 H 106 H 113 H Respiratory Rate 19 17 21 Blood Pressure 127/77 Pulse Oximetry 95 95 94 L 02/20/18 16:00 02/20/18 16:30 02/20/18 17:00 Temperature 98.6 F Pulse Rate 124 H 134 H 130 H Respiratory Rate 24 22 20 Blood Pressure 135/76 Pulse Oximetry 98 92 L 91 L 02/20/18 17:30 02/20/18 18:00 02/20/18 18:30 Temperature 97.3 F L 97.3 F L 97.3 F L Pulse Rate 122 H 111 H 106 H Respiratory Rate 19 20 18 Blood Pressure 120/78 120/77 Pulse Oximetry 91 L 93 L 94 L 02/20/18 19:00 02/20/18 19:30 02/20/18 19:40 Temperature 97.5 F L 97.5 F L Pulse Rate 106 H 104 H 100 H Respiratory Rate 18 18 23 Blood Pressure 131/80 Pulse Oximetry 95 95 95 02/20/18 20:00 02/20/18 20:30 02/20/18 21:00 Temperature 97.7 F 97.9 F 98.1 F Pulse Rate 105 H 110 H 100 H Respiratory Rate 18 16 15 Blood Pressure 123/78 Pulse Oximetry 98 98 98 02/20/18 21:30 02/20/18 22:00 02/20/18 22:30 Temperature 98.2 F 98.4 F 98.4 F Pulse Rate 100 H 90 108 H Respiratory Rate 15 14 17 Blood Pressure 135/77 129/74 Pulse Oximetry 96 96 93 L 02/20/18 23:00 02/20/18 23:30 02/20/18 23:53 Temperature 98.2 F 98.1 F Pulse Rate 106 H 104 H Respiratory Rate 16 16 13 Blood Pressure 126/76 Pulse Oximetry 94 L 94 L 96 02/21/18 00:00 02/21/18 00:30 02/21/18 01:00 Temperature 98.1 F 98.2 F 98.1 F Pulse Rate 91 H 106 H 105 H Respiratory Rate 14 17 17 Blood Pressure 130/75 Pulse Oximetry 95 95 95 02/21/18 01:30 02/21/18 02:00 02/21/18 02:30 Temperature 98.1 F 98.1 F 98.1 F Pulse Rate 105 H 104 H 106 H Respiratory Rate 17 16 18 Blood Pressure 137/77 133/75 Pulse Oximetry 95 94 L 95 02/21/18 03:00 02/21/18 03:28 02/21/18 03:30 Temperature 98.1 F 98.1 F Pulse Rate 106 H 103 H 103 H Respiratory Rate 17 16 16 Blood Pressure 130/79 Pulse Oximetry 94 L 94 L 95 02/21/18 04:00 02/21/18 04:30 02/21/18 05:00 Temperature 98.1 F 98.1 F 98.1 F Pulse Rate 105 H 107 H 104 H Respiratory Rate 17 16 16 Blood Pressure 131/78 Pulse Oximetry 97 97 97 02/21/18 05:30 02/21/18 06:00 02/21/18 06:30 Temperature 98.1 F 98.2 F 98.2 F Pulse Rate 89 86 96 H Respiratory Rate 13 13 17 Blood Pressure 126/77 127/73 Pulse Oximetry 97 97 97 02/21/18 07:00 02/21/18 07:30 02/21/18 07:50 Temperature 98.1 F Pulse Rate 90 103 H 102 H Respiratory Rate 13 16 24 Blood Pressure 135/77 Pulse Oximetry 97 96 97 02/21/18 08:00 02/21/18 08:30 02/21/18 08:31 Temperature 97.7 F 98.1 F Pulse Rate 110 H 115 H Respiratory Rate 20 Blood Pressure 141/81 H Pulse Oximetry 96 02/21/18 09:00 02/21/18 09:30 02/21/18 10:00 Temperature 97.5 F L 97.5 F L 97.5 F L Pulse Rate 114 H 114 H 114 H Respiratory Rate 22 19 21 Blood Pressure 144/85 H 139/78 140/84 Pulse Oximetry 91 L 95 93 L 02/21/18 10:30 02/21/18 11:00 02/21/18 11:38 Temperature 97.3 F L 97.5 F L 97.5 F L Pulse Rate 112 H 112 H 105 H Respiratory Rate 22 21 24 Blood Pressure 141/86 H 151/81 H 134/86 Pulse Oximetry 92 L 91 L 87 L 02/21/18 11:44 02/21/18 12:00 Temperature 97.5 F L Pulse Rate 112 H 112 H Respiratory Rate 23 24 Blood Pressure 137/82 Pulse Oximetry 93 L 95 Intake & Output 02/20/18 02/21/18 02/21/18 18:59 06:59 18:59 Intake Total 1775.5 / 1775.5 2342 / 2342 702.5 / 702.5 Output Total 525 / 525 800 / 800 Balance 1250.5 / 1250.5 1542 / 1542 702.5 / 702.5 Weight 78.2 kg Intake: IV 912.5 / 912.5 1820 / 1820 702.5 / 702.5 Diprivan 1000 mg/100 ml Inj 1, 300 / 300 260 / 260 100 / 100 000 mg In 100 ml @ 5 MCG/KG/MIN 2.172 mls/hr IV.CONT TITRATE PRN Rx#:[id number] 1/2 Normal Saline Inj 1,000 ML 1460 / 1460 40 / 40 @ 42 mls/hr IV.CONT .[id number] [facility] Rx#:[id number] Azithromycin Inj 500 MG In NS 250 / 250 Inj 250 ML @ 250 mls/hr IV.SIG Q24H [facility] Rx#:[id number] Maxipime Inj 2,000 MG In NS Inj 100 / 100 100 / 100 100 ML @ 200 mls/hr IV.SIG Q12H [facility] Rx#:[id number] Diflucan 200 mg Premix Bag 100 100 / 100 100 / 100 ML @ 100 mls/hr IV.SIG Q24H [facility] Rx#:[id number] Vancomycin Inj 1,250 MG In NS 262.5 / 262.5 262.5 / 262.5 Inj 250 ML @ 262.5 mls/hr IV. SIG Q18H [facility] Rx#:[id number] Tube Feeding 603 / 603 422 / 422 Tube Irrigant 60 / 60 Water Bolus Amount 200 / 200 100 / 100 Output: Urine Amount (Catheter) 525 / 525 800 / 800 Indwelling Temp Sensing 525 / 525 800 / 800 Catheter Other: Date of Last Bowel Movement 02/20/18 02/21/18 02/21/18 # Bowel Movements 1 1 # Incontinent Bowel Movements 1 Narrative: Gen.: Elderly W/M sedated and on the vent, and breathing labored Head: Normocephalic. Atraumatic. EENT: Pupils equal round and reactive to light. Nose without drainage. Cardiovascular: Regular rate and rhythm. No murmurs, rubs or gallops. Respiratory: Diffuse wheezing with distant breath sounds and few basal crackles.. Abdomen: Soft, nontender, nondistended. Musculoskeletal: No gross deformities. No edema. Skin: No obvious rashes or erythema. Neuro: Sedated. - Urinary Catheter Management Straight Cath placed during this visit: yes Reason for continuing: Acute urinary retention Insertion date: 02/20/18 Insertion time: 16:45 Indwelling Temp Sensing Catheter Cath placed during this visit: no Results - Labs CBC & Chem 7: 02/21/18 07:00 02/21/18 07:00 Laboratory Results - last 24 hr 02/20/18 02/20/18 02/21/18 17:04 20:35 00:04 WBC RBC Hgb Hct MCV MCH MCHC RDW Plt Count MPV Prelim Diff (Auto) Neut % (Auto) Lymph % (Auto) [place] % (Auto) Eos % (Auto) Baso % (Auto) Neut # (Auto) Lymph # (Auto) [place] # (Auto) Eos # (Auto) Baso # (Auto) WBC Differential Seg Neuts % (Manual) Band Neuts % (Manual) Lymphocytes % (Manual) Monocytes % (Manual) Myelocytes % (Man) Abs Neuts (Manual) Differential Comment Toxic Granulation Platelet Estimate Platelet Morphology Acanthocytes (Spur) Sodium Potassium Chloride Carbon Dioxide Anion Gap BUN Creatinine Estimated GFR POC Glucose 233 H 200 H 163 H Random Glucose Calcium Calcium Adj for Albumin Albumin 02/21/18 02/21/18 07:00 07:00 WBC 20.6 H RBC 3.79 L Hgb 11.9 L Hct 35.4 L MCV 93.3 MCH 31.4 MCHC 33.6 RDW 15.6 Plt Count 226 MPV 9.3 Prelim Diff (Auto) Slide review pending Neut % (Auto) 93.2 H Lymph % (Auto) 1.4 L [place] % (Auto) 5.1 Eos % (Auto) 0.0 Baso % (Auto) 0.3 Neut # (Auto) 19.2 H Lymph # (Auto) 0.3 L [place] # (Auto) 1.0 H Eos # (Auto) 0.0 Baso # (Auto) 0.1 WBC Differential Manual diff final Seg Neuts % (Manual) 88 H Band Neuts % (Manual) 7 H Lymphocytes % (Manual) 2 L Monocytes % (Manual) 2 Myelocytes % (Man) 1 H Abs Neuts (Manual) 19.8 H Differential Comment . Toxic Granulation 1+ H Platelet Estimate Normal Platelet Morphology Enlarged H Acanthocytes (Spur) Occ H Sodium 148 H Potassium 4.0 Chloride 114 H Carbon Dioxide 30.0 Anion Gap 4 L BUN 34 H Creatinine 1.34 H Estimated GFR 53 L POC Glucose Random Glucose 126 H Calcium 7.4 L* Calcium Adj for Albumin 9.3 Albumin 1.6 L Microbiology 02/19/18 21:10 Blood - Peripheral Aerobic Blood Culture - Preliminary No growth in 2 days 02/19/18 21:10 Blood - Peripheral Anaerobic Blood Culture - Preliminary No growth in 2 days 02/19/18 21:15 Blood - Peripheral Aerobic Blood Culture - Preliminary No growth in 2 days 02/19/18 21:15 Blood - Peripheral Anaerobic Blood Culture - Preliminary No growth in 2 days 02/17/18 04:30 Sputum - Expectorated Sputum Gram Stain - Final 02/17/18 04:30 Sputum - Expectorated Sputum Sputum Culture - Final Aspergillus fumigatis 02/20/18 01:30 Sputum - Endotracheal Gram Stain - Final Assessment and Plan - Assessment (1) COPD (chronic obstructive pulmonary disease) with acute bronchitis Code(s): J44.0 - Chronic obstructive pulmonary disease with acute lower respiratory infection; J20.9 - Acute bronchitis, unspecified Status: Acute (2) Emphysema of lung Code(s): J43.9 - Emphysema, unspecified Status: Acute (3) Encephalopathy Code(s): G93.40 - Encephalopathy, unspecified Status: Acute (4) Atelectasis Code(s): J98.11 - Atelectasis Status: Acute (5) Respiratory failure requiring intubation Code(s): J96.90 - Respiratory failure, unspecified, unspecified whether with hypoxia or hypercapnia Status: Acute - Plan 1. Place back on Vent with A/C at 12 and FIO2 35 5 2. Nebs qid , duoneb. 3. Solumedrol 40 mg IV Q6H 4. Chest Xray , CBC BMP in am 5. Continue antibiotics per ID 6. Mucomyst ,2-0 % 2 CC with nebs q6h 7. Symbicort 160/4.5 mcg , 2puffs BID 8. Keep sedated for vent control 9. Tube feeds at 55 CC . 10. CPAP trial in am
[2018-02-21 12:34] LABS: Bacteria,Urine Occasional /hpf; Bilirubin,Urine Negative (Negative); Clarity,Urine Clear (Clear); Color,Urine Straw (Yellw/Straw); Glucose,Urine (UA) Negative (Negative); Leukocyte Esterase,Urine Negative (Negative); Mucus,Urine Few /lpf (Occasional); Nitrite,Urine Negative (Negative); Specific Gravity,Urine 1.006 (1.002-1.035); Squamous Epithelial Cell,Urine <1 /hpf (0-5)
[2018-02-21] MEDS: Azithromycin Inj 500 MG in Sodium Chlor 0.9% Inj 250 ML IV.SIG SCH (17:15)
[2018-02-22] MEDS: Insulin NovoLOG Aspart Correctional Sugar Inj SQ SCH ×4 (00:07→18:24)
[2018-02-22] MEDS: Propofol 1000 mg/100 ml Inj 1,000 MG/100 ML BOTTLE IV.CONT PRN ×5 (02:30→23:00)
[2018-02-22 03:43] LABS: Hemoglobin 12.7 gm/dL (13.0-17.0); Mean Corpuscular HGB Conc 33.5 % (32.0-36.0); Mean Corpuscular Hemoglobin 31.5 pg (27.0-34.0); Mean Platelet Volume 9.3 fL (7.0-11.0); Platelet Count 217 th/mm3 (150-450); Red Blood Count 4.04 mil/mm3 (4.50-5.90); Red Cell Distribution Width 15.4 % (11.6-17.2); White Blood Count 25.7 th/mm3 (4.0-11.0)
[2018-02-22 04:09] LABS: Albumin 1.5 g/dL (3.4-5.0); Anion Gap 6 meq/L (5-15); Aspartate Aminotransferase 135 U/L (15-37); Blood Urea Nitrogen 41 mg/dL (7-18); Calcium 7.7 mg/dL (8.5-10.1); Carbon Dioxide 30.1 meq/L (21.0-32.0); Chloride 114 meq/L (98-107); Glomerular Filtration Rate 46 mL/min (>89); Glucose,Random 157 mg/dL (74-106); Magnesium 2.7 mg/dL (1.5-2.5); Potassium 4.4 meq/L (3.5-5.1); Sodium 150 meq/L (136-145)
--- NOTE | 2018-02-22 04:10 | XR ---
EXAM DATE: 02/22/2018 4:03 AM EST AGE/SEX: 67 years / Male INDICATIONS: Shortness of breath. CLINICAL DATA: This is the patient's subsequent encounter. Patient reports that signs and symptoms h ave been present for 1 week and indicates a pain score of Nonresponsive. MEDICAL/SURGICAL HISTORY: Hypertension. Chronic obstructive pulmonary disease. None. COMPARISON: C, CHEST 1V SINGLE AP, 02/20/2018. . FINDINGS: The ET tube and NG tube are well placed. The heart size is normal. Lungs appear hyperinflated. There is diffuse increased interstitial markings. There is further alveolar density seen at the right base with silhouetting of the right hemidiaphragm. CONCLUSION: Right lower lung atelectasis or consolidation. Some degree of right effusion can be considered. Diffuse increased interstitial markings related to underlying edema or underlying interstitial diseas e. The lungs appear hyperinflated. Electronically signed by: Branden Kulkarni MD Board Certified Radiologist 02/22/2018 4:08 AM EST
[2018-02-22 04:14] LABS: Alanine Aminotransferase 116 U/L (12-78); Alkaline Phosphatase 92 U/L (45-117); Phosphorus 2.3 mg/dL (2.5-4.9); Total Protein 5.6 g/dL (6.4-8.2)
[2018-02-22] MEDS: MethylPREDNISolone Sod Succinate Inj 40 MG/ML Vial IV.PUSH SCH ×3 (06:38→18:25)
[2018-02-22 08:01] LABS: Monocytes 3 % (0-8)
[2018-02-22 08:02] LABS: Platelet Estimate Normal (Normal); Platelet Morphology Normal (Normal); RBC Morphology Normal (Normal)
[2018-02-22] MEDS: Senna/Docusate Sodium 8.6/50 MG Tablet PO SCH ×2 (08:25→20:11)
[2018-02-22] MEDS: Artificial Tears Opth Drops 15 ML Bottle EACH EYE SCH ×2 (08:39→18:12)
[2018-02-22] MEDS: Insulin Detemir Inj 1,000 UNIT/10 ML Vial SQ SCH ×2 (08:54→21:19)
--- NOTE | 2018-02-22 12:41 | P.PN ---
Subjective Interval history: he is sedated and now on PSV 22.and PEEP +12. was having resp distress earlier. No fever. Physical Exam Vital signs: Vital Signs 02/21/18 13:00 02/21/18 13:30 02/21/18 14:00 Temperature 97.5 F L 97.7 F 97.7 F Pulse Rate 104 H 110 H 107 H Respiratory Rate 20 21 19 Blood Pressure 107/75 111/78 116/79 Pulse Oximetry 94 L 93 L 95 02/21/18 14:30 02/21/18 15:00 02/21/18 15:23 Temperature 97.9 F 97.9 F Pulse Rate 110 H 106 H 113 H Respiratory Rate 20 18 20 Blood Pressure 125/79 127/77 Pulse Oximetry 95 94 L 95 02/21/18 15:30 02/21/18 16:00 02/21/18 16:30 Temperature 97.9 F 98.2 F 98.6 F Pulse Rate 110 H 123 H 111 H Respiratory Rate 18 25 H 18 Blood Pressure 119/87 124/80 105/70 Pulse Oximetry 95 94 L 94 L 02/21/18 17:00 02/21/18 17:30 02/21/18 18:00 Temperature 98.6 F 98.4 F 98.2 F Pulse Rate 112 H 110 H 108 H Respiratory Rate 19 19 18 Blood Pressure 113/74 118/81 121/74 Pulse Oximetry 94 L 93 L 94 L 02/21/18 18:30 02/21/18 19:00 02/21/18 19:07 Temperature 98.4 F 98.6 F Pulse Rate 113 H 112 H 113 H Respiratory Rate 17 17 17 Blood Pressure 115/80 111/73 Pulse Oximetry 95 95 94 L 02/21/18 19:30 02/21/18 20:00 02/21/18 21:00 Temperature 98.6 F 98.6 F 98.8 F Pulse Rate 118 H 114 H 118 H Respiratory Rate 17 18 19 Blood Pressure 110/75 120/76 118/77 Pulse Oximetry 97 97 92 L 02/21/18 22:00 02/21/18 23:00 02/21/18 23:12 Temperature 98.8 F 98.6 F Pulse Rate 117 H 115 H 116 H Respiratory Rate 19 18 19 Blood Pressure 125/79 137/84 Pulse Oximetry 97 94 L 94 L 02/21/18 23:30 02/22/18 00:00 02/22/18 01:00 Temperature 98.6 F 98.8 F 98.8 F Pulse Rate 128 H 119 H 117 H Respiratory Rate 23 21 21 Blood Pressure 137/86 140/86 127/77 Pulse Oximetry 96 94 L 96 02/22/18 02:00 02/22/18 03:00 02/22/18 03:21 Temperature 99.0 F 99.1 F Pulse Rate 120 H 123 H 116 H Respiratory Rate 20 21 20 Blood Pressure 125/83 133/84 Pulse Oximetry 94 L 96 95 02/22/18 04:00 02/22/18 05:00 02/22/18 05:54 Temperature 99.1 F 99.1 F 99.1 F Pulse Rate 124 H 122 H 98 H Respiratory Rate 21 23 19 Blood Pressure 131/84 127/81 137/95 H Pulse Oximetry 96 93 L 92 L 02/22/18 06:00 02/22/18 06:41 02/22/18 07:40 Temperature 99.1 F 99.1 F Pulse Rate 120 H 124 H 120 H Respiratory Rate 19 20 22 Blood Pressure 156/99 H 134/86 Pulse Oximetry 91 L 95 92 L 02/22/18 11:38 Temperature Pulse Rate 124 H Respiratory Rate 25 H Blood Pressure Pulse Oximetry 91 L Intake & Output 02/21/18 02/22/18 02/22/18 18:59 06:59 18:59 Intake Total 1617.5 / 1617.5 1410 / 1410 200 / 200 Output Total 2950 / 2950 775 / 775 Balance -1332.5 / -1332.5 635 / 635 200 / 200 Weight 77.6 kg Intake: IV 802.5 / 802.5 550 / 550 200 / 200 Diprivan 1000 mg/100 ml Inj 1, 200 / 200 200 / 200 100 / 100 000 mg In 100 ml @ 5 MCG/KG/MIN 2.172 mls/hr IV.CONT TITRATE PRN Rx#:[id number] 1/2 Normal Saline Inj 1,000 ML 40 / 40 @ 42 mls/hr IV.CONT .[id number] [facility] Rx#:[id number] Azithromycin Inj 500 MG In NS 250 / 250 Inj 250 ML @ 250 mls/hr IV.SIG Q24H [facility] Rx#:[id number] Maxipime Inj 2,000 MG In NS Inj 100 / 100 100 / 100 100 / 100 100 ML @ 200 mls/hr IV.SIG Q12H [facility] Rx#:[id number] Diflucan 200 mg Premix Bag 100 100 / 100 ML @ 100 mls/hr IV.SIG Q24H [facility] Rx#:[id number] Vancomycin Inj 1,250 MG In NS 262.5 / 262.5 Inj 250 ML @ 262.5 mls/hr IV. SIG Q18H [facility] Rx#:[id number] Tube Feeding 495 / 495 660 / 660 Tube Irrigant 120 / 120 Water Bolus Amount 200 / 200 200 / 200 Output: Stool 300 / 300 75 / 75 Urine Amount (Catheter) 2650 / 2650 700 / 700 Indwelling Temp Sensing 2650 / 2650 700 / 700 Catheter Other: Date of Last Bowel Movement 02/21/18 02/21/18 02/21/18 # Incontinent Bowel Movements 1 Narrative: Gen.: Elderly W/M sedated and on the vent, and breathing labored Head: Normocephalic. Atraumatic. EENT: Pupils equal round and reactive to light. Nose without drainage. Cardiovascular: Regular rate and rhythm. No murmurs, rubs or gallops. Respiratory: Diffuse wheezing with distant breath sounds and few basal crackles.. Abdomen: Soft, nontender, nondistended. Musculoskeletal: No gross deformities. Mild edema. Skin: No obvious rashes or erythema. Neuro: Sedated. - Urinary Catheter Management Straight Cath placed during this visit: yes Reason for continuing: Acute urinary retention Insertion date: 02/20/18 Insertion time: 16:45 Indwelling Temp Sensing Catheter Cath placed during this visit: yes Reason for continuing: Acute urinary retention Insertion date: 02/20/18 Insertion time: 18:42 Results - Labs CBC & Chem 7: 02/22/18 03:25 02/22/18 03:25 Laboratory Results - last 24 hr 02/21/18 02/21/18 02/22/18 17:36 23:48 03:25 WBC 25.7 H RBC 4.04 L Hgb 12.7 L Hct 38.0 L MCV 94.0 MCH 31.5 MCHC 33.5 RDW 15.4 Plt Count 217 MPV 9.3 Prelim Diff (Auto) Manual diff required WBC Differential Manual diff final Seg Neuts % (Manual) 96 H Band Neuts % (Manual) 1 Monocytes % (Manual) 3 Abs Neuts (Manual) 24.9 H Differential Comment . Platelet Estimate Normal Platelet Morphology Normal RBC Morphology Normal Sodium Potassium Chloride Carbon Dioxide Anion Gap BUN Creatinine Estimated GFR POC Glucose 106 144 H Random Glucose Calcium Phosphorus Magnesium Total Bilirubin AST ALT Alkaline Phosphatase Total Protein Albumin 02/22/18 02/22/18 02/22/18 03:25 06:32 11:43 WBC RBC Hgb Hct MCV MCH MCHC RDW Plt Count MPV Prelim Diff (Auto) WBC Differential Seg Neuts % (Manual) Band Neuts % (Manual) Monocytes % (Manual) Abs Neuts (Manual) Differential Comment Platelet Estimate Platelet Morphology RBC Morphology Sodium 150 H Potassium 4.4 Chloride 114 H Carbon Dioxide 30.1 Anion Gap 6 BUN 41 H Creatinine 1.54 H Estimated GFR 46 L POC Glucose 145 H 141 H Random Glucose 157 H Calcium 7.7 L Phosphorus 2.3 L Magnesium 2.7 H Total Bilirubin 0.3 AST 135 H ALT 116 H Alkaline Phosphatase 92 Total Protein 5.6 L Albumin 1.5 L Microbiology 02/20/18 01:30 Sputum - Endotracheal Gram Stain - Final 02/20/18 01:30 Sputum - Endotracheal Sputum Culture - Final No growth in 48 hours 02/19/18 21:10 Blood - Peripheral Aerobic Blood Culture - Preliminary No growth in 3 days 02/19/18 21:10 Blood - Peripheral Anaerobic Blood Culture - Preliminary No growth in 3 days 02/19/18 21:15 Blood - Peripheral Aerobic Blood Culture - Preliminary No growth in 3 days 02/19/18 21:15 Blood - Peripheral Anaerobic Blood Culture - Preliminary No growth in 3 days 02/17/18 04:30 Sputum - Expectorated Sputum Gram Stain - Final 02/17/18 04:30 Sputum - Expectorated Sputum Sputum Culture - Final Aspergillus fumigatis - Imaging Impressions Chest X-Ray 02/22/18 06:00 CONCLUSION: Right lower lung atelectasis or consolidation. Some degree of right effusion can be considered. Diffuse increased interstitial markings related to underlying edema or underlying interstitial disease. The lungs appear hyperinflated. Assessment and Plan - Assessment (1) COPD (chronic obstructive pulmonary disease) with acute bronchitis Code(s): J44.0 - Chronic obstructive pulmonary disease with acute lower respiratory infection; J20.9 - Acute bronchitis, unspecified Status: Acute (2) Emphysema of lung Code(s): J43.9 - Emphysema, unspecified Status: Acute (3) Encephalopathy Code(s): G93.40 - Encephalopathy, unspecified Status: Acute (4) Atelectasis Code(s): J98.11 - Atelectasis Status: Acute (5) Respiratory failure requiring intubation Code(s): J96.90 - Respiratory failure, unspecified, unspecified whether with hypoxia or hypercapnia Status: Acute - Plan 1. Place back on Vent with A/C at 16 and FIO2 40 % 2. Nebs qid , duoneb. 3. Solumedrol 40 mg IV Q6H 4. Chest Xray , CBC BMP in am 5. Continue antibiotics per ID 6. Mucomyst ,2-0 % 2 CC with nebs q6h 7. Symbicort 160/4.5 mcg , 2puffs BID 8. Wean sedation. 9. Tube feeds at 60 CC . 10. D/W son.
--- NOTE | 2018-02-22 12:44 | P.PNCC ---
Subjective Subjective Remarks/Hospital Course: This is a 67-year-old male. Date of admission 02/13/2018. Date of consultation 02/08/2018. Past medical history includes ongoing tobaccoism, COPD , peripheral vascular disease including sent to the right lower extremity on clopidogrel, hyperlipidemia, essential hypertension who presents to the emergency department at [facility] on 02/13 for the evaluation of altered mental status. Events is document states he had acute delirium times 4-5 days. He also was documented stating he had a nonproductive cough, fever and diarrhea with accompanying shortness of breath. Lack of appetite. He denied any chest pain. According to his neighbor per documentation, they went to check on him and found his door to be partially ajar. They found the patient lying down and he could not remember what day it was. He stated he had not had anything to eat or drink in many days. Patient was admitted on the hospital service after CT of the brain revealed small vessel ischemic changes. Influenza a and B are negative. Blood cultures negative. His urine pneumococcal antigen was positive. He was treated with ceftriaxone and azithromycin. He was treated with bronchodilators every 6 hours and methylprednisolone Succinate 40 mg IV every 8 hours. He is on 2 L nasal cannula. Today, breath. Rapid response was called. He was noted to be febrile temperature of 102.5 Fahrenheit and noted to be tachypneic. He received bronchodilator therapy. Chest x-ray revealed a right middle lobe infiltrate. He was transferred to the ICU for evaluation. On my evaluation patient is on 2 L nasal cannula. He is not using accessory muscles. He is able to complete sentences. He does have a cough present time with white sputum. Denies hemoptysis. 02/17: Afebrile. Continues to be quite wheezy. Slight retractions. Will increase methylprednisolone. On aggressive pulmonary toilet therapy at the present time. CT chest revealed bilateral patchy pneumonia. 02/18: Afebrile. On 3 L nasal cannula satting 94-97%. Less wheezy today. In much better spirits. 02/19: Decompensated overnight requiring mechanical intubation. Hypotensive so central line placed earlier this a.m. Creatinine stable 1.3. White blood cell count slightly improved to 14,000. Continue antibiotic therapy. 02/20: Oxygenation acceptable at 40% FiO2. Glucose control problematic owing largely to tube feeds and steroids. Will augment sliding scale with very low- dose Levemir. Switch to Glucerna if problem continues. GFR declining modestly , concern for osmotic diuresis. Watch carefully, add hydration if necessary. Attempted CPAP trial today which resulted in tachypnea and small volumes; patient appeared to be talking pretty hard despite pressure support of 12. 02/21: Afebrile. Oxygenation 40%. We will continue to wean. Appears volume overloaded with positive intake versus output. Tolerating tube feeding. Subjective 02/22: Currently on CPAP trial 08/02 at 50%. Tachypneic. Arousable but not following commands. X-ray possible pleural effusion noted. Will attempt to diurese again. Objective Vital Signs / I&O: Vital Signs 02/21/18 13:00 02/21/18 13:30 02/21/18 14:00 Temperature 97.5 F L 97.7 F 97.7 F Pulse Rate 104 H 110 H 107 H Respiratory Rate 20 21 19 Blood Pressure 107/75 111/78 116/79 Pulse Oximetry 94 L 93 L 95 02/21/18 14:30 02/21/18 15:00 02/21/18 15:23 Temperature 97.9 F 97.9 F Pulse Rate 110 H 106 H 113 H Respiratory Rate 20 18 20 Blood Pressure 125/79 127/77 Pulse Oximetry 95 94 L 95 02/21/18 15:30 02/21/18 16:00 02/21/18 16:30 Temperature 97.9 F 98.2 F 98.6 F Pulse Rate 110 H 123 H 111 H Respiratory Rate 18 25 H 18 Blood Pressure 119/87 124/80 105/70 Pulse Oximetry 95 94 L 94 L 02/21/18 17:00 02/21/18 17:30 02/21/18 18:00 Temperature 98.6 F 98.4 F 98.2 F Pulse Rate 112 H 110 H 108 H Respiratory Rate 19 19 18 Blood Pressure 113/74 118/81 121/74 Pulse Oximetry 94 L 93 L 94 L 02/21/18 18:30 02/21/18 19:00 02/21/18 19:07 Temperature 98.4 F 98.6 F Pulse Rate 113 H 112 H 113 H Respiratory Rate 17 17 17 Blood Pressure 115/80 111/73 Pulse Oximetry 95 95 94 L 02/21/18 19:30 02/21/18 20:00 02/21/18 21:00 Temperature 98.6 F 98.6 F 98.8 F Pulse Rate 118 H 114 H 118 H Respiratory Rate 17 18 19 Blood Pressure 110/75 120/76 118/77 Pulse Oximetry 97 97 92 L 02/21/18 22:00 02/21/18 23:00 02/21/18 23:12 Temperature 98.8 F 98.6 F Pulse Rate 117 H 115 H 116 H Respiratory Rate 19 18 19 Blood Pressure 125/79 137/84 Pulse Oximetry 97 94 L 94 L 02/21/18 23:30 02/22/18 00:00 02/22/18 01:00 Temperature 98.6 F 98.8 F 98.8 F Pulse Rate 128 H 119 H 117 H Respiratory Rate 23 21 21 Blood Pressure 137/86 140/86 127/77 Pulse Oximetry 96 94 L 96 02/22/18 02:00 02/22/18 03:00 02/22/18 03:21 Temperature 99.0 F 99.1 F Pulse Rate 120 H 123 H 116 H Respiratory Rate 20 21 20 Blood Pressure 125/83 133/84 Pulse Oximetry 94 L 96 95 02/22/18 04:00 02/22/18 05:00 02/22/18 05:54 Temperature 99.1 F 99.1 F 99.1 F Pulse Rate 124 H 122 H 98 H Respiratory Rate 21 23 19 Blood Pressure 131/84 127/81 137/95 H Pulse Oximetry 96 93 L 92 L 02/22/18 06:00 02/22/18 06:41 02/22/18 07:40 Temperature 99.1 F 99.1 F Pulse Rate 120 H 124 H 120 H Respiratory Rate 19 20 22 Blood Pressure 156/99 H 134/86 Pulse Oximetry 91 L 95 92 L 02/22/18 11:38 Temperature Pulse Rate 124 H Respiratory Rate 25 H Blood Pressure Pulse Oximetry 91 L Intake & Output 02/21/18 02/22/18 02/22/18 18:59 06:59 18:59 Intake Total 1617.5 / 1617.5 1410 / 1410 200 / 200 Output Total 2950 / 2950 775 / 775 Balance -1332.5 / -1332.5 635 / 635 200 / 200 Weight 77.6 kg Intake: IV 802.5 / 802.5 550 / 550 200 / 200 Diprivan 1000 mg/100 ml Inj 1, 200 / 200 200 / 200 100 / 100 000 mg In 100 ml @ 5 MCG/KG/MIN 2.172 mls/hr IV.CONT TITRATE PRN Rx#:[id number] 1/2 Normal Saline Inj 1,000 ML 40 / 40 @ 42 mls/hr IV.CONT .[id number] [facility] Rx#:[id number] Azithromycin Inj 500 MG In NS 250 / 250 Inj 250 ML @ 250 mls/hr IV.SIG Q24H [facility] Rx#:[id number] Maxipime Inj 2,000 MG In NS Inj 100 / 100 100 / 100 100 / 100 100 ML @ 200 mls/hr IV.SIG Q12H [facility] Rx#:[id number] Diflucan 200 mg Premix Bag 100 100 / 100 ML @ 100 mls/hr IV.SIG Q24H [facility] Rx#:[id number] Vancomycin Inj 1,250 MG In NS 262.5 / 262.5 Inj 250 ML @ 262.5 mls/hr IV. SIG Q18H [facility] Rx#:[id number] Tube Feeding 495 / 495 660 / 660 Tube Irrigant 120 / 120 Water Bolus Amount 200 / 200 200 / 200 Output: Stool 300 / 300 75 / 75 Urine Amount (Catheter) 2650 / 2650 700 / 700 Indwelling Temp Sensing 2650 / 2650 700 / 700 Catheter Other: Date of Last Bowel Movement 02/21/18 02/21/18 02/21/18 # Incontinent Bowel Movements 1 Result Diagrams: 02/22/18 03:25 02/22/18 03:25 Other Results: Microbiology 02/20/18 01:30 Sputum - Endotracheal Gram Stain - Final 02/20/18 01:30 Sputum - Endotracheal Sputum Culture - Final No growth in 48 hours 02/19/18 21:10 Blood - Peripheral Aerobic Blood Culture - Preliminary No growth in 3 days 02/19/18 21:10 Blood - Peripheral Anaerobic Blood Culture - Preliminary No growth in 3 days 02/19/18 21:15 Blood - Peripheral Aerobic Blood Culture - Preliminary No growth in 3 days 02/19/18 21:15 Blood - Peripheral Anaerobic Blood Culture - Preliminary No growth in 3 days 02/17/18 04:30 Sputum - Expectorated Sputum Gram Stain - Final 02/17/18 04:30 Sputum - Expectorated Sputum Sputum Culture - Final Aspergillus fumigatis 02/13/18 20:00 Blood - Peripheral Aerobic Blood Culture - Final No growth in 5 days 02/13/18 20:00 Blood - Peripheral Anaerobic Blood Culture - Final No growth in 5 days 02/13/18 19:50 Blood - Peripheral Aerobic Blood Culture - Final No growth in 5 days 02/13/18 19:50 Blood - Peripheral Anaerobic Blood Culture - Final No growth in 5 days 02/13/18 21:00 Throat Group A Streptococcus Screen/Cult - Final No Beta Streptococci isolated. 02/13/18 20:36 Urine - Clean Catch Urine Legionella Antigen - Final Presumptive negative for Legionella pneumophila serogroup 1 antigen in urine, suggesting no recent or recurrent infection. Infection due to Legionella cannot be ruled out since other serogroups and species may cause disease, antigen may not be present in urine in early infection, and the level of antigen present in the urine may be below the detection limit of the test. 02/13/18 20:36 Urine - Clean Catch Urine Streptococcus pneumoniae Antigen ( M - Final POS S. pneumoniae antigen 02/13/18 21:00 Throat Group A Streptococcus Screen ([facility]) - Final 02/13/18 20:32 Nasal Wash Influenza Types A,B Antigen - Final Negative for FLU A and B antigen Infection due to influenza A or B cannot be ruled out since the antigen present in the sample may be below the detection limit of the test. Imaging: Chest X-Ray 02/13/18 19:41 CONCLUSION: 1. Negative portable chest. Head CT 02/13/18 19:41 CONCLUSION: 1. Mild periventricular white matter small vessel ischemic changes bilaterally. 2. No acute infarct, acute hemorrhage, mass effect or extra axial fluid collections. . Chest X-Ray 02/15/18 14:58 CONCLUSION: 1. Mild streakiness is noted involving the right medial lung base consistent with possible developing infiltrates. Clinical correlation is recommended. 2. Minimal increased perihilar streakiness is noted bilaterally. Chest CT 02/16/18 00:00 CONCLUSION: 1. Nonspecific bilateral pneumonia as described. 2. Tiny right pleural effusion. 3. Upper limits of normal to slightly enlarged mediastinal and hilar lymph nodes. Chest X-Ray 02/16/18 00:00 CONCLUSION: 1. Persistent hazy opacification of the medial right lung base. Recommend clinical correlation for infection. 2. Hyperinflation with streaky opacities radiating from the des, which may be related to underlying chronic obstructive pulmonary disease. Abdomen/Bladder Ultrasound 02/16/18 18:18 CONCLUSION: 1. Echogenic kidneys consistent with medical renal disease. 2. No sonographic evidence for obstructive uropathy. 3. 5 mm cyst in the inferior pole the right kidney. 4. Nonspecific prostate enlargement. Chest X-Ray 02/18/18 00:00 CONCLUSION: NG looped back on itself in the esophagus. This should be repositioned. Endotracheal tube in good position. Worsening bilateral airspace disease since earlier exam. Small effusions. Chest X-Ray 02/18/18 06:00 CONCLUSION: Modest worsening bilateral basilar and upper lobe airspace disease. Small bilateral effusions. Chest X-Ray 02/19/18 06:00 CONCLUSION: Airspace disease seen at the bases being worse on the right. Underlying interstitial disease. Some degree of effusion especially on the right cannot be excluded. Chest X-Ray 02/19/18 07:55 CONCLUSION: 1. Left IJ central line in good position without pneumothorax. 2. Persistent right lower lobe airspace disease and probable small pleural effusion. 3. Persistent minimal airspace disease at the left lung base. Chest X-Ray 02/20/18 06:00 CONCLUSION: Consolidation or atelectasis in the right mid and lower lung and to a lesser grade the left lower lung. Some degree of fusion should be considered. Chest X-Ray 02/22/18 06:00 CONCLUSION: Right lower lung atelectasis or consolidation. Some degree of right effusion can be considered. Diffuse increased interstitial markings related to underlying edema or underlying interstitial disease. The lungs appear hyperinflated. Objective Remarks: GENERAL: 67-year-old male, lightly sedated on mechanical ventilation SKIN: Warm and dry. HEAD: Atraumatic. Normocephalic. EYES: Pupils equal and round. No scleral icterus. No injection or drainage. ENT: No nasal bleeding or discharge. Mucous membranes pink and moist. NECK: Trachea midline. Left IJ CVL is clean dry and intact. Orotracheal intubation CARDIOVASCULAR: RRR. S1, S2 no S4. No murmur appreciated RESPIRATORY: Mild bronchospasm persists but air movement is good. GASTROINTESTINAL: Abdomen soft, non-tender, nondistended. No guarding, bowel sounds active MUSCULOSKELETAL: Extremities without clubbing, cyanosis, or edema. Warm, well- perfused. NEUROLOGICAL: Moves all 4 extremities spontaneously. Positive cough and gag and corneal reflex. Assessment and Plan - Assessment and Plan Plan: Neuro/Psych: Admission with acute delirium/encephalopathy toxic metabolic due to underlying pneumonia/community acquired On propofol/dexmedetomidine drips for sedation/vent synchrony Goal of RA SS -2 Daily sedation vacation Acetaminophen 650 p.o. every 6 hours as needed fever Hydrocodone/acetaminophen 5/325 1 tablet every 4 hours as needed pain [address] brain 02/13 revealed small vessel ischemic changes bilaterally. No acute infarction. CV: Essential hypertension Hyperlipidemia Peripheral vascular disease stenting to right lower extremity Holding olmesartan 40 mg daily/home medication for hypertension. Resume if clinically indicated Currently on atorvastatin 80 mg daily for hyperlipidemia. We will check 2D echocardiogram with underlying shortness of breath. EKG chest troponin will be ordered for a.m. septal infarct. Troponin 0 0.27. Recheck tomorrow. Likely strain/demand ischemia secondary to tachypnea Continue home medication clopidogrel 75 mg daily As needed norepinephrine to maintain mean artery pressure equal to 65 Resp: Acute respiratory failure/hypoxic hypercapnic COPD Community-acquired pneumonia ongoing tobaccoism PRVC ventilation Head of bed at 30 degrees with ventilator bundle Albuterol/ipratropium aerosols every 4 hours with albuterol aerosols every 2 hours as needed dyspnea Continue budesonide 0.5/2 1 inhalation twice daily Follow-up chest x-ray in a.m. 02/23 Continue methylprednisolone succinate 60 mg IV every 6 hours CPAP trials as clinically indicated Tobacco cessation self evaluation booklet provided. Continue nicotine patch 14mg daily CT thorax revealed patchy bilateral pneumonia. GI: Hypoalbuminemia Currently on a tube feeds Glucerna 1.555 cc an hour Lansoprazole for GI prophylaxis Docusate sodium/senna 1 tablet twice daily for bowel regimen. Add lactulose 30 cc twice daily : No indication for Armstrong catheter catheterization Endo: Sliding scale insulin with aspart insulin Accu-Cheks AC/at bedtime to maintain euglycemia while on steroids Normal TSH 0.398 Persistent hyperglycemia mid 200s. Levemir 6 units subcu every 12 hours well tube feedings run at continuous rate. Renal: Acute kidney injury -likely worsening Right renal cyst Avoid nephrotoxic medications. Patient was on ibuprofen as an outpatient. Check renal ultrasound -medical renal disease. Right renal cyst GFR declining over the last 72 hours just. Will diurese. Continue free water to 50 every 8 hours Heme: Leukocytosis Normocytic anemia Thrombus cytopenia Monitor CBC daily. Follow trends. No indication for transfusion of blood products at this time. ID: Streptococcal urinary antigen positive for community acquired pneumonia Currently on cefepime, azithromycin, vancomycin Previously on ceftriaxone since 02/13. Discontinued 02/17. Piperacillin/ tazobactam discontinued 02/16 -sputum with Aspergillus. Added fluconazole initially but discontinued 02/22 Blood cultures x2/influenza A/B 02/13 no growth to date Appreciated infectious disease consultation. Chlamydia and mycoplasma pending MSK: PT evaluate and treat FEN: Hypernatremia Magnesium Replace electrolytes as clinically indicated per ICU electrolyte protocol Currently on one half normal saline 42 cc an hour. Discontinue 02/21. Free water flushes 250 cc every 8 hours Access -Left internal J CVL day #3 Prophylaxis -GI -lansoprazole -DVT -SCD/heparin subcu Level 3 follow-up
[2018-02-22 13:53] LABS: ABG PCO2 58 mmHg (38-42); ABG PO2 74 mmHg (61-120)
--- NOTE | 2018-02-22 14:48 | P.PNID ---
Subjective Remarks: Patient is a 67-year-old male, brought into the hospital for further evaluation of cough fever diarrhea and confusion. Patient apparently has not been feeling well for about 4-5 days. He has been having a nonproductive cough, fever and diarrhea. He also has significant weakness. His neighbor apparently checked on him on the day of admission and found him lying down and he was somewhat confused. He apparently has not had anything to eat or drink in several days. He was brought into the hospital, and he initial chest x-ray did not show any acute infiltrate. CT of the head did not show any acute disease. His WBC was normal. Creatinine was elevated at 1.75. Urine for pneumococcal antigen came back positive. Blood cultures were negative. Patient was put on empiric antibiotics for community-acquired pneumonia. He was also having a lot of shortness of breath and a lot of wheezing, and has been getting IV steroids. Pulmonary is on the case. Yesterday he had desaturation, and progressive respiratory distress, and ended up getting intubated. Patient currently is on the vent, and sedated. He does not have a lot of secretions from his endotracheal tube. His blood pressure is okay. Temperature is okay. He is currently on vancomycin and Zosyn, as well as Zithromax and Diflucan. The sputum culture from February 17 is reported as growing Aspergillus. His WBC was up to 18,000 yesterday, and is down to 14,000. His creatinine is slowly improving and down to 1.32. CT of the chest showed patchy bilateral pulmonary infiltrates. Infectious disease consultation has been requested to assist with evaluation and treatment, and antibiotic management. Notes reviewed Temps ok WBC higher Creatinine higher On CPAP, slightly dyspneic UA ok Sputum C/S neg 48H CXR stable Mycoplasma Ab C/W old infection Chlamydia pending Antibiotics: Cefepime Zithromax Diflucan Vancomycin Past Medical History: COPD (chronic obstructive pulmonary disease) Hyperlipidemia Peripheral vascular disease Hypertension History of hernia repair Allergies/Adverse Reactions: Allergies No Known Allergies Allergy (Verified 02/13/18 18:38) Objective Vital Signs 02/21/18 15:00 02/21/18 15:23 02/21/18 15:30 Temperature 97.9 F 97.9 F Pulse Rate 106 H 113 H 110 H Respiratory Rate 18 20 18 Blood Pressure 127/77 119/87 Pulse Oximetry 94 L 95 95 02/21/18 16:00 02/21/18 16:30 02/21/18 17:00 Temperature 98.2 F 98.6 F 98.6 F Pulse Rate 123 H 111 H 112 H Respiratory Rate 25 H 18 19 Blood Pressure 124/80 105/70 113/74 Pulse Oximetry 94 L 94 L 94 L 02/21/18 17:30 02/21/18 18:00 02/21/18 18:30 Temperature 98.4 F 98.2 F 98.4 F Pulse Rate 110 H 108 H 113 H Respiratory Rate 19 18 17 Blood Pressure 118/81 121/74 115/80 Pulse Oximetry 93 L 94 L 95 02/21/18 19:00 02/21/18 19:07 02/21/18 19:30 Temperature 98.6 F 98.6 F Pulse Rate 112 H 113 H 118 H Respiratory Rate 17 17 17 Blood Pressure 111/73 110/75 Pulse Oximetry 95 94 L 97 02/21/18 20:00 02/21/18 21:00 02/21/18 22:00 Temperature 98.6 F 98.8 F 98.8 F Pulse Rate 114 H 118 H 117 H Respiratory Rate 18 19 19 Blood Pressure 120/76 118/77 125/79 Pulse Oximetry 97 92 L 97 02/21/18 23:00 02/21/18 23:12 02/21/18 23:30 Temperature 98.6 F 98.6 F Pulse Rate 115 H 116 H 128 H Respiratory Rate 18 19 23 Blood Pressure 137/84 137/86 Pulse Oximetry 94 L 94 L 96 02/22/18 00:00 02/22/18 01:00 02/22/18 02:00 Temperature 98.8 F 98.8 F 99.0 F Pulse Rate 119 H 117 H 120 H Respiratory Rate 21 21 20 Blood Pressure 140/86 127/77 125/83 Pulse Oximetry 94 L 96 94 L 02/22/18 03:00 02/22/18 03:21 02/22/18 04:00 Temperature 99.1 F 99.1 F Pulse Rate 123 H 116 H 124 H Respiratory Rate 21 20 21 Blood Pressure 133/84 131/84 Pulse Oximetry 96 95 96 02/22/18 05:00 02/22/18 05:54 02/22/18 06:00 Temperature 99.1 F 99.1 F 99.1 F Pulse Rate 122 H 98 H 120 H Respiratory Rate 23 19 19 Blood Pressure 127/81 137/95 H 156/99 H Pulse Oximetry 93 L 92 L 91 L 02/22/18 06:41 02/22/18 07:40 02/22/18 11:38 Temperature 99.1 F Pulse Rate 124 H 120 H 124 H Respiratory Rate 20 22 25 H Blood Pressure 134/86 Pulse Oximetry 95 92 L 91 L Intake & Output 02/21/18 02/22/18 02/22/18 18:59 06:59 18:59 Intake Total 1617.5 / 1617.5 1410 / 1410 200 / 200 Output Total 2950 / 2950 775 / 775 Balance -1332.5 / -1332.5 635 / 635 200 / 200 Weight 77.6 kg Intake: IV 802.5 / 802.5 550 / 550 200 / 200 Diprivan 1000 mg/100 ml Inj 1, 200 / 200 200 / 200 100 / 100 000 mg In 100 ml @ 5 MCG/KG/MIN 2.172 mls/hr IV.CONT TITRATE PRN Rx#:[id number] 1/2 Normal Saline Inj 1,000 ML 40 / 40 @ 42 mls/hr IV.CONT .[id number] ERWIN Rx#:[id number] Azithromycin Inj 500 MG In NS 250 / 250 Inj 250 ML @ 250 mls/hr IV.SIG Q24H ERWIN Rx#:[id number] Maxipime Inj 2,000 MG In NS Inj 100 / 100 100 / 100 100 / 100 100 ML @ 200 mls/hr IV.SIG Q12H ERWIN Rx#:[id number] Diflucan 200 mg Premix Bag 100 100 / 100 ML @ 100 mls/hr IV.SIG Q24H ERWIN Rx#:[id number] Vancomycin Inj 1,250 MG In NS 262.5 / 262.5 Inj 250 ML @ 262.5 mls/hr IV. SIG Q18H ERWIN Rx#:[id number] Tube Feeding 495 / 495 660 / 660 Tube Irrigant 120 / 120 Water Bolus Amount 200 / 200 200 / 200 Output: Stool 300 / 300 75 / 75 Urine Amount (Catheter) 2650 / 2650 700 / 700 Indwelling Temp Sensing 2650 / 2650 700 / 700 Catheter Other: Date of Last Bowel Movement 02/21/18 02/21/18 02/21/18 # Incontinent Bowel Movements 1 02/21/18 11:50 Catheterized Urine Urine Culture - Preliminary No growth in 24 hours 02/20/18 01:30 Sputum - Endotracheal Gram Stain - Final 02/20/18 01:30 Sputum - Endotracheal Sputum Culture - Final No growth in 48 hours 02/19/18 21:10 Blood - Peripheral Aerobic Blood Culture - Preliminary No growth in 3 days 02/19/18 21:10 Blood - Peripheral Anaerobic Blood Culture - Preliminary No growth in 3 days 02/19/18 21:15 Blood - Peripheral Aerobic Blood Culture - Preliminary No growth in 3 days 02/19/18 21:15 Blood - Peripheral Anaerobic Blood Culture - Preliminary No growth in 3 days 02/17/18 04:30 Sputum - Expectorated Sputum Gram Stain - Final 02/17/18 04:30 Sputum - Expectorated Sputum Sputum Culture - Final Aspergillus fumigatis Lab - Hematology Results 02/21/18 02/22/18 07:00 03:25 WBC 20.6 H 25.7 H RBC 3.79 L 4.04 L Hgb 11.9 L 12.7 L Hct 35.4 L 38.0 L MCV 93.3 94.0 MCH 31.4 31.5 MCHC 33.6 33.5 RDW 15.6 15.4 Plt Count 226 217 MPV 9.3 9.3 Prelim Diff (Auto) Slide review pending Manual diff required Neut % (Auto) 93.2 H Lymph % (Auto) 1.4 L [place] % (Auto) 5.1 Eos % (Auto) 0.0 Baso % (Auto) 0.3 Neut # (Auto) 19.2 H Lymph # (Auto) 0.3 L [place] # (Auto) 1.0 H Eos # (Auto) 0.0 Baso # (Auto) 0.1 WBC Differential Manual diff final Manual diff final Seg Neuts % (Manual) 88 H 96 H Band Neuts % (Manual) 7 H 1 Lymphocytes % (Manual) 2 L Monocytes % (Manual) 2 3 Myelocytes % (Man) 1 H Abs Neuts (Manual) 19.8 H 24.9 H Differential Comment . . Toxic Granulation 1+ H Platelet Estimate Normal Normal Platelet Morphology Enlarged H Normal RBC Morphology Normal Acanthocytes (Spur) Occ H Lab - Chemistry Results 02/20/18 02/20/18 02/21/18 17:04 20:35 00:04 Sodium Potassium Chloride Carbon Dioxide Anion Gap BUN Creatinine Estimated GFR POC Glucose 233 H 200 H 163 H Random Glucose Calcium Calcium Adj for Albumin Phosphorus Magnesium Total Bilirubin AST ALT Alkaline Phosphatase Total Protein Albumin 02/21/18 02/21/18 02/21/18 07:00 12:22 17:36 Sodium 148 H Potassium 4.0 Chloride 114 H Carbon Dioxide 30.0 Anion Gap 4 L BUN 34 H Creatinine 1.34 H Estimated GFR 53 L POC Glucose 150 H 106 Random Glucose 126 H Calcium 7.4 L* Calcium Adj for Albumin 9.3 Phosphorus Magnesium Total Bilirubin AST ALT Alkaline Phosphatase Total Protein Albumin 1.6 L 02/21/18 02/22/18 02/22/18 23:48 03:25 06:32 Sodium 150 H Potassium 4.4 Chloride 114 H Carbon Dioxide 30.1 Anion Gap 6 BUN 41 H Creatinine 1.54 H Estimated GFR 46 L POC Glucose 144 H 145 H Random Glucose 157 H Calcium 7.7 L Calcium Adj for Albumin Phosphorus 2.3 L Magnesium 2.7 H Total Bilirubin 0.3 AST 135 H ALT 116 H Alkaline Phosphatase 92 Total Protein 5.6 L Albumin 1.5 L 02/22/18 11:43 Sodium Potassium Chloride Carbon Dioxide Anion Gap BUN Creatinine Estimated GFR POC Glucose 141 H Random Glucose Calcium Calcium Adj for Albumin Phosphorus Magnesium Total Bilirubin AST ALT Alkaline Phosphatase Total Protein Albumin Imaging: ITS Impressions Head CT 02/13/18 19:41 CONCLUSION: 1. Mild periventricular white matter small vessel ischemic changes bilaterally. 2. No acute infarct, acute hemorrhage, mass effect or extra axial fluid collections. . Chest CT 02/16/18 00:00 CONCLUSION: 1. Nonspecific bilateral pneumonia as described. 2. Tiny right pleural effusion. 3. Upper limits of normal to slightly enlarged mediastinal and hilar lymph nodes. Abdomen/Bladder Ultrasound 02/16/18 18:18 CONCLUSION: 1. Echogenic kidneys consistent with medical renal disease. 2. No sonographic evidence for obstructive uropathy. 3. 5 mm cyst in the inferior pole the right kidney. 4. Nonspecific prostate enlargement. Chest X-Ray 02/22/18 06:00 CONCLUSION: Right lower lung atelectasis or consolidation. Some degree of right effusion can be considered. Diffuse increased interstitial markings related to underlying edema or underlying interstitial disease. The lungs appear hyperinflated. Physical Exam: GENERAL: sedated on the vent, mildly dyspneic SKIN: Cool and dry. HEAD: Atraumatic. Normocephalic. No temporal wasting, or tenderness. EYES: [place] conjunctiva. No petechia or hemorrhage. Pupils equal, round and reactive to light. No scleral icterus. No injection or drainage. EARS, NOSE AND THROAT: Nose without bleeding or purulent nasal discharge. He is orally intubated. NECK: Trachea midline. Supple and not tender, no meningeal signs CARDIOVASCULAR: Regular rate and rhythm. No murmurs, rubs or gallops heard RESPIRATORY: He has decreased breath sounds on the right lung field. ABDOMEN: Soft, not distended, no reaction to palpation. Bowel sounds are present and hypoactive. EXTREMITIES: No clubbing, cyanosis, or edema. Has a lot of small varicosities in both feet/ankle. NEUROLOGICAL: Sedated on the vent PSYCHIATRIC: Unable to assess LINE: No evidence of infection Assessment and Plan - Plan Impression Pneumonia, bilateral. - urine pneumococcal Ag (+) - ?other pathogens COPD Respiratory failure Aspergillus in sputum likely contaminant Renal insufficiency Worsening leukocytosis, etiology? - was having problems with yesterday Recommendations Follow C/S Follow CBC Continue cefepime Continue vanco Continue Zithromax Also on Diflucan Monitor progress Weaning per CCM
[2018-02-22] MEDS: Heparin - SQ 10,000 UNITS/ML Vial SQ SCH (14:55)
[2018-02-22] MEDS ORDERED: Pharmacy Ordered Lab Info OTHER ONE (17:45)
[2018-02-22] MEDS: Azithromycin Inj 500 MG in Sodium Chlor 0.9% Inj 250 ML IV.SIG SCH (18:17)
[2018-02-22 18:34] LABS: Vancomycin,Trough 18.6 mcg/mL (5.0-10.0)
[2018-02-22] MEDS: Vancomycin Inj 1,250 MG in Sodium Chlor 0.9% Inj 250 ML IV.SIG SCH (18:39)
[2018-02-22 18:48] LABS: Calcium 7.9 mg/dL (8.5-10.1); Carbon Dioxide 32.2 meq/L (21.0-32.0)
[2018-02-23] MEDS: Heparin - SQ 10,000 UNITS/ML Vial SQ SCH ×2 (01:15→11:15)
[2018-02-23] MEDS: MethylPREDNISolone Sod Succinate Inj 40 MG/ML Vial IV.PUSH SCH ×4 (01:15→22:24)
[2018-02-23] MEDS: Artificial Tears Opth Drops 15 ML Bottle EACH EYE SCH ×3 (01:17→17:20)
[2018-02-23] MEDS: Insulin NovoLOG Aspart Correctional Sugar Inj SQ SCH ×4 (01:17→18:19)
[2018-02-23 03:44] LABS: Baso % (Auto) 0.1 % (0.0-2.0); Hematocrit 38.7 % (39.0-51.0); Lymph # (Auto) 0.4 th/mm3 (1.0-4.8); Lymph % (Auto) 1.3 % (9.0-44.0); Mean Corpuscular HGB Conc 33.5 % (32.0-36.0); Mean Corpuscular Hemoglobin 31.2 pg (27.0-34.0); Mean Corpuscular Volume 93.3 fL (80.0-100.0); Mean Platelet Volume 9.8 fL (7.0-11.0); Mono # (Auto) 1.1 th/mm3 (0.0-0.9); Mono % (Auto) 3.5 % (0.0-8.0); Neut # (Auto) 29.3 th/mm3 (1.8-7.7); Neut % (Auto) 95.1 % (16.0-70.0); Platelet Count 173 th/mm3 (150-450); Red Blood Count 4.15 mil/mm3 (4.50-5.90); Red Cell Distribution Width 15.8 % (11.6-17.2); White Blood Count 30.8 th/mm3 (4.0-11.0)
[2018-02-23 04:25] LABS: Alanine Aminotransferase 116 U/L (12-78); Albumin 1.4 g/dL (3.4-5.0); Alkaline Phosphatase 109 U/L (45-117); Anion Gap 5 meq/L (5-15); Aspartate Aminotransferase 104 U/L (15-37); Blood Urea Nitrogen 53 mg/dL (7-18); Calcium 8.1 mg/dL (8.5-10.1); Carbon Dioxide 29.8 meq/L (21.0-32.0); Chloride 115 meq/L (98-107); Glomerular Filtration Rate 46 mL/min (>89); Glucose,Random 172 mg/dL (74-106); Magnesium 2.9 mg/dL (1.5-2.5); Phosphorus 3.8 mg/dL (2.5-4.9); Potassium 5.3 meq/L (3.5-5.1); Sodium 150 meq/L (136-145); Total Protein 5.9 g/dL (6.4-8.2)
--- NOTE | 2018-02-23 04:28 | XR ---
EXAM DATE: 02/23/2018 4:24 AM EST AGE/SEX: 67 years / Male INDICATIONS: Respiratory failure. CLINICAL DATA: This is the patient's subsequent encounter. Patient reports that signs and symptoms h ave been present for 1 week and indicates a pain score of Nonresponsive. MEDICAL/SURGICAL HISTORY: . Hypertension. Chronic obstructive pulmonary disease. None. COMPARISON: C, CHEST 1V SINGLE AP, 02/22/2018. . FINDINGS: A single AP semierect portable view of the chest was obtained and again demonstrates an endotracheal tube in place with the tip approximately 4 cm above the vicenta. A nasogastric tube is seen coursing t hrough the esophagus and into the stomach. The consolidative opacity in the right lower lobe is uncha nged. The left lung is clear. The right costophrenic angle remains blunted. The heart size is within normal limits. The bony thorax is stable and unremarkable. There are multiple overlying electrocardio gram leads. CONCLUSION: No significant change. Consolidative opacity remains in the right lung base with right pleural effusi on. Electronically signed by: Kenneth Orellana MD Board Certified Radiologist 02/23/2018 4:27 AM EST
[2018-02-23] MEDS: Propofol 1000 mg/100 ml Inj 1,000 MG/100 ML BOTTLE IV.CONT PRN ×3 (05:24→16:03)
[2018-02-23 06:52] LABS: Monocytes 4 % (0-8); Myelocytes 1 % (0-0); Plasma Cells 1 % (0-0)
[2018-02-23 06:53] LABS: Platelet Estimate Normal (Normal)
[2018-02-23] MEDS ORDERED: Sodium Polystyrene Sulfonate/Sorbitol Liq 15 GM/60 ML UDC PO ONE (07:37)
[2018-02-23] MEDS ORDERED: RESP: Albuterol Concentrated 2.5 MG/0.5 ML Neb NEB ONE (07:37)
[2018-02-23] MEDS ORDERED: Dextrose 50% in Water 50 ML Vial IV.PUSH ONE (07:37)
[2018-02-23] MEDS ORDERED: Calcium Chloride Inj 1 GM in Sodium Chlor 0.9% Inj 100 ML IV.SIG ONE (08:00)
--- NOTE | 2018-02-23 08:32 | P.PNCC ---
Subjective Subjective Remarks/Hospital Course: This is a 67-year-old male. Date of admission 02/13/2018. Date of consultation 02/08/2018. Past medical history includes ongoing tobaccoism, COPD , peripheral vascular disease including sent to the right lower extremity on clopidogrel, hyperlipidemia, essential hypertension who presents to the emergency department at [facility] on 02/13 for the evaluation of altered mental status. Events is document states he had acute delirium times 4-5 days. He also was documented stating he had a nonproductive cough, fever and diarrhea with accompanying shortness of breath. Lack of appetite. He denied any chest pain. According to his neighbor per documentation, they went to check on him and found his door to be partially ajar. They found the patient lying down and he could not remember what day it was. He stated he had not had anything to eat or drink in many days. Patient was admitted on the hospital service after CT of the brain revealed small vessel ischemic changes. Influenza a and B are negative. Blood cultures negative. His urine pneumococcal antigen was positive. He was treated with ceftriaxone and azithromycin. He was treated with bronchodilators every 6 hours and methylprednisolone Succinate 40 mg IV every 8 hours. He is on 2 L nasal cannula. Today, breath. Rapid response was called. He was noted to be febrile temperature of 102.5 Fahrenheit and noted to be tachypneic. He received bronchodilator therapy. Chest x-ray revealed a right middle lobe infiltrate. He was transferred to the ICU for evaluation. On my evaluation patient is on 2 L nasal cannula. He is not using accessory muscles. He is able to complete sentences. He does have a cough present time with white sputum. Denies hemoptysis. 02/17: Afebrile. Continues to be quite wheezy. Slight retractions. Will increase methylprednisolone. On aggressive pulmonary toilet therapy at the present time. CT chest revealed bilateral patchy pneumonia. 02/18: Afebrile. On 3 L nasal cannula satting 94-97%. Less wheezy today. In much better spirits. 02/19: Decompensated overnight requiring mechanical intubation. Hypotensive so central line placed earlier this a.m. Creatinine stable 1.3. White blood cell count slightly improved to 14,000. Continue antibiotic therapy. 02/20: Oxygenation acceptable at 40% FiO2. Glucose control problematic owing largely to tube feeds and steroids. Will augment sliding scale with very low- dose Levemir. Switch to Glucerna if problem continues. GFR declining modestly , concern for osmotic diuresis. Watch carefully, add hydration if necessary. Attempted CPAP trial today which resulted in tachypnea and small volumes; patient appeared to be talking pretty hard despite pressure support of 12. 02/21: Afebrile. Oxygenation 40%. We will continue to wean. Appears volume overloaded with positive intake versus output. Tolerating tube feeding. 02/22: Currently on CPAP trial / at 50%. Tachypneic. Arousable but not following commands. X-ray possible pleural effusion noted. Will attempt to diurese again. Subjective 02/23: FiO2 increased to 7%. Removed filter from expiratory port GE vent... now FiO2 down to 40%. Order written for no more added space. Getting hyperkalemia protocol. Will reassess. Objective Vital Signs / I&O: Vital Signs 02/22/18 08:30 02/22/18 09:00 02/22/18 09:30 Temperature 99.1 F 99.3 F 99.5 F Pulse Rate 133 H 130 H 132 H Respiratory Rate 27 H 24 25 H Blood Pressure 160/98 H 148/92 H 157/96 H Pulse Oximetry 88 L 90 L 91 L 02/22/18 10:00 02/22/18 10:30 02/22/18 11:00 Temperature 99.5 F 99.7 F H 99.7 F H Pulse Rate 126 H 127 H 124 H Respiratory Rate 25 H 26 H 24 Blood Pressure 151/94 H 152/88 H 146/94 H Pulse Oximetry 91 L 91 L 90 L 02/22/18 11:30 02/22/18 11:38 02/22/18 12:00 Temperature 99.5 F 99.5 F Pulse Rate 122 H 124 H 126 H Respiratory Rate 24 25 H 24 Blood Pressure 139/88 136/88 Pulse Oximetry 91 L 91 L 92 L 02/22/18 12:30 02/22/18 13:00 02/22/18 13:30 Temperature 99.3 F 99.3 F 99.3 F Pulse Rate 124 H 124 H 123 H Respiratory Rate 25 H 26 H 23 Blood Pressure 143/92 H 143/89 H 137/86 Pulse Oximetry 89 L 90 L 91 L 02/22/18 14:00 02/22/18 14:30 02/22/18 15:00 Temperature 99.3 F 99.3 F 99.3 F Pulse Rate 122 H 123 H 115 H Respiratory Rate 24 26 H 24 Blood Pressure 133/83 143/92 H 109/71 Pulse Oximetry 90 L 89 L 91 L 02/22/18 15:30 02/22/18 15:44 02/22/18 16:00 Temperature 98.8 F 98.4 F Pulse Rate 111 H 114 H 113 H Respiratory Rate 22 22 21 Blood Pressure 111/72 116/76 Pulse Oximetry 94 L 94 L 95 02/22/18 16:30 02/22/18 17:00 02/22/18 17:30 Temperature 98.2 F 98.2 F 98.1 F Pulse Rate 115 H 114 H 113 H Respiratory Rate 23 22 22 Blood Pressure 126/83 123/82 120/80 Pulse Oximetry 94 L 94 L 94 L 02/22/18 18:00 02/22/18 18:30 02/22/18 19:00 Temperature 98.1 F 98.1 F 97.9 F Pulse Rate 113 H 112 H 109 H Respiratory Rate 22 23 23 Blood Pressure 130/84 134/88 133/84 Pulse Oximetry 94 L 94 L 94 L 02/22/18 19:39 02/22/18 19:40 02/22/18 20:00 Temperature 97.9 F Pulse Rate 110 H 109 H Respiratory Rate 22 23 22 Blood Pressure 131/85 Pulse Oximetry 95 96 02/22/18 21:00 02/22/18 22:00 02/22/18 23:00 Temperature 97.9 F 98.1 F 98.1 F Pulse Rate 111 H 109 H 112 H Respiratory Rate 22 23 23 Blood Pressure 126/82 131/86 132/91 H Pulse Oximetry 96 97 96 02/23/18 00:00 02/23/18 00:11 02/23/18 00:16 Temperature 98.1 F Pulse Rate 114 H 110 H Respiratory Rate 20 23 24 Blood Pressure 136/93 H Pulse Oximetry 95 93 L 02/23/18 01:00 02/23/18 02:00 02/23/18 02:30 Temperature 98.2 F 98.4 F Pulse Rate 114 H 117 H Respiratory Rate 20 Blood Pressure 144/93 H 153/103 H Pulse Oximetry 92 L 90 L 92 L 02/23/18 03:00 02/23/18 04:00 02/23/18 04:19 Temperature 98.6 F 98.6 F Pulse Rate 119 H 116 H Respiratory Rate 24 22 Blood Pressure 152/97 H 123/86 Pulse Oximetry 92 L 94 L 93 L 02/23/18 04:23 02/23/18 05:00 02/23/18 06:00 Temperature 98.2 F 98.4 F Pulse Rate 114 H 115 H 111 H Respiratory Rate 23 24 21 Blood Pressure 113/76 116/79 Pulse Oximetry 95 98 02/23/18 07:59 02/23/18 08:05 Temperature Pulse Rate 109 H 113 H Respiratory Rate 16 16 Blood Pressure Pulse Oximetry 95 Intake & Output 02/22/18 02/23/18 02/23/18 18:59 06:59 18:59 Intake Total 1637.5 / 1637.5 2221.5 / 2221.5 Output Total 1200 / 1200 1175 / 1175 Balance 437.5 / 437.5 1046.5 / 1046.5 Intake: IV 662.5 / 662.5 912.5 / 912.5 Diprivan 1000 mg/100 ml Inj 1, 300 / 300 200 / 200 000 mg In 100 ml @ 5 MCG/KG/MIN 2.172 mls/hr IV.CONT TITRATE PRN Rx#:[id number] Azithromycin Inj 500 MG In NS 250 / 250 Inj 250 ML @ 250 mls/hr IV.SIG Q24H ERWIN Rx#:[id number] Maxipime Inj 2,000 MG In NS Inj 100 / 100 100 / 100 100 ML @ 200 mls/hr IV.SIG Q12H ERWIN Rx#:[id number] Vancomycin Inj 1,250 MG In NS 262.5 / 262.5 262.5 / 262.5 Inj 250 ML @ 262.5 mls/hr IV. SIG Q18H ERWIN Rx#:[id number] Tube Feeding 605 / 605 1309 / 1309 Tube Irrigant 120 / 120 Water Bolus Amount 250 / 250 Output: Stool 100 / 100 Urine Amount (Catheter) 1100 / 1100 1175 / 1175 Indwelling Temp Sensing 1100 / 1100 1175 / 1175 Catheter Other: Date of Last Bowel Movement 02/21/18 02/21/18 Result Diagrams: 02/23/18 03:30 02/23/18 03:30 Other Results: Microbiology 02/21/18 11:50 Catheterized Urine Urine Culture - Preliminary No growth in 24 hours 02/20/18 01:30 Sputum - Endotracheal Gram Stain - Final 02/20/18 01:30 Sputum - Endotracheal Sputum Culture - Final No growth in 48 hours 02/19/18 21:10 Blood - Peripheral Aerobic Blood Culture - Preliminary No growth in 3 days 02/19/18 21:10 Blood - Peripheral Anaerobic Blood Culture - Preliminary No growth in 3 days 02/19/18 21:15 Blood - Peripheral Aerobic Blood Culture - Preliminary No growth in 3 days 02/19/18 21:15 Blood - Peripheral Anaerobic Blood Culture - Preliminary No growth in 3 days 02/17/18 04:30 Sputum - Expectorated Sputum Gram Stain - Final 02/17/18 04:30 Sputum - Expectorated Sputum Sputum Culture - Final Aspergillus fumigatis 02/13/18 20:00 Blood - Peripheral Aerobic Blood Culture - Final No growth in 5 days 02/13/18 20:00 Blood - Peripheral Anaerobic Blood Culture - Final No growth in 5 days 02/13/18 19:50 Blood - Peripheral Aerobic Blood Culture - Final No growth in 5 days 02/13/18 19:50 Blood - Peripheral Anaerobic Blood Culture - Final No growth in 5 days 02/13/18 21:00 Throat Group A Streptococcus Screen/Cult - Final No Beta Streptococci isolated. 02/13/18 20:36 Urine - Clean Catch Urine Legionella Antigen - Final Presumptive negative for Legionella pneumophila serogroup 1 antigen in urine, suggesting no recent or recurrent infection. Infection due to Legionella cannot be ruled out since other serogroups and species may cause disease, antigen may not be present in urine in early infection, and the level of antigen present in the urine may be below the detection limit of the test. 02/13/18 20:36 Urine - Clean Catch Urine Streptococcus pneumoniae Antigen ( M - Final POS S. pneumoniae antigen 02/13/18 21:00 Throat Group A Streptococcus Screen (CRUZ) - Final 02/13/18 20:32 Nasal Wash Influenza Types A,B Antigen - Final Negative for FLU A and B antigen Infection due to influenza A or B cannot be ruled out since the antigen present in the sample may be below the detection limit of the test. Imaging: Chest X-Ray 02/13/18 19:41 CONCLUSION: 1. Negative portable chest. Head CT 02/13/18 19:41 CONCLUSION: 1. Mild periventricular white matter small vessel ischemic changes bilaterally. 2. No acute infarct, acute hemorrhage, mass effect or extra axial fluid collections. . Chest X-Ray 02/15/18 14:58 CONCLUSION: 1. Mild streakiness is noted involving the right medial lung base consistent with possible developing infiltrates. Clinical correlation is recommended. 2. Minimal increased perihilar streakiness is noted bilaterally. Chest CT 02/16/18 00:00 CONCLUSION: 1. Nonspecific bilateral pneumonia as described. 2. Tiny right pleural effusion. 3. Upper limits of normal to slightly enlarged mediastinal and hilar lymph nodes. Chest X-Ray 02/16/18 00:00 CONCLUSION: 1. Persistent hazy opacification of the medial right lung base. Recommend clinical correlation for infection. 2. Hyperinflation with streaky opacities radiating from the des, which may be related to underlying chronic obstructive pulmonary disease. Abdomen/Bladder Ultrasound 02/16/18 18:18 CONCLUSION: 1. Echogenic kidneys consistent with medical renal disease. 2. No sonographic evidence for obstructive uropathy. 3. 5 mm cyst in the inferior pole the right kidney. 4. Nonspecific prostate enlargement. Chest X-Ray 02/18/18 00:00 CONCLUSION: NG looped back on itself in the esophagus. This should be repositioned. Endotracheal tube in good position. Worsening bilateral airspace disease since earlier exam. Small effusions. Chest X-Ray 02/18/18 06:00 CONCLUSION: Modest worsening bilateral basilar and upper lobe airspace disease. Small bilateral effusions. Chest X-Ray 02/19/18 06:00 CONCLUSION: Airspace disease seen at the bases being worse on the right. Underlying interstitial disease. Some degree of effusion especially on the right cannot be excluded. Chest X-Ray 02/19/18 07:55 CONCLUSION: 1. Left IJ central line in good position without pneumothorax. 2. Persistent right lower lobe airspace disease and probable small pleural effusion. 3. Persistent minimal airspace disease at the left lung base. Chest X-Ray 02/20/18 06:00 CONCLUSION: Consolidation or atelectasis in the right mid and lower lung and to a lesser grade the left lower lung. Some degree of fusion should be considered. Chest X-Ray 02/22/18 06:00 CONCLUSION: Right lower lung atelectasis or consolidation. Some degree of right effusion can be considered. Diffuse increased interstitial markings related to underlying edema or underlying interstitial disease. The lungs appear hyperinflated. Chest X-Ray 02/23/18 06:00 CONCLUSION: No significant change. Consolidative opacity remains in the right lung base with right pleural effusion. Objective Remarks: GENERAL: 67-year-old male, lightly sedated on mechanical ventilation SKIN: Warm and dry. HEAD: Atraumatic. Normocephalic. EYES: Pupils equal and round. No scleral icterus. No injection or drainage. ENT: No nasal bleeding or discharge. Mucous membranes pink and moist. NECK: Trachea midline. Left IJ CVL is clean dry and intact. Orotracheal intubation CARDIOVASCULAR: Tachycardic, RR. S1, S2 no S4. No murmur appreciated RESPIRATORY: Few end expiratory wheeze. Decreased breath sounds right lower lobe. GASTROINTESTINAL: Abdomen soft, non-tender, nondistended. No guarding, bowel sounds active MUSCULOSKELETAL: Extremities without clubbing, cyanosis, or edema. Warm, well- perfused. NEUROLOGICAL: Moves all 4 extremities spontaneously. Positive cough and gag and corneal reflex. Assessment and Plan - Assessment and Plan Plan: Neuro/Psych: Admission with acute delirium/encephalopathy toxic metabolic due to underlying pneumonia/community acquired On propofol/dexmedetomidine drips for sedation/vent synchrony Goal of RA SS -2 Daily sedation vacation Acetaminophen 650 p.o. every 6 hours as needed fever Hydrocodone/acetaminophen 5/325 1 tablet every 4 hours as needed pain [address] brain 02/13 revealed small vessel ischemic changes bilaterally. No acute infarction. CV: Essential hypertension Hyperlipidemia Peripheral vascular disease stenting to right lower extremity Systolic heart failure ejection fraction 35% unknown if acute or chronic Elevated troponin Holding olmesartan 40 mg daily/home medication for hypertension. Resume if clinically indicated Currently on atorvastatin 80 mg daily for hyperlipidemia. We will check 2D echocardiogram left ventricular systolic function is severely reduced with an estimated ejection fraction in the range of 30-35%. Moderately dilated left ventricle. Wall thickness is normal. There is global left ventricular dysfunction Elevated troponin 0 0.27. Recheck tomorrow Continue home medication clopidogrel 75 mg daily As needed norepinephrine to maintain mean artery pressure equal to 65 Resp: Acute respiratory failure/hypoxic hypercapnic COPD Community-acquired pneumonia ongoing tobaccoism PRVC ventilation Head of bed at 30 degrees with ventilator bundle Albuterol/ipratropium aerosols every 4 hours with albuterol aerosols every 2 hours as needed dyspnea Continue budesonide 0.5/2 1 inhalation twice daily Follow-up chest x-ray in a.m. 02/24 Continue methylprednisolone succinate 40 mg every 8 hours CPAP trials as clinically indicated Tobacco cessation self evaluation booklet provided. Continue nicotine patch 14mg daily CT thorax revealed patchy bilateral pneumonia. GI: Hypoalbuminemia Currently on a tube feeds Glucerna 1.5 55 cc an hour Lansoprazole for GI prophylaxis Docusate sodium/senna 1 tablet twice daily for bowel regimen. Add lactulose 30 cc twice daily : No indication for Armstrong catheter catheterization Endo: Sliding scale insulin with aspart insulin Accu-Cheks AC/at bedtime to maintain euglycemia while on steroids Normal TSH 0.398 Persistent hyperglycemia mid 200s. Now in the 150s. Levemir 6 units subcu every 12 hours well tube feedings run at continuous rate. Renal: Acute kidney injury -likely worsening Right renal cyst Avoid nephrotoxic medications. Patient was on ibuprofen as an outpatient. Check renal ultrasound -medical renal disease. Right renal cyst GFR declining over the last 72 hours just. Will diurese. Continue free water 250 every 8 hours Heme: Leukocytosis Normocytic anemia Thrombus cytopenia Monitor CBC daily. Follow trends. No indication for transfusion of blood products at this time. ID: Streptococcal urinary antigen positive for community acquired pneumonia Currently on cefepime, azithromycin, vancomycin Previously on ceftriaxone since 02/13. Discontinued 02/17. Piperacillin/ tazobactam discontinued 02/16 -sputum with Aspergillus. Added fluconazole initially but discontinued 02/22 Blood cultures x2/influenza A/B 02/13 no growth to date Appreciated infectious disease consultation. Chlamydia and mycoplasma pending MSK: PT evaluate and treat FEN: Hypernatremia Hyper magnesium Hyperkalemia Replace electrolytes as clinically indicated per ICU electrolyte protocol Recheck potassium at noon. Given D50/insulin/bicarbonate/calcium/albuterol aerosols/Kayexalate Free water flushes 250 cc every 8 hours Access -Left internal J CVL day #4 Prophylaxis -GI -lansoprazole -DVT -SCD/heparin subcu Level 3 follow-up Code Status: Full code
[2018-02-23 08:45] LABS: ABG Base Excess 5.1 mmol/L (-2-2); ABG PCO2 46 mmHg (38-42); ABG PO2 68 mmHg (61-120)
[2018-02-23] MEDS: Insulin Detemir Inj 1,000 UNIT/10 ML Vial SQ SCH ×2 (10:18→22:24)
[2018-02-23] MEDS: Senna/Docusate Sodium 8.6/50 MG Tablet PO SCH ×2 (10:20→21:59)
[2018-02-23] MEDS: Vancomycin Inj 1,250 MG in Sodium Chlor 0.9% Inj 250 ML IV.SIG SCH (11:16)
--- NOTE | 2018-02-23 15:07 | XR ---
EXAM DATE: 02/23/2018 2:58 PM EST AGE/SEX: 67 years / Male INDICATIONS: Endotracheal tube advanced CLINICAL DATA: This is the patient's initial encounter. Patient reports that signs and symptoms have been present for 4 - 6 days and indicates a pain score of Nonresponsive. MEDICAL/SURGICAL HISTORY: Hypertension. Chronic obstructive pulmonary disease. smoker None. COMPARISON: [facility] – [place], CHEST 1V SINGLE AP, 02/23/2018. . FINDINGS: ET tube nasogastric tube are in good position. Central line in expected locations. Vena cava. Patchy airspace disease is seen in both lungs worse in the right base. The heart and pulmonary vascularity are normal. CONCLUSION: ET tube in good position. Stable parenchymal changes both lungs. Electronically signed by: Venancio Tobar MD Board Certified Radiologist 02/23/2018 3:06 PM EST
--- NOTE | 2018-02-23 15:56 | P.PCN ---
Date of procedure: 02/23/18 Pre-op diagnosis: Atrial fibrillation with rapid ventricular response/ hypotension Post-op diagnosis: other (Conversion to sinus tachycardia) Procedure: DATE: 02/23/2018 Synchronized biphasic cardioversion INDICATION: Atrial fibrillation with rapid ventricular response/hypertension CONSENT Informed consent for procedure was taken recommended instability DESCRIPTION OF THE PROCEDURE The patient was placed in supine position. Synchronized biphasic cardioversion with 200 J for unstable A. fib with RVR into sinus tachycardia. Patient was sedated on propofol drip at 50 edmond grams per kilogram per minute and dexamethasone drip at 1.5 mcg/kg/h. ESTIMATED BLOOD LOSS: Minimal COMPLICATIONS: No apparent complications.
[2018-02-23 16:02] LABS: ABG Base Excess 3.1 mmol/L (-2-2); ABG PCO2 66 mmHg (38-42); ABG PO2 70 mmHg (61-120)
[2018-02-23] MEDS: Azithromycin Inj 500 MG in Sodium Chlor 0.9% Inj 250 ML IV.SIG SCH (16:04)
--- NOTE | 2018-02-23 16:30 | P.PNID ---
Subjective Remarks: Patient is a 67-year-old male, brought into the hospital for further evaluation of cough fever diarrhea and confusion. Patient apparently has not been feeling well for about 4-5 days. He has been having a nonproductive cough, fever and diarrhea. He also has significant weakness. His neighbor apparently checked on him on the day of admission and found him lying down and he was somewhat confused. He apparently has not had anything to eat or drink in several days. He was brought into the hospital, and he initial chest x-ray did not show any acute infiltrate. CT of the head did not show any acute disease. His WBC was normal. Creatinine was elevated at 1.75. Urine for pneumococcal antigen came back positive. Blood cultures were negative. Patient was put on empiric antibiotics for community-acquired pneumonia. He was also having a lot of shortness of breath and a lot of wheezing, and has been getting IV steroids. Pulmonary is on the case. Yesterday he had desaturation, and progressive respiratory distress, and ended up getting intubated. Patient currently is on the vent, and sedated. He does not have a lot of secretions from his endotracheal tube. His blood pressure is okay. Temperature is okay. He is currently on vancomycin and Zosyn, as well as Zithromax and Diflucan. The sputum culture from February 17 is reported as growing Aspergillus. His WBC was up to 18,000 yesterday, and is down to 14,000. His creatinine is slowly improving and down to 1.32. CT of the chest showed patchy bilateral pulmonary infiltrates. Infectious disease consultation has been requested to assist with evaluation and treatment, and antibiotic management. Notes reviewed Temps ok WBC continues to increase Had cardioversion today Creatinine the same Looks dyspneic on the vent UA ok Sputum C/S neg 48H CXR stable Mycoplasma Ab C/W old infection Chlamydia c/w old infection Antibiotics: Cefepime Zithromax Diflucan Vancomycin Past Medical History: COPD (chronic obstructive pulmonary disease) Hyperlipidemia Peripheral vascular disease Hypertension History of hernia repair Allergies/Adverse Reactions: Allergies No Known Allergies Allergy (Verified 02/13/18 18:38) Objective Vital Signs 02/22/18 16:30 02/22/18 17:00 02/22/18 17:30 Temperature 98.2 F 98.2 F 98.1 F Pulse Rate 115 H 114 H 113 H Respiratory Rate 23 22 22 Blood Pressure 126/83 123/82 120/80 Pulse Oximetry 94 L 94 L 94 L 02/22/18 18:00 02/22/18 18:30 02/22/18 19:00 Temperature 98.1 F 98.1 F 97.9 F Pulse Rate 113 H 112 H 109 H Respiratory Rate 22 23 23 Blood Pressure 130/84 134/88 133/84 Pulse Oximetry 94 L 94 L 94 L 02/22/18 19:39 02/22/18 19:40 02/22/18 20:00 Temperature 97.9 F Pulse Rate 110 H 109 H Respiratory Rate 22 23 22 Blood Pressure 131/85 Pulse Oximetry 95 96 02/22/18 21:00 02/22/18 22:00 02/22/18 23:00 Temperature 97.9 F 98.1 F 98.1 F Pulse Rate 111 H 109 H 112 H Respiratory Rate 22 23 23 Blood Pressure 126/82 131/86 132/91 H Pulse Oximetry 96 97 96 02/23/18 00:00 02/23/18 00:11 02/23/18 00:16 Temperature 98.1 F Pulse Rate 114 H 110 H Respiratory Rate 20 23 24 Blood Pressure 136/93 H Pulse Oximetry 95 93 L 02/23/18 01:00 02/23/18 02:00 02/23/18 02:30 Temperature 98.2 F 98.4 F Pulse Rate 114 H 117 H Respiratory Rate 20 Blood Pressure 144/93 H 153/103 H Pulse Oximetry 92 L 90 L 92 L 02/23/18 03:00 02/23/18 04:00 02/23/18 04:19 Temperature 98.6 F 98.6 F Pulse Rate 119 H 116 H Respiratory Rate 24 22 Blood Pressure 152/97 H 123/86 Pulse Oximetry 92 L 94 L 93 L 02/23/18 04:23 02/23/18 05:00 02/23/18 06:00 Temperature 98.2 F 98.4 F Pulse Rate 114 H 115 H 111 H Respiratory Rate 23 24 21 Blood Pressure 113/76 116/79 Pulse Oximetry 95 98 02/23/18 07:59 02/23/18 08:00 02/23/18 08:05 Temperature Pulse Rate 109 H 110 H 113 H Respiratory Rate 16 16 Blood Pressure Pulse Oximetry 95 02/23/18 10:03 02/23/18 11:40 02/23/18 15:31 Temperature Pulse Rate 123 H 125 H 122 H Respiratory Rate 22 23 27 H Blood Pressure Pulse Oximetry 94 L Intake & Output 02/22/18 02/23/18 02/23/18 18:59 06:59 18:59 Intake Total 1637.5 / 1637.5 2221.5 / 2221.5 200 / 200 Output Total 1200 / 1200 1175 / 1175 Balance 437.5 / 437.5 1046.5 / 1046.5 200 / 200 Intake: IV 662.5 / 662.5 912.5 / 912.5 200 / 200 Diprivan 1000 mg/100 ml Inj 1, 300 / 300 200 / 200 200 / 200 000 mg In 100 ml @ 5 MCG/KG/MIN 2.172 mls/hr IV.CONT TITRATE PRN Rx#:[id number] Azithromycin Inj 500 MG In NS 250 / 250 Inj 250 ML @ 250 mls/hr IV.SIG Q24H ERWIN Rx#:[id number] Maxipime Inj 2,000 MG In NS Inj 100 / 100 100 / 100 100 ML @ 200 mls/hr IV.SIG Q12H ERWIN Rx#:[id number] Vancomycin Inj 1,250 MG In NS 262.5 / 262.5 262.5 / 262.5 Inj 250 ML @ 262.5 mls/hr IV. SIG Q18H ERWIN Rx#:[id number] Tube Feeding 605 / 605 1309 / 1309 Tube Irrigant 120 / 120 Water Bolus Amount 250 / 250 Output: Stool 100 / 100 Urine Amount (Catheter) 1100 / 1100 1175 / 1175 Indwelling Temp Sensing 1100 / 1100 1175 / 1175 Catheter Other: Date of Last Bowel Movement 02/21/18 02/21/18 02/23/18 02/19/18 21:10 Blood - Peripheral Aerobic Blood Culture - Preliminary No growth in 4 days 02/19/18 21:10 Blood - Peripheral Anaerobic Blood Culture - Preliminary No growth in 4 days 02/19/18 21:15 Blood - Peripheral Aerobic Blood Culture - Preliminary No growth in 4 days 02/19/18 21:15 Blood - Peripheral Anaerobic Blood Culture - Preliminary No growth in 4 days 02/21/18 11:50 Catheterized Urine Urine Culture - Final No growth in 48 hours 02/20/18 01:30 Sputum - Endotracheal Gram Stain - Final 02/20/18 01:30 Sputum - Endotracheal Sputum Culture - Final No growth in 48 hours 02/17/18 04:30 Sputum - Expectorated Sputum Gram Stain - Final 02/17/18 04:30 Sputum - Expectorated Sputum Sputum Culture - Final Aspergillus fumigatis Lab - Hematology Results 02/22/18 02/23/18 03:25 03:30 WBC 25.7 H 30.8 H RBC 4.04 L 4.15 L Hgb 12.7 L 13.0 Hct 38.0 L 38.7 L MCV 94.0 93.3 MCH 31.5 31.2 MCHC 33.5 33.5 RDW 15.4 15.8 Plt Count 217 173 MPV 9.3 9.8 Prelim Diff (Auto) Manual diff required Slide review pending Neut % (Auto) 95.1 H Lymph % (Auto) 1.3 L [place] % (Auto) 3.5 Eos % (Auto) 0.0 Baso % (Auto) 0.1 Neut # (Auto) 29.3 H Lymph # (Auto) 0.4 L [place] # (Auto) 1.1 H Eos # (Auto) 0.0 Baso # (Auto) 0.0 WBC Differential Manual diff final Manual diff final Seg Neuts % (Manual) 96 H 94 H Band Neuts % (Manual) 1 Monocytes % (Manual) 3 4 Myelocytes % (Man) 1 H Plasma Cell % (Manual) 1 H Abs Neuts (Manual) 24.9 H 29.3 H Differential Comment . . Platelet Estimate Normal Normal Platelet Morphology Normal Enlarged H RBC Morphology Normal Lab - Chemistry Results 02/21/18 02/21/18 02/22/18 17:36 23:48 03:25 Sodium 150 H Potassium 4.4 Chloride 114 H Carbon Dioxide 30.1 Anion Gap 6 BUN 41 H Creatinine 1.54 H Estimated GFR 46 L POC Glucose 106 144 H Random Glucose 157 H Calcium 7.7 L Phosphorus 2.3 L Magnesium 2.7 H Total Bilirubin 0.3 AST 135 H ALT 116 H Alkaline Phosphatase 92 Total Protein 5.6 L Albumin 1.5 L 02/22/18 02/22/18 02/22/18 06:32 11:43 17:45 Sodium 150 H Potassium 5.0 Chloride 113 H Carbon Dioxide 32.2 H Anion Gap 5 BUN 44 H Creatinine 1.54 H Estimated GFR 46 L POC Glucose 145 H 141 H Random Glucose 162 H Calcium 7.9 L Phosphorus Magnesium Total Bilirubin AST ALT Alkaline Phosphatase Total Protein Albumin 02/22/18 02/23/18 02/23/18 17:45 01:06 03:30 Sodium 150 H Potassium 5.3 H Chloride 115 H Carbon Dioxide 29.8 Anion Gap 5 BUN 53 H Creatinine 1.53 H Estimated GFR 46 L POC Glucose 141 H 171 H Random Glucose 172 H Calcium 8.1 L Phosphorus 3.8 D Magnesium 2.9 H Total Bilirubin 0.3 AST 104 H ALT 116 H Alkaline Phosphatase 109 Total Protein 5.9 L Albumin 1.4 L 02/23/18 11:22 Sodium Potassium Chloride Carbon Dioxide Anion Gap BUN Creatinine Estimated GFR POC Glucose 160 H Random Glucose Calcium Phosphorus Magnesium Total Bilirubin AST ALT Alkaline Phosphatase Total Protein Albumin Imaging: ITS Impressions Head CT 02/13/18 19:41 CONCLUSION: 1. Mild periventricular white matter small vessel ischemic changes bilaterally. 2. No acute infarct, acute hemorrhage, mass effect or extra axial fluid collections. . Chest CT 02/16/18 00:00 CONCLUSION: 1. Nonspecific bilateral pneumonia as described. 2. Tiny right pleural effusion. 3. Upper limits of normal to slightly enlarged mediastinal and hilar lymph nodes. Abdomen/Bladder Ultrasound 02/16/18 18:18 CONCLUSION: 1. Echogenic kidneys consistent with medical renal disease. 2. No sonographic evidence for obstructive uropathy. 3. 5 mm cyst in the inferior pole the right kidney. 4. Nonspecific prostate enlargement. Chest X-Ray 02/23/18 14:28 CONCLUSION: ET tube in good position. Stable parenchymal changes both lungs. Physical Exam: GENERAL: sedated on the vent, mildly dyspneic SKIN: Cool and dry. HEAD: Atraumatic. Normocephalic. No temporal wasting, or tenderness. EYES: Lynn conjunctiva. No petechia or hemorrhage. Pupils equal, round and reactive to light. No scleral icterus. No injection or drainage. EARS, NOSE AND THROAT: Nose without bleeding or purulent nasal discharge. He is orally intubated. NECK: Trachea midline. Supple and not tender, no meningeal signs CARDIOVASCULAR: Regular rate and rhythm. No murmurs, rubs or gallops heard RESPIRATORY: He has decreased breath sounds on the right lung field. ABDOMEN: Soft, not distended, no reaction to palpation. Bowel sounds are present and hypoactive. EXTREMITIES: No clubbing, cyanosis, or edema. NEUROLOGICAL: Sedated on the vent PSYCHIATRIC: Unable to assess LINE: No evidence of infection Assessment and Plan - Plan Impression Pneumonia, bilateral. - urine pneumococcal Ag (+) - ?other pathogens COPD Respiratory failure Aspergillus in sputum likely contaminant Renal insufficiency Worsening leukocytosis, etiology? Recommendations Follow C/S Follow CBC Continue Cefepime Continue vanco Continue Zithromax Also on Diflucan Monitor progress Weaning per CCM
--- NOTE | 2018-02-23 17:02 | P.PCN ---
Date of procedure: 02/23/18 Pre-op diagnosis: Hypotension Post-op diagnosis: same (Hypertension) Procedure: DATE: 02/23/2018 PROCEDURE: Right femoral arterial catheter placement INDICATION: Hypotension DETAILS OF PROCEDURE The patient was placed in supine position. The skin was cleansed with Chloraprep. Additional barrier precautions included large sterile drape, sterile gloves, sterile gown, face mask, and hat. 1% lidocaine was used for local anesthesia. Under direct ultrasound guidance and on the initial attempt, the artery was accessed with an introducer needle. The guide wire was advanced. Using Seldinger technique 20 gauge arterial catheter was placed. The guide wire was removed. The catheter was connected to a transducer line and flushed with saline. The video monitor displayed normal arterial wave forms. The catheter was secured with 2-0 silk. A sterile dressing with antibiotic disc was applied. ESTIMATED BLOOD LOSS: minimal COMPLICATIONS: None
--- NOTE | 2018-02-23 18:46 | XR ---
EXAM DATE: 02/23/2018 6:31 PM EST AGE/SEX: 67 years / Male INDICATIONS: Post chest tube placement. CLINICAL DATA: This is the patient's initial encounter. Patient reports that signs and symptoms have been present for 1 day and indicates a pain score of Nonresponsive. MEDICAL/SURGICAL HISTORY: . Hypertension. Chronic obstructive pulmonary disease. None. COMPARISON: C, CHEST 1V SINGLE AP, 02/23/2018. . FINDINGS: Endotracheal tube in good position. NG is seen entering the stomach. Left-sided central line is in th e superior vena cava. Bilateral lung consolidation most severe at the right lung base similar to prio r exam. No pneumothorax or significant right pleural effusion. Small caliber right chest tube present at the right lung base. Small left pleural effusion. CONCLUSION: Placement of small-caliber right-sided chest tube. No pneumothorax. Remaining support apparatus uncha nged. Electronically signed by: Matt Horn MD Board Certified Radiologist 02/23/2018 6:45 PM EST
--- NOTE | 2018-02-23 18:54 | P.PCN ---
Date of procedure: 02/23/18 Pre-op diagnosis: Hypoxia, pneumonia, pl effusion Post-op diagnosis: same Procedure: Right `pigtail chest tube placement, ultrasound-guided Details of procedure: Emergency procedure due to hypoxia and probable parapneumonic effusion. The patient was laid in left lateral decubitus position. The lateral chest wall was cleaned with ChloraPrep twice. Regional sterile drapes were applied. 1% lidocaine was used for local anesthesia and injected into the subcutaneous and deep muscle tissues at the site marked by ultrasound. A 0.25 cm skin incision was made with a scalpel blade. Insertion needle was placed angled superiorly and posteriorly and the insertion needle was entered into the pleural space superior to the rib and slightly cloudy yellow pleural fluid was obtained. Guidewire was placed and site was dilated. A size 10 Kiswahili chest tube was inserted into the pleural cavity using Seldinger technique with initial output of approximately 550 mL of slightly cloudy yellow pleural fluid. 3.0 silk was used to to secure the chest tube along with StayFix. The chest tube was connected to a Pleuro-vac drainage system via vinyl connecting tube. No air leak. CXR no pneumothorax, good evacuation of effusion Anesthesia: local Surgeon: Claude Otero Estimated blood loss (mL): 1 Pathology: other (pl fluid studies) Condition: critical Disposition: ICU
--- NOTE | 2018-02-23 19:12 | P.PN ---
Subjective Interval history: He is lethargic and on 40% FIO2 on the vent. Back to A/C rate 15 and PEEP +5. Physical Exam Vital signs: Vital Signs 02/22/18 19:39 02/22/18 19:40 02/22/18 20:00 Temperature 97.9 F Pulse Rate 110 H 109 H Respiratory Rate 22 23 22 Blood Pressure 131/85 Pulse Oximetry 95 96 02/22/18 21:00 02/22/18 22:00 02/22/18 23:00 Temperature 97.9 F 98.1 F 98.1 F Pulse Rate 111 H 109 H 112 H Respiratory Rate 22 23 23 Blood Pressure 126/82 131/86 132/91 H Pulse Oximetry 96 97 96 02/23/18 00:00 02/23/18 00:11 02/23/18 00:16 Temperature 98.1 F Pulse Rate 114 H 110 H Respiratory Rate 20 23 24 Blood Pressure 136/93 H Pulse Oximetry 95 93 L 02/23/18 01:00 02/23/18 02:00 02/23/18 02:30 Temperature 98.2 F 98.4 F Pulse Rate 114 H 117 H Respiratory Rate 20 Blood Pressure 144/93 H 153/103 H Pulse Oximetry 92 L 90 L 92 L 02/23/18 03:00 02/23/18 04:00 02/23/18 04:19 Temperature 98.6 F 98.6 F Pulse Rate 119 H 116 H Respiratory Rate 24 22 Blood Pressure 152/97 H 123/86 Pulse Oximetry 92 L 94 L 93 L 02/23/18 04:23 02/23/18 05:00 02/23/18 06:00 Temperature 98.2 F 98.4 F Pulse Rate 114 H 115 H 111 H Respiratory Rate 23 24 21 Blood Pressure 113/76 116/79 Pulse Oximetry 95 98 02/23/18 07:00 02/23/18 07:30 02/23/18 07:59 Temperature 98.2 F 98.2 F Pulse Rate 113 H 111 H 109 H Respiratory Rate 21 23 16 Blood Pressure 132/88 127/85 Pulse Oximetry 98 98 95 02/23/18 08:00 02/23/18 08:05 02/23/18 08:30 Temperature 98.2 F 98.2 F Pulse Rate 113 H 113 H 119 H Respiratory Rate 15 16 27 H Blood Pressure 130/94 H 110/81 Pulse Oximetry 96 95 01/04/19 09:00 02/23/18 09:30 02/23/18 10:00 Temperature 98.2 F 88.2 F L 97.9 F Pulse Rate 119 H 131 H 131 H Respiratory Rate 32 H 34 H 25 H Blood Pressure 180/101 H 111/69 111/82 Pulse Oximetry 86 L 97 02/23/18 10:03 02/23/18 10:30 02/23/18 11:00 Temperature 97.7 F 97.7 F Pulse Rate 123 H 122 H 127 H Respiratory Rate 22 23 25 H Blood Pressure 118/80 140/83 Pulse Oximetry 94 L 95 02/23/18 11:30 02/23/18 11:40 02/23/18 12:00 Temperature 97.2 F L 97.0 F L Pulse Rate 127 H 125 H 128 H Respiratory Rate 26 H 23 27 H Blood Pressure 146/93 H 160/93 H Pulse Oximetry 95 94 L 92 L 02/23/18 12:30 02/23/18 13:00 02/23/18 13:30 Temperature 97.0 F L 97.2 F L 97.2 F L Pulse Rate 129 H 119 H 123 H Respiratory Rate 27 H 23 27 H Blood Pressure 143/96 H 130/90 131/92 H Pulse Oximetry 90 L 88 L 90 L 02/23/18 14:00 02/23/18 15:25 02/23/18 15:27 Temperature 97.2 F L 97.0 F L 97.0 F L Pulse Rate 123 H 120 H 124 H Respiratory Rate 27 H 30 H 28 H Blood Pressure 138/80 140/86 Pulse Oximetry 90 L 89 L 92 L 02/23/18 15:29 02/23/18 15:31 02/23/18 15:33 Temperature 97.0 F L 97.0 F L 97.0 F L Pulse Rate 124 H 124 H 123 H Respiratory Rate 30 H 28 H 29 H Blood Pressure 141/84 H 145/81 H 140/87 Pulse Oximetry 91 L 91 L 91 L 02/23/18 15:35 02/23/18 15:37 02/23/18 15:39 Temperature 97.0 F L 96.1 F L 96.1 F L Pulse Rate 126 H 124 H 124 H Respiratory Rate 29 H 28 H 29 H Blood Pressure 137/86 134/77 136/80 Pulse Oximetry 90 L 90 L 90 L 02/23/18 15:41 02/23/18 15:43 02/23/18 15:45 Temperature 96.3 F L 96.3 F L 96.3 F L Pulse Rate 124 H 124 H 124 H Respiratory Rate 29 H 29 H 29 H Blood Pressure 129/82 127/81 123/77 Pulse Oximetry 90 L 90 L 90 L 02/23/18 15:47 02/23/18 15:49 02/23/18 15:51 Temperature 96.3 F L 96.3 F L 96.3 F L Pulse Rate 123 H 122 H 122 H Respiratory Rate 27 H 27 H 28 H Blood Pressure 117/72 122/76 121/75 Pulse Oximetry 90 L 89 L 89 L 02/23/18 15:53 02/23/18 16:00 02/23/18 16:01 Temperature 96.3 F L 97.3 F L 97.3 F L Pulse Rate 121 H 116 H 118 H Respiratory Rate 28 H 27 H 27 H Blood Pressure 117/73 111/64 Pulse Oximetry 89 L 88 L 88 L 02/23/18 16:16 02/23/18 16:31 02/23/18 16:46 Temperature 97.5 F L 90.3 F L 90.5 F L Pulse Rate 119 H 121 H 115 H Respiratory Rate 25 H 25 H 24 Blood Pressure 88/60 L 95/59 L 92/58 L Pulse Oximetry 89 L 92 L 90 L 02/23/18 16:55 02/23/18 17:00 02/23/18 17:01 Temperature 98.6 F 98.6 F 98.6 F Pulse Rate 117 H 114 H 113 H Respiratory Rate 23 24 25 H Blood Pressure 89/59 L 99/62 L Pulse Oximetry 91 L 90 L 90 L 02/23/18 17:16 02/23/18 17:31 02/23/18 17:46 Temperature 98.6 F 98.6 F 98.6 F Pulse Rate 114 H 107 H 103 H Respiratory Rate 24 25 H 24 Blood Pressure 91/57 L 100/62 107/65 Pulse Oximetry 90 L 91 L 92 L 02/23/18 18:00 02/23/18 18:01 Temperature 98.6 F 98.6 F Pulse Rate 102 H 102 H Respiratory Rate 24 24 Blood Pressure 98/58 L Pulse Oximetry 97 97 Intake & Output 02/23/18 02/23/18 02/24/18 06:59 18:59 06:59 Intake Total 2221.5 / 2221.5 1680.0 / 1680.0 Output Total 1175 / 1175 1190 / 1190 Balance 1046.5 / 1046.5 490.0 / 490.0 Intake: IV 912.5 / 912.5 825.0 / 825.0 Diprivan 1000 mg/100 ml Inj 1, 200 / 200 200 / 200 000 mg In 100 ml @ 5 MCG/KG/MIN 2.172 mls/hr IV.CONT TITRATE PRN Rx#:[id number] Azithromycin Inj 500 MG In NS 250 / 250 Inj 250 ML @ 250 mls/hr IV.SIG Q24H ERWIN Rx#:[id number] Maxipime Inj 2,000 MG In NS Inj 100 / 100 100 / 100 100 ML @ 200 mls/hr IV.SIG Q12H ERWIN Rx#:[id number] Levophed-Dextrose 4 mg/250 ml 250 / 250 Drip 4 mg In 250 ml @ 2 MCG/MIN 7.5 mls/hr IV.SIG TITRATE PRN Rx#:[id number] Vancomycin Inj 1,250 MG In NS 262.5 / 262.5 275.0 / 275.0 Inj 250 ML @ 262.5 mls/hr IV. SIG Q18H ERWIN Rx#:[id number] Tube Feeding 1309 / 1309 655 / 655 Tube Irrigant 200 / 200 Output: Stool 400 / 400 Urine Amount (Catheter) 1175 / 1175 790 / 790 Indwelling Temp Sensing 1175 / 1175 790 / 790 Catheter Other: Date of Last Bowel Movement 02/21/18 02/23/18 # Bowel Movements 1 Narrative: Gen.: Elderly W/M sedated and on the vent, and breathing labored Head: Normocephalic. Atraumatic. EENT: Pupils equal round and reactive to light. Nose without drainage. Cardiovascular: Regular rate and rhythm. No murmurs, rubs or gallops. Respiratory: Bilateral wheezing with distant breath sounds and few basal crackles.. Abdomen: Soft, nontender, nondistended. Musculoskeletal: No gross deformities. Mild edema. Skin: No obvious rashes or erythema. Neuro: Sedated. - Urinary Catheter Management Straight Cath placed during this visit: yes Reason for continuing: Acute urinary retention Insertion date: 02/20/18 Insertion time: 16:45 Indwelling Temp Sensing Catheter Cath placed during this visit: yes Reason for continuing: Acute urinary retention Insertion date: 02/20/18 Insertion time: 18:42 Results - Labs CBC & Chem 7: 02/23/18 03:30 02/23/18 03:30 Laboratory Results - last 24 hr 02/20/18 02/23/18 02/23/18 05:19 01:06 03:30 WBC 30.8 H RBC 4.15 L Hgb 13.0 Hct 38.7 L MCV 93.3 MCH 31.2 MCHC 33.5 RDW 15.8 Plt Count 173 MPV 9.8 Prelim Diff (Auto) Slide review pending Neut % (Auto) 95.1 H Lymph % (Auto) 1.3 L [place] % (Auto) 3.5 Eos % (Auto) 0.0 Baso % (Auto) 0.1 Neut # (Auto) 29.3 H Lymph # (Auto) 0.4 L [place] # (Auto) 1.1 H Eos # (Auto) 0.0 Baso # (Auto) 0.0 WBC Differential Manual diff final Seg Neuts % (Manual) 94 H Monocytes % (Manual) 4 Myelocytes % (Man) 1 H Plasma Cell % (Manual) 1 H Abs Neuts (Manual) 29.3 H Differential Comment . Platelet Estimate Normal Platelet Morphology Enlarged H Puncture Site Patient Temperature O2 Saturation ABG pH ABG pCO2 ABG pO2 ABG HCO3 ABG O2 Content ABG Base Excess ABG Methemoglobin Jeffery Test Hemoglobin Carboxyhemoglobin O2 Delivery Device Vent Setting Inspired O2 Critical Value Sodium Potassium Chloride Carbon Dioxide Anion Gap BUN Creatinine Estimated GFR POC Glucose 171 H Random Glucose Calcium Phosphorus Magnesium Total Bilirubin AST ALT Alkaline Phosphatase Total Protein Albumin C. pneumoniae IgG Titer 1:64 H C. pneumoniae IgA Titer <1:16 C. pneumoniae IgM Titer <1:10 C. pneumoniae Ab Interp Past infection 02/23/18 02/23/18 02/23/18 03:30 08:33 11:22 WBC RBC Hgb Hct MCV MCH MCHC RDW Plt Count MPV Prelim Diff (Auto) Neut % (Auto) Lymph % (Auto) [place] % (Auto) Eos % (Auto) Baso % (Auto) Neut # (Auto) Lymph # (Auto) [place] # (Auto) Eos # (Auto) Baso # (Auto) WBC Differential Seg Neuts % (Manual) Monocytes % (Manual) Myelocytes % (Man) Plasma Cell % (Manual) Abs Neuts (Manual) Differential Comment Platelet Estimate Platelet Morphology Puncture Site Right radial Patient Temperature 98.6 O2 Saturation 91 ABG pH 7.42 ABG pCO2 46 H ABG pO2 68 ABG HCO3 29 H ABG O2 Content 17.4 ABG Base Excess 5.1 H ABG Methemoglobin 1.3 Jeffery Test Present Hemoglobin 13.5 Carboxyhemoglobin 0.8 O2 Delivery Device Ventilator Vent Setting Prvc/ac Inspired O2 40 Critical Value No Sodium 150 H Potassium 5.3 H Chloride 115 H Carbon Dioxide 29.8 Anion Gap 5 BUN 53 H Creatinine 1.53 H Estimated GFR 46 L POC Glucose 160 H Random Glucose 172 H Calcium 8.1 L Phosphorus 3.8 D Magnesium 2.9 H Total Bilirubin 0.3 AST 104 H ALT 116 H Alkaline Phosphatase 109 Total Protein 5.9 L Albumin 1.4 L C. pneumoniae IgG Titer C. pneumoniae IgA Titer C. pneumoniae IgM Titer C. pneumoniae Ab Interp 02/23/18 15:50 WBC RBC Hgb Hct MCV MCH MCHC RDW Plt Count MPV Prelim Diff (Auto) Neut % (Auto) Lymph % (Auto) [place] % (Auto) Eos % (Auto) Baso % (Auto) Neut # (Auto) Lymph # (Auto) [place] # (Auto) Eos # (Auto) Baso # (Auto) WBC Differential Seg Neuts % (Manual) Monocytes % (Manual) Myelocytes % (Man) Plasma Cell % (Manual) Abs Neuts (Manual) Differential Comment Platelet Estimate Platelet Morphology Puncture Site Right radial Patient Temperature 98.6 O2 Saturation 88 L* ABG pH 7.27 L* ABG pCO2 66 H* ABG pO2 70 ABG HCO3 29 H ABG O2 Content 17.2 ABG Base Excess 3.1 H ABG Methemoglobin 1.4 Jeffery Test Present Hemoglobin 14.0 Carboxyhemoglobin 0.6 O2 Delivery Device Ventilator Vent Setting Ac20/600/+15 Inspired O2 60 Critical Value Yes Sodium Potassium Chloride Carbon Dioxide Anion Gap BUN Creatinine Estimated GFR POC Glucose Random Glucose Calcium Phosphorus Magnesium Total Bilirubin AST ALT Alkaline Phosphatase Total Protein Albumin C. pneumoniae IgG Titer C. pneumoniae IgA Titer C. pneumoniae IgM Titer C. pneumoniae Ab Interp Microbiology 02/19/18 21:10 Blood - Peripheral Aerobic Blood Culture - Preliminary No growth in 4 days 02/19/18 21:10 Blood - Peripheral Anaerobic Blood Culture - Preliminary No growth in 4 days 02/19/18 21:15 Blood - Peripheral Aerobic Blood Culture - Preliminary No growth in 4 days 02/19/18 21:15 Blood - Peripheral Anaerobic Blood Culture - Preliminary No growth in 4 days 02/21/18 11:50 Catheterized Urine Urine Culture - Final No growth in 48 hours - Imaging Impressions Chest X-Ray 02/23/18 00:00 CONCLUSION: Placement of small-caliber right-sided chest tube. No pneumothorax. Remaining support apparatus unchanged. Chest X-Ray 02/23/18 06:00 CONCLUSION: No significant change. Consolidative opacity remains in the right lung base with right pleural effusion. Chest X-Ray 02/23/18 14:28 CONCLUSION: ET tube in good position. Stable parenchymal changes both lungs. Assessment and Plan - Assessment (1) COPD (chronic obstructive pulmonary disease) with acute bronchitis Code(s): J44.0 - Chronic obstructive pulmonary disease with acute lower respiratory infection; J20.9 - Acute bronchitis, unspecified Status: Acute (2) Emphysema of lung Code(s): J43.9 - Emphysema, unspecified Status: Acute (3) Encephalopathy Code(s): G93.40 - Encephalopathy, unspecified Status: Acute (4) Atelectasis Code(s): J98.11 - Atelectasis Status: Acute (5) Respiratory failure requiring intubation Code(s): J96.90 - Respiratory failure, unspecified, unspecified whether with hypoxia or hypercapnia Status: Acute - Plan 1. Place back on Vent with A/C at 16 and FIO2 40 % 2. Nebs qid , duoneb. 3. Cont Solumedrol 40 mg IV Q8H 4. Chest Xray , CBC BMP in am 5. Continue antibiotics per ID 6. Mucomyst ,2-0 % 2 CC with nebs q6h 7. Symbicort 160/4.5 mcg , 2puffs BID 8. Wean sedation. 9. Tube feeds at 60 CC . 10. CPAP trial in am.
[2018-02-23 19:30] LABS: ABG Base Excess 3.7 mmol/L (-2-2); ABG PCO2 47 mmHg (38-42); ABG PO2 74 mmHg (61-120)
[2018-02-23] MEDS: Dexmedetomidine Inj 1,000 MCG in Sodium Chlor 0.9% Inj 240 ML IV.CONT PRN (20:23)
--- NOTE | 2018-02-23 20:44 | MR ---
EXAM DATE: 02/23/2018 8:38 PM EST AGE/SEX: 67 years / Male INDICATIONS: . Decreased level of consciousness. CLINICAL DATA: This is the patient's initial encounter. Patient reports that signs and symptoms have been present for 1 day and indicates a pain score of 0/10. MEDICAL/SURGICAL HISTORY: Chronic obstructive pulmonary disease. Hypertension. Umbilical herni a repair. COMPARISON: [facility] – [place], CT HEAD W/O CONTRAST, 02/13/2018. . TECHNIQUE: Multiplanar, multisequence examination of the brain was performed without contrast. FINDINGS: There is no evidence for intracranial hemorrhage, mass effect, mass lesions, edema, or extra-axial fl uid collections. There are no signs of acute infarction for technique. The diffusion portion is unr emarkable. Slight degree of brain atrophy is seen. Slight periventricular white matter changes are se en nonspecific mostly consistent with chronic small vessel ischemic changes. There is chronic opacif ication of bilateral mastoid sinuses. CONCLUSION: Chronic small vessel ischemic and atrophic changes. Electronically signed by: Hao Romero MD Board Certified Radiologist 02/23/2018 8:42 PM EST
--- NOTE | 2018-02-23 21:07 | CT ---
EXAM DATE: 02/23/2018 9:00 PM EST AGE/SEX: 67 years / Male INDICATIONS: Nonproductive cough, fever CLINICAL DATA: This is the patient's initial encounter. Patient reports that signs and symptoms have been present for 4 - 6 days and indicates a pain score of Nonresponsive. MEDICAL/SURGICAL HISTORY: Chronic obstructive pulmonary disease. Hypertension. Peripheral vascula r disease. . Hernia repair RADIATION DOSE: 9.59 CTDI (mGy) [place] [facility] [place]/2018. . TECHNIQUE: Multiple contiguous axial images were obtained through the chest without contrast. Image s were obtained in suspended respiration using multiple row detector helical technique. Using automa evette exposure control and adjustment of the mA and/or kV according to patient size, radiation dose was kept as low as reasonably achievable to obtain optimal diagnostic quality images. DICOM format imag e data is available electronically for review and comparison. FINDINGS: Comparison is February 16. Since the prior exam peribronchial thickening and bilateral patchy airspac e disease has clearly worsened, especially the right lower lobe with some air bronchograms present. Currently there is no significant pleural effusion. Trace pericardial fluid. Heart size within normal limits. Endotracheal tube in good position. NG enters stomach. No acute find ings in the upper abdomen. CONCLUSION: 1. Worsening peribronchial thickening and bilateral patchy airspace consolidation in the lungs, righ t greater than left characteristic of worsening bronchopneumonia. Endotracheal tube and nasogastric t ube in good position. Electronically signed by: Matt Horn MD Board Certified Radiologist 02/23/2018 9:06 PM EST
[2018-02-24] MEDS: Propofol 1000 mg/100 ml Inj 1,000 MG/100 ML BOTTLE IV.CONT PRN ×2 (00:27→13:39)
[2018-02-24 01:07] LABS: Total Protein,Pleural Fluid 2.9 gm/dL
[2018-02-24 01:15] LABS: RBC,Pleural Fluid 1107 /mm3 (0-0)
[2018-02-24 01:20] LABS: Lymphocytes,Pleural Fluid 19 %; Mesothelial,Pleural Fluid 5 %; Monocytes,Pleural Fluid 4 %; Neutrophils,Pleural Fluid 42 %
[2018-02-24] MEDS: Insulin NovoLOG Aspart Correctional Sugar Inj SQ SCH ×5 (01:37→23:46)
[2018-02-24] MEDS: Heparin - SQ 10,000 UNITS/ML Vial SQ SCH ×3 (01:38→23:46)
[2018-02-24] MEDS: Artificial Tears Opth Drops 15 ML Bottle EACH EYE SCH ×2 (01:38→09:00)
[2018-02-24] MEDS: Dexmedetomidine Inj 1,000 MCG in Sodium Chlor 0.9% Inj 240 ML IV.CONT PRN (02:39)
[2018-02-24] MEDS ORDERED: fentaNYL Citrate Inj 250 MCG/5 ML Ampul IV.PUSH ONE ×2 (03:15)
[2018-02-24 03:43] LABS: Baso # (Auto) 0.1 th/mm3 (0.0-0.2); Baso % (Auto) 0.5 % (0.0-2.0); Hematocrit 34.5 % (39.0-51.0); Hemoglobin 11.8 gm/dL (13.0-17.0); Lymph # (Auto) 0.4 th/mm3 (1.0-4.8); Lymph % (Auto) 1.4 % (9.0-44.0); Mean Corpuscular HGB Conc 34.1 % (32.0-36.0); Mean Corpuscular Hemoglobin 31.5 pg (27.0-34.0); Mean Corpuscular Volume 92.4 fL (80.0-100.0); Mean Platelet Volume 10.4 fL (7.0-11.0); Mono # (Auto) 1.2 th/mm3 (0.0-0.9); Mono % (Auto) 4.2 % (0.0-8.0); Neut # (Auto) 27.9 th/mm3 (1.8-7.7); Neut % (Auto) 93.9 % (16.0-70.0); Platelet Count 146 th/mm3 (150-450); Red Blood Count 3.74 mil/mm3 (4.50-5.90); Red Cell Distribution Width 15.6 % (11.6-17.2); White Blood Count 29.8 th/mm3 (4.0-11.0)
[2018-02-24 04:19] LABS: Alanine Aminotransferase 96 U/L (12-78); Albumin 1.2 g/dL (3.4-5.0); Alkaline Phosphatase 105 U/L (45-117); Anion Gap 7 meq/L (5-15); Aspartate Aminotransferase 99 U/L (15-37); Blood Urea Nitrogen 67 mg/dL (7-18); Calcium 8.3 mg/dL (8.5-10.1); Carbon Dioxide 27.9 meq/L (21.0-32.0); Chloride 118 meq/L (98-107); Glomerular Filtration Rate 42 mL/min (>89); Glucose,Random 132 mg/dL (74-106); Magnesium 2.8 mg/dL (1.5-2.5); Phosphorus 3.1 mg/dL (2.5-4.9); Potassium 4.3 meq/L (3.5-5.1); Sodium 153 meq/L (136-145); Total Protein 5.4 g/dL (6.4-8.2); Vancomycin,Trough 25.3 mcg/mL (5.0-10.0)
[2018-02-24 04:26] LABS: ABG Base Excess 3.2 mmol/L (-2-2); ABG PCO2 42 mmHg (38-42); ABG PO2 76 mmHg (61-120)
[2018-02-24 04:57] LABS: Platelet Morphology Normal (Normal)
[2018-02-24 05:02] LABS: Hepatitis A IgM Antibody Nonreactive (Nonreactive)
[2018-02-24 05:03] LABS: Hepatitits B Surface Antigen Nonreactive (Nonreactive)
[2018-02-24] MEDS: MethylPREDNISolone Sod Succinate Inj 40 MG/ML Vial IV.PUSH SCH ×3 (05:34→21:12)
[2018-02-24] MEDS ORDERED: Pharmacy Ordered Lab Info OTHER ONE (05:45)
[2018-02-24] MEDS: Vancomycin Inj 1,250 MG in Sodium Chlor 0.9% Inj 250 ML IV.SIG SCH (06:00)
--- NOTE | 2018-02-24 06:13 | XR ---
EXAM DATE: 02/24/2018 5:34 AM EST AGE/SEX: 67 years / Male INDICATIONS: Pneumonia. CLINICAL DATA: This is the patient's subsequent encounter. Patient reports that signs and symptoms h ave been present for 2 weeks and indicates a pain score of Nonresponsive. MEDICAL/SURGICAL HISTORY: . Hypertension. Chronic obstructive pulmonary disease. None. COMPARISON: [facility], CHEST 1V SINGLE AP, 02/23/2018. . FINDINGS: 2 AP semierect portable view of the chest were obtained. Endotracheal tube remains in place with the tip approximately 2 cm above the vic[place]. Nasogastric tube is again seen coursing through the esophagu s and stomach. The left internal jugular central venous line remains in place. Alveolar opacities rem ain in both lungs with consolidation again noted in the right lung base. The left costophrenic angle is mildly blunted. The heart size remains within normal limits. CONCLUSION: Bilateral airspace disease again noted with consolidation remaining at the right lung base. This does not appear significantly changed. Electronically signed by: Kenneth Orellana MD Board Certified Radiologist 02/24/2018 6:12 AM EST
--- NOTE | 2018-02-24 08:41 | P.PNCC ---
Subjective Subjective Remarks/Hospital Course: This is a 67-year-old male. Date of admission 02/13/2018. Date of consultation 02/08/2018. Past medical history includes ongoing tobaccoism, COPD , peripheral vascular disease including sent to the right lower extremity on clopidogrel, hyperlipidemia, essential hypertension who presents to the emergency department at [facility] on 02/13 for the evaluation of altered mental status. Events is document states he had acute delirium times 4-5 days. He also was documented stating he had a nonproductive cough, fever and diarrhea with accompanying shortness of breath. Lack of appetite. He denied any chest pain. According to his neighbor per documentation, they went to check on him and found his door to be partially ajar. They found the patient lying down and he could not remember what day it was. He stated he had not had anything to eat or drink in many days. Patient was admitted on the hospital service after CT of the brain revealed small vessel ischemic changes. Influenza a and B are negative. Blood cultures negative. His urine pneumococcal antigen was positive. He was treated with ceftriaxone and azithromycin. He was treated with bronchodilators every 6 hours and methylprednisolone Succinate 40 mg IV every 8 hours. He is on 2 L nasal cannula. Today, breath. Rapid response was called. He was noted to be febrile temperature of 102.5 Fahrenheit and noted to be tachypneic. He received bronchodilator therapy. Chest x-ray revealed a right middle lobe infiltrate. He was transferred to the ICU for evaluation. On my evaluation patient is on 2 L nasal cannula. He is not using accessory muscles. He is able to complete sentences. He does have a cough present time with white sputum. Denies hemoptysis. 02/17: Afebrile. Continues to be quite wheezy. Slight retractions. Will increase methylprednisolone. On aggressive pulmonary toilet therapy at the present time. CT chest revealed bilateral patchy pneumonia. 02/18: Afebrile. On 3 L nasal cannula satting 94-97%. Less wheezy today. In much better spirits. 02/19: Decompensated overnight requiring mechanical intubation. Hypotensive so central line placed earlier this a.m. Creatinine stable 1.3. White blood cell count slightly improved to 14,000. Continue antibiotic therapy. 02/20: Oxygenation acceptable at 40% FiO2. Glucose control problematic owing largely to tube feeds and steroids. Will augment sliding scale with very low- dose Levemir. Switch to Glucerna if problem continues. GFR declining modestly , concern for osmotic diuresis. Watch carefully, add hydration if necessary. Attempted CPAP trial today which resulted in tachypnea and small volumes; patient appeared to be talking pretty hard despite pressure support of 12. 02/21: Afebrile. Oxygenation 40%. We will continue to wean. Appears volume overloaded with positive intake versus output. Tolerating tube feeding. 02/22: Currently on CPAP trial 08/02 at 50%. Tachypneic. Arousable but not following commands. X-ray possible pleural effusion noted. Will attempt to diurese again. 02/23: FiO2 increased to 70%. Removed filter from expiratory port GE vent... now FiO2 down to 40%. Order written for no more added space. Getting hyperkalemia protocol. Will reassess. Subjective: 02/24: CT thorax overnight revealed worsening bilateral bronchopneumonia. -625 out of chest tube overnight. We will place on Nimbex drip due to ventilator assynchrony. 1000 cc at OT. Will check KUB now. Switch vasopressors to D5 water if able a maximum concentration CPK and troponin pending. Objective Vital Signs / I&O: Vital Signs 02/23/18 09:00 02/23/18 09:30 02/23/18 10:00 Temperature 98.2 F 88.2 F L 97.9 F Pulse Rate 119 H 131 H 131 H Respiratory Rate 32 H 34 H 25 H Blood Pressure 180/101 H 111/69 111/82 Pulse Oximetry 86 L 97 02/23/18 10:03 02/23/18 10:30 02/23/18 11:00 Temperature 97.7 F 97.7 F Pulse Rate 123 H 122 H 127 H Respiratory Rate 22 23 25 H Blood Pressure 118/80 140/83 Pulse Oximetry 94 L 95 02/23/18 11:30 02/23/18 11:40 02/23/18 12:00 Temperature 97.2 F L 97.0 F L Pulse Rate 127 H 125 H 128 H Respiratory Rate 26 H 23 27 H Blood Pressure 146/93 H 160/93 H Pulse Oximetry 95 94 L 92 L 02/23/18 12:30 02/23/18 13:00 02/23/18 13:30 Temperature 97.0 F L 97.2 F L 97.2 F L Pulse Rate 129 H 119 H 123 H Respiratory Rate 27 H 23 27 H Blood Pressure 143/96 H 130/90 131/92 H Pulse Oximetry 90 L 88 L 90 L 02/23/18 14:00 02/23/18 15:25 02/23/18 15:27 Temperature 97.2 F L 97.0 F L 97.0 F L Pulse Rate 123 H 120 H 124 H Respiratory Rate 27 H 30 H 28 H Blood Pressure 138/80 140/86 Pulse Oximetry 90 L 89 L 92 L 02/23/18 15:29 02/23/18 15:31 02/23/18 15:33 Temperature 97.0 F L 97.0 F L 97.0 F L Pulse Rate 124 H 124 H 123 H Respiratory Rate 30 H 28 H 29 H Blood Pressure 141/84 H 145/81 H 140/87 Pulse Oximetry 91 L 91 L 91 L 02/23/18 15:35 02/23/18 15:37 02/23/18 15:39 Temperature 97.0 F L 96.1 F L 96.1 F L Pulse Rate 126 H 124 H 124 H Respiratory Rate 29 H 28 H 29 H Blood Pressure 137/86 134/77 136/80 Pulse Oximetry 90 L 90 L 90 L 02/23/18 15:41 02/23/18 15:43 02/23/18 15:45 Temperature 96.3 F L 96.3 F L 96.3 F L Pulse Rate 124 H 124 H 124 H Respiratory Rate 29 H 29 H 29 H Blood Pressure 129/82 127/81 123/77 Pulse Oximetry 90 L 90 L 90 L 02/23/18 15:47 02/23/18 15:49 02/23/18 15:51 Temperature 96.3 F L 96.3 F L 96.3 F L Pulse Rate 123 H 122 H 122 H Respiratory Rate 27 H 27 H 28 H Blood Pressure 117/72 122/76 121/75 Pulse Oximetry 90 L 89 L 89 L 02/23/18 15:53 02/23/18 16:00 02/23/18 16:01 Temperature 96.3 F L 97.3 F L 97.3 F L Pulse Rate 121 H 116 H 118 H Respiratory Rate 28 H 27 H 27 H Blood Pressure 117/73 111/64 Pulse Oximetry 89 L 88 L 88 L 02/23/18 16:16 02/23/18 16:31 02/23/18 16:46 Temperature 97.5 F L 90.3 F L 90.5 F L Pulse Rate 119 H 121 H 115 H Respiratory Rate 25 H 25 H 24 Blood Pressure 88/60 L 95/59 L 92/58 L Pulse Oximetry 89 L 92 L 90 L 02/23/18 16:55 02/23/18 17:00 02/23/18 17:01 Temperature 98.6 F 98.6 F 98.6 F Pulse Rate 117 H 114 H 113 H Respiratory Rate 23 24 25 H Blood Pressure 89/59 L 99/62 L Pulse Oximetry 91 L 90 L 90 L 02/23/18 17:16 02/23/18 17:31 02/23/18 17:46 Temperature 98.6 F 98.6 F 98.6 F Pulse Rate 114 H 107 H 103 H Respiratory Rate 24 25 H 24 Blood Pressure 91/57 L 100/62 107/65 Pulse Oximetry 90 L 91 L 92 L 02/23/18 18:00 02/23/18 18:01 02/23/18 20:00 Temperature 98.6 F 98.6 F Pulse Rate 102 H 102 H Respiratory Rate 24 24 Blood Pressure 98/58 L Pulse Oximetry 97 97 99 02/23/18 21:03 02/23/18 21:10 02/23/18 21:12 Temperature 98.1 F Pulse Rate 108 H 109 H Respiratory Rate 25 H 27 H 27 H Blood Pressure 146/93 H Pulse Oximetry 94 L 97 02/23/18 22:00 02/23/18 23:00 02/23/18 23:26 Temperature 97.9 F 98.1 F Pulse Rate 96 H 103 H 95 H Respiratory Rate 23 26 H 24 Blood Pressure 111/74 141/94 H Pulse Oximetry 94 L 96 94 L 02/24/18 00:00 02/24/18 01:00 02/24/18 01:59 Temperature 98.4 F 98.6 F Pulse Rate 93 H 90 108 H Respiratory Rate 23 22 Blood Pressure 97/67 L 105/73 Pulse Oximetry 96 97 02/24/18 02:00 02/24/18 03:00 02/24/18 03:16 Temperature 96.6 F L 97.0 F L Pulse Rate 108 H 105 H 105 H Respiratory Rate 36 H 24 24 Blood Pressure 108/77 106/70 Pulse Oximetry 90 L 91 L 91 L 02/24/18 04:00 02/24/18 05:00 02/24/18 06:00 Temperature 97.5 F L 97.9 F 98.1 F Pulse Rate 107 H 124 H 119 H Respiratory Rate 20 24 26 H Blood Pressure 117/82 129/85 121/85 Pulse Oximetry 93 L 92 L 91 L 02/24/18 08:09 Temperature Pulse Rate 122 H Respiratory Rate 26 H Blood Pressure Pulse Oximetry 90 L Intake & Output 02/23/18 02/24/18 02/24/18 18:59 06:59 18:59 Intake Total 1680.0 / 1680.0 196 / 1961 263 / 263 Output Total 1190 / 1190 1225 / 1225 Balance 490.0 / 490.0 737 / 737 263 / 263 Weight 79.3 kg Intake: IV 825.0 / 825.0 1110 / 1110 263 / 263 Precedex Inj 1,000 MCG In NS 250 / 250 Inj 240 ML @ 0.2 MCG/KG/HR 3.62 mls/hr IV.CONT TITRATE PRN Rx# :[id number] Precedex Inj 200 MCG In NS Inj 50 / 50 48 ML @ 0.2 MCG/KG/HR 3.62 mls/ hr IV.CONT TITRATE PRN Rx#: [id number] Diprivan 1000 mg/100 ml Inj 1, 200 / 200 100 / 100 000 mg In 100 ml @ 5 MCG/KG/MIN 2.172 mls/hr IV.CONT TITRATE PRN Rx#:[id number] Azithromycin Inj 500 MG In NS 250 / 250 Inj 250 ML @ 250 mls/hr IV.SIG Q24H ERWIN Rx#:[id number] Calcium Chloride Inj 1 GM In NS 110 / 110 Inj 100 ML @ 110 mls/hr IV.SIG ONCE ONE Rx#:[id number] Maxipime Inj 2,000 MG In NS Inj 100 / 100 100 / 100 100 ML @ 200 mls/hr IV.SIG Q12H ERWIN Rx#:[id number] Levophed-Dextrose 4 mg/250 ml 250 / 250 250 / 250 Drip 4 mg In 250 ml @ 2 MCG/MIN 7.5 mls/hr IV.SIG TITRATE PRN Rx#:[id number] Vancomycin Inj 1,250 MG In NS 275.0 / 275.0 263 / 263 Inj 250 ML @ 262.5 mls/hr IV. SIG Q18H ERWIN Rx#:[id number] Tube Feeding 655 / 655 352 / 352 Tube Irrigant 200 / 200 Water Bolus Amount 500 / 500 Output: Stool 400 / 400 50 / 50 Urine Amount (Catheter) 790 / 790 1050 / 1050 Indwelling Temp Sensing 790 / 790 1050 / 1050 Catheter Chest Tube Drainage 125 / 125 Right 125 / 125 Other: Date of Last Bowel Movement 02/23/18 02/23/18 # Bowel Movements 1 Result Diagrams: 02/24/18 03:20 02/24/18 03:20 Other Results: Microbiology 02/19/18 21:10 Blood - Peripheral Aerobic Blood Culture - Preliminary No growth in 4 days 02/19/18 21:10 Blood - Peripheral Anaerobic Blood Culture - Preliminary No growth in 4 days 02/19/18 21:15 Blood - Peripheral Aerobic Blood Culture - Preliminary No growth in 4 days 02/19/18 21:15 Blood - Peripheral Anaerobic Blood Culture - Preliminary No growth in 4 days 02/21/18 11:50 Catheterized Urine Urine Culture - Final No growth in 48 hours 02/20/18 01:30 Sputum - Endotracheal Gram Stain - Final 02/20/18 01:30 Sputum - Endotracheal Sputum Culture - Final No growth in 48 hours 02/17/18 04:30 Sputum - Expectorated Sputum Gram Stain - Final 02/17/18 04:30 Sputum - Expectorated Sputum Sputum Culture - Final Aspergillus fumigatis 02/13/18 20:00 Blood - Peripheral Aerobic Blood Culture - Final No growth in 5 days 02/13/18 20:00 Blood - Peripheral Anaerobic Blood Culture - Final No growth in 5 days 02/13/18 19:50 Blood - Peripheral Aerobic Blood Culture - Final No growth in 5 days 02/13/18 19:50 Blood - Peripheral Anaerobic Blood Culture - Final No growth in 5 days 02/13/18 21:00 Throat Group A Streptococcus Screen/Cult - Final No Beta Streptococci isolated. 02/13/18 20:36 Urine - Clean Catch Urine Legionella Antigen - Final Presumptive negative for Legionella pneumophila serogroup 1 antigen in urine, suggesting no recent or recurrent infection. Infection due to Legionella cannot be ruled out since other serogroups and species may cause disease, antigen may not be present in urine in early infection, and the level of antigen present in the urine may be below the detection limit of the test. 02/13/18 20:36 Urine - Clean Catch Urine Streptococcus pneumoniae Antigen ( M - Final POS S. pneumoniae antigen 02/13/18 21:00 Throat Group A Streptococcus Screen (CRU[facility]) - Final 02/13/18 20:32 Nasal Wash Influenza Types A,B Antigen - Final Negative for FLU A and B antigen Infection due to influenza A or B cannot be ruled out since the antigen present in the sample may be below the detection limit of the test. Imaging: Chest X-Ray 02/13/18 19:41 CONCLUSION: 1. Negative portable chest. Head CT 02/13/18 19:41 CONCLUSION: 1. Mild periventricular white matter small vessel ischemic changes bilaterally. 2. No acute infarct, acute hemorrhage, mass effect or extra axial fluid collections. . Chest X-Ray 02/15/18 14:58 CONCLUSION: 1. Mild streakiness is noted involving the right medial lung base consistent with possible developing infiltrates. Clinical correlation is recommended. 2. Minimal increased perihilar streakiness is noted bilaterally. Chest CT 02/16/18 00:00 CONCLUSION: 1. Nonspecific bilateral pneumonia as described. 2. Tiny right pleural effusion. 3. Upper limits of normal to slightly enlarged mediastinal and hilar lymph nodes. Chest X-Ray 02/16/18 00:00 CONCLUSION: 1. Persistent hazy opacification of the medial right lung base. Recommend clinical correlation for infection. 2. Hyperinflation with streaky opacities radiating from the des, which may be related to underlying chronic obstructive pulmonary disease. Abdomen/Bladder Ultrasound 02/16/18 18:18 CONCLUSION: 1. Echogenic kidneys consistent with medical renal disease. 2. No sonographic evidence for obstructive uropathy. 3. 5 mm cyst in the inferior pole the right kidney. 4. Nonspecific prostate enlargement. Chest X-Ray 02/18/18 00:00 CONCLUSION: NG looped back on itself in the esophagus. This should be repositioned. Endotracheal tube in good position. Worsening bilateral airspace disease since earlier exam. Small effusions. Chest X-Ray 02/18/18 06:00 CONCLUSION: Modest worsening bilateral basilar and upper lobe airspace disease. Small bilateral effusions. Chest X-Ray 02/19/18 06:00 CONCLUSION: Airspace disease seen at the bases being worse on the right. Underlying interstitial disease. Some degree of effusion especially on the right cannot be excluded. Chest X-Ray 02/19/18 07:55 CONCLUSION: 1. Left IJ central line in good position without pneumothorax. 2. Persistent right lower lobe airspace disease and probable small pleural effusion. 3. Persistent minimal airspace disease at the left lung base. Chest X-Ray 02/20/18 06:00 CONCLUSION: Consolidation or atelectasis in the right mid and lower lung and to a lesser grade the left lower lung. Some degree of fusion should be considered. Chest X-Ray 02/22/18 06:00 CONCLUSION: Right lower lung atelectasis or consolidation. Some degree of right effusion can be considered. Diffuse increased interstitial markings related to underlying edema or underlying interstitial disease. The lungs appear hyperinflated. Chest CT 02/23/18 00:00 CONCLUSION: 1. Worsening peribronchial thickening and bilateral patchy airspace consolidation in the lungs, right greater than left characteristic of worsening bronchopneumonia. Endotracheal tube and nasogastric tube in good position. Chest X-Ray 02/23/18 00:00 CONCLUSION: Placement of small-caliber right-sided chest tube. No pneumothorax. Remaining support apparatus unchanged. Chest X-Ray 02/23/18 06:00 CONCLUSION: No significant change. Consolidative opacity remains in the right lung base with right pleural effusion. Head MRI 02/23/18 14:22 CONCLUSION: Chronic small vessel ischemic and atrophic changes. Chest X-Ray 02/23/18 14:28 CONCLUSION: ET tube in good position. Stable parenchymal changes both lungs. Chest X-Ray 02/24/18 06:00 CONCLUSION: Bilateral airspace disease again noted with consolidation remaining at the right lung base. This does not appear significantly changed. Objective Remarks: GENERAL: 67-year-old male, lightly sedated on mechanical ventilation SKIN: Warm and dry. HEAD: Atraumatic. Normocephalic. EYES: Pupils equal and round. No scleral icterus. No injection or drainage. ENT: No nasal bleeding or discharge. Mucous membranes pink and moist. NECK: Trachea midline. Left IJ CVL is clean dry and intact. Orotracheal intubation CARDIOVASCULAR: Tachycardic, RR. S1, S2 no S4. No murmur appreciated RESPIRATORY: Tachypneic with respiratory rate is around 30. Few end expiratory wheeze. Decreased breath sounds right lower lobe. GASTROINTESTINAL: Abdomen soft, non-tender, nondistended. No guarding, bowel sounds active MUSCULOSKELETAL: Extremities without clubbing, or significant peripheral edema. Warm, well-perfused. NEUROLOGICAL: Positive cough and gag. Positive corneal effects. Appears to be agonal breathing. On sedation vacation became tachycardic but did move bilateral upper and lower extremity slightly. Assessment and Plan - Assessment and Plan Plan: Neuro/Psych: Admission with acute delirium/encephalopathy toxic metabolic due to underlying pneumonia/community acquired Currently on propofol at 20 mcg/kg/min/dexmedetomidine drips at 0.8 mg/kg/h for sedation/vent synchrony We will place on propofol, fentanyl and midazolam drips and start on cisatracurium drip for vent synchrony Goal of RA SS -2 Daily sedation vacation Acetaminophen 650 p.o. every 6 hours as needed fever Hydrocodone/acetaminophen 5/325 1 tablet every 4 hours as needed pain [address] brain 02/13 revealed small vessel ischemic changes bilaterally. No acute infarction. MRI brain 02/23 revealed small vessel ischemic change. No acute findings CV: Essential hypertension Hyperlipidemia Peripheral vascular disease stenting to right lower extremity Systolic heart failure ejection fraction 35% unknown if acute or chronic Elevated troponin Holding olmesartan 40 mg daily/home medication for hypertension. Resume if clinically indicated Currently on atorvastatin 80 mg daily for hyperlipidemia. 2D echocardiogram left ventricular systolic function is severely reduced with an estimated ejection fraction in the range of 30-35%. Moderately dilated left ventricle. Wall thickness is normal. There is global left ventricular dysfunction Elevated troponin 0 0.27. Recheck tomorrow Continue home medication clopidogrel 75 mg daily As needed norepinephrine to maintain mean artery pressure equal to 65. Currently at 8 mcg/min Repeat CPK/troponin pending Resp: Acute respiratory failure/hypoxic hypercapnic COPD Community-acquired pneumonia ongoing tobaccoism Pleural effusion -exudative by light's criteria. Gram stain pending. PRVC ventilation Head of bed at 30 degrees with ventilator bundle Albuterol/ipratropium aerosols every 4 hours with albuterol aerosols every 2 hours as needed dyspnea Continue budesonide 0.5/2 1 inhalation twice daily Follow-up chest x-ray in a.m. 02/25 Continue methylprednisolone succinate 40 mg every 8 hours Currently paralyzed due to vent asynchrony. Tobacco cessation self evaluation booklet provided. Continue nicotine patch 14mg daily CT thorax 02/23 revealed worsening bronchopneumonia bilaterally. GI: Hypoalbuminemia Currently on a tube feeds Glucerna 1.5 55 cc an hour we will hold due to high outputs. N.p.o. except for medications Check KUB now. Start on medical 0.5 IV every 8 Lansoprazole for GI prophylaxis Docusate sodium/senna 1 tablet twice daily for bowel regimen. Add lactulose 30 cc twice daily : Armstrong catheter as needed Endo: Sliding scale insulin with aspart insulin Accu-Cheks AC/at bedtime to maintain euglycemia while on steroids Normal TSH 0.398 Persistent hyperglycemia mid 200s. Now in the 150s. Levemir 6 units subcu every 12 hours well tube feedings run at continuous rate. Hold insulin detemir while n.p.o. Renal: Acute kidney injury -likely worsening Right renal cyst Avoid nephrotoxic medications. Patient was on ibuprofen as an outpatient. Check renal ultrasound -medical renal disease. Right renal cyst GFR declining over the last 92 hours Continue free water 250 every 8 hours as tolerated Heme: Leukocytosis Normocytic anemia Thrombocytopenia Thrombus cytopenia Monitor CBC daily. Follow trends. No indication for transfusion of blood products at this time. ID: Streptococcal urinary antigen positive for community acquired pneumonia Currently on cefepime, azithromycin, vancomycin Previously on ceftriaxone since 02/13. Discontinued 02/17. Piperacillin/ tazobactam discontinued 02/16 -sputum with Aspergillus. Added fluconazole initially but discontinued 02/22 Blood cultures x2/influenza A/B 02/13 no growth to date Appreciated infectious disease consultation. Chlamydia and mycoplasma negative IgM. Positive IgG both Gram stain from pleural fluid pending 02/23 MSK: PT evaluate and treat FEN: Hypernatremia Hyper magnesium Replace electrolytes as clinically indicated per ICU electrolyte protocol We will attempt to switch all vasopressors to D5 water Free water flushes 250 cc every 8 hours Access -Left internal J CVL day #5/right femoral arterial line day #2 Prophylaxis -GI -lansoprazole -DVT -SCD/heparin subcu Care time 35 minutes Code Status: Full code
[2018-02-24] MEDS: Senna/Docusate Sodium 8.6/50 MG Tablet PO SCH ×2 (08:47→20:31)
[2018-02-24] MEDS: Insulin Detemir Inj 1,000 UNIT/10 ML Vial SQ SCH ×2 (08:48→21:12)
[2018-02-24] MEDS: fentaNYL 10 mcg/mL Premix Drip 2,500 MCG/250 ML BAG IV.SIG PRN (08:56)
[2018-02-24] MEDS: Midazolam 100 MG/100 ML Inj 100 MG/100 ML BAG IV.CONT PRN (08:57)
[2018-02-24] MEDS: Artificial Tears Opth Oint 3.5 GM Tube EACH EYE SCH ×2 (09:00→20:30)
[2018-02-24] MEDS: Cisatracurium Inj 100 MG in Sodium Chlor 0.9% Inj 240 ML IV.CONT PRN ×2 (09:09→22:13)
[2018-02-24 09:41] LABS: Troponin I 0.3 ng/mL (0.02-0.05)
--- NOTE | 2018-02-24 10:16 | XR ---
EXAM DATE: 02/24/2018 10:10 AM EST AGE/SEX: 67 years / Male INDICATIONS: Ileus. CLINICAL DATA: This is the patient's initial encounter. Patient reports that signs and symptoms have been present for 1 day and indicates a pain score of Nonresponsive. MEDICAL/SURGICAL HISTORY: . Hypertension. Chronic obstructive pulmonary disease. None. COMPARISON: C, CHEST 1V SINGLE AP, 02/24/2018. . FINDINGS: Right percutaneous pigtail drainage tube is in place projecting over right upper quadrant. NG tube is present with tip in the stomach. The bowel gas is nonspecific except for slight prominent gas within loops of large bowel may represent mild degree of colonic ileus. No definite signs of sma ll bowel obstruction. Bibasilar opacities are present in the lungs discussed on the patient's chest x -ray. CONCLUSION: Possible mild colonic ileus. Electronically signed by: Hao Romero MD Board Certified Radiologist 02/24/2018 10:15 AM EST
[2018-02-24 12:26] LABS: ABG Base Excess 0.9 mmol/L (-2-2); ABG PCO2 42 mmHg (38-42); ABG PO2 69 mmHg (61-120)
[2018-02-24] MEDS: Azithromycin Inj 500 MG in Sodium Chlor 0.9% Inj 250 ML IV.SIG SCH (17:11)
[2018-02-24] MEDS ORDERED: Digoxin Inj 500 MCG/2 ML Ampul ONE (17:39)
[2018-02-24 17:49] LABS: ABG Base Excess -0.9 mmol/L (-2-2); ABG PCO2 51 mmHg (38-42); ABG PO2 76 mmHg (61-120)
[2018-02-24] MEDS ORDERED: Digoxin Inj 500 MCG/2 ML Ampul IV.PUSH ONE (18:00)
[2018-02-24] MEDS ORDERED: Sodium Chlor 0.9% Inj 0 ML, Epoprostenol (30,000/mL) Neb 100 ML NEB SCH ×4 (18:15)
[2018-02-24] MEDS: Epoprostenol (30,000/mL) Neb 100 ML in Sodium Chlor 0.9% Inj 0 ML NEB SCH (18:23)
--- NOTE | 2018-02-24 19:40 | ECG ---
Date Performed: 02/23/2018 Time Performed: 17:23:16 PTAGE: 67 years EKG: Sinus tachycardia. Rightward axis Probable anteroseptal infarct - age undetermined Diffuse nonspecific T wave changes Compared to previous tracing, anterolateral T wave changes are new. HR is faster. Rate has gone from 76 to 110. Clinical correlation is recommended Abnormal ECG PREVIOUS TRACING : 02/17/2018 07.21 DOCTOR: Jeff Rodarte Interpretating Date/Time 02/24/2018 19:40:16
[2018-02-24 23:26] LABS: ABG Base Excess -0.3 mmol/L (-2-2); ABG PCO2 47 mmHg (38-42); ABG PO2 77 mmHg (61-120)
[2018-02-25] MEDS: Propofol 1000 mg/100 ml Inj 1,000 MG/100 ML BOTTLE IV.CONT PRN ×3 (00:34→19:15)
[2018-02-25] MEDS: fentaNYL 10 mcg/mL Premix Drip 2,500 MCG/250 ML BAG IV.SIG PRN ×2 (02:48→18:36)
[2018-02-25 04:32] LABS: Baso # (Auto) 0.1 th/mm3 (0.0-0.2); Baso % (Auto) 0.3 % (0.0-2.0); Hematocrit 34.2 % (39.0-51.0); Hemoglobin 11.5 gm/dL (13.0-17.0); Lymph # (Auto) 0.5 th/mm3 (1.0-4.8); Lymph % (Auto) 1.5 % (9.0-44.0); Mean Corpuscular HGB Conc 33.5 % (32.0-36.0); Mean Corpuscular Hemoglobin 31.1 pg (27.0-34.0); Mean Corpuscular Volume 92.8 fL (80.0-100.0); Mean Platelet Volume 10.9 fL (7.0-11.0); Mono # (Auto) 1.2 th/mm3 (0.0-0.9); Mono % (Auto) 3.8 % (0.0-8.0); Neut # (Auto) 30.6 th/mm3 (1.8-7.7); Neut % (Auto) 94.4 % (16.0-70.0); Platelet Count 123 th/mm3 (150-450); Red Blood Count 3.68 mil/mm3 (4.50-5.90); Red Cell Distribution Width 16.3 % (11.6-17.2); White Blood Count 32.4 th/mm3 (4.0-11.0)
[2018-02-25 04:49] LABS: Alanine Aminotransferase 90 U/L (12-78); Albumin 1.1 g/dL (3.4-5.0); Alkaline Phosphatase 107 U/L (45-117); Anion Gap 6 meq/L (5-15); Aspartate Aminotransferase 121 U/L (15-37); Blood Urea Nitrogen 96 mg/dL (7-18); Calcium 7.8 mg/dL (8.5-10.1); Carbon Dioxide 26.9 meq/L (21.0-32.0); Chloride 118 meq/L (98-107); Digoxin 1.1 ng/mL (0.8-2.0); Glomerular Filtration Rate 23 mL/min (>89); Glucose,Random 132 mg/dL (74-106); Magnesium 3.1 mg/dL (1.5-2.5); Phosphorus 5.4 mg/dL (2.5-4.9); Potassium 4.5 meq/L (3.5-5.1); Sodium 151 meq/L (136-145); Total Protein 5.5 g/dL (6.4-8.2); Troponin I 0.47 ng/mL (0.02-0.05); Vancomycin,Random 26.3 Comment
[2018-02-25] MEDS: Epoprostenol (30,000/mL) Neb 100 ML in Sodium Chlor 0.9% Inj 0 ML NEB SCH ×3 (04:50→20:19)
--- NOTE | 2018-02-25 05:26 | XR ---
EXAM DATE: 02/25/2018 4:55 AM EST AGE/SEX: 67 years / Male INDICATIONS: Respiratory failure. Follow-up pulmonary infiltrates with consolidation at the right eda ng base. CLINICAL DATA: This is the patient's subsequent encounter. Patient reports that signs and symptoms h ave been present for 2 weeks and indicates a pain score of Nonresponsive. MEDICAL/SURGICAL HISTORY: Hypertension. Chronic obstructive pulmonary disease. Peripheral vas cular disease. Smoker. None. COMPARISON: C, CHEST 1V SINGLE AP, 02/24/2018. . FINDINGS: 2 AP semierect portable views of the chest were obtained and again demonstrate an endotracheal tube i n place with tip approximately 3 to 4 cm above the vicenta. The nasogastric tube and left internal jug ular central venous line remain in place. The heart size is within its. Hazy opacity is noted through out both lungs with focal area of consolidative opacity again noted in the right lung base. The left costophrenic angle remains blunted. CONCLUSION: No significant interval change. Bilateral airspace disease remains with consolidation in the right eda ng base. Electronically signed by: Kenneth Orellana MD Board Certified Radiologist 02/25/2018 5:25 AM EST
[2018-02-25] MEDS: MethylPREDNISolone Sod Succinate Inj 40 MG/ML Vial IV.PUSH SCH ×3 (05:39→21:07)
[2018-02-25] MEDS: Insulin NovoLOG Aspart Correctional Sugar Inj SQ SCH ×3 (05:39→18:05)
[2018-02-25] MEDS ORDERED: Dextrose 5% in Water Inj 1,000 ML IV.SIG ONE (07:22)
--- NOTE | 2018-02-25 07:43 | P.PNCC ---
Subjective Subjective Remarks/Hospital Course: This is a 67-year-old male. Date of admission 02/13/2018. Date of consultation 02/08/2018. Past medical history includes ongoing tobaccoism, COPD , peripheral vascular disease including sent to the right lower extremity on clopidogrel, hyperlipidemia, essential hypertension who presents to the emergency department at [facility] on 02/13 for the evaluation of altered mental status. Events is document states he had acute delirium times 4-5 days. He also was documented stating he had a nonproductive cough, fever and diarrhea with accompanying shortness of breath. Lack of appetite. He denied any chest pain. According to his neighbor per documentation, they went to check on him and found his door to be partially ajar. They found the patient lying down and he could not remember what day it was. He stated he had not had anything to eat or drink in many days. Patient was admitted on the hospital service after CT of the brain revealed small vessel ischemic changes. Influenza a and B are negative. Blood cultures negative. His urine pneumococcal antigen was positive. He was treated with ceftriaxone and azithromycin. He was treated with bronchodilators every 6 hours and methylprednisolone Succinate 40 mg IV every 8 hours. He is on 2 L nasal cannula. Today, breath. Rapid response was called. He was noted to be febrile temperature of 102.5 Fahrenheit and noted to be tachypneic. He received bronchodilator therapy. Chest x-ray revealed a right middle lobe infiltrate. He was transferred to the ICU for evaluation. On my evaluation patient is on 2 L nasal cannula. He is not using accessory muscles. He is able to complete sentences. He does have a cough present time with white sputum. Denies hemoptysis. 02/17: Afebrile. Continues to be quite wheezy. Slight retractions. Will increase methylprednisolone. On aggressive pulmonary toilet therapy at the present time. CT chest revealed bilateral patchy pneumonia. 02/18: Afebrile. On 3 L nasal cannula satting 94-97%. Less wheezy today. In much better spirits. 02/19: Decompensated overnight requiring mechanical intubation. Hypotensive so central line placed earlier this a.m. Creatinine stable 1.3. White blood cell count slightly improved to 14,000. Continue antibiotic therapy. 02/20: Oxygenation acceptable at 40% FiO2. Glucose control problematic owing largely to tube feeds and steroids. Will augment sliding scale with very low- dose Levemir. Switch to Glucerna if problem continues. GFR declining modestly , concern for osmotic diuresis. Watch carefully, add hydration if necessary. Attempted CPAP trial today which resulted in tachypnea and small volumes; patient appeared to be talking pretty hard despite pressure support of 12. 02/21: Afebrile. Oxygenation 40%. We will continue to wean. Appears volume overloaded with positive intake versus output. Tolerating tube feeding. 02/22: Currently on CPAP trial / at 50%. Tachypneic. Arousable but not following commands. X-ray possible pleural effusion noted. Will attempt to diurese again. 02/23: FiO2 increased to 70%. Removed filter from expiratory port GE vent... now FiO2 down to 40%. Order written for no more added space. Getting hyperkalemia protocol. Will reassess. Subjective: 02/24: CT thorax overnight revealed worsening bilateral bronchopneumonia. -625 out of chest tube overnight. We will place on Nimbex drip due to ventilator assynchrony. 1000 cc at OT. Will check KUB now. Switch vasopressors to D5 water if able a maximum concentration CPK and troponin pending. 02/25: Patchy infiltrates persist along with diffuse interstitial process. Despite elevated PEEP 12 and Flolan at 30 ng still requiring 70% oxygen. Good efforts have been made to desiccate the lungs but severe prerenal azotemia probably prohibits further diuresis. White blood cell count 32,000 this morning , trend exacerbated by him. Severely diseased lungs with large chronic component. Objective Vital Signs / I&O: Vital Signs 02/24/18 07:32 02/24/18 07:42 02/24/18 08:00 Temperature 92.1 F L Pulse Rate 118 H 118 H 129 H Respiratory Rate 27 H 27 H 30 H Blood Pressure 115/80 115/82 146/104 H Pulse Oximetry 92 L 92 L 92 L 02/24/18 08:09 02/24/18 08:15 02/24/18 08:30 Temperature Pulse Rate 122 H 127 H 125 H Respiratory Rate 26 H 30 H 31 H Blood Pressure Pulse Oximetry 90 L 92 L 88 L 02/24/18 08:45 02/24/18 09:00 02/24/18 09:15 Temperature 98.6 F Pulse Rate 123 H 120 H 117 H Respiratory Rate 30 H 30 H 30 H Blood Pressure 91/64 L Pulse Oximetry 89 L 90 L 02/24/18 09:30 02/24/18 09:45 02/24/18 10:00 Temperature 100.2 F H Pulse Rate 116 H 115 H 115 H Respiratory Rate 30 H 27 H 24 Blood Pressure 106/82 Pulse Oximetry 95 02/24/18 10:15 02/24/18 10:30 02/24/18 10:45 Temperature Pulse Rate 116 H 117 H 116 H Respiratory Rate 24 24 24 Blood Pressure Pulse Oximetry 94 L 94 L 94 L 02/24/18 11:00 02/24/18 11:15 02/24/18 11:30 Temperature 99.9 F H Pulse Rate 116 H 117 H 123 H Respiratory Rate 24 24 24 Blood Pressure 95/67 L Pulse Oximetry 93 L 92 L 92 L 02/24/18 11:44 02/24/18 11:45 02/24/18 12:00 Temperature 99.3 F Pulse Rate 120 H 120 H 132 H Respiratory Rate 24 24 24 Blood Pressure 98/73 L Pulse Oximetry 90 L 90 L 89 L 02/24/18 12:15 02/24/18 12:30 02/24/18 12:45 Temperature Pulse Rate 132 H 131 H 129 H Respiratory Rate 24 24 24 Blood Pressure Pulse Oximetry 89 L 87 L 87 L 02/24/18 13:00 02/24/18 13:15 02/24/18 13:30 Temperature Pulse Rate 130 H 130 H 128 H Respiratory Rate 24 24 24 Blood Pressure 92/70 L Pulse Oximetry 88 L 88 L 89 L 02/24/18 13:45 02/24/18 14:00 02/24/18 14:15 Temperature 98.6 F Pulse Rate 127 H 125 H 123 H Respiratory Rate 24 24 Blood Pressure 91/66 L Pulse Oximetry 90 L 89 L 89 L 02/24/18 14:30 02/24/18 14:45 02/24/18 15:00 Temperature Pulse Rate 123 H 122 H 121 H Respiratory Rate 24 24 24 Blood Pressure 93/67 L Pulse Oximetry 89 L 88 L 89 L 02/24/18 15:15 02/24/18 15:30 02/24/18 15:37 Temperature Pulse Rate 120 H 116 H 116 H Respiratory Rate 24 24 24 Blood Pressure Pulse Oximetry 89 L 90 L 88 L 02/24/18 15:45 02/24/18 16:00 02/24/18 16:15 Temperature 98.1 F Pulse Rate 118 H 117 H 116 H Respiratory Rate 24 24 24 Blood Pressure 91/66 L Pulse Oximetry 89 L 90 L 90 L 02/24/18 16:30 02/24/18 16:45 02/24/18 17:00 Temperature Pulse Rate 116 H 114 H 119 H Respiratory Rate 24 24 24 Blood Pressure 89/66 L Pulse Oximetry 90 L 92 L 91 L 02/24/18 17:15 02/24/18 17:30 02/24/18 17:45 Temperature Pulse Rate 123 H 123 H 122 H Respiratory Rate 24 20 Blood Pressure Pulse Oximetry 90 L 91 L 92 L 02/24/18 18:00 02/24/18 18:15 02/24/18 18:30 Temperature 97.9 F 97.9 F 97.7 F Pulse Rate 118 H 117 H 114 H Respiratory Rate 20 Blood Pressure 94/64 L Pulse Oximetry 92 L 93 L 93 L 02/24/18 18:45 02/24/18 19:00 02/24/18 19:15 Temperature 97.5 F L 97.5 F L 97.5 F L Pulse Rate 115 H 114 H 116 H Respiratory Rate Blood Pressure 91/67 L Pulse Oximetry 92 L 92 L 91 L 02/24/18 19:30 02/24/18 19:42 02/24/18 19:43 Temperature 97.5 F L Pulse Rate 115 H 114 H Respiratory Rate 20 20 Blood Pressure Pulse Oximetry 90 L 92 L 02/24/18 19:45 02/24/18 20:00 02/24/18 20:15 Temperature 97.5 F L 97.5 F L 97.5 F L Pulse Rate 114 H 114 H 111 H Respiratory Rate 20 Blood Pressure 99/65 L Pulse Oximetry 91 L 91 L 92 L 02/24/18 20:30 02/24/18 20:45 02/24/18 21:00 Temperature 97.3 F L 97.3 F L 97.3 F L Pulse Rate 110 H 108 H 109 H Respiratory Rate 20 Blood Pressure 96/66 L Pulse Oximetry 92 L 92 L 92 L 02/24/18 21:15 02/24/18 21:30 02/24/18 21:45 Temperature 97.3 F L 97.5 F L 97.5 F L Pulse Rate 109 H 109 H 109 H Respiratory Rate 20 Blood Pressure Pulse Oximetry 90 L 91 L 91 L 02/24/18 22:00 02/24/18 22:15 02/24/18 22:30 Temperature 97.5 F L 97.7 F 97.7 F Pulse Rate 108 H 107 H 106 H Respiratory Rate 20 Blood Pressure 89/61 L Pulse Oximetry 90 L 92 L 92 L 02/24/18 22:45 02/24/18 23:00 02/24/18 23:15 Temperature 97.7 F 97.7 F Pulse Rate 106 H 106 H 107 H Respiratory Rate 20 Blood Pressure 92/63 L Pulse Oximetry 88 L 94 L 93 L 02/24/18 23:30 02/24/18 23:33 02/24/18 23:45 Temperature Pulse Rate 107 H 109 H 106 H Respiratory Rate 20 Blood Pressure Pulse Oximetry 93 L 93 L 94 L 02/25/18 00:00 02/25/18 00:15 02/25/18 00:30 Temperature 99.5 F Pulse Rate 106 H 105 H 105 H Respiratory Rate 20 20 Blood Pressure 85/63 L Pulse Oximetry 94 L 94 L 95 02/25/18 00:45 02/25/18 01:00 02/25/18 01:02 Temperature Pulse Rate 105 H 105 H 105 H Respiratory Rate 20 20 Blood Pressure 82/59 L Pulse Oximetry 95 95 95 02/25/18 01:15 02/25/18 01:30 02/25/18 01:45 Temperature Pulse Rate 106 H 105 H 104 H Respiratory Rate Blood Pressure Pulse Oximetry 94 L 94 L 94 L 02/25/18 02:00 02/25/18 02:15 02/25/18 02:30 Temperature Pulse Rate 104 H 101 H 105 H Respiratory Rate 20 20 Blood Pressure 89/63 L Pulse Oximetry 94 L 95 92 L 02/25/18 02:45 02/25/18 03:00 02/25/18 03:15 Temperature Pulse Rate 114 H 112 H 110 H Respiratory Rate 20 20 Blood Pressure 92/64 L Pulse Oximetry 93 L 93 L 93 L 02/25/18 03:30 02/25/18 03:45 02/25/18 03:46 Temperature Pulse Rate 108 H 107 H Respiratory Rate 20 20 Blood Pressure Pulse Oximetry 93 L 93 L 93 L 02/25/18 04:00 02/25/18 04:15 02/25/18 04:30 Temperature 99.3 F Pulse Rate 108 H 107 H 105 H Respiratory Rate 20 Blood Pressure 95/67 L Pulse Oximetry 92 L 92 L 92 L 02/25/18 04:45 02/25/18 05:00 02/25/18 05:15 Temperature Pulse Rate 105 H 105 H 104 H Respiratory Rate 20 Blood Pressure 99/63 L Pulse Oximetry 90 L 92 L 93 L 02/25/18 05:30 02/25/18 05:45 02/25/18 06:00 Temperature Pulse Rate 103 H 103 H 103 H Respiratory Rate 20 Blood Pressure 101/63 Pulse Oximetry 93 L 93 L 93 L 02/25/18 06:15 Temperature Pulse Rate 103 H Respiratory Rate Blood Pressure Pulse Oximetry 92 L Intake & Output 02/24/18 02/25/18 02/25/18 18:59 06:59 18:59 Intake Total 1131 / 1131 1300 / 1300 Output Total 2054 / 5 695 / 695 Balance -924 / -924 605 / 605 Weight 79.6 kg Intake: IV 1063 / 1063 1300 / 1300 Nimbex Inj 100 MG In NS Inj 240 250 / 250 ML @ 1 MCG/KG/MIN 11.89 mls/hr IV.CONT TITRATE PRN Rx#: [id number] Diprivan 1000 mg/100 ml Inj 1, 100 / 100 100 / 100 000 mg In 100 ml @ 5 MCG/KG/MIN 2.172 mls/hr IV.CONT TITRATE PRN Rx#:[id number] Azithromycin Inj 500 MG In NS 250 / 250 Inj 250 ML @ 250 mls/hr IV.SIG Q24H [facility] Rx#:[id number] Maxipime Inj 2,000 MG In NS Inj 200 / 200 100 / 100 100 ML @ 200 mls/hr IV.SIG Q12H [facility] Rx#:[id number] Levophed-Dextrose 4 mg/250 ml 250 / 250 500 / 500 Drip 4 mg In 250 ml @ 2 MCG/MIN 7.5 mls/hr IV.SIG TITRATE PRN Rx#:[id number] Vancomycin Inj 1,250 MG In NS 263 / 263 Inj 250 ML @ 262.5 mls/hr IV. SIG Q18H [facility] Rx#:[id number] fentaNYL 10 mcg/mL Premix Drip 250 / 250 2,500 mcg In 250 ml @ 50 MCG/HR 5 mls/hr IV.SIG TITRATE PRN Rx #:[id number] Flolan (30,000 ng/mL) Neb 100 100 / 100 ML In NS Inj 0 ML @ 5 mls/hr NEB Q8H [facility] Rx#:[id number] Tube Feeding 68 / Output: Urine 275 / 275 Stool 0 / 0 0 / 0 Urine Amount (Catheter) 525 / 525 Indwelling Temp Sensing 525 / 525 Catheter Gastric Drainage 1450 / 1450 350 / 350 Left Nare 1450 / 1450 350 / 350 Chest Tube Drainage 80 / 80 70 / 70 Right 80 / 80 70 / 70 Other: Date of Last Bowel Movement 02/23/18 02/23/18 Result Diagrams: 02/25/18 03:55 02/25/18 03:55 Objective Remarks: GENERAL: 67-year-old male, sedated, chemically paralyzed on mechanical ventilation SKIN: Warm and dry. HEAD: Atraumatic. Normocephalic. EYES: Pupils equal and round. No scleral icterus. No injection or drainage. ENT: No nasal bleeding or discharge. Mucous membranes pink and moist. NECK: Trachea midline. Left IJ CVL is clean dry and intact. Orotracheal intubation CARDIOVASCULAR: Tachycardic, RR. S1, S2 no S4. No murmur appreciated RESPIRATORY: Tachypneic with respiratory rate is around 30. Light end expiratory wheezes persist. GASTROINTESTINAL: Abdomen soft, non-tender, nondistended. No guarding, bowel sounds active MUSCULOSKELETAL: Extremities without clubbing, or significant peripheral edema. Warm, well-perfused. Nailbeds dusky today. NEUROLOGICAL: Relaxant on board, no movement. Assessment and Plan - Assessment and Plan Plan: Neuro/Psych: Admission with acute delirium/encephalopathy toxic metabolic due to underlying pneumonia/community acquired Currently on propofol at 20 mcg/kg/min/dexmedetomidine drips at 0.8 mg/kg/h for sedation/vent synchrony We will place on propofol, fentanyl and midazolam drips and start on cisatracurium drip for vent synchrony Goal of RA SS -2 Daily sedation vacation Acetaminophen 650 p.o. every 6 hours as needed fever Hydrocodone/acetaminophen 5/325 1 tablet every 4 hours as needed pain [address] brain 02/13 revealed small vessel ischemic changes bilaterally. No acute infarction. MRI brain 02/23 revealed small vessel ischemic change. No acute findings. Continue light sedation for vent synchrony CV: Essential hypertension Hyperlipidemia Peripheral vascular disease stenting to right lower extremity Systolic heart failure ejection fraction 35% unknown if acute or chronic Elevated troponin Holding olmesartan 40 mg daily/home medication for hypertension. Resume if clinically indicated Currently on atorvastatin 80 mg daily for hyperlipidemia. 2D echocardiogram left ventricular systolic function is severely reduced with an estimated ejection fraction in the range of 30-35%. Moderately dilated left ventricle. Wall thickness is normal. There is global left ventricular dysfunction Elevated troponin 0 0.27. Recheck tomorrow Continue home medication clopidogrel 75 mg daily As needed norepinephrine to maintain mean artery pressure equal to 65. Currently at 8 mcg/min Persistent low level cardiac enzyme spill Repeat CPK/troponin pending Resp: Acute respiratory failure/hypoxic hypercapnic COPD Community-acquired pneumonia ongoing tobaccoism Pleural effusion -exudative by light's criteria. Gram stain pending. PRVC ventilation Head of bed at 30 degrees with ventilator bundle Albuterol/ipratropium aerosols every 4 hours with albuterol aerosols every 2 hours as needed dyspnea Continue budesonide 0.5/2 1 inhalation twice daily Follow-up chest x-ray in a.m. 02/25 Continue methylprednisolone succinate 40 mg every 8 hours Currently paralyzed due to vent asynchrony. Tobacco cessation self evaluation booklet provided. Continue nicotine patch 14mg daily CT thorax 02/23 revealed worsening bronchopneumonia bilaterally. Will convert to airway pressure release ventilation and follow very closely in case he starts retaining CO2. Hopefully bronchospasm diminished enough to allow this ventilation. GI: Hypoalbuminemia Currently on a tube feeds Glucerna 1.5 55 cc an hour we will hold due to high outputs. N.p.o. except for medications Check KUB now. Start on medical 0.5 IV every 8 Lansoprazole for GI prophylaxis Docusate sodium/senna 1 tablet twice daily for bowel regimen. Add lactulose 30 cc twice daily : Armstrong catheter as needed Endo: Sliding scale insulin with aspart insulin Accu-Cheks AC/at bedtime to maintain euglycemia while on steroids Normal TSH 0.398 Persistent hyperglycemia mid 200s. Now in the 150s. Levemir 6 units subcu every 12 hours while tube feedings run at continuous rate. Hold insulin detemir while n.p.o. Renal: Acute kidney injury -likely worsening Right renal cyst Avoid nephrotoxic medications. Patient was on ibuprofen as an outpatient. Check renal ultrasound -medical renal disease. Right renal cyst GFR declining over the last 92 hours Continue free water 250 every 8 hours as tolerated Rehydrate gently with hypotonic saline solution Heme: Leukocytosis Normocytic anemia Thrombocytopenia Thrombus cytopenia Monitor CBC daily. Follow trends. No indication for transfusion of blood products at this time. ID: Streptococcal urinary antigen positive for community acquired pneumonia Currently on cefepime, azithromycin, vancomycin Previously on ceftriaxone since 02/13. Discontinued 02/17. Piperacillin/ tazobactam discontinued 02/16 -sputum with Aspergillus. Added fluconazole initially but discontinued 02/22 Blood cultures x2/influenza A/B 02/13 no growth to date Appreciated infectious disease consultation. Chlamydia and mycoplasma negative IgM. Positive IgG both Gram stain from pleural fluid pending 02/23 MSK: PT evaluate and treat FEN: Hypernatremia Hyper magnesium Replace electrolytes as clinically indicated per ICU electrolyte protocol We will attempt to switch all vasopressors to D5 water Free water flushes 250 cc every 8 hours Access -Left internal J CVL day #6/right femoral arterial line day #3 Prophylaxis -GI -lansoprazole -DVT -SCD/heparin subcu Overall impression: This gentleman has received very aggressive efforts to recruit alveolar clusters and reduce edema in the pulmonary interstitium. We cannot push serum concentration any further at this point and indeed efforts have been started to replete free water. I will try recruitment maneuver ventilation with APRV and watch very closely for CO2 retention related to bronchospasm. This patient is very critically ill and his pulmonary status is deteriorating despite aggressive maneuvers to improve his lung function over the past week. Prognosis is poor. Critical care time 65 minutes aside from invasive procedures
[2018-02-25 07:50] LABS: ABG Base Excess -3.2 mmol/L (-2-2); ABG PCO2 67 mmHg (38-42); ABG PO2 76 mmHg (61-120)
[2018-02-25] MEDS: Artificial Tears Opth Oint 3.5 GM Tube EACH EYE SCH ×2 (09:00→21:12)
[2018-02-25] MEDS: Vasopressin Inj 40 UNIT in Dextrose 5% in Water Inj 98 ML IV.CONT SCH ×4 (09:20→17:29)
[2018-02-25 09:45] LABS: ABG Base Excess -5.5 mmol/L (-2-2); ABG PCO2 54 mmHg (38-42); ABG PO2 71 mmHg (61-120)
[2018-02-25] MEDS ORDERED: Digoxin Inj 500 MCG/2 ML Ampul ONE (10:03)
[2018-02-25] MEDS: Insulin Detemir Inj 1,000 UNIT/10 ML Vial SQ SCH ×2 (10:16→21:13)
[2018-02-25] MEDS: Senna/Docusate Sodium 8.6/50 MG Tablet PO SCH ×2 (10:16→20:19)
[2018-02-25] MEDS ORDERED: Digoxin Inj 500 MCG/2 ML Ampul IV.PUSH ONE (10:24)
[2018-02-25] MEDS ORDERED: Amiodarone Inj 150 MG in Dextrose 5% in Water Inj 97 ML IV.SIG ONE ×2 (11:00)
[2018-02-25 11:03] LABS: Lymphocytes 5 % (9-44); Monocytes 6 % (0-8); Tallied Nucleated RBC 1 (0-0)
[2018-02-25 11:09] LABS: Platelet Morphology Normal (Normal); Toxic Granulation 1+; Toxic Vacuolation Present
[2018-02-25 12:03] LABS: ABG Base Excess -4.3 mmol/L (-2-2); ABG PCO2 58 mmHg (38-42); ABG PO2 82 mmHg (61-120)
[2018-02-25] MEDS: Heparin - SQ 10,000 UNITS/ML Vial SQ SCH (12:26)
[2018-02-25] MEDS: Sodium Chloride 0.45 % Inj 1,000 ML IV.CONT SCH ×3 (12:27→23:37)
--- NOTE | 2018-02-25 13:24 | P.PNID ---
Subjective Remarks: Patient is a 67-year-old male, brought into the hospital for further evaluation of cough fever diarrhea and confusion. Patient apparently has not been feeling well for about 4-5 days. He has been having a nonproductive cough, fever and diarrhea. He also has significant weakness. His neighbor apparently checked on him on the day of admission and found him lying down and he was somewhat confused. He apparently has not had anything to eat or drink in several days. He was brought into the hospital, and he initial chest x-ray did not show any acute infiltrate. CT of the head did not show any acute disease. His WBC was normal. Creatinine was elevated at 1.75. Urine for pneumococcal antigen came back positive. Blood cultures were negative. Patient was put on empiric antibiotics for community-acquired pneumonia. He was also having a lot of shortness of breath and a lot of wheezing, and has been getting IV steroids. Pulmonary is on the case. Yesterday he had desaturation, and progressive respiratory distress, and ended up getting intubated. Patient currently is on the vent, and sedated. He does not have a lot of secretions from his endotracheal tube. His blood pressure is okay. Temperature is okay. He is currently on vancomycin and Zosyn, as well as Zithromax and Diflucan. The sputum culture from February 17 is reported as growing Aspergillus. His WBC was up to 18,000 yesterday, and is down to 14,000. His creatinine is slowly improving and down to 1.32. CT of the chest showed patchy bilateral pulmonary infiltrates. Infectious disease consultation has been requested to assist with evaluation and treatment, and antibiotic management. Notes reviewed Not doing well INcreasing FiO2 requirement - 75% Also now on pressors WBC rising Creatinine rising Nothing new on C/S CXR with bilateral infiltrates, stable Mycoplasma Ab C/W old infection Chlamydia c/w old infection Antibiotics: Cefepime Zithromax Diflucan Vancomycin Past Medical History: COPD (chronic obstructive pulmonary disease) Hyperlipidemia Peripheral vascular disease Hypertension History of hernia repair Allergies/Adverse Reactions: Allergies No Known Allergies Allergy (Verified 02/13/18 18:38) Objective Vital Signs 02/24/18 13:30 02/24/18 13:45 02/24/18 14:00 Temperature 98.6 F Pulse Rate 128 H 127 H 125 H Respiratory Rate 24 24 Blood Pressure 91/66 L Pulse Oximetry 89 L 90 L 89 L 02/24/18 14:15 02/24/18 14:30 02/24/18 14:45 Temperature Pulse Rate 123 H 123 H 122 H Respiratory Rate 24 24 24 Blood Pressure Pulse Oximetry 89 L 89 L 88 L 02/24/18 15:00 02/24/18 15:15 02/24/18 15:30 Temperature Pulse Rate 121 H 120 H 116 H Respiratory Rate 24 24 24 Blood Pressure 93/67 L Pulse Oximetry 89 L 89 L 90 L 02/24/18 15:37 02/24/18 15:45 02/24/18 16:00 Temperature 98.1 F Pulse Rate 116 H 118 H 117 H Respiratory Rate 24 24 24 Blood Pressure 91/66 L Pulse Oximetry 88 L 89 L 90 L 02/24/18 16:15 02/24/18 16:30 02/24/18 16:45 Temperature Pulse Rate 116 H 116 H 114 H Respiratory Rate 24 24 24 Blood Pressure Pulse Oximetry 90 L 90 L 92 L 02/24/18 17:00 02/24/18 17:15 02/24/18 17:30 Temperature Pulse Rate 119 H 123 H 123 H Respiratory Rate 24 24 Blood Pressure 89/66 L Pulse Oximetry 91 L 90 L 91 L 02/24/18 17:45 02/24/18 18:00 02/24/18 18:15 Temperature 97.9 F 97.9 F Pulse Rate 122 H 118 H 117 H Respiratory Rate 20 20 Blood Pressure 94/64 L Pulse Oximetry 92 L 92 L 93 L 02/24/18 18:30 02/24/18 18:45 02/24/18 19:00 Temperature 97.7 F 97.5 F L 97.5 F L Pulse Rate 114 H 115 H 114 H Respiratory Rate Blood Pressure 91/67 L Pulse Oximetry 93 L 92 L 92 L 02/24/18 19:15 02/24/18 19:30 02/24/18 19:42 Temperature 97.5 F L 97.5 F L Pulse Rate 116 H 115 H 114 H Respiratory Rate 20 Blood Pressure Pulse Oximetry 91 L 90 L 02/24/18 19:43 02/24/18 19:45 02/24/18 20:00 Temperature 97.5 F L 97.5 F L Pulse Rate 114 H 114 H Respiratory Rate 20 20 Blood Pressure 99/65 L Pulse Oximetry 92 L 91 L 91 L 02/24/18 20:15 02/24/18 20:30 02/24/18 20:45 Temperature 97.5 F L 97.3 F L 97.3 F L Pulse Rate 111 H 110 H 108 H Respiratory Rate 20 Blood Pressure Pulse Oximetry 92 L 92 L 92 L 02/24/18 21:00 02/24/18 21:15 02/24/18 21:30 Temperature 97.3 F L 97.3 F L 97.5 F L Pulse Rate 109 H 109 H 109 H Respiratory Rate 20 Blood Pressure 96/66 L Pulse Oximetry 92 L 90 L 91 L 02/24/18 21:45 02/24/18 22:00 02/24/18 22:15 Temperature 97.5 F L 97.5 F L 97.7 F Pulse Rate 109 H 108 H 107 H Respiratory Rate 20 Blood Pressure 89/61 L Pulse Oximetry 91 L 90 L 92 L 02/24/18 22:30 02/24/18 22:45 02/24/18 23:00 Temperature 97.7 F 97.7 F 97.7 F Pulse Rate 106 H 106 H 106 H Respiratory Rate Blood Pressure 92/63 L Pulse Oximetry 92 L 88 L 94 L 02/24/18 23:15 02/24/18 23:30 02/24/18 23:33 Temperature Pulse Rate 107 H 107 H 109 H Respiratory Rate 20 20 Blood Pressure Pulse Oximetry 93 L 93 L 93 L 02/24/18 23:45 02/25/18 00:00 02/25/18 00:15 Temperature 99.5 F Pulse Rate 106 H 106 H 105 H Respiratory Rate 20 20 Blood Pressure 85/63 L Pulse Oximetry 94 L 94 L 94 L 02/25/18 00:30 02/25/18 00:45 02/25/18 01:00 Temperature Pulse Rate 105 H 105 H 105 H Respiratory Rate 20 Blood Pressure Pulse Oximetry 95 95 95 02/25/18 01:02 02/25/18 01:15 02/25/18 01:30 Temperature Pulse Rate 105 H 106 H 105 H Respiratory Rate 20 Blood Pressure 82/59 L Pulse Oximetry 95 94 L 94 L 02/25/18 01:45 02/25/18 02:00 02/25/18 02:15 Temperature Pulse Rate 104 H 104 H 101 H Respiratory Rate 20 Blood Pressure 89/63 L Pulse Oximetry 94 L 94 L 95 02/25/18 02:30 02/25/18 02:45 02/25/18 03:00 Temperature Pulse Rate 105 H 114 H 112 H Respiratory Rate 20 20 Blood Pressure 92/64 L Pulse Oximetry 92 L 93 L 93 L 02/25/18 03:15 02/25/18 03:30 02/25/18 03:45 Temperature Pulse Rate 110 H 108 H 107 H Respiratory Rate 20 20 Blood Pressure Pulse Oximetry 93 L 93 L 93 L 02/25/18 03:46 02/25/18 04:00 02/25/18 04:15 Temperature 99.3 F Pulse Rate 108 H 107 H Respiratory Rate 20 20 Blood Pressure 95/67 L Pulse Oximetry 93 L 92 L 92 L 02/25/18 04:30 02/25/18 04:45 02/25/18 05:00 Temperature Pulse Rate 105 H 105 H 105 H Respiratory Rate 20 Blood Pressure 99/63 L Pulse Oximetry 92 L 90 L 92 L 02/25/18 05:15 02/25/18 05:30 02/25/18 05:45 Temperature Pulse Rate 104 H 103 H 103 H Respiratory Rate Blood Pressure Pulse Oximetry 93 L 93 L 93 L 02/25/18 06:00 02/25/18 06:15 02/25/18 06:30 Temperature Pulse Rate 103 H 103 H 102 H Respiratory Rate 20 Blood Pressure 101/63 Pulse Oximetry 93 L 92 L 92 L 02/25/18 06:45 02/25/18 07:00 02/25/18 07:15 Temperature Pulse Rate 102 H 110 H 116 H Respiratory Rate 20 20 Blood Pressure Pulse Oximetry 91 L 89 L 90 L 02/25/18 07:30 02/25/18 07:45 02/25/18 08:00 Temperature 97.4 F L Pulse Rate 119 H 121 H 122 H Respiratory Rate 20 20 15 Blood Pressure 103/66 Pulse Oximetry 91 L 90 L 91 L 02/25/18 08:15 02/25/18 08:30 02/25/18 08:45 Temperature Pulse Rate 122 H 118 H 121 H Respiratory Rate 15 15 15 Blood Pressure Pulse Oximetry 91 L 90 L 90 L 02/25/18 09:00 02/25/18 09:15 02/25/18 09:30 Temperature Pulse Rate 119 H 116 H 164 H Respiratory Rate 15 15 15 Blood Pressure 80/63 L Pulse Oximetry 89 L 89 L 89 L 02/25/18 09:45 02/25/18 10:00 02/25/18 10:15 Temperature Pulse Rate 160 H 150 H 141 H Respiratory Rate 15 13 13 Blood Pressure Pulse Oximetry 91 L 93 L 95 02/25/18 10:30 02/25/18 10:45 02/25/18 11:00 Temperature Pulse Rate 139 H 137 H 119 H Respiratory Rate 13 13 13 Blood Pressure 102/72 Pulse Oximetry 96 96 95 02/25/18 11:15 02/25/18 11:30 02/25/18 11:45 Temperature Pulse Rate 124 H 131 H 124 H Respiratory Rate 13 13 13 Blood Pressure Pulse Oximetry 95 93 L 94 L 02/25/18 11:50 02/25/18 11:53 02/25/18 12:00 Temperature 97.3 F L Pulse Rate 120 H 130 H Respiratory Rate 13 13 13 Blood Pressure 96/60 L Pulse Oximetry 90 L 99 Intake & Output 02/24/18 02/25/18 02/25/18 18:59 06:59 18:59 Intake Total 1131 / 1131 1300 / 1300 3200 / 3200 Output Total 2055 / 2055 695 / 695 Balance -924 / -924 605 / 605 3200 / 3200 Weight 79.6 kg Intake: IV 1063 / 1063 1300 / 1300 3200 / 3200 Nimbex Inj 100 MG In NS Inj 240 250 / 250 ML @ 1 MCG/KG/MIN 11.89 mls/hr IV.CONT TITRATE PRN Rx#: [id number] Diprivan 1000 mg/100 ml Inj 1, 100 / 100 100 / 100 100 / 100 000 mg In 100 ml @ 5 MCG/KG/MIN 2.172 mls/hr IV.CONT TITRATE PRN Rx#:[id number] Cordarone Inj 150 MG In D5W Inj 100 / 100 97 ML @ 600 mls/hr IV.SIG ONCE ONE Rx#:[id number] Azithromycin Inj 500 MG In NS 250 / 250 Inj 250 ML @ 250 mls/hr IV.SIG Q24H [facility] Rx#:[id number] Maxipime Inj 2,000 MG In NS Inj 200 / 200 100 / 100 100 ML @ 200 mls/hr IV.SIG Q12H [facility] Rx#:[id number] D5W Inj 1,000 ML @ 250 mls/hr 1000 / 1000 IV.SIG BOLUS ONE Rx#:[id number] LR 1000 mL Inj 1,000 ML @ Wide 2000 / 2000 Open IV.SIG BOLUS ONE Rx#: [id number] Levophed-Dextrose 4 mg/250 ml 250 / 250 500 / 500 Drip 4 mg In 250 ml @ 2 MCG/MIN 7.5 mls/hr IV.SIG TITRATE PRN Rx#:[id number] Vancomycin Inj 1,250 MG In NS 263 / 263 Inj 250 ML @ 262.5 mls/hr IV. SIG Q18H [facility] Rx#:[id number] fentaNYL 10 mcg/mL Premix Drip 250 / 250 2,500 mcg In 250 ml @ 50 MCG/HR 5 mls/hr IV.SIG TITRATE PRN Rx #:[id number] Flolan (30,000 ng/mL) Neb 100 100 / 100 ML In NS Inj 0 ML @ 5 mls/hr NEB Q8H [facility] Rx#:[id number] Tube Feeding 68 / 68 Output: Urine 275 / 275 Stool 0 / 0 0 / 0 Urine Amount (Catheter) 525 / 525 Indwelling Temp Sensing 525 / 525 Catheter Gastric Drainage 1450 / 1450 350 / 350 Left Nare 1450 / 1450 350 / 350 Chest Tube Drainage 80 / 80 70 / 70 Right 80 / 80 70 / 70 Other: Date of Last Bowel Movement 02/23/18 02/23/18 02/25/18 02/19/18 21:10 Blood - Peripheral Aerobic Blood Culture - Final No growth in 5 days 02/19/18 21:10 Blood - Peripheral Anaerobic Blood Culture - Final No growth in 5 days 02/19/18 21:15 Blood - Peripheral Aerobic Blood Culture - Final No growth in 5 days 02/19/18 21:15 Blood - Peripheral Anaerobic Blood Culture - Final No growth in 5 days 02/23/18 18:00 Fluid - Pleural fluid Fungal Smear - Final No fungal elements seen 02/23/18 18:00 Fluid - Pleural fluid Fungal Culture - Pending 02/23/18 18:00 Fluid - Pleural fluid Gram Stain - Final 02/23/18 18:00 Fluid - Pleural fluid Body Fluid Culture - Pending 02/23/18 18:00 Fluid - Pleural fluid Acid Fast Bacilli Smear - Pending 02/23/18 18:00 Fluid - Pleural fluid Mycobacterial Culture - Pending 02/21/18 11:50 Catheterized Urine Urine Culture - Final No growth in 48 hours 02/20/18 01:30 Sputum - Endotracheal Gram Stain - Final 02/20/18 01:30 Sputum - Endotracheal Sputum Culture - Final No growth in 48 hours Lab - Hematology Results 02/24/18 02/25/18 03:20 03:55 WBC 29.8 H 32.4 H RBC 3.74 L 3.68 L Hgb 11.8 L 11.5 L Hct 34.5 L 34.2 L MCV 92.4 92.8 MCH 31.5 31.1 MCHC 34.1 33.5 RDW 15.6 16.3 Plt Count 146 L 123 L MPV 10.4 10.9 Prelim Diff (Auto) Slide review pending Slide review pending Neut % (Auto) 93.9 H 94.4 H Lymph % (Auto) 1.4 L 1.5 L [place] % (Auto) 4.2 3.8 Eos % (Auto) 0.0 0.0 Baso % (Auto) 0.5 0.3 Neut # (Auto) 27.9 H 30.6 H Lymph # (Auto) 0.4 L 0.5 L [place] # (Auto) 1.2 H 1.2 H Eos # (Auto) 0.0 0.0 Baso # (Auto) 0.1 0.1 WBC Differential . Manual diff final Diff Scan Auto diff confirmed Seg Neuts % (Manual) 82 H Band Neuts % (Manual) 7 H Lymphocytes % (Manual) 5 L Monocytes % (Manual) 6 Abs Neuts (Manual) 28.8 H Nucleated RBCs/100 WBC 1 H Differential Comment . . Toxic Granulation 1+ H Toxic Vacuolation Present H Platelet Estimate Low L Low L Platelet Morphology Normal Normal Lab - Chemistry Results 02/24/18 02/24/18 02/24/18 01:13 03:20 03:20 Sodium 153 H Potassium 4.3 D Chloride 118 H Carbon Dioxide 27.9 Anion Gap 7 BUN 67 H Creatinine 1.65 H Estimated GFR 42 L POC Glucose 108 Random Glucose 132 H Calcium 8.3 L Phosphorus 3.1 Magnesium 2.8 H Total Bilirubin 0.2 AST 99 H ALT 96 H Alkaline Phosphatase 105 Total Creatine Kinase 215 Troponin I 0.30 H Total Protein 5.4 L Albumin 1.2 L 02/24/18 02/24/18 02/24/18 12:19 13:50 17:37 Sodium Potassium Chloride Carbon Dioxide Anion Gap BUN Creatinine Estimated GFR POC Glucose 123 H 142 H Random Glucose Calcium Phosphorus Magnesium Total Bilirubin AST ALT Alkaline Phosphatase Total Creatine Kinase Troponin I 0.43 H Total Protein Albumin 02/24/18 02/24/18 02/25/18 20:55 23:24 03:55 Sodium 151 H Potassium 4.5 Chloride 118 H Carbon Dioxide 26.9 Anion Gap 6 BUN 96 H Creatinine 2.81 H Estimated GFR 23 L POC Glucose 175 H 134 H Random Glucose 132 H Calcium 7.8 L Phosphorus 5.4 H D Magnesium 3.1 H Total Bilirubin 0.3 AST 121 H ALT 90 H Alkaline Phosphatase 107 Total Creatine Kinase Troponin I 0.47 H Total Protein 5.5 L Albumin 1.1 L 02/25/18 02/25/18 05:36 11:45 Sodium Potassium Chloride Carbon Dioxide Anion Gap BUN Creatinine Estimated GFR POC Glucose 107 185 H Random Glucose Calcium Phosphorus Magnesium Total Bilirubin AST ALT Alkaline Phosphatase Total Creatine Kinase Troponin I Total Protein Albumin Imaging: ITS Impressions Head CT 02/13/18 19:41 CONCLUSION: 1. Mild periventricular white matter small vessel ischemic changes bilaterally. 2. No acute infarct, acute hemorrhage, mass effect or extra axial fluid collections. . Abdomen/Bladder Ultrasound 02/16/18 18:18 CONCLUSION: 1. Echogenic kidneys consistent with medical renal disease. 2. No sonographic evidence for obstructive uropathy. 3. 5 mm cyst in the inferior pole the right kidney. 4. Nonspecific prostate enlargement. Chest CT 02/23/18 00:00 CONCLUSION: 1. Worsening peribronchial thickening and bilateral patchy airspace consolidation in the lungs, right greater than left characteristic of worsening bronchopneumonia. Endotracheal tube and nasogastric tube in good position. Head MRI 02/23/18 14:22 CONCLUSION: Chronic small vessel ischemic and atrophic changes. Abdomen X-Ray 02/24/18 00:00 CONCLUSION: Possible mild colonic ileus. Chest X-Ray 02/25/18 06:00 CONCLUSION: No significant interval change. Bilateral airspace disease remains with consolidation in the right lung base. Physical Exam: GENERAL: sedated on the vent, not in distress SKIN: Cool and dry. HEAD: Atraumatic. Normocephalic. No temporal wasting, or tenderness. EYES: Blunt conjunctiva. No petechia or hemorrhage. Pupils equal, round and reactive to light. No scleral icterus. No injection or drainage. EARS, NOSE AND THROAT: Nose without bleeding or purulent nasal discharge. He is orally intubated. NECK: Trachea midline. Supple and not tender, no meningeal signs CARDIOVASCULAR: Regular rate and rhythm. No murmurs, rubs or gallops heard RESPIRATORY: Coarse BS bilaterally ABDOMEN: Soft, not distended, no reaction to palpation. Bowel sounds are present and hypoactive. EXTREMITIES: No clubbing, cyanosis, or edema. NEUROLOGICAL: Sedated on the vent PSYCHIATRIC: Unable to assess LINE: No evidence of infection Assessment and Plan - Plan Impression Pneumonia, bilateral. - urine pneumococcal Ag (+) - ?other pathogens COPD Respiratory failure, increasing FiO2 requirement Shock Aspergillus in sputum likely contaminant Renal insufficiency, worse Worsening leukocytosis, etiology? Recommendations Follow C/S Follow CBC Change to Merem Stop vanco Continue Zithromax Also on Diflucan Monitor progress Clinically worsening
[2018-02-25] MEDS ORDERED: Phenylephrine Inj 160 MG in Sodium Chlor 0.9% Inj 484 ML IV.CONT PRN (14:00)
[2018-02-25] MEDS ORDERED: Phenylephrine Inj 160 MG in Sodium Chlor 0.9% Inj 484 ML IV.CONT ONE (14:00)
[2018-02-25 15:42] LABS: ABG Base Excess -4.8 mmol/L (-2-2); ABG PCO2 74 mmHg (38-42); ABG PO2 85 mmHg (61-120)
--- NOTE | 2018-02-25 15:50 | P.PNCC ---
Subjective Subjective Remarks/Hospital Course: This is a 67-year-old male. Date of admission 02/13/2018. Date of consultation 02/08/2018. Past medical history includes ongoing tobaccoism, COPD , peripheral vascular disease including sent to the right lower extremity on clopidogrel, hyperlipidemia, essential hypertension who presents to the emergency department at [facility] on 02/13 for the evaluation of altered mental status. Events is document states he had acute delirium times 4-5 days. He also was documented stating he had a nonproductive cough, fever and diarrhea with accompanying shortness of breath. Lack of appetite. He denied any chest pain. According to his neighbor per documentation, they went to check on him and found his door to be partially ajar. They found the patient lying down and he could not remember what day it was. He stated he had not had anything to eat or drink in many days. Patient was admitted on the hospital service after CT of the brain revealed small vessel ischemic changes. Influenza a and B are negative. Blood cultures negative. His urine pneumococcal antigen was positive. He was treated with ceftriaxone and azithromycin. He was treated with bronchodilators every 6 hours and methylprednisolone Succinate 40 mg IV every 8 hours. He is on 2 L nasal cannula. Today, breath. Rapid response was called. He was noted to be febrile temperature of 102.5 Fahrenheit and noted to be tachypneic. He received bronchodilator therapy. Chest x-ray revealed a right middle lobe infiltrate. He was transferred to the ICU for evaluation. On my evaluation patient is on 2 L nasal cannula. He is not using accessory muscles. He is able to complete sentences. He does have a cough present time with white sputum. Denies hemoptysis. 02/17: Afebrile. Continues to be quite wheezy. Slight retractions. Will increase methylprednisolone. On aggressive pulmonary toilet therapy at the present time. CT chest revealed bilateral patchy pneumonia. 02/18: Afebrile. On 3 L nasal cannula satting 94-97%. Less wheezy today. In much better spirits. 02/19: Decompensated overnight requiring mechanical intubation. Hypotensive so central line placed earlier this a.m. Creatinine stable 1.3. White blood cell count slightly improved to 14,000. Continue antibiotic therapy. 02/20: Oxygenation acceptable at 40% FiO2. Glucose control problematic owing largely to tube feeds and steroids. Will augment sliding scale with very low- dose Levemir. Switch to Glucerna if problem continues. GFR declining modestly , concern for osmotic diuresis. Watch carefully, add hydration if necessary. Attempted CPAP trial today which resulted in tachypnea and small volumes; patient appeared to be talking pretty hard despite pressure support of 12. 02/21: Afebrile. Oxygenation 40%. We will continue to wean. Appears volume overloaded with positive intake versus output. Tolerating tube feeding. 02/22: Currently on CPAP trial 08/02 at 50%. Tachypneic. Arousable but not following commands. X-ray possible pleural effusion noted. Will attempt to diurese again. 02/23: FiO2 increased to 70%. Removed filter from expiratory port GE vent... now FiO2 down to 40%. Order written for no more added space. Getting hyperkalemia protocol. Will reassess. Subjective: 02/24: CT thorax overnight revealed worsening bilateral bronchopneumonia. -625 out of chest tube overnight. We will place on Nimbex drip due to ventilator assynchrony. 1000 cc at OT. Will check KUB now. Switch vasopressors to D5 water if able a maximum concentration CPK and troponin pending. 02/25: Patchy infiltrates persist along with diffuse interstitial process. Despite elevated PEEP 12 and Flolan at 30 ng still requiring 70% oxygen. Good efforts have been made to desiccate the lungs but severe prerenal azotemia probably prohibits further diuresis. White blood cell count 32,000 this morning , trend exacerbated by him. Severely diseased lungs with large chronic component. Update 1600 hrs: On APRV this morning oxygenation started to improve and we were able to slowly wean FiO2 to 65%. However his CO2 retention and respiratory acidosis persisted. I converted back to conventional assist control ventilation and CO2 retention remained a problem. Now we are on pressure control ventilation and achieving slightly larger tidal volumes but this dilemma with CO2 retention bodes poorly for survival. Despite gingerly hydrating the patient urine output remains minimal. Objective Vital Signs / I&O: Vital Signs 02/24/18 15:45 02/24/18 16:00 02/24/18 16:15 Temperature 98.1 F Pulse Rate 118 H 117 H 116 H Respiratory Rate 24 24 24 Blood Pressure 91/66 L Pulse Oximetry 89 L 90 L 90 L 02/24/18 16:30 02/24/18 16:45 02/24/18 17:00 Temperature Pulse Rate 116 H 114 H 119 H Respiratory Rate 24 24 24 Blood Pressure 89/66 L Pulse Oximetry 90 L 92 L 91 L 02/24/18 17:15 02/24/18 17:30 02/24/18 17:45 Temperature Pulse Rate 123 H 123 H 122 H Respiratory Rate 24 20 Blood Pressure Pulse Oximetry 90 L 91 L 92 L 02/24/18 18:00 02/24/18 18:15 02/24/18 18:30 Temperature 97.9 F 97.9 F 97.7 F Pulse Rate 118 H 117 H 114 H Respiratory Rate 20 Blood Pressure 94/64 L Pulse Oximetry 92 L 93 L 93 L 02/24/18 18:45 02/24/18 19:00 02/24/18 19:15 Temperature 97.5 F L 97.5 F L 97.5 F L Pulse Rate 115 H 114 H 116 H Respiratory Rate Blood Pressure 91/67 L Pulse Oximetry 92 L 92 L 91 L 02/24/18 19:30 02/24/18 19:42 02/24/18 19:43 Temperature 97.5 F L Pulse Rate 115 H 114 H Respiratory Rate 20 20 Blood Pressure Pulse Oximetry 90 L 92 L 02/24/18 19:45 02/24/18 20:00 02/24/18 20:15 Temperature 97.5 F L 97.5 F L 97.5 F L Pulse Rate 114 H 114 H 111 H Respiratory Rate 20 Blood Pressure 99/65 L Pulse Oximetry 91 L 91 L 92 L 02/24/18 20:30 02/24/18 20:45 02/24/18 21:00 Temperature 97.3 F L 97.3 F L 97.3 F L Pulse Rate 110 H 108 H 109 H Respiratory Rate 20 Blood Pressure 96/66 L Pulse Oximetry 92 L 92 L 92 L 02/24/18 21:15 02/24/18 21:30 02/24/18 21:45 Temperature 97.3 F L 97.5 F L 97.5 F L Pulse Rate 109 H 109 H 109 H Respiratory Rate 20 Blood Pressure Pulse Oximetry 90 L 91 L 91 L 02/24/18 22:00 02/24/18 22:15 02/24/18 22:30 Temperature 97.5 F L 97.7 F 97.7 F Pulse Rate 108 H 107 H 106 H Respiratory Rate 20 Blood Pressure 89/61 L Pulse Oximetry 90 L 92 L 92 L 02/24/18 22:45 02/24/18 23:00 02/24/18 23:15 Temperature 97.7 F 97.7 F Pulse Rate 106 H 106 H 107 H Respiratory Rate 20 Blood Pressure 92/63 L Pulse Oximetry 88 L 94 L 93 L 02/24/18 23:30 02/24/18 23:33 02/24/18 23:45 Temperature Pulse Rate 107 H 109 H 106 H Respiratory Rate 20 Blood Pressure Pulse Oximetry 93 L 93 L 94 L 02/25/18 00:00 02/25/18 00:15 02/25/18 00:30 Temperature 99.5 F Pulse Rate 106 H 105 H 105 H Respiratory Rate 20 20 Blood Pressure 85/63 L Pulse Oximetry 94 L 94 L 95 02/25/18 00:45 02/25/18 01:00 02/25/18 01:02 Temperature Pulse Rate 105 H 105 H 105 H Respiratory Rate 20 20 Blood Pressure 82/59 L Pulse Oximetry 95 95 95 02/25/18 01:15 02/25/18 01:30 02/25/18 01:45 Temperature Pulse Rate 106 H 105 H 104 H Respiratory Rate Blood Pressure Pulse Oximetry 94 L 94 L 94 L 02/25/18 02:00 02/25/18 02:15 02/25/18 02:30 Temperature Pulse Rate 104 H 101 H 105 H Respiratory Rate 20 20 Blood Pressure 89/63 L Pulse Oximetry 94 L 95 92 L 02/25/18 02:45 02/25/18 03:00 02/25/18 03:15 Temperature Pulse Rate 114 H 112 H 110 H Respiratory Rate 20 20 Blood Pressure 92/64 L Pulse Oximetry 93 L 93 L 93 L 02/25/18 03:30 02/25/18 03:45 02/25/18 03:46 Temperature Pulse Rate 108 H 107 H Respiratory Rate 20 20 Blood Pressure Pulse Oximetry 93 L 93 L 93 L 02/25/18 04:00 02/25/18 04:15 02/25/18 04:30 Temperature 99.3 F Pulse Rate 108 H 107 H 105 H Respiratory Rate 20 Blood Pressure 95/67 L Pulse Oximetry 92 L 92 L 92 L 02/25/18 04:45 02/25/18 05:00 02/25/18 05:15 Temperature Pulse Rate 105 H 105 H 104 H Respiratory Rate 20 Blood Pressure 99/63 L Pulse Oximetry 90 L 92 L 93 L 02/25/18 05:30 02/25/18 05:45 02/25/18 06:00 Temperature Pulse Rate 103 H 103 H 103 H Respiratory Rate 20 Blood Pressure 101/63 Pulse Oximetry 93 L 93 L 93 L 02/25/18 06:15 02/25/18 06:30 02/25/18 06:45 Temperature Pulse Rate 103 H 102 H 102 H Respiratory Rate Blood Pressure Pulse Oximetry 92 L 92 L 91 L 02/25/18 07:00 02/25/18 07:15 02/25/18 07:30 Temperature Pulse Rate 110 H 116 H 119 H Respiratory Rate 20 20 20 Blood Pressure Pulse Oximetry 89 L 90 L 91 L 02/25/18 07:45 02/25/18 08:00 02/25/18 08:15 Temperature 97.4 F L Pulse Rate 121 H 122 H 122 H Respiratory Rate 20 15 15 Blood Pressure 103/66 Pulse Oximetry 90 L 91 L 91 L 02/25/18 08:30 02/25/18 08:45 02/25/18 09:00 Temperature Pulse Rate 118 H 121 H 119 H Respiratory Rate 15 15 15 Blood Pressure 80/63 L Pulse Oximetry 90 L 90 L 89 L 02/25/18 09:15 02/25/18 09:30 02/25/18 09:45 Temperature Pulse Rate 116 H 164 H 160 H Respiratory Rate 15 15 15 Blood Pressure Pulse Oximetry 89 L 89 L 91 L 02/25/18 10:00 02/25/18 10:15 02/25/18 10:30 Temperature Pulse Rate 150 H 141 H 139 H Respiratory Rate 13 13 13 Blood Pressure Pulse Oximetry 93 L 95 96 02/25/18 10:45 02/25/18 11:00 02/25/18 11:15 Temperature Pulse Rate 137 H 119 H 124 H Respiratory Rate 13 13 13 Blood Pressure 102/72 Pulse Oximetry 96 95 95 02/25/18 11:30 02/25/18 11:45 02/25/18 11:50 Temperature Pulse Rate 131 H 124 H Respiratory Rate 13 13 13 Blood Pressure Pulse Oximetry 93 L 94 L 90 L 02/25/18 11:53 02/25/18 12:00 02/25/18 12:15 Temperature 97.3 F L Pulse Rate 120 H 130 H 129 H Respiratory Rate 13 13 13 Blood Pressure 96/60 L Pulse Oximetry 99 99 02/25/18 12:30 02/25/18 12:45 02/25/18 13:00 Temperature Pulse Rate 124 H 124 H 123 H Respiratory Rate 24 24 24 Blood Pressure 91/63 L Pulse Oximetry 98 98 98 02/25/18 13:15 02/25/18 13:30 02/25/18 13:45 Temperature Pulse Rate 122 H 121 H 118 H Respiratory Rate 24 24 24 Blood Pressure Pulse Oximetry 98 97 97 Intake & Output 02/24/18 02/25/18 02/25/18 18:59 06:59 18:59 Intake Total 1131 / 1131 1300 / 1300 3200 / 3200 Output Total 2055 / 2055 695 / 695 Balance -924 / -924 605 / 605 3200 / 3200 Weight 79.6 kg Intake: IV 1063 / 1063 1300 / 1300 3200 / 3200 Nimbex Inj 100 MG In NS Inj 240 250 / 250 ML @ 1 MCG/KG/MIN 11.89 mls/hr IV.CONT TITRATE PRN Rx#: [id number] Diprivan 1000 mg/100 ml Inj 1, 100 / 100 100 / 100 100 / 100 000 mg In 100 ml @ 5 MCG/KG/MIN 2.172 mls/hr IV.CONT TITRATE PRN Rx#:[id number] Cordarone Inj 150 MG In D5W Inj 100 / 100 97 ML @ 600 mls/hr IV.SIG ONCE ONE Rx#:[id number] Azithromycin Inj 500 MG In NS 250 / 250 Inj 250 ML @ 250 mls/hr IV.SIG Q24H [facility] Rx#:[id number] Maxipime Inj 2,000 MG In NS Inj 200 / 200 100 / 100 100 ML @ 200 mls/hr IV.SIG Q12H [facility] Rx#:[id number] D5W Inj 1,000 ML @ 250 mls/hr 1000 / 1000 IV.SIG BOLUS ONE Rx#:[id number] LR 1000 mL Inj 1,000 ML @ Wide 2000 / 2000 Open IV.SIG BOLUS ONE Rx#: [id number] Levophed-Dextrose 4 mg/250 ml 250 / 250 500 / 500 Drip 4 mg In 250 ml @ 2 MCG/MIN 7.5 mls/hr IV.SIG TITRATE PRN Rx#:[id number] Vancomycin Inj 1,250 MG In NS 263 / 263 Inj 250 ML @ 262.5 mls/hr IV. SIG Q18H [facility] Rx#:[id number] fentaNYL 10 mcg/mL Premix Drip 250 / 250 2,500 mcg In 250 ml @ 50 MCG/HR 5 mls/hr IV.SIG TITRATE PRN Rx #:[id number] Flolan (30,000 ng/mL) Neb 100 100 / 100 ML In NS Inj 0 ML @ 5 mls/hr NEB Q8H [facility] Rx#:[id number] Tube Feeding 68 / Output: Urine 275 / 275 Stool 0 / 0 0 / 0 Urine Amount (Catheter) 525 / 525 Indwelling Temp Sensing 525 / 525 Catheter Gastric Drainage 1450 / 1450 350 / 350 Left Nare 1450 / 1450 350 / 350 Chest Tube Drainage 80 / 80 70 / 70 Right 80 / 80 70 / 70 Other: Date of Last Bowel Movement 02/23/18 02/23/18 02/25/18 Result Diagrams: 02/25/18 03:55 02/25/18 03:55 Objective Remarks: GENERAL: 67-year-old male, sedated, chemically paralyzed on mechanical ventilation SKIN: Warm and dry. HEAD: Atraumatic. Normocephalic. EYES: Pupils equal and round. No scleral icterus. No injection or drainage. ENT: No nasal bleeding or discharge. Mucous membranes pink and moist. NECK: Trachea midline. Left IJ CVL is clean dry and intact. Orotracheal intubation CARDIOVASCULAR: Tachycardic, RR. S1, S2 no S4. No murmur appreciated RESPIRATORY: Tachypneic with respiratory rate is around 30. Light end expiratory wheezes persist. GASTROINTESTINAL: Abdomen soft, non-tender, nondistended. No guarding, bowel sounds active MUSCULOSKELETAL: Extremities without clubbing, or significant peripheral edema. Warm, well-perfused. Nailbeds less dusky. NEUROLOGICAL: Relaxant was stopped 8 hours ago but patient still demonstrates no movement. Assessment and Plan - Assessment and Plan Plan: Neuro/Psych: Admission with acute delirium/encephalopathy toxic metabolic due to underlying pneumonia/community acquired Currently on propofol at 20 mcg/kg/min/dexmedetomidine drips at 0.8 mg/kg/h for sedation/vent synchrony We will place on propofol, fentanyl and midazolam drips and start on cisatracurium drip for vent synchrony Goal of RA SS -2 Daily sedation vacation Acetaminophen 650 p.o. every 6 hours as needed fever Hydrocodone/acetaminophen 5/325 1 tablet every 4 hours as needed pain [address] brain 02/13 revealed small vessel ischemic changes bilaterally. No acute infarction. MRI brain 02/23 revealed small vessel ischemic change. No acute findings. Continue light sedation for vent synchrony Discontinue paralyzing agent CV: Essential hypertension Hyperlipidemia Peripheral vascular disease stenting to right lower extremity Systolic heart failure ejection fraction 35% unknown if acute or chronic Elevated troponin Holding olmesartan 40 mg daily/home medication for hypertension. Resume if clinically indicated Currently on atorvastatin 80 mg daily for hyperlipidemia. 2D echocardiogram left ventricular systolic function is severely reduced with an estimated ejection fraction in the range of 30-35%. Moderately dilated left ventricle. Wall thickness is normal. There is global left ventricular dysfunction Elevated troponin 0 0.27. Recheck tomorrow Continue home medication clopidogrel 75 mg daily As needed norepinephrine to maintain mean artery pressure equal to 65. Currently at 8 mcg/min Persistent low level cardiac enzyme spill Paroxysmal atrial fibrillation with rapid ventricular response -have discontinued Levophed and substituted with Glen-Synephrine. Additional dose of digoxin given 0.25 mg IV. Total dig loading 0.75 mg over the past 24 hours. Follow level closely because of impaired renal function Repeat CPK/troponin pending Resp: Acute respiratory failure/hypoxic hypercapnic COPD Community-acquired pneumonia ongoing tobaccoism Pleural effusion -exudative by light's criteria. Gram stain pending. PRVC ventilation Head of bed at 30 degrees with ventilator bundle Albuterol/ipratropium aerosols every 4 hours with albuterol aerosols every 2 hours as needed dyspnea Continue budesonide 0.5/2 1 inhalation twice daily Follow-up chest x-ray in a.m. 02/25 Continue methylprednisolone succinate 40 mg every 8 hours Currently paralyzed due to vent asynchrony. Tobacco cessation self evaluation booklet provided. Continue nicotine patch 14mg daily CT thorax 02/23 revealed worsening bronchopneumonia bilaterally. Initially converted to airway pressure release ventilation but he started retaining CO2. Air entry is acceptable and bronchospasm minimal now. Eventually ended up with PC/AC in an attempt to increase minute volume and help with CO2 removal. GI: Hypoalbuminemia Currently on a tube feeds Glucerna 1.5 55 cc an hour we will hold due to high outputs. N.p.o. except for medications Check KUB now. Start on medical 0.5 IV every 8 Lansoprazole for GI prophylaxis Docusate sodium/senna 1 tablet twice daily for bowel regimen. Add lactulose 30 cc twice daily Residual is 1 L, will hold tube feedings : Armstrong catheter as needed Endo: Sliding scale insulin with aspart insulin Accu-Cheks AC/at bedtime to maintain euglycemia while on steroids Normal TSH 0.398 Persistent hyperglycemia mid 200s. Now in the 150s. Levemir 6 units subcu every 12 hours while tube feedings run at continuous rate. Hold insulin detemir while n.p.o. Renal: Acute kidney injury -likely worsening Right renal cyst Avoid nephrotoxic medications. Patient was on ibuprofen as an outpatient. Check renal ultrasound -medical renal disease. Right renal cyst GFR declining over the last 92 hours Continue free water 250 every 8 hours as tolerated Rehydrate gently with hypotonic saline solution Heme: Leukocytosis Normocytic anemia Thrombocytopenia Thrombocytopenia Monitor CBC daily. Follow trends. No indication for transfusion of blood products at this time. ID: Streptococcal urinary antigen positive for community acquired pneumonia Currently on cefepime, azithromycin, vancomycin Previously on ceftriaxone since 02/13. Discontinued 02/17. Piperacillin/ tazobactam discontinued 02/16 -sputum with Aspergillus. Added fluconazole initially but discontinued 1/ 3 Blood cultures x2/influenza A/B 02/13 no growth to date Appreciated infectious disease consultation. Chlamydia and mycoplasma negative IgM. Positive IgG both Gram stain from pleural fluid pending 02/23 MSK: PT evaluate and treat FEN: Hypernatremia Hyper magnesium Replace electrolytes as clinically indicated per ICU electrolyte protocol We will attempt to switch all vasopressors to D5 water Free water flushes 250 cc every 8 hours Access -Left internal J CVL day #6/right femoral arterial line day #3 Prophylaxis -GI -lansoprazole -DVT -SCD/heparin subcu Overall impression: This gentleman has received very aggressive efforts to recruit alveolar clusters and reduce edema in the pulmonary interstitium. We cannot push serum concentration any further at this point and indeed efforts have been started to replete free water. I have tried a recruitment maneuver with APRV but CO2 retention became problematic. This patient remains very critically ill and his pulmonary status is deteriorating despite aggressive maneuvers to improve his lung function over the past week. Patient remains unstable from a pulmonary standpoint with marginal oxygenation and life- threatening CO2 retention. Despite trying multiple ventilator maneuvers and modes his pulmonary picture continues to deteriorate and his prognosis is guarded. Critical care time 70 minutes
--- NOTE | 2018-02-25 17:01 | XR ---
EXAM DATE: 02/25/2018 4:58 PM EST AGE/SEX: 67 years / Male INDICATIONS: Hypoxemia CLINICAL DATA: This is the patient's subsequent encounter. Patient reports that signs and symptoms h ave been present for 3 days and indicates a pain score of Nonresponsive. MEDICAL/SURGICAL HISTORY: . Hypertension. Chronic obstructive pulmonary disease. Peripheral vas cular disease. None. COMPARISON: [facility] – [place], CHEST 1V SINGLE AP, 02/25/2018. . FINDINGS: There is no appreciable change in bilateral mixed interstitial and alveolar process worse i n the right lung and worsening right lower lobe the prior exam. Lines and tubes have not changed. CONCLUSION: No appreciable change. Electronically signed by: Hao Romero MD Board Certified Radiologist 02/25/2018 5:00 PM EST
[2018-02-25] MEDS: Azithromycin Inj 500 MG in Sodium Chlor 0.9% Inj 250 ML IV.SIG SCH (17:02)
[2018-02-25 17:21] LABS: ABG Base Excess -4.9 mmol/L (-2-2); ABG PCO2 49 mmHg (38-42); ABG PO2 79 mmHg (61-120)
[2018-02-25] MEDS: Midazolam 100 MG/100 ML Inj 100 MG/100 ML BAG IV.CONT PRN ×2 (21:08→23:36)
[2018-02-25] MEDS: Phenylephrine Inj 160 MG in Sodium Chlor 0.9% Inj 484 ML IV.CONT PRN (23:00)
[2018-02-26] MEDS: Insulin NovoLOG Aspart Correctional Sugar Inj SQ SCH ×4 (00:36→17:37)
[2018-02-26] MEDS: Heparin - SQ 10,000 UNITS/ML Vial SQ SCH ×2 (01:20→13:05)
[2018-02-26] MEDS: Epoprostenol (30,000/mL) Neb 100 ML in Sodium Chlor 0.9% Inj 0 ML NEB SCH ×3 (03:42→18:17)
[2018-02-26 04:54] LABS: ABG Base Excess -5.3 mmol/L (-2-2); ABG PCO2 47 mmHg (38-42); ABG PO2 87 mmHg (61-120)
[2018-02-26 05:00] LABS: Baso # (Auto) 0.2 th/mm3 (0.0-0.2); Baso % (Auto) 0.5 % (0.0-2.0); Eos % (Auto) 0.1 % (0.0-4.0); Hematocrit 33.2 % (39.0-51.0); Hemoglobin 10.8 gm/dL (13.0-17.0); Lymph # (Auto) 0.5 th/mm3 (1.0-4.8); Lymph % (Auto) 1.5 % (9.0-44.0); Mean Corpuscular HGB Conc 32.7 % (32.0-36.0); Mean Corpuscular Hemoglobin 31.1 pg (27.0-34.0); Mean Corpuscular Volume 95.1 fL (80.0-100.0); Mean Platelet Volume 10.9 fL (7.0-11.0); Mono # (Auto) 1.1 th/mm3 (0.0-0.9); Mono % (Auto) 3.6 % (0.0-8.0); Neut # (Auto) 29.5 th/mm3 (1.8-7.7); Neut % (Auto) 94.3 % (16.0-70.0); Platelet Count 123 th/mm3 (150-450); Red Blood Count 3.49 mil/mm3 (4.50-5.90); Red Cell Distribution Width 16.5 % (11.6-17.2); White Blood Count 31.2 th/mm3 (4.0-11.0)
[2018-02-26 05:36] LABS: Lymphocytes 1 % (9-44); Metamyelocytes 1 % (0-1)
[2018-02-26 05:37] LABS: Platelet Estimate Normal (Normal); Platelet Morphology Normal (Normal); Toxic Granulation 1+
[2018-02-26 05:38] LABS: Tear Drop Cells 1+
[2018-02-26 05:43] LABS: Digoxin 1.9 ng/mL (0.8-2.0); Potassium 5.5 meq/L (3.5-5.1)
[2018-02-26 05:52] LABS: Troponin I 0.81 ng/mL (0.02-0.05)
--- NOTE | 2018-02-26 05:55 | XR ---
EXAM DATE: 02/26/2018 5:04 AM EST AGE/SEX: 67 years / Male INDICATIONS: Shortness of breath. CLINICAL DATA: This is the patient's subsequent encounter. Patient reports that signs and symptoms h ave been present for 2 weeks and indicates a pain score of Nonresponsive. MEDICAL/SURGICAL HISTORY: Hypertension. Chronic obstructive pulmonary disease. Peripheral vasc ular disease. Smoker. None. [place] [facility] [place]. . FINDINGS: A single AP view of the chest demonstrates bilateral patchy areas of consolidation most pronounced wi thin the right lung base. The area of consolidation within the right lung base has progressed. A tiny left effusion is noted in unchanged. Heart is normal in size. Endotracheal tube, central line, and n asogastric tube are in good position. CONCLUSION: Patchy areas of parenchymal consolidation bilaterally with some worsening involving the right basi lar component. Electronically signed by: Pedro Simmons MD Board Certified Radiologist 02/26/2018 5:54 AM EST
[2018-02-26] MEDS: MethylPREDNISolone Sod Succinate Inj 40 MG/ML Vial IV.PUSH SCH ×3 (05:56→21:29)
[2018-02-26 05:57] LABS: Albumin 0.9 g/dL (3.4-5.0); Calcium-Albumin Corrected 9.5 mg/dL (8.5-10.1)
--- NOTE | 2018-02-26 07:08 | P.PNCC ---
Subjective Subjective Remarks/Hospital Course: This is a 67-year-old male. Date of admission 02/13/2018. Date of consultation 02/08/2018. Past medical history includes ongoing tobaccoism, COPD , peripheral vascular disease including sent to the right lower extremity on clopidogrel, hyperlipidemia, essential hypertension who presents to the emergency department at [facility] on 02/13 for the evaluation of altered mental status. Events is document states he had acute delirium times 4-5 days. He also was documented stating he had a nonproductive cough, fever and diarrhea with accompanying shortness of breath. Lack of appetite. He denied any chest pain. According to his neighbor per documentation, they went to check on him and found his door to be partially ajar. They found the patient lying down and he could not remember what day it was. He stated he had not had anything to eat or drink in many days. Patient was admitted on the hospital service after CT of the brain revealed small vessel ischemic changes. Influenza a and B are negative. Blood cultures negative. His urine pneumococcal antigen was positive. He was treated with ceftriaxone and azithromycin. He was treated with bronchodilators every 6 hours and methylprednisolone Succinate 40 mg IV every 8 hours. He is on 2 L nasal cannula. Today, breath. Rapid response was called. He was noted to be febrile temperature of 102.5 Fahrenheit and noted to be tachypneic. He received bronchodilator therapy. Chest x-ray revealed a right middle lobe infiltrate. He was transferred to the ICU for evaluation. On my evaluation patient is on 2 L nasal cannula. He is not using accessory muscles. He is able to complete sentences. He does have a cough present time with white sputum. Denies hemoptysis. 02/17: Afebrile. Continues to be quite wheezy. Slight retractions. Will increase methylprednisolone. On aggressive pulmonary toilet therapy at the present time. CT chest revealed bilateral patchy pneumonia. 02/18: Afebrile. On 3 L nasal cannula satting 94-97%. Less wheezy today. In much better spirits. 02/19: Decompensated overnight requiring mechanical intubation. Hypotensive so central line placed earlier this a.m. Creatinine stable 1.3. White blood cell count slightly improved to 14,000. Continue antibiotic therapy. 02/20: Oxygenation acceptable at 40% FiO2. Glucose control problematic owing largely to tube feeds and steroids. Will augment sliding scale with very low- dose Levemir. Switch to Glucerna if problem continues. GFR declining modestly , concern for osmotic diuresis. Watch carefully, add hydration if necessary. Attempted CPAP trial today which resulted in tachypnea and small volumes; patient appeared to be talking pretty hard despite pressure support of 12. 02/21: Afebrile. Oxygenation 40%. We will continue to wean. Appears volume overloaded with positive intake versus output. Tolerating tube feeding. 02/22: Currently on CPAP trial 08/02 at 50%. Tachypneic. Arousable but not following commands. X-ray possible pleural effusion noted. Will attempt to diurese again. 02/23: FiO2 increased to 70%. Removed filter from expiratory port GE vent... now FiO2 down to 40%. Order written for no more added space. Getting hyperkalemia protocol. Will reassess. Subjective: 02/24: CT thorax overnight revealed worsening bilateral bronchopneumonia. -625 out of chest tube overnight. We will place on Nimbex drip due to ventilator assynchrony. 1000 cc at OT. Will check KUB now. Switch vasopressors to D5 water if able a maximum concentration CPK and troponin pending. 02/25: Patchy infiltrates persist along with diffuse interstitial process. Despite elevated PEEP 12 and Flolan at 30 ng still requiring 70% oxygen. Good efforts have been made to desiccate the lungs but severe prerenal azotemia probably prohibits further diuresis. White blood cell count 32,000 this morning , trend exacerbated by him. Severely diseased lungs with large chronic component. Update 1600 hrs: On APRV this morning oxygenation started to improve and we were able to slowly wean FiO2 to 65%. However his CO2 retention and respiratory acidosis persisted. I converted back to conventional assist control ventilation and CO2 retention remained a problem. Now we are on pressure control ventilation and achieving slightly larger tidal volumes but this dilemma with CO2 retention bodes poorly for survival. Despite gingerly hydrating the patient urine output remains minimal. 02/26: Patient remains intubated sedated very critical severely hypoxemic. Currently on pressure control mode with PEEP of 12. FiO2 remains at 75% with oxygen saturation hardly 90%. Requiring 2 pressors Glen-Synephrine 90 mcg/min. Vasopressin at 0.04 international units. Urine output diminishing hardly 200 mL in 24 hours. BUN 117 creatinine 4.2. Patient appears to be making no progress has severe multiorgan failure prognosis guarded. I will consult palliative care to assist with goals of care. Nephrology consulted for oliguric renal failure hyperkalemia Objective Vital Signs / I&O: Vital Signs 02/25/18 07:00 02/25/18 07:15 02/25/18 07:30 Temperature Pulse Rate 110 H 116 H 119 H Respiratory Rate 20 20 20 Blood Pressure Pulse Oximetry 89 L 90 L 91 L 02/25/18 07:45 02/25/18 08:00 02/25/18 08:15 Temperature 97.4 F L Pulse Rate 121 H 122 H 122 H Respiratory Rate 20 15 15 Blood Pressure 103/66 Pulse Oximetry 90 L 91 L 91 L 02/25/18 08:30 02/25/18 08:45 02/25/18 09:00 Temperature Pulse Rate 118 H 121 H 119 H Respiratory Rate 15 15 15 Blood Pressure 80/63 L Pulse Oximetry 90 L 90 L 89 L 02/25/18 09:15 02/25/18 09:30 02/25/18 09:45 Temperature Pulse Rate 116 H 164 H 160 H Respiratory Rate 15 15 15 Blood Pressure Pulse Oximetry 89 L 89 L 91 L 02/25/18 10:00 02/25/18 10:15 02/25/18 10:30 Temperature Pulse Rate 150 H 141 H 139 H Respiratory Rate 13 13 13 Blood Pressure Pulse Oximetry 93 L 95 96 02/25/18 10:45 02/25/18 11:00 02/25/18 11:15 Temperature Pulse Rate 137 H 119 H 124 H Respiratory Rate 13 13 13 Blood Pressure 102/72 Pulse Oximetry 96 95 95 02/25/18 11:30 02/25/18 11:45 02/25/18 11:50 Temperature Pulse Rate 131 H 124 H Respiratory Rate 13 13 13 Blood Pressure Pulse Oximetry 93 L 94 L 90 L 02/25/18 11:53 02/25/18 12:00 02/25/18 12:15 Temperature 97.3 F L Pulse Rate 120 H 130 H 129 H Respiratory Rate 13 13 13 Blood Pressure 96/60 L Pulse Oximetry 99 99 02/25/18 12:30 02/25/18 12:45 02/25/18 13:00 Temperature Pulse Rate 124 H 124 H 123 H Respiratory Rate 24 24 24 Blood Pressure 91/63 L Pulse Oximetry 98 98 98 02/25/18 13:15 02/25/18 13:30 02/25/18 13:45 Temperature Pulse Rate 122 H 121 H 118 H Respiratory Rate 24 24 24 Blood Pressure Pulse Oximetry 98 97 97 02/25/18 14:00 02/25/18 14:15 02/25/18 14:30 Temperature Pulse Rate 117 H 115 H 117 H Respiratory Rate 24 24 24 Blood Pressure 91/65 L Pulse Oximetry 97 97 97 02/25/18 14:45 02/25/18 15:00 02/25/18 15:15 Temperature Pulse Rate 113 H 113 H 113 H Respiratory Rate 24 24 24 Blood Pressure 96/73 L Pulse Oximetry 98 97 97 02/25/18 15:30 02/25/18 15:45 02/25/18 15:47 Temperature Pulse Rate 115 H 79 Respiratory Rate 24 24 24 Blood Pressure Pulse Oximetry 96 93 L 97 02/25/18 16:00 02/25/18 16:15 02/25/18 16:30 Temperature 98.2 F Pulse Rate 79 78 78 Respiratory Rate 24 24 24 Blood Pressure 112/71 Pulse Oximetry 93 L 94 L 94 L 02/25/18 16:45 02/25/18 17:00 02/25/18 17:15 Temperature Pulse Rate 76 77 77 Respiratory Rate 24 24 24 Blood Pressure 106/69 Pulse Oximetry 98 98 97 02/25/18 17:30 02/25/18 17:45 02/25/18 18:00 Temperature 98.2 F Pulse Rate 77 76 75 Respiratory Rate 24 24 24 Blood Pressure 112/76 Pulse Oximetry 97 96 96 02/25/18 18:15 02/25/18 18:30 02/25/18 18:45 Temperature Pulse Rate 75 76 76 Respiratory Rate 24 24 24 Blood Pressure Pulse Oximetry 94 L 96 97 02/25/18 19:00 02/25/18 19:15 02/25/18 19:30 Temperature 98.2 F Pulse Rate 75 74 73 Respiratory Rate Blood Pressure 118/75 Pulse Oximetry 95 93 L 95 02/25/18 19:45 02/25/18 19:53 02/25/18 20:00 Temperature 98.4 F Pulse Rate 73 73 74 Respiratory Rate 24 Blood Pressure 124/80 Pulse Oximetry 95 94 L 94 L 02/25/18 20:15 02/25/18 20:30 02/25/18 20:45 Temperature Pulse Rate 75 74 74 Respiratory Rate Blood Pressure Pulse Oximetry 93 L 93 L 93 L 02/25/18 21:00 02/25/18 21:15 02/25/18 21:30 Temperature 98.8 F Pulse Rate 75 75 75 Respiratory Rate Blood Pressure 123/77 Pulse Oximetry 93 L 93 L 93 L 02/25/18 21:45 02/25/18 22:00 02/25/18 22:15 Temperature Pulse Rate 75 74 75 Respiratory Rate Blood Pressure 125/76 Pulse Oximetry 93 L 93 L 94 L 02/25/18 22:30 02/25/18 22:45 02/25/18 23:00 Temperature 99.0 F Pulse Rate 73 73 74 Respiratory Rate Blood Pressure Pulse Oximetry 93 L 93 L 92 L 02/25/18 23:15 02/25/18 23:30 02/25/18 23:45 Temperature 99.0 F 99.0 F 99.0 F Pulse Rate 74 74 74 Respiratory Rate Blood Pressure Pulse Oximetry 92 L 93 L 93 L 02/26/18 00:00 02/26/18 00:07 02/26/18 00:15 Temperature 99.1 F 99.1 F Pulse Rate 74 74 Respiratory Rate 24 24 Blood Pressure 110/72 Pulse Oximetry 94 L 93 L 93 L 02/26/18 00:30 02/26/18 00:45 02/26/18 01:00 Temperature 99.1 F 99.1 F 99.1 F Pulse Rate 73 73 73 Respiratory Rate Blood Pressure 108/72 Pulse Oximetry 93 L 93 L 93 L 02/26/18 01:15 02/26/18 01:30 02/26/18 01:45 Temperature 99.1 F 99.0 F 99.0 F Pulse Rate 73 72 71 Respiratory Rate Blood Pressure Pulse Oximetry 93 L 93 L 93 L 02/26/18 02:00 02/26/18 02:15 02/26/18 02:30 Temperature 99.0 F 99.0 F 99.0 F Pulse Rate 71 71 71 Respiratory Rate Blood Pressure 117/73 Pulse Oximetry 93 L 93 L 93 L 02/26/18 02:45 02/26/18 03:00 02/26/18 03:15 Temperature 99.0 F 99.0 F 99.0 F Pulse Rate 70 72 72 Respiratory Rate Blood Pressure 104/70 Pulse Oximetry 93 L 93 L 93 L 02/26/18 03:30 02/26/18 03:45 02/26/18 03:50 Temperature 99.0 F 97.9 F Pulse Rate 71 73 Respiratory Rate 24 Blood Pressure Pulse Oximetry 92 L 91 L 91 L 02/26/18 04:00 02/26/18 04:15 02/26/18 04:30 Temperature 98.8 F 99.0 F 99.0 F Pulse Rate 70 72 71 Respiratory Rate 24 Blood Pressure 98/61 L Pulse Oximetry 91 L 90 L 90 L 02/26/18 04:45 02/26/18 05:00 02/26/18 05:15 Temperature 99.0 F 99.0 F 98.8 F Pulse Rate 69 70 71 Respiratory Rate Blood Pressure 126/73 Pulse Oximetry 91 L 90 L 90 L 02/26/18 05:30 02/26/18 05:45 02/26/18 06:00 Temperature 98.8 F 99.0 F 99.0 F Pulse Rate 72 72 71 Respiratory Rate Blood Pressure Pulse Oximetry 91 L 91 L 92 L Intake & Output 02/25/18 02/25/18 02/26/18 06:59 18:59 06:59 Intake Total 1300 / 1300 4100 / 4100 650 / 650 Output Total 695 / 695 630 / 630 420 / 420 Balance 605 / 605 3470 / 3470 230 / 230 Weight 79.6 kg 86.6 kg Intake: IV 1300 / 1300 4000 / 4000 650 / 650 Cordarone Inj 450 MG In D5W Inj 250 / 250 241 ML @ 1 MG/MIN 33.33 mls/hr IV.CONT TITRATE PRN Rx#: [id number] Nimbex Inj 100 MG In NS Inj 240 250 / 250 ML @ 1 MCG/KG/MIN 11.89 mls/hr IV.CONT TITRATE PRN Rx#: [id number] Versed Inj 100 mg In 100 ml @ 2 100 / 100 MG/HR 2 mls/hr IV.CONT TITRATE PRN Rx#:[id number] Diprivan 1000 mg/100 ml Inj 1, 100 / 100 100 / 100 100 / 100 000 mg In 100 ml @ 5 MCG/KG/MIN 2.172 mls/hr IV.CONT TITRATE PRN Rx#:[id number] Pitressin Inj 40 UNIT In D5W 100 / 100 Inj 98 ML @ 0.04 UNITS/MIN 6 mls/hr IV.CONT CONT [facility] Rx#: [id number] Cordarone Inj 150 MG In D5W Inj 100 / 100 97 ML @ 600 mls/hr IV.SIG ONCE ONE Rx#:[id number] Azithromycin Inj 500 MG In NS 250 / 250 Inj 250 ML @ 250 mls/hr IV.SIG Q24H [facility] Rx#:[id number] Maxipime Inj 2,000 MG In NS Inj 100 / 100 100 ML @ 200 mls/hr IV.SIG Q12H [facility] Rx#:[id number] D5W Inj 1,000 ML @ 250 mls/hr 1000 / 1000 IV.SIG BOLUS ONE Rx#:[id number] LR 1000 mL Inj 1,000 ML @ Wide 2000 / 2000 Open IV.SIG BOLUS ONE Rx#: [id number] Merrem Inj 500 MG In NS Inj 100 100 / 100 100 / 100 ML @ 200 mls/hr IV.SIG Q8H [facility] Rx#:[id number] Levophed-Dextrose 4 mg/250 ml 500 / 500 Drip 4 mg In 250 ml @ 2 MCG/MIN 7.5 mls/hr IV.SIG TITRATE PRN Rx#:[id number] fentaNYL 10 mcg/mL Premix Drip 250 / 250 250 / 250 2,500 mcg In 250 ml @ 50 MCG/HR 5 mls/hr IV.SIG TITRATE PRN Rx #:[id number] Flolan (30,000 ng/mL) Neb 100 100 / 100 100 / 100 100 / 100 ML In NS Inj 0 ML @ 5 mls/hr NEB Q8H [facility] Rx#:[id number] Oral Supplement 0 / 0 Tube Irrigant 100 / 100 Output: Urine 275 / 275 Stool 0 / 0 Urine Amount (Catheter) 20 / 20 20 / 20 Indwelling Temp Sensing 20 / 20 20 / 20 Catheter Gastric Drainage 350 / 350 500 / 500 300 / 300 Left Nare 350 / 350 500 / 500 300 / 300 Chest Tube Drainage 70 / 70 110 / 110 100 / 100 Right 70 / 70 110 / 110 100 / 100 Other: Date of Last Bowel Movement 02/23/18 02/25/18 02/25/18 # Bowel Movements 1 Result Diagrams: 02/26/18 04:30 02/26/18 04:30 Objective Remarks: GENERAL: 67-year-old male, sedated, with propofol fentanyl and Versed SKIN: Warm and dry. HEAD: Atraumatic. Normocephalic. EYES: Pupils equal and round. No scleral icterus. No injection or drainage. ENT: No nasal bleeding or discharge. Mucous membranes pink and moist. Orotracheally intubated NECK: Trachea midline. Left IJ CVL is clean dry and intact. Orotracheal intubation CARDIOVASCULAR: Tachycardic, RR. S1, S2 no S4. No murmur appreciated. And shock currently requiring Glen-Synephrine and vasopressin RESPIRATORY: Tachypneic with respiratory rate is around 30. End expiratory wheezes persist. PC/AC 12 PEEP, FiO2 75% GASTROINTESTINAL: Abdomen soft, non-tender, nondistended. No guarding, bowel sounds active MUSCULOSKELETAL: Extremities without clubbing, or significant peripheral edema. Warm, well-perfused. Nailbeds less dusky. NEUROLOGICAL: Relaxant was stopped 24 hours ago but patient still demonstrates no movement. Patient has corneal reflexes. Shows no withdrawal to pain Assessment and Plan - Assessment and Plan Plan: Neuro/Psych: Admission with acute delirium/encephalopathy toxic metabolic due to underlying pneumonia/community acquired Currently on propofol, fentanyl and midazolam drips. Discontinue Versed Nimbex discontinued 24 hours ago Goal of RA SS -2. Daily sedation vacation if hypoxia permits Acetaminophen 650 p.o. every 6 hours as needed fever Hydrocodone/acetaminophen 5/325 1 tablet every 4 hours as needed pain [address] brain 02/13 revealed small vessel ischemic changes bilaterally. No acute infarction. MRI brain 02/23 revealed small vessel ischemic change. No acute findings. Continue light sedation for vent synchrony CV: Septic shock Systolic heart failure ejection fraction 35% unknown if acute or chronic Elevated troponin essential hypertension Hyperlipidemia Peripheral vascular disease stenting to right lower extremity Worsening septic shock with increasing vasopressor requirement Currently on Glen-Synephrine 90 mcg/kg/min, vasopressin 0.04 international units Holding olmesartan 40 mg daily/home medication for hypertension. Currently on atorvastatin 80 mg daily for hyperlipidemia. 2D echocardiogram left ventricular systolic function is severely reduced with an estimated ejection fraction in the range of 30-35%. Moderately dilated left ventricle. Elevated troponin 0 0.81. Not a candidate for cardiology consultation or any intervention at this time Continue home medication clopidogrel 75 mg daily Continue amiodarone infusion for atrial fibrillation Persistent low level cardiac enzyme spill Paroxysmal atrial fibrillation with rapid ventricular response -have discontinued Levophed and substituted with Glen-Synephrine. Additional dose of digoxin given 0.25 mg IV. Total dig loading 0.75 mg over the past 24 hours. Follow level closely because of impaired renal function Repeat CPK/troponin pending Resp: Acute respiratory failure/hypoxic hypercapnic COPD with exacerbation Community-acquired pneumonia ongoing tobaccoism Pleural effusion -exudative by light's criteria. Gram stain pending. PRVC ventilation Head of bed at 30 degrees with ventilator bundle Albuterol/ipratropium aerosols every 4 hours with albuterol aerosols every 2 hours as needed dyspnea Continue budesonide 0.5/2 1 inhalation twice daily Follow-up chest x-ray daily Continue methylprednisolone succinate 40 mg every 8 hours Continue nicotine patch 14mg daily CT thorax 02/23 revealed worsening bronchopneumonia bilaterally. Initially converted to airway pressure release ventilation but he started retaining CO2. Air entry is acceptable and bronchospasm minimal now. Eventually ended up with PC/AC in an attempt to increase minute volume and help with CO2 removal. GI: Hypoalbuminemia Currently on a tube feeds Glucerna 1.5 55 cc an hour we will hold due to high outputs. N.p.o. except for medications Lansoprazole for GI prophylaxis Docusate sodium/senna 1 tablet twice daily for bowel regimen. lactulose 30 cc twice daily Endo: Sliding scale insulin with aspart insulin Accu-Cheks AC/at bedtime to maintain euglycemia while on steroids Normal TSH 0.398 Persistent hyperglycemia mid 200s. Now in the 150s. Levemir 6 units subcu every 12 hours while tube feedings run at continuous rate. Hold insulin detemir while n.p.o. Renal: Acute kidney with oliguria Right renal cyst Avoid nephrotoxic medications. Patient was on ibuprofen as an outpatient. Renal ultrasound -medical renal disease. Right renal cyst GFR declining over the last several days. BUN 117 creatinine is 4.2 Nephrology consulted consider [facility] too unstable for hemodialysis Continue free water 250 every 8 hours as tolerated Rehydrate gently with hypotonic saline solution-we will hold Heme: Leukocytosis Normocytic anemia Thrombocytopenia Thrombocytopenia Monitor CBC daily. Follow trends. No indication for transfusion of blood products at this time. ID: Streptococcal urinary antigen positive for community acquired pneumonia Septic shock Currently on cefepime, azithromycin, vancomycin Previously on ceftriaxone since 02/13. Discontinued 02/17. Piperacillin/ tazobactam discontinued 02/16 -sputum with Aspergillus. Added fluconazole initially but discontinued 02/22 Blood cultures x2/influenza A/B 02/13 no growth to date Appreciated infectious disease consultation. Chlamydia and mycoplasma negative IgM. Positive IgG both Gram stain from pleural fluid pending 02/23 MSK: PT evaluate and treat FEN: Hypernatremia Hyper magnesium Replace electrolytes as clinically indicated per ICU electrolyte protocol Free water flushes 250 cc every 8 hours Access -Left internal J CVL day #7 right femoral arterial line day #4 Prophylaxis -GI -lansoprazole -DVT -SCD/heparin subcu Overall impression: This gentleman has received very aggressive efforts to recruit alveolar clusters and reduce edema in the pulmonary interstitium. We cannot push serum concentration any further at this point and indeed efforts have been started to replete free water. Dr. Miller attempted recruitment maneuver with APRV but CO2 retention became problematic. This patient remains very critically ill and his pulmonary status is deteriorating despite aggressive maneuvers to improve his lung function over the past week. Patient remains unstable from a pulmonary standpoint with marginal oxygenation and life- threatening CO2 retention. Despite trying multiple ventilator maneuvers and modes his pulmonary picture continues to deteriorate and his prognosis is guarded. I have consulted palliative care. Nephrology has been consulted for initiating hemodialysis however he may be too unstable even for [facility] Critical care time 82 minutes discontinuously
[2018-02-26] MEDS: Sodium Chloride 0.45 % Inj 1,000 ML IV.CONT SCH (07:31)
--- NOTE | 2018-02-26 09:49 | P.CONNP ---
History of Present Illness Service: Nephrology Reason for Consult: MONICA Primary Care Provider: Yogi Lee MD Chief Complaint: Shortness of breath History of Present Illness: Mr. Valencia was admitted on 02/13/18. He deteriorated in the hospital after admission, now in the ICU, intubated. He has developed multiorgan failure including renal failure. Oliguric. He has been diagnosed with pneumonia, sepsis. He is in septic shock. Requiring vasopressors. Hypoxic on high oxygen requirement. Possible ARDS. He also is hyperkalemic. Exudative pleural effusion. Review of Systems unobtainable due to endotracheal tube PMFSH - History History Provided By: Patient - Medical History Medical History: Medical History (Last Updated 02/26/18 @ 11:39 by Kirsten Anthony APRN) COPD (chronic obstructive pulmonary disease) Hyperlipidemia Peripheral vascular disease Smoker Hypertension - Surgical History Surgical History: Surgical History (Last Updated 02/26/18 @ 11:39 by Kirsten Anthony APRN) Status post surgical removal of malignant neoplasm of skin History of hernia repair - Family History Family History: Family History (Last Updated 02/26/18 @ 11:40 by Kirsten Anthony APRN) Other Hypertension - Tobacco History Second Hand Smoke Exposure: No Tobacco Use In Past 30 Days: Yes Smoking Status: Current every day smoker Tobacco Type: Cigarettes - Alcohol History How Often Do You Have a Drink Containing Alcohol: Never - Substance Use History Substance History: No History of Abuse - Travel History Recent Travel in the [place] Within the Last 8 Weeks: No Recent Travel Out of the Country Within the Last 8 Weeks: No - Immunization History Tetanus Immunization: >5 Years Hx Influenza Vaccine This Season: No Medications and Allergies Active Medications: Active Medications Acetaminophen (Tylenol) 650 mg PO Q6H PRN PRN Reason: Temp > 100.4 Albuterol (Albuterol Neb (Prn)) 2.5 mg NEB Q2HR NEB PRN PRN Reason: DYSPNEA Last Admin: 02/23/18 10:05 Dose: 2.5 mg Artificial Tears (Lacrilube Opth Oint) 1 applicatio EACH EYE BID [facility] Last Admin: 02/25/18 21:12 Dose: 1 applicatio Atorvastatin Calcium (Lipitor) 80 mg PO DAILY [facility] Last Admin: 02/25/18 10:16 Dose: 80 mg Bisacodyl (Dulcolax Supp) 10 mg RECTAL DAILY PRN PRN Reason: SEVERE CONSITIPATION Budesonide (Pulmocort Respule Neb) 0.5 mg NEB Q12HR NEB [facility] Last Admin: 02/26/18 07:45 Dose: 0.5 mg Buspirone HCl (Buspar) 5 mg PO TID [facility] Last Admin: 02/25/18 18:05 Dose: 5 mg Clopidogrel Bisulfate (Plavix) 75 mg PO DAILY [facility] Last Admin: 02/25/18 10:16 Dose: 75 mg Dextrose (D50w Vial) 50 ml IV.PUSH UNSCH PRN PRN Reason: PER HYPOGLYCEMIA PROTOCOL Glucagon (Glucagon Inj) 1 mg OTHER PRN PRN PRN Reason: for Hypoglycemia Protocol Heparin Sodium (Porcine) (Heparin Inj) 5,000 units SQ Q12H [facility] Last Admin: 02/26/18 01:20 Dose: 5,000 units Azithromycin 500 mg/ Sodium (Chloride) 250 mls @ 250 mls/hr IV.SIG Q24H [facility] Last Infusion: 02/25/18 18:02 Dose: Infused Magnesium Sulfate 4 gm/ Sodium (Chloride) 100 mls @ 50 mls/hr IV.SIG UNSCH PRN PRN Reason: For Magnesium 0.9 - 1.1 mg/dL Magnesium Sulfate 2 gm/ Sodium (Chloride) 100 mls @ 50 mls/hr IV.SIG UNSCH PRN PRN Reason: For Magnesium 1.2 - 1.6 mg/dL Potassium Chloride (Kcl 40 Meq Premix Inj) 40 meq in 100 mls @ 50 mls/hr IV.SIG Q2H PRN PRN Reason: For Potassium 2.8 - 3.2 mEq/L Potassium Chloride (Kcl 20 Meq Premix Inj) 20 meq in 100 mls @ 50 mls/hr IV.SIG Q2H PRN PRN Reason: For Potassium 3.3 - 3.5 mEq/L Last Infusion: 02/17/18 09:00 Dose: Infused Potassium Chloride (Kcl 40 Meq Premix Inj) 40 meq in 100 mls @ 25 mls/hr IV.SIG UNSCH PRN PRN Reason: For Potassium 3.3 - 3.5 mEq/L Potassium Chloride (Kcl 20 Meq Premix Inj) 20 meq in 100 mls @ 50 mls/hr IV.SIG Q2H PRN PRN Reason: For Potassium 2.8 - 3.2 mEq/L Potassium Phosphate 30 mmol/ (Sodium Chloride) 260 mls @ 42 mls/hr IV.SIG UNSCH PRN PRN Reason: SEE LABEL COMMENTS Sodium Phosphate 30 mmol/ (Sodium Chloride) 260 mls @ 42 mls/hr IV.SIG UNSCH PRN PRN Reason: For Phosphorus < 2.5 mg/dL Norepinephrine Bitartrate (Levophed-Dextrose 4 Mg/250 Ml Drip) 4 mg in 250 mls @ 7.5 mls/hr IV.SIG TITRATE PRN; Protocol PRN Reason: Per Protocol Last Titration: 02/25/18 13:31 Dose: 0 mcg/min, 0 mls/hr Propofol (Diprivan 1000 Mg/100 Ml Inj) 1,000 mg in 100 mls @ 2.172 mls/hr IV.CONT TITRATE PRN; Protocol PRN Reason: Per Protocol Last Titration: 02/26/18 06:00 Dose: 5 mcg/kg/min, 2.17 mls/hr Midazolam HCl (Versed Inj) 100 mg in 100 mls @ 2 mls/hr IV.CONT TITRATE PRN; Protocol PRN Reason: See protocol Last Titration: 02/26/18 06:58 Dose: 0 mg/hr, 0 mls/hr Fentanyl (Fentanyl 10 Mcg/Ml Premix Drip) 2,500 mcg in 250 mls @ 5 mls/hr IV.SIG TITRATE PRN; Protocol PRN Reason: Per Protocol Last Titration: 02/26/18 06:01 Dose: 75 mcg/hr, 7.5 mls/hr Vasopressin 40 unit/ Dextrose 100 mls @ 6 mls/hr IV.CONT CONT ERWIN; Protocol Last Infusion: 02/25/18 17:44 Dose: 0.04 units/min, 6 mls/hr Epoprostenol Sodium 100 ml/ (Sodium Chloride) 100 mls @ 5 mls/hr NEB Q8H [facility] Last Admin: 02/26/18 03:42 Dose: 5 mls/hr Amiodarone HCl 450 mg/ (Dextrose) 250 mls @ 33.33 mls/hr IV.CONT TITRATE PRN; Protocol PRN Reason: Per Protocol Last Admin: 02/25/18 20:06 Dose: 0.5 mg/min, 16.66 mls/hr Phenylephrine HCl 160 mg/ (Sodium Chloride) 500 mls @ 7.5 mls/hr IV.CONT TITRATE PRN; Protocol PRN Reason: PER PROTOCOL Last Titration: 02/26/18 04:30 Dose: 100 mcg/min, 18.75 mls/hr Meropenem 500 mg/ Sodium (Chloride) 100 mls @ 200 mls/hr IV.SIG Q8H [facility] Last Infusion: 02/26/18 06:57 Dose: Infused Insulin Aspart (Novolog Insulin Correctional Sugar Inj) 0 unit SQ Q6HR [facility]; Protocol Last Admin: 02/26/18 05:59 Dose: Not Given Insulin Detemir (Levemir Inj) 6 unit SQ BID [facility] Last Admin: 02/25/18 21:13 Dose: 6 unit Ipratropium [place] (Atrovent Neb) 0.5 mg NEB TID NEB [facility] Last Admin: 02/26/18 07:45 Dose: 0.5 mg Lactulose (Lactulose Liq) 30 ml PO DAILY PRN PRN Reason: SEVERE CONSITIPATION Lactulose (Lactulose Liq) 30 ml PO BID [facility] Last Admin: 02/25/18 20:19 Dose: Not Given Lansoprazole (Prevacid Solutab) 30 mg NG/OG DAILY [facility] Last Admin: 02/25/18 10:18 Dose: 30 mg Magnesium Oxide (Mag-Ox) 800 mg PO UNSCH PRN PRN Reason: For Magnesium 1.2 - 1.6 mg/dL Methylprednisolone Sodium Succinate (Solumedrol Inj) 40 mg IV.PUSH Q8HR [facility] Last Admin: 02/26/18 05:56 Dose: 40 mg Nicotine (Habitrol 14 Mg Patch.24 Hr) 1 patch T-DERMAL DAILY [facility] Last Admin: 02/25/18 10:16 Dose: 1 patch Ondansetron HCl (Zofran Inj) 4 mg IV.PUSH Q6H PRN PRN Reason: NAUSEA OR VOMITING Patch Removal (Remove Old Patch) 1 each T-DERMAL HS [facility] Last Admin: 02/25/18 21:11 Dose: 1 each Potassium Bicarb/Potassium Chloride (K-Lyte Cl Eff) 50 meq PO UNSCH PRN PRN Reason: For Potassium 3.3 - 3.5 mEq/L Last Admin: 02/18/18 09:38 Dose: 50 meq Potassium Phosphate (K-Phos Original) 2,000 mg PO Q4H PRN PRN Reason: Phosphorus Less Than 2.5 mg/dL Last Admin: 02/18/18 23:01 Dose: 2,000 mg Potassium Phosphate (K-Phos Original) 2,000 mg PO UNSCH PRN PRN Reason: SEE LABEL COMMENTS Last Admin: 02/18/18 09:42 Dose: 2,000 mg Senna/Docusate Sodium (Tiera-Colace) 1 tab PO BID [facility] Last Admin: 02/25/18 20:19 Dose: Not Given Sennosides (Senokot) 17.2 mg PO Q12H PRN PRN Reason: Moderate Constipation Sodium Chloride (Ns Flush) 2 ml IV.FLUSH BID [facility] Last Admin: 02/25/18 21:12 Dose: 2 ml Sodium Chloride (Ns Flush) 2 ml IV.FLUSH PRN PRN PRN Reason: FLUSH AFTER USING IV ACCESS Sodium Chloride (Ns Flush) 0 ml IV.FLUSH DAILY [facility] Last Admin: 02/25/18 08:00 Dose: 2 ml Sterile Water (Free Water) 250 ml G-TUBE Q8HR [facility] Last Admin: 02/26/18 05:56 Dose: 250 ml Terbutaline Sulfate (Brethine Inj) 1 mg SQ UNSCH PRN PRN Reason: For Extravasation Terbutaline Sulfate (Brethine Inj) 1 mg SQ UNSCH PRN PRN Reason: For Extravasation Allergies Allergy/AdvReac Type Severity Reaction Status Date / Time No Known Allergies Allergy Verified 02/13/18 18:38 Home Medications Medication Instructions Recorded Confirmed Type atorvastatin 80 mg PO DAILY 02/13/18 02/13/18 History clopidogrel 75 mg PO DAILY 02/13/18 02/13/18 History codeine-guaifenesin [Virtussin AC] 5 ml PO Q6H PRN 02/13/18 02/13/18 History hydrocodone-acetaminophen 1 tab PO Q6H 02/13/18 02/13/18 History ibuprofen 800 mg PO TID 02/13/18 02/13/18 History olmesartan 40 mg PO DAILY 02/13/18 02/13/18 History vitamin [id number] acid 100 mcg SUBLINGUAL DAILY 02/13/18 02/13/18 History cyanocobalamin (vitamin B-12) See Label Instructions .ROUTE 02/17/18 02/17/18 History .COMPLEX Exam Vital signs: Vital Signs 02/25/18 09:45 02/25/18 10:00 02/25/18 10:15 Temperature Pulse Rate 160 H 150 H 141 H Respiratory Rate 15 13 13 Blood Pressure Pulse Oximetry 91 L 93 L 95 02/25/18 10:30 02/25/18 10:45 02/25/18 11:00 Temperature Pulse Rate 139 H 137 H 119 H Respiratory Rate 13 13 13 Blood Pressure 102/72 Pulse Oximetry 96 96 95 02/25/18 11:15 02/25/18 11:30 02/25/18 11:45 Temperature Pulse Rate 124 H 131 H 124 H Respiratory Rate 13 13 13 Blood Pressure Pulse Oximetry 95 93 L 94 L 02/25/18 11:50 02/25/18 11:53 02/25/18 12:00 Temperature 97.3 F L Pulse Rate 120 H 130 H Respiratory Rate 13 13 13 Blood Pressure 96/60 L Pulse Oximetry 90 L 99 02/25/18 12:15 02/25/18 12:30 02/25/18 12:45 Temperature Pulse Rate 129 H 124 H 124 H Respiratory Rate 13 24 24 Blood Pressure Pulse Oximetry 99 98 98 02/25/18 13:00 02/25/18 13:15 02/25/18 13:30 Temperature Pulse Rate 123 H 122 H 121 H Respiratory Rate 24 24 24 Blood Pressure 91/63 L Pulse Oximetry 98 98 97 02/25/18 13:45 02/25/18 14:00 02/25/18 14:15 Temperature Pulse Rate 118 H 117 H 115 H Respiratory Rate 24 24 24 Blood Pressure 91/65 L Pulse Oximetry 97 97 97 02/25/18 14:30 02/25/18 14:45 02/25/18 15:00 Temperature Pulse Rate 117 H 113 H 113 H Respiratory Rate 24 24 24 Blood Pressure 96/73 L Pulse Oximetry 97 98 97 02/25/18 15:15 02/25/18 15:30 02/25/18 15:45 Temperature Pulse Rate 113 H 115 H 79 Respiratory Rate 24 24 24 Blood Pressure Pulse Oximetry 97 96 93 L 02/25/18 15:47 02/25/18 16:00 02/25/18 16:15 Temperature 98.2 F Pulse Rate 79 78 Respiratory Rate 24 24 24 Blood Pressure 112/71 Pulse Oximetry 97 93 L 94 L 02/25/18 16:30 02/25/18 16:45 02/25/18 17:00 Temperature Pulse Rate 78 76 77 Respiratory Rate 24 24 24 Blood Pressure 106/69 Pulse Oximetry 94 L 98 98 02/25/18 17:15 02/25/18 17:30 02/25/18 17:45 Temperature Pulse Rate 77 77 76 Respiratory Rate 24 24 24 Blood Pressure Pulse Oximetry 97 97 96 02/25/18 18:00 02/25/18 18:15 02/25/18 18:30 Temperature 98.2 F Pulse Rate 75 75 76 Respiratory Rate 24 24 24 Blood Pressure 112/76 Pulse Oximetry 96 94 L 96 02/25/18 18:45 02/25/18 19:00 02/25/18 19:15 Temperature 98.2 F Pulse Rate 76 75 74 Respiratory Rate 24 Blood Pressure 118/75 Pulse Oximetry 97 95 93 L 02/25/18 19:30 02/25/18 19:45 02/25/18 19:53 Temperature Pulse Rate 73 73 73 Respiratory Rate 24 Blood Pressure Pulse Oximetry 95 95 94 L 02/25/18 20:00 02/25/18 20:15 02/25/18 20:30 Temperature 98.4 F Pulse Rate 74 75 74 Respiratory Rate Blood Pressure 124/80 Pulse Oximetry 94 L 93 L 93 L 02/25/18 20:45 02/25/18 21:00 02/25/18 21:15 Temperature 98.8 F Pulse Rate 74 75 75 Respiratory Rate Blood Pressure 123/77 Pulse Oximetry 93 L 93 L 93 L 02/25/18 21:30 02/25/18 21:45 02/25/18 22:00 Temperature Pulse Rate 75 75 74 Respiratory Rate Blood Pressure 125/76 Pulse Oximetry 93 L 93 L 93 L 02/25/18 22:15 02/25/18 22:30 02/25/18 22:45 Temperature Pulse Rate 75 73 73 Respiratory Rate Blood Pressure Pulse Oximetry 94 L 93 L 93 L 02/25/18 23:00 02/25/18 23:15 02/25/18 23:30 Temperature 99.0 F 99.0 F 99.0 F Pulse Rate 74 74 74 Respiratory Rate Blood Pressure Pulse Oximetry 92 L 92 L 93 L 02/25/18 23:45 02/26/18 00:00 02/26/18 00:07 Temperature 99.0 F 99.1 F Pulse Rate 74 74 Respiratory Rate 24 24 Blood Pressure 110/72 Pulse Oximetry 93 L 94 L 93 L 02/26/18 00:15 02/26/18 00:30 02/26/18 00:45 Temperature 99.1 F 99.1 F 99.1 F Pulse Rate 74 73 73 Respiratory Rate Blood Pressure Pulse Oximetry 93 L 93 L 93 L 02/26/18 01:00 02/26/18 01:15 02/26/18 01:30 Temperature 99.1 F 99.1 F 99.0 F Pulse Rate 73 73 72 Respiratory Rate Blood Pressure 108/72 Pulse Oximetry 93 L 93 L 93 L 02/26/18 01:45 02/26/18 02:00 02/26/18 02:15 Temperature 99.0 F 99.0 F 99.0 F Pulse Rate 71 71 71 Respiratory Rate Blood Pressure 117/73 Pulse Oximetry 93 L 93 L 93 L 02/26/18 02:30 02/26/18 02:45 02/26/18 03:00 Temperature 99.0 F 99.0 F 99.0 F Pulse Rate 71 70 72 Respiratory Rate Blood Pressure 104/70 Pulse Oximetry 93 L 93 L 93 L 02/26/18 03:15 02/26/18 03:30 02/26/18 03:45 Temperature 99.0 F 99.0 F 97.9 F Pulse Rate 72 71 73 Respiratory Rate Blood Pressure Pulse Oximetry 93 L 92 L 91 L 02/26/18 03:50 02/26/18 04:00 02/26/18 04:15 Temperature 98.8 F 99.0 F Pulse Rate 70 72 Respiratory Rate 24 24 Blood Pressure 98/61 L Pulse Oximetry 91 L 91 L 90 L 02/26/18 04:30 02/26/18 04:45 02/26/18 05:00 Temperature 99.0 F 99.0 F 99.0 F Pulse Rate 71 69 70 Respiratory Rate Blood Pressure 126/73 Pulse Oximetry 90 L 91 L 90 L 02/26/18 05:15 02/26/18 05:30 02/26/18 05:45 Temperature 98.8 F 98.8 F 99.0 F Pulse Rate 71 72 72 Respiratory Rate Blood Pressure Pulse Oximetry 90 L 91 L 91 L 02/26/18 06:00 02/26/18 07:46 Temperature 99.0 F Pulse Rate 71 75 Respiratory Rate 24 Blood Pressure Pulse Oximetry 91 L 91 L Intake & Output 02/25/18 02/26/18 02/26/18 18:59 06:59 18:59 Intake Total 4100 / 4100 750 / 750 200 / 200 Output Total 630 / 630 420 / 420 Balance 3470 / 3470 330 / 330 200 / 200 Weight 86.6 kg Intake: IV 4000 / 4000 750 / 750 200 / 200 Cordarone Inj 450 MG In D5W Inj 250 / 250 241 ML @ 1 MG/MIN 33.33 mls/hr IV.CONT TITRATE PRN Rx#: [id number] Versed Inj 100 mg In 100 ml @ 2 100 / 100 MG/HR 2 mls/hr IV.CONT TITRATE PRN Rx#:[id number] Diprivan 1000 mg/100 ml Inj 1, 100 / 100 100 / 100 000 mg In 100 ml @ 5 MCG/KG/MIN 2.172 mls/hr IV.CONT TITRATE PRN Rx#:[id number] Pitressin Inj 40 UNIT In D5W 100 / 100 Inj 98 ML @ 0.04 UNITS/MIN 6 mls/hr IV.CONT CONT ERWIN Rx#: [id number] Cordarone Inj 150 MG In D5W Inj 100 / 100 97 ML @ 600 mls/hr IV.SIG ONCE ONE Rx#:[id number] Azithromycin Inj 500 MG In NS 250 / 250 Inj 250 ML @ 250 mls/hr IV.SIG Q24H [facility] Rx#:[id number] D5W Inj 1,000 ML @ 250 mls/hr 1000 / 1000 IV.SIG BOLUS ONE Rx#:[id number] LR 1000 mL Inj 1,000 ML @ Wide 2000 / 2000 Open IV.SIG BOLUS ONE Rx#: [id number] Merrem Inj 500 MG In NS Inj 100 100 / 100 200 / 200 ML @ 200 mls/hr IV.SIG Q8H [facility] Rx#:[id number] fentaNYL 10 mcg/mL Premix Drip 250 / 250 2,500 mcg In 250 ml @ 50 MCG/HR 5 mls/hr IV.SIG TITRATE PRN Rx #:[id number] Flolan (30,000 ng/mL) Neb 100 100 / 100 100 / 100 ML In NS Inj 0 ML @ 5 mls/hr NEB Q8H [facility] Rx#:[id number] Oral Supplement 0 / 0 Tube Irrigant 100 / 100 Output: Urine Amount (Catheter) 20 / 20 20 / 20 Indwelling Temp Sensing Catheter Gastric Drainage 500 / 500 300 / 300 Left Nare 500 / 500 300 / 300 Chest Tube Drainage 110 / 110 100 / 100 Right 110 / 110 100 / 100 Other: Date of Last Bowel Movement 02/25/18 02/25/18 # Bowel Movements 1 - Constitutional Comments: intubated, unresponsive. - Routine HEENT Exam Head: Present: normocephalic, atraumatic Eye: Present: EOMI - Routine Neck Exam Absent: lymphadenopathy, thyromegaly - Routine Respiratory Exam Present: rales, rhonchi, wheezes, crackles - Routine Cardiovascular Exam Present: S1, S2 - Routine Abdominal Exam Present: soft - Routine Extremities Exam Present: edema Results - Lab Results 02/27/18 04:50 02/27/18 04:50 Most recent lab results ABG pH 7.27 (7.380-7.420) L* 02/26/18 04:39 ABG pCO2 47 mmHg (38-42) H 02/26/18 04:39 ABG pO2 87 mmHg (61-120) 02/26/18 04:39 ABG HCO3 21 mmol/L (22-26) L 02/26/18 04:39 Calcium 7.0 mg/dL (8.5-10.1) L* D 02/26/18 04:30 Phosphorus 5.4 mg/dL (2.5-4.9) H D 02/25/18 03:55 Magnesium 3.1 mg/dL (1.5-2.5) H 02/25/18 03:55 Assessment and Plan - Assessment (1) Acute kidney failure Code(s): N17.9 - Acute kidney failure, unspecified Status: Acute Plan: Oliguric renal failure due to ATN, multiorgan failure. Hemodynamically unstable. Will see if he can tolerate CRRT, but may not be able to. Avoid nephrotoxic agents. Renal US on 02/16/18 did not reveal hydronephrosis. Supportive care. Poor prognosis. (2) Sepsis Code(s): A41.9 - Sepsis, unspecified organism Status: Acute Plan: in septic shock. On Meropenem, Vancomycin, Zithromax. (3) Hyperkalemia Code(s): E87.5 - Hyperkalemia Status: Acute Plan: renal failure has resulted in hyperkalemia. Renal replacement therapy? (4) Respiratory failure Code(s): J96.90 - Respiratory failure, unspecified, unspecified whether with hypoxia or hypercapnia Status: Acute Plan: ARDS. Hypoxic. Management per central sterile technician. - Plan Thanks for the consult.
[2018-02-26] MEDS: Insulin Detemir Inj 1,000 UNIT/10 ML Vial SQ SCH ×2 (10:41→21:27)
[2018-02-26] MEDS: Artificial Tears Opth Oint 3.5 GM Tube EACH EYE SCH ×2 (10:41→21:27)
[2018-02-26] MEDS: Senna/Docusate Sodium 8.6/50 MG Tablet PO SCH ×2 (10:41→21:28)
--- NOTE | 2018-02-26 11:58 | P.CONPAL ---
Consult Service: Palliative Care Requesting Physician: Claude Otero Reason for Consult: a. To assist with evaluation and management of symptoms including: Pain. b. To assist medical decision maker(s) with: better understanding of current medical conditions; weighing benefits/burdens of medical treatment options; making medical treatment decisions. Primary Care Provider: Yogi Lee MD History of Present Illness History of Present Illness: Mr. Valencia is a 67-year-old male with a medical history significant for COPD, smoker, peripheral vascular disease and hypertension. Patient presented to ED via EMS after he was found by his neighbor with altered mental status on . Upon ED presentation, patient with temperature of 100.5 and oxygen saturation in the low 90s while on room air. Head CT and chest x-ray negative for acute process. Patient was admitted for management of pneumonia and elevated troponin at 0.09. Clinical course complicated by respiratory insufficiency, rapid response was called on 02/16 secondary to tachypnea and fever. Echocardiogram 02/07 revealing EF of 30-35%. Pulmonology was consulted on 02/17 clinical course further complicated on 02/18 by respiratory failure requiring intubation mechanical ventilation. Infectious disease following, sputum positive for Aspergillus and serology positive for mycoplasma pneumon IgG. Clinical course further complicated by atrial fibrillation with RVR requiring cardioversion 02/23. Chest CT 02/23 revealing worsening bilateral consolidations, right greater than left characteristic of worsening bronchopneumonia. Right-sided chest tube was placed on 02/23. On 02/24 patient with worsening bronchopneumonia, he was placed on Nimbex for vent synchrony. Clinical condition continued to worsen, patient with increased oxygen requirement, worsening renal function, hypotension requiring 2 vasopressors and severely hypoxemic while on vent support. Palliative care has been consulted for further clarifications of goals of care in the setting of multisystem organ failure. Patient seen in ICU, remains endotracheally intubated on mechanical ventilation. Slightly sedated on fentanyl and propofol. Patient not opening eyes or following any commands. Nephrology has been consulted, patient with worsening renal function currently BUN and creatinine 117/4.2 and potassium of 5.5, patient not a candidate for renal replacement therapy as he is too unstable in the setting of septic shock and multisystem organ failure. Chest x- ray today revealing worsening bilateral consolidations. Laboratory workup today revealing leukocytosis 31.2, Hgb stable at 10.8, platelet count 123. Currently on 80% FiO2, on vasopressor and phenylephrine infusion. Case discussed with Dr. Otero, Dr. Muñoz and Dr. He. Telephone conversation with patient's son Leandro and his Barb, met with patient's brother Shen at bedside. In this first visit, introduced the role of palliative care and advance illness in regards to symptom management as well as support surrounding goals of care and advance care planning. Family receptive to palliative care visit. Reviewed patient's past medical history, psychosocial history, events leading to this hospitalization, clinical course and current medical management. Reviewed very poor prognosis for survival in the setting of multisystem organ failure, septic shock requiring vasopressors. Reviewed that patient is not anticipated to recover from this acute state. Confirmed that patient is , only 1 biological son. Son Leandro resides in [place], will be driving down to [place]. Palliative care meeting for tomorrow 02/27 at 10 AM. Patient's brother Shen will attend as well. Goals of therapy at this time are for supportive care short of NO cardiac code, do NOT escalate care. This has been discussed with attending Dr. Otero and bedside RN Georgette. Function/Cognitive Trajectory: Patient residing independently in private home. Fully independent with all ADLs. No cognitive deficit reported. Review of Systems unobtainable due to mental condition PMFSH - History History Provided By: Patient, Family Member - Medical History Medical History: Medical History (Last Updated 02/26/18 @ 11:39 by Kirsten Anthony APRN) COPD (chronic obstructive pulmonary disease) Hyperlipidemia Peripheral vascular disease Smoker Hypertension - Surgical History Surgical History: Surgical History (Last Updated 02/26/18 @ 11:39 by Kirsten Anthony APRN) Status post surgical removal of malignant neoplasm of skin History of hernia repair - Family History Family History: Family History (Last Updated 02/26/18 @ 11:40 by Kirsten Anthony APRN) Other Hypertension - Tobacco History Second Hand Smoke Exposure: No Tobacco Use In Past 30 Days: Yes Smoking Status: Current every day smoker Tobacco Type: Cigarettes Packs Per Day: 1.5 Years Smoked: 40 - Alcohol History How Often Do You Have a Drink Containing Alcohol: 2 to 3 times a week - Substance Use History Substance History: No History of Abuse - Travel History Recent Travel in the [facility] Within the Last 8 Weeks: No Recent Travel Out of the Country Within the Last 8 Weeks: No - Immunization History Tetanus Immunization: >5 Years Hx Influenza Vaccine This Season: No Medications and Allergies Active Medications: Active Medications Acetaminophen (Tylenol) 650 mg PO Q6H PRN PRN Reason: Temp > 100.4 Albuterol (Albuterol Neb (Prn)) 2.5 mg NEB Q2HR NEB PRN PRN Reason: DYSPNEA Last Admin: 02/23/18 10:05 Dose: 2.5 mg Artificial Tears (Lacrilube Opth Oint) 1 applicatio EACH EYE BID [facility] Last Admin: 02/26/18 10:41 Dose: 1 applicatio Atorvastatin Calcium (Lipitor) 80 mg PO DAILY [facility] Last Admin: 02/26/18 10:41 Dose: 80 mg Bisacodyl (Dulcolax Supp) 10 mg RECTAL DAILY PRN PRN Reason: SEVERE CONSITIPATION Budesonide (Pulmocort Respule Neb) 0.5 mg NEB Q12HR NEB [facility] Last Admin: 02/26/18 07:45 Dose: 0.5 mg Bumetanide (Bumex Inj) 2 mg IV.PUSH TID [facility] Buspirone HCl (Buspar) 5 mg PO TID [facility] Last Admin: 02/26/18 10:41 Dose: 5 mg Clopidogrel Bisulfate (Plavix) 75 mg PO DAILY [facility] Last Admin: 02/26/18 10:41 Dose: 75 mg Dextrose (D50w Vial) 50 ml IV.PUSH UNSCH PRN PRN Reason: PER HYPOGLYCEMIA PROTOCOL Glucagon (Glucagon Inj) 1 mg OTHER PRN PRN PRN Reason: for Hypoglycemia Protocol Heparin Sodium (Porcine) (Heparin Inj) 5,000 units SQ Q12H [facility] Last Admin: 02/26/18 01:20 Dose: 5,000 units Azithromycin 500 mg/ Sodium (Chloride) 250 mls @ 250 mls/hr IV.SIG Q24H [facility] Last Infusion: 02/25/18 18:02 Dose: Infused Magnesium Sulfate 4 gm/ Sodium (Chloride) 100 mls @ 50 mls/hr IV.SIG UNSCH PRN PRN Reason: For Magnesium 0.9 - 1.1 mg/dL Magnesium Sulfate 2 gm/ Sodium (Chloride) 100 mls @ 50 mls/hr IV.SIG UNSCH PRN PRN Reason: For Magnesium 1.2 - 1.6 mg/dL Potassium Chloride (Kcl 40 Meq Premix Inj) 40 meq in 100 mls @ 50 mls/hr IV.SIG Q2H PRN PRN Reason: For Potassium 2.8 - 3.2 mEq/L Potassium Chloride (Kcl 20 Meq Premix Inj) 20 meq in 100 mls @ 50 mls/hr IV.SIG Q2H PRN PRN Reason: For Potassium 3.3 - 3.5 mEq/L Last Infusion: 02/17/18 09:00 Dose: Infused Potassium Chloride (Kcl 40 Meq Premix Inj) 40 meq in 100 mls @ 25 mls/hr IV.SIG UNSCH PRN PRN Reason: For Potassium 3.3 - 3.5 mEq/L Potassium Chloride (Kcl 20 Meq Premix Inj) 20 meq in 100 mls @ 50 mls/hr IV.SIG Q2H PRN PRN Reason: For Potassium 2.8 - 3.2 mEq/L Potassium Phosphate 30 mmol/ (Sodium Chloride) 260 mls @ 42 mls/hr IV.SIG UNSCH PRN PRN Reason: SEE LABEL COMMENTS Sodium Phosphate 30 mmol/ (Sodium Chloride) 260 mls @ 42 mls/hr IV.SIG UNSCH PRN PRN Reason: For Phosphorus < 2.5 mg/dL Norepinephrine Bitartrate (Levophed-Dextrose 4 Mg/250 Ml Drip) 4 mg in 250 mls @ 7.5 mls/hr IV.SIG TITRATE PRN; Protocol PRN Reason: Per Protocol Last Titration: 02/25/18 13:31 Dose: 0 mcg/min, 0 mls/hr Propofol (Diprivan 1000 Mg/100 Ml Inj) 1,000 mg in 100 mls @ 2.172 mls/hr IV.CONT TITRATE PRN; Protocol PRN Reason: Per Protocol Last Titration: 02/26/18 06:00 Dose: 5 mcg/kg/min, 2.17 mls/hr Midazolam HCl (Versed Inj) 100 mg in 100 mls @ 2 mls/hr IV.CONT TITRATE PRN; Protocol PRN Reason: See protocol Last Titration: 02/26/18 06:58 Dose: 0 mg/hr, 0 mls/hr Fentanyl (Fentanyl 10 Mcg/Ml Premix Drip) 2,500 mcg in 250 mls @ 5 mls/hr IV.SIG TITRATE PRN; Protocol PRN Reason: Per Protocol Last Titration: 02/26/18 06:01 Dose: 75 mcg/hr, 7.5 mls/hr Vasopressin 40 unit/ Dextrose 100 mls @ 6 mls/hr IV.CONT CONT ERWIN; Protocol Last Infusion: 02/25/18 17:44 Dose: 0.04 units/min, 6 mls/hr Epoprostenol Sodium 100 ml/ (Sodium Chloride) 100 mls @ 5 mls/hr NEB Q8H [facility] Last Admin: 02/26/18 10:53 Dose: Not Given Amiodarone HCl 450 mg/ (Dextrose) 250 mls @ 33.33 mls/hr IV.CONT TITRATE PRN; Protocol PRN Reason: Per Protocol Last Admin: 02/25/18 20:06 Dose: 0.5 mg/min, 16.66 mls/hr Phenylephrine HCl 160 mg/ (Sodium Chloride) 500 mls @ 7.5 mls/hr IV.CONT TITRATE PRN; Protocol PRN Reason: PER PROTOCOL Last Titration: 02/26/18 04:30 Dose: 100 mcg/min, 18.75 mls/hr Meropenem 500 mg/ Sodium (Chloride) 100 mls @ 200 mls/hr IV.SIG Q8H [facility] Last Infusion: 02/26/18 06:57 Dose: Infused Insulin Aspart (Novolog Insulin Correctional Sugar Inj) 0 unit SQ Q6HR [facility]; Protocol Last Admin: 02/26/18 05:59 Dose: Not Given Insulin Detemir (Levemir Inj) 6 unit SQ BID [facility] Last Admin: 02/26/18 10:41 Dose: Not Given Ipratropium [place] (Atrovent Neb) 0.5 mg NEB TID NEB [facility] Last Admin: 02/26/18 07:45 Dose: 0.5 mg Lactulose (Lactulose Liq) 30 ml PO DAILY PRN PRN Reason: SEVERE CONSITIPATION Lactulose (Lactulose Liq) 30 ml PO BID [facility] Last Admin: 02/26/18 10:51 Dose: 30 ml Lansoprazole (Prevacid Solutab) 30 mg NG/OG DAILY [facility] Last Admin: 02/26/18 10:52 Dose: 30 mg Magnesium Oxide (Mag-Ox) 800 mg PO UNSCH PRN PRN Reason: For Magnesium 1.2 - 1.6 mg/dL Methylprednisolone Sodium Succinate (Solumedrol Inj) 40 mg IV.PUSH Q8HR [facility] Last Admin: 02/26/18 05:56 Dose: 40 mg Nicotine (Habitrol 14 Mg Patch.24 Hr) 1 patch T-DERMAL DAILY [facility] Last Admin: 02/26/18 10:51 Dose: 1 patch Ondansetron HCl (Zofran Inj) 4 mg IV.PUSH Q6H PRN PRN Reason: NAUSEA OR VOMITING Patch Removal (Remove Old Patch) 1 each T-DERMAL HS [facility] Last Admin: 02/25/18 21:11 Dose: 1 each Potassium Bicarb/Potassium Chloride (K-Lyte Cl Eff) 50 meq PO UNSCH PRN PRN Reason: For Potassium 3.3 - 3.5 mEq/L Last Admin: 02/18/18 09:38 Dose: 50 meq Potassium Phosphate (K-Phos Original) 2,000 mg PO Q4H PRN PRN Reason: Phosphorus Less Than 2.5 mg/dL Last Admin: 02/18/18 23:01 Dose: 2,000 mg Potassium Phosphate (K-Phos Original) 2,000 mg PO UNSCH PRN PRN Reason: SEE LABEL COMMENTS Last Admin: 02/18/18 09:42 Dose: 2,000 mg Senna/Docusate Sodium (Tiera-Colace) 1 tab PO BID [facility] Last Admin: 02/26/18 10:41 Dose: 1 tab Sennosides (Senokot) 17.2 mg PO Q12H PRN PRN Reason: Moderate Constipation Sodium Chloride (Ns Flush) 2 ml IV.FLUSH BID [facility] Last Admin: 02/26/18 10:42 Dose: Not Given Sodium Chloride (Ns Flush) 2 ml IV.FLUSH PRN PRN PRN Reason: FLUSH AFTER USING IV ACCESS Sodium Chloride (Ns Flush) 0 ml IV.FLUSH DAILY [facility] Last Admin: 02/26/18 10:42 Dose: Not Given Sterile Water (Free Water) 250 ml G-TUBE Q8HR [facility] Last Admin: 02/26/18 05:56 Dose: 250 ml Terbutaline Sulfate (Brethine Inj) 1 mg SQ UNSCH PRN PRN Reason: For Extravasation Terbutaline Sulfate (Brethine Inj) 1 mg SQ UNSCH PRN PRN Reason: For Extravasation Allergies Allergy/AdvReac Type Severity Reaction Status Date / Time No Known Allergies Allergy Verified 02/13/18 18:38 Home Medications Medication Instructions Recorded Confirmed Type atorvastatin 80 mg PO DAILY 02/13/18 02/13/18 History clopidogrel 75 mg PO DAILY 02/13/18 02/13/18 History codeine-guaifenesin [Virtussin AC] 5 ml PO Q6H PRN 02/13/18 02/13/18 History hydrocodone-acetaminophen 1 tab PO Q6H 02/13/18 02/13/18 History ibuprofen 800 mg PO TID 02/13/18 02/13/18 History olmesartan 40 mg PO DAILY 02/13/18 02/13/18 History vitamin [id number] acid 100 mcg SUBLINGUAL DAILY 02/13/18 02/13/18 History cyanocobalamin (vitamin B-12) See Label Instructions .ROUTE 02/17/18 02/17/18 History .COMPLEX Advance Directives Living Will: No Healthcare Surrogate: No Power of Engagement Director: No Physical Exam Vital Signs: Vital Signs - 24 hr 02/25/18 11:30 02/25/18 11:45 02/25/18 11:50 Temperature Pulse Rate 131 H 124 H Respiratory Rate 13 13 13 Blood Pressure Pulse Oximetry 93 L 94 L 90 L 02/25/18 11:53 02/25/18 12:00 02/25/18 12:15 Temperature 97.3 F L Pulse Rate 120 H 130 H 129 H Respiratory Rate 13 13 13 Blood Pressure 96/60 L Pulse Oximetry 99 99 02/25/18 12:30 02/25/18 12:45 02/25/18 13:00 Temperature Pulse Rate 124 H 124 H 123 H Respiratory Rate 24 24 24 Blood Pressure 91/63 L Pulse Oximetry 98 98 98 02/25/18 13:15 02/25/18 13:30 02/25/18 13:45 Temperature Pulse Rate 122 H 121 H 118 H Respiratory Rate 24 24 24 Blood Pressure Pulse Oximetry 98 97 97 02/25/18 14:00 02/25/18 14:15 02/25/18 14:30 Temperature Pulse Rate 117 H 115 H 117 H Respiratory Rate 24 24 24 Blood Pressure 91/65 L Pulse Oximetry 97 97 97 02/25/18 14:45 02/25/18 15:00 02/25/18 15:15 Temperature Pulse Rate 113 H 113 H 113 H Respiratory Rate 24 24 24 Blood Pressure 96/73 L Pulse Oximetry 98 97 97 02/25/18 15:30 02/25/18 15:45 02/25/18 15:47 Temperature Pulse Rate 115 H 79 Respiratory Rate 24 24 24 Blood Pressure Pulse Oximetry 96 93 L 97 02/25/18 16:00 02/25/18 16:15 02/25/18 16:30 Temperature 98.2 F Pulse Rate 79 78 78 Respiratory Rate 24 24 24 Blood Pressure 112/71 Pulse Oximetry 93 L 94 L 94 L 02/25/18 16:45 02/25/18 17:00 02/25/18 17:15 Temperature Pulse Rate 76 77 77 Respiratory Rate 24 24 24 Blood Pressure 106/69 Pulse Oximetry 98 98 97 02/25/18 17:30 02/25/18 17:45 02/25/18 18:00 Temperature 98.2 F Pulse Rate 77 76 75 Respiratory Rate 24 24 24 Blood Pressure 112/76 Pulse Oximetry 97 96 96 02/25/18 18:15 02/25/18 18:30 02/25/18 18:45 Temperature Pulse Rate 75 76 76 Respiratory Rate 24 24 24 Blood Pressure Pulse Oximetry 94 L 96 97 02/25/18 19:00 02/25/18 19:15 02/25/18 19:30 Temperature 98.2 F Pulse Rate 75 74 73 Respiratory Rate Blood Pressure 118/75 Pulse Oximetry 95 93 L 95 02/25/18 19:45 02/25/18 19:53 02/25/18 20:00 Temperature 98.4 F Pulse Rate 73 73 74 Respiratory Rate 24 Blood Pressure 124/80 Pulse Oximetry 95 94 L 94 L 02/25/18 20:15 02/25/18 20:30 02/25/18 20:45 Temperature Pulse Rate 75 74 74 Respiratory Rate Blood Pressure Pulse Oximetry 93 L 93 L 93 L 02/25/18 21:00 02/25/18 21:15 02/25/18 21:30 Temperature 98.8 F Pulse Rate 75 75 75 Respiratory Rate Blood Pressure 123/77 Pulse Oximetry 93 L 93 L 93 L 02/25/18 21:45 02/25/18 22:00 02/25/18 22:15 Temperature Pulse Rate 75 74 75 Respiratory Rate Blood Pressure 125/76 Pulse Oximetry 93 L 93 L 94 L 02/25/18 22:30 02/25/18 22:45 02/25/18 23:00 Temperature 99.0 F Pulse Rate 73 73 74 Respiratory Rate Blood Pressure Pulse Oximetry 93 L 93 L 92 L 02/25/18 23:15 02/25/18 23:30 02/25/18 23:45 Temperature 99.0 F 99.0 F 99.0 F Pulse Rate 74 74 74 Respiratory Rate Blood Pressure Pulse Oximetry 92 L 93 L 93 L 02/26/18 00:00 02/26/18 00:07 02/26/18 00:15 Temperature 99.1 F 99.1 F Pulse Rate 74 74 Respiratory Rate 24 24 Blood Pressure 110/72 Pulse Oximetry 94 L 93 L 93 L 02/26/18 00:30 02/26/18 00:45 02/26/18 01:00 Temperature 99.1 F 99.1 F 99.1 F Pulse Rate 73 73 73 Respiratory Rate Blood Pressure 108/72 Pulse Oximetry 93 L 93 L 93 L 02/26/18 01:15 02/26/18 01:30 02/26/18 01:45 Temperature 99.1 F 99.0 F 99.0 F Pulse Rate 73 72 71 Respiratory Rate Blood Pressure Pulse Oximetry 93 L 93 L 93 L 02/26/18 02:00 02/26/18 02:15 02/26/18 02:30 Temperature 99.0 F 99.0 F 99.0 F Pulse Rate 71 71 71 Respiratory Rate Blood Pressure 117/73 Pulse Oximetry 93 L 93 L 93 L 02/26/18 02:45 02/26/18 03:00 02/26/18 03:15 Temperature 99.0 F 99.0 F 99.0 F Pulse Rate 70 72 72 Respiratory Rate Blood Pressure 104/70 Pulse Oximetry 93 L 93 L 93 L 02/26/18 03:30 02/26/18 03:45 02/26/18 03:50 Temperature 99.0 F 97.9 F Pulse Rate 71 73 Respiratory Rate 24 Blood Pressure Pulse Oximetry 92 L 91 L 91 L 02/26/18 04:00 02/26/18 04:15 02/26/18 04:30 Temperature 98.8 F 99.0 F 99.0 F Pulse Rate 70 72 71 Respiratory Rate 24 Blood Pressure 98/61 L Pulse Oximetry 91 L 90 L 90 L 02/26/18 04:45 02/26/18 05:00 02/26/18 05:15 Temperature 99.0 F 99.0 F 98.8 F Pulse Rate 69 70 71 Respiratory Rate Blood Pressure 126/73 Pulse Oximetry 91 L 90 L 90 L 02/26/18 05:30 02/26/18 05:45 02/26/18 06:00 Temperature 98.8 F 99.0 F 99.0 F Pulse Rate 72 72 71 Respiratory Rate Blood Pressure Pulse Oximetry 91 L 91 L 91 L 02/26/18 07:46 Temperature Pulse Rate 75 Respiratory Rate 24 Blood Pressure Pulse Oximetry 91 L I&O: Intake & Output 02/24/18 02/25/18 02/26/18 02/27/18 06:59 06:59 06:59 06:59 Intake Total 3642.0 / 3642.0 2431 / 2431 4850 / 4850 200 / 200 Output Total 2415 / 2415 2750 / 2750 1050 / 1050 Balance 1227.0 / 1227.0 -319 / -319 3800 / 3800 200 / 200 Weight 79.3 kg 79.6 kg 86.6 kg Physical Exam: CONSTITUTIONAL/GENERAL: This is an adequately nourished patient, in no apparent distress. TUBES/LINES/DRAINS: ETT, OG, PIV's, Armstrong catheter, bilateral soft wrist restraints, chest tube to right side, SCDs. SKIN: No jaundice, rashes, or lesions. Ecchymoses on upper extremities. No wounds seen anteriorly. Skin temperature appropriate. Not diaphoretic. HEAD: Atraumatic. Normocephalic. EYES: Bilateral pupils sluggish. No scleral icterus. No injection or drainage. ENT: Unable to evaluate hearing given clinical condition. Nose without bleeding or purulent drainage. Moist oral mucosa. NECK: Trachea midline. Supple, nontender. CARDIOVASCULAR: Regular rate and rhythm. Peripheral pulses symmetric. RESPIRATORY/CHEST: Symmetric, unlabored respirations while on vent support. Diminished breath sounds bilaterally with expiratory wheezes. Chest tube to right side. GASTROINTESTINAL: Abdomen soft, non-tender, nondistended. Bowel sounds present. GENITOURINARY: Without palpable bladder distension. Armstrong catheter in place. MUSCULOSKELETAL: Extremities without clubbing, cyanosis, or edema. No mottling or clubbing. LYMPHATICS: No palpable cervical or supraclavicular adenopathy. NEUROLOGICAL: Unresponsive to verbal or tactile stimuli. PSYCHIATRIC: Unable to evaluate given clinical condition, unresponsive. Diagnostic Tests Laboratory: Laboratory Results - last 72 hr 02/19/18 02/23/18 02/23/18 21:00 11:22 15:50 WBC RBC Hgb Hct MCV MCH MCHC RDW Plt Count MPV Prelim Diff (Auto) Neut % (Auto) Lymph % (Auto) Dent % (Auto) Eos % (Auto) Baso % (Auto) Neut # (Auto) Lymph # (Auto) Dent # (Auto) Eos # (Auto) Baso # (Auto) WBC Differential Diff Scan Seg Neuts % (Manual) Band Neuts % (Manual) Lymphocytes % (Manual) Monocytes % (Manual) Metamyelocytes % (Man) Abs Neuts (Manual) Nucleated RBCs/100 WBC Differential Comment Toxic Granulation Toxic Vacuolation Platelet Estimate Platelet Morphology Tear Drop Cells Keratocytes Puncture Site Right radial Patient Temperature 98.6 O2 Saturation 88 L* ABG pH 7.27 L* ABG pCO2 66 H* ABG pO2 70 ABG HCO3 29 H ABG O2 Content 17.2 ABG Base Excess 3.1 H ABG Methemoglobin 1.4 Jeffery Test Present Hemoglobin 14.0 Carboxyhemoglobin 0.6 O2 Delivery Device Ventilator Vent Setting Ac20/600/+15 Inspired O2 60 Critical Value Yes Sodium Potassium Chloride Carbon Dioxide Anion Gap BUN Creatinine Estimated GFR POC Glucose 160 H Random Glucose Calcium Calcium Adj for Albumin Phosphorus Magnesium Total Bilirubin AST ALT Alkaline Phosphatase Total Creatine Kinase Troponin I Total Protein Albumin Pleural pH Pleural RBC Pleural Nuc Cells Pleural Neutrophils Pleural Lymphocytes Pleural Monocytes Pleural Histocytes Pleural Mesothelial Pleural Total Protein Pleural LDH Pleural Glucose Pleural Amylase Vancomycin Trough Random Vancomycin Digoxin Hepatitis A IgM Ab Hep Bs Antigen Hep B Core IgM Ab Hep C IgG Ab Misc Test Result 02/23/18 02/23/18 02/23/18 18:00 18:00 19:13 WBC RBC Hgb Hct MCV MCH MCHC RDW Plt Count MPV Prelim Diff (Auto) Neut % (Auto) Lymph % (Auto) Dent % (Auto) Eos % (Auto) Baso % (Auto) Neut # (Auto) Lymph # (Auto) Dent # (Auto) Eos # (Auto) Baso # (Auto) WBC Differential Diff Scan Seg Neuts % (Manual) Band Neuts % (Manual) Lymphocytes % (Manual) Monocytes % (Manual) Metamyelocytes % (Man) Abs Neuts (Manual) Nucleated RBCs/100 WBC Differential Comment Toxic Granulation Toxic Vacuolation Platelet Estimate Platelet Morphology Tear Drop Cells Keratocytes Puncture Site Art line Patient Temperature 98.6 O2 Saturation 92 ABG pH 7.40 ABG pCO2 47 H ABG pO2 74 ABG HCO3 28 H ABG O2 Content 15.4 ABG Base Excess 3.7 H ABG Methemoglobin 1.4 Jeffery Test Present Hemoglobin 11.9 L Carboxyhemoglobin 0.8 O2 Delivery Device Ventilator Vent Setting Prvc/ ac Inspired O2 50 Critical Value No Sodium Potassium Chloride Carbon Dioxide Anion Gap BUN Creatinine Estimated GFR POC Glucose Random Glucose Calcium Calcium Adj for Albumin Phosphorus Magnesium Total Bilirubin AST ALT Alkaline Phosphatase Total Creatine Kinase Troponin I Total Protein Albumin Pleural pH 8.5 Pleural RBC 1107 H Pleural Nuc Cells 288 H Pleural Neutrophils 42 Pleural Lymphocytes 19 Pleural Monocytes 4 Pleural Histocytes 30 Pleural Mesothelial 5 Pleural Total Protein 2.9 Pleural LDH 1228 Pleural Glucose 161 Pleural Amylase 58 Vancomycin Trough Random Vancomycin Digoxin Hepatitis A IgM Ab Hep Bs Antigen Hep B Core IgM Ab Hep C IgG Ab Misc Test Result 02/24/18 02/24/18 02/24/18 01:13 03:20 03:20 WBC RBC Hgb Hct MCV MCH MCHC RDW Plt Count MPV Prelim Diff (Auto) Neut % (Auto) Lymph % (Auto) Dent % (Auto) Eos % (Auto) Baso % (Auto) Neut # (Auto) Lymph # (Auto) Dent # (Auto) Eos # (Auto) Baso # (Auto) WBC Differential Diff Scan Seg Neuts % (Manual) Band Neuts % (Manual) Lymphocytes % (Manual) Monocytes % (Manual) Metamyelocytes % (Man) Abs Neuts (Manual) Nucleated RBCs/100 WBC Differential Comment Toxic Granulation Toxic Vacuolation Platelet Estimate Platelet Morphology Tear Drop Cells Keratocytes Puncture Site Patient Temperature O2 Saturation ABG pH ABG pCO2 ABG pO2 ABG HCO3 ABG O2 Content ABG Base Excess ABG Methemoglobin Jeffery Test Hemoglobin Carboxyhemoglobin O2 Delivery Device Vent Setting Inspired O2 Critical Value Sodium 153 H Potassium 4.3 D Chloride 118 H Carbon Dioxide 27.9 Anion Gap 7 BUN 67 H Creatinine 1.65 H Estimated GFR 42 L POC Glucose 108 Random Glucose 132 H Calcium 8.3 L Calcium Adj for Albumin Phosphorus 3.1 Magnesium 2.8 H Total Bilirubin 0.2 AST 99 H ALT 96 H Alkaline Phosphatase 105 Total Creatine Kinase Troponin I Total Protein 5.4 L Albumin 1.2 L Pleural pH Pleural RBC Pleural Nuc Cells Pleural Neutrophils Pleural Lymphocytes Pleural Monocytes Pleural Histocytes Pleural Mesothelial Pleural Total Protein Pleural LDH Pleural Glucose Pleural Amylase Vancomycin Trough 25.3 H Random Vancomycin Digoxin Hepatitis A IgM Ab Nonreactive Hep Bs Antigen Nonreactive Hep B Core IgM Ab Nonreactive Hep C IgG Ab Nonreactive Misc Test Result 02/24/18 02/24/18 02/24/18 03:20 03:20 04:10 WBC 29.8 H RBC 3.74 L Hgb 11.8 L Hct 34.5 L MCV 92.4 MCH 31.5 MCHC 34.1 RDW 15.6 Plt Count 146 L MPV 10.4 Prelim Diff (Auto) Slide review pending Neut % (Auto) 93.9 H Lymph % (Auto) 1.4 L Dent % (Auto) 4.2 Eos % (Auto) 0.0 Baso % (Auto) 0.5 Neut # (Auto) 27.9 H Lymph # (Auto) 0.4 L Dent # (Auto) 1.2 H Eos # (Auto) 0.0 Baso # (Auto) 0.1 WBC Differential . Diff Scan Auto diff confirmed Seg Neuts % (Manual) Band Neuts % (Manual) Lymphocytes % (Manual) Monocytes % (Manual) Metamyelocytes % (Man) Abs Neuts (Manual) Nucleated RBCs/100 WBC Differential Comment . Toxic Granulation Toxic Vacuolation Platelet Estimate Low L Platelet Morphology Normal Tear Drop Cells Keratocytes Puncture Site Art line Patient Temperature 98.6 O2 Saturation 93 ABG pH 7.43 H ABG pCO2 42 ABG pO2 76 ABG HCO3 27 H ABG O2 Content 16.0 ABG Base Excess 3.2 H ABG Methemoglobin 1.3 Jeffery Test Hemoglobin 12.2 Carboxyhemoglobin 0.8 O2 Delivery Device Ventilator Vent Setting 24/600/peep12/it0.65 Inspired O2 60 Critical Value No Sodium Potassium Chloride Carbon Dioxide Anion Gap BUN Creatinine Estimated GFR POC Glucose Random Glucose Calcium Calcium Adj for Albumin Phosphorus Magnesium Total Bilirubin AST ALT Alkaline Phosphatase Total Creatine Kinase 215 Troponin I 0.30 H Total Protein Albumin Pleural pH Pleural RBC Pleural Nuc Cells Pleural Neutrophils Pleural Lymphocytes Pleural Monocytes Pleural Histocytes Pleural Mesothelial Pleural Total Protein Pleural LDH Pleural Glucose Pleural Amylase Vancomycin Trough Random Vancomycin Digoxin Hepatitis A IgM Ab Hep Bs Antigen Hep B Core IgM Ab Hep C IgG Ab Misc Test Result 02/24/18 02/24/18 02/24/18 12:14 12:19 13:50 WBC RBC Hgb Hct MCV MCH MCHC RDW Plt Count MPV Prelim Diff (Auto) Neut % (Auto) Lymph % (Auto) Dent % (Auto) Eos % (Auto) Baso % (Auto) Neut # (Auto) Lymph # (Auto) Dent # (Auto) Eos # (Auto) Baso # (Auto) WBC Differential Diff Scan Seg Neuts % (Manual) Band Neuts % (Manual) Lymphocytes % (Manual) Monocytes % (Manual) Metamyelocytes % (Man) Abs Neuts (Manual) Nucleated RBCs/100 WBC Differential Comment Toxic Granulation Toxic Vacuolation Platelet Estimate Platelet Morphology Tear Drop Cells Keratocytes Puncture Site Art line Patient Temperature 98.6 O2 Saturation 90 ABG pH 7.40 ABG pCO2 42 ABG pO2 69 ABG HCO3 25 ABG O2 Content 14.4 ABG Base Excess 0.9 ABG Methemoglobin 1.3 Jeffery Test Hemoglobin 11.4 L Carboxyhemoglobin 0.8 O2 Delivery Device Ventilator Vent Setting 600/24/+12/0.65 Inspired O2 60 Critical Value No Sodium Potassium Chloride Carbon Dioxide Anion Gap BUN Creatinine Estimated GFR POC Glucose 123 H Random Glucose Calcium Calcium Adj for Albumin Phosphorus Magnesium Total Bilirubin AST ALT Alkaline Phosphatase Total Creatine Kinase Troponin I 0.43 H Total Protein Albumin Pleural pH Pleural RBC Pleural Nuc Cells Pleural Neutrophils Pleural Lymphocytes Pleural Monocytes Pleural Histocytes Pleural Mesothelial Pleural Total Protein Pleural LDH Pleural Glucose Pleural Amylase Vancomycin Trough Random Vancomycin Digoxin Hepatitis A IgM Ab Hep Bs Antigen Hep B Core IgM Ab Hep C IgG Ab Misc Test Result 02/24/18 02/24/18 02/24/18 17:25 17:37 20:55 WBC RBC Hgb Hct MCV MCH MCHC RDW Plt Count MPV Prelim Diff (Auto) Neut % (Auto) Lymph % (Auto) Dent % (Auto) Eos % (Auto) Baso % (Auto) Neut # (Auto) Lymph # (Auto) Dent # (Auto) Eos # (Auto) Baso # (Auto) WBC Differential Diff Scan Seg Neuts % (Manual) Band Neuts % (Manual) Lymphocytes % (Manual) Monocytes % (Manual) Metamyelocytes % (Man) Abs Neuts (Manual) Nucleated RBCs/100 WBC Differential Comment Toxic Granulation Toxic Vacuolation Platelet Estimate Platelet Morphology Tear Drop Cells Keratocytes Puncture Site Art line Patient Temperature 98.6 O2 Saturation 91 ABG pH 7.31 L ABG pCO2 51 H* ABG pO2 76 ABG HCO3 25 ABG O2 Content 14.8 ABG Base Excess -0.9 ABG Methemoglobin 1.4 Jeffery Test Hemoglobin 11.5 L Carboxyhemoglobin 0.5 O2 Delivery Device Ventilator Vent Setting Inspired O2 65 Critical Value Yes Sodium Potassium Chloride Carbon Dioxide Anion Gap BUN Creatinine Estimated GFR POC Glucose 142 H 175 H Random Glucose Calcium Calcium Adj for Albumin Phosphorus Magnesium Total Bilirubin AST ALT Alkaline Phosphatase Total Creatine Kinase Troponin I Total Protein Albumin Pleural pH Pleural RBC Pleural Nuc Cells Pleural Neutrophils Pleural Lymphocytes Pleural Monocytes Pleural Histocytes Pleural Mesothelial Pleural Total Protein Pleural LDH Pleural Glucose Pleural Amylase Vancomycin Trough Random Vancomycin Digoxin Hepatitis A IgM Ab Hep Bs Antigen Hep B Core IgM Ab Hep C IgG Ab Misc Test Result 02/24/18 02/24/18 02/25/18 23:17 23:24 03:55 WBC 32.4 H RBC 3.68 L Hgb 11.5 L Hct 34.2 L MCV 92.8 MCH 31.1 MCHC 33.5 RDW 16.3 Plt Count 123 L MPV 10.9 Prelim Diff (Auto) Slide review pending Neut % (Auto) 94.4 H Lymph % (Auto) 1.5 L Dent % (Auto) 3.8 Eos % (Auto) 0.0 Baso % (Auto) 0.3 Neut # (Auto) 30.6 H Lymph # (Auto) 0.5 L Dent # (Auto) 1.2 H Eos # (Auto) 0.0 Baso # (Auto) 0.1 WBC Differential Manual diff final Diff Scan Seg Neuts % (Manual) 82 H Band Neuts % (Manual) 7 H Lymphocytes % (Manual) 5 L Monocytes % (Manual) 6 Metamyelocytes % (Man) Abs Neuts (Manual) 28.8 H Nucleated RBCs/100 WBC 1 H Differential Comment . Toxic Granulation 1+ H Toxic Vacuolation Present H Platelet Estimate Low L Platelet Morphology Normal Tear Drop Cells Keratocytes Puncture Site Cherelle Patient Temperature 98.6 O2 Saturation 92 ABG pH 7.34 L ABG pCO2 47 H ABG pO2 77 ABG HCO3 25 ABG O2 Content 15.0 ABG Base Excess -0.3 ABG Methemoglobin 1.3 Jeffery Test Hemoglobin 11.6 L Carboxyhemoglobin 0.7 O2 Delivery Device Ventilator Vent Setting See comment Inspired O2 70 Critical Value No Sodium Potassium Chloride Carbon Dioxide Anion Gap BUN Creatinine Estimated GFR POC Glucose 134 H Random Glucose Calcium Calcium Adj for Albumin Phosphorus Magnesium Total Bilirubin AST ALT Alkaline Phosphatase Total Creatine Kinase Troponin I Total Protein Albumin Pleural pH Pleural RBC Pleural Nuc Cells Pleural Neutrophils Pleural Lymphocytes Pleural Monocytes Pleural Histocytes Pleural Mesothelial Pleural Total Protein Pleural LDH Pleural Glucose Pleural Amylase Vancomycin Trough Random Vancomycin Digoxin Hepatitis A IgM Ab Hep Bs Antigen Hep B Core IgM Ab Hep C IgG Ab Misc Test Result 02/25/18 02/25/18 02/25/18 03:55 05:36 07:40 WBC RBC Hgb Hct MCV MCH MCHC RDW Plt Count MPV Prelim Diff (Auto) Neut % (Auto) Lymph % (Auto) Dent % (Auto) Eos % (Auto) Baso % (Auto) Neut # (Auto) Lymph # (Auto) Dent # (Auto) Eos # (Auto) Baso # (Auto) WBC Differential Diff Scan Seg Neuts % (Manual) Band Neuts % (Manual) Lymphocytes % (Manual) Monocytes % (Manual) Metamyelocytes % (Man) Abs Neuts (Manual) Nucleated RBCs/100 WBC Differential Comment Toxic Granulation Toxic Vacuolation Platelet Estimate Platelet Morphology Tear Drop Cells Keratocytes Puncture Site Cherelle Patient Temperature 98.6 O2 Saturation 88 L* ABG pH 7.18 L* ABG pCO2 67 H* ABG pO2 76 ABG HCO3 24 ABG O2 Content 14.8 ABG Base Excess -3.2 L ABG Methemoglobin 1.3 Jeffery Test Hemoglobin 11.9 L Carboxyhemoglobin 0.4 O2 Delivery Device Vent Vent Setting Aprv/4.0/32/0.8/0/0/ Inspired O2 80 Critical Value Yes Sodium 151 H Potassium 4.5 Chloride 118 H Carbon Dioxide 26.9 Anion Gap 6 BUN 96 H Creatinine 2.81 H Estimated GFR 23 L POC Glucose 107 Random Glucose 132 H Calcium 7.8 L Calcium Adj for Albumin Phosphorus 5.4 H D Magnesium 3.1 H Total Bilirubin 0.3 AST 121 H ALT 90 H Alkaline Phosphatase 107 Total Creatine Kinase Troponin I 0.47 H Total Protein 5.5 L Albumin 1.1 L Pleural pH Pleural RBC Pleural Nuc Cells Pleural Neutrophils Pleural Lymphocytes Pleural Monocytes Pleural Histocytes Pleural Mesothelial Pleural Total Protein Pleural LDH Pleural Glucose Pleural Amylase Vancomycin Trough Random Vancomycin 26.3 Digoxin 1.1 Hepatitis A IgM Ab Hep Bs Antigen Hep B Core IgM Ab Hep C IgG Ab Misc Test Result 02/25/18 02/25/18 02/25/18 09:35 11:45 11:55 WBC RBC Hgb Hct MCV MCH MCHC RDW Plt Count MPV Prelim Diff (Auto) Neut % (Auto) Lymph % (Auto) Dent % (Auto) Eos % (Auto) Baso % (Auto) Neut # (Auto) Lymph # (Auto) Dent # (Auto) Eos # (Auto) Baso # (Auto) WBC Differential Diff Scan Seg Neuts % (Manual) Band Neuts % (Manual) Lymphocytes % (Manual) Monocytes % (Manual) Metamyelocytes % (Man) Abs Neuts (Manual) Nucleated RBCs/100 WBC Differential Comment Toxic Granulation Toxic Vacuolation Platelet Estimate Platelet Morphology Tear Drop Cells Keratocytes Puncture Site Cherelle Villarreal Patient Temperature 98.6 98.6 O2 Saturation 87 L* 92 ABG pH 7.22 L* 7.21 L* ABG pCO2 54 H* 58 H* ABG pO2 71 82 ABG HCO3 21 L 22 ABG O2 Content 14.4 13.4 ABG Base Excess -5.5 L -4.3 L ABG Methemoglobin 1.2 1.2 Jeffery Test Hemoglobin 11.7 L 10.2 L Carboxyhemoglobin 0.4 0.5 O2 Delivery Device Vent Vent Vent Setting Aprv/3/35/1/0/0/2 Aprv/3/37/1.5/5/0/2 Inspired O2 80 80 Critical Value Yes Yes Sodium Potassium Chloride Carbon Dioxide Anion Gap BUN Creatinine Estimated GFR POC Glucose 185 H Random Glucose Calcium Calcium Adj for Albumin Phosphorus Magnesium Total Bilirubin AST ALT Alkaline Phosphatase Total Creatine Kinase Troponin I Total Protein Albumin Pleural pH Pleural RBC Pleural Nuc Cells Pleural Neutrophils Pleural Lymphocytes Pleural Monocytes Pleural Histocytes Pleural Mesothelial Pleural Total Protein Pleural LDH Pleural Glucose Pleural Amylase Vancomycin Trough Random Vancomycin Digoxin Hepatitis A IgM Ab Hep Bs Antigen Hep B Core IgM Ab Hep C IgG Ab Misc Test Result 02/25/18 02/25/18 02/25/18 15:12 17:10 17:50 WBC RBC Hgb Hct MCV MCH MCHC RDW Plt Count MPV Prelim Diff (Auto) Neut % (Auto) Lymph % (Auto) Dent % (Auto) Eos % (Auto) Baso % (Auto) Neut # (Auto) Lymph # (Auto) Dent # (Auto) Eos # (Auto) Baso # (Auto) WBC Differential Diff Scan Seg Neuts % (Manual) Band Neuts % (Manual) Lymphocytes % (Manual) Monocytes % (Manual) Metamyelocytes % (Man) Abs Neuts (Manual) Nucleated RBCs/100 WBC Differential Comment Toxic Granulation Toxic Vacuolation Platelet Estimate Platelet Morphology Tear Drop Cells Keratocytes Puncture Site Cherelle Villarreal Patient Temperature 98.6 98.6 O2 Saturation 90 92 ABG pH 7.13 L* 7.25 L* ABG pCO2 74 H* 49 H ABG pO2 85 79 ABG HCO3 23 21 L ABG O2 Content 14.3 14.0 ABG Base Excess -4.8 L -4.9 L ABG Methemoglobin 1.4 1.3 Jeffery Test Hemoglobin 11.1 L 10.8 L Carboxyhemoglobin 0.4 0.7 O2 Delivery Device Vent Vent Vent Setting Prvc/24/350/.9/16/ Pc/24/34/.9/12/75 Inspired O2 75 75 Critical Value Yes Yes Sodium Potassium Chloride Carbon Dioxide Anion Gap BUN Creatinine Estimated GFR POC Glucose 154 H Random Glucose Calcium Calcium Adj for Albumin Phosphorus Magnesium Total Bilirubin AST ALT Alkaline Phosphatase Total Creatine Kinase Troponin I Total Protein Albumin Pleural pH Pleural RBC Pleural Nuc Cells Pleural Neutrophils Pleural Lymphocytes Pleural Monocytes Pleural Histocytes Pleural Mesothelial Pleural Total Protein Pleural LDH Pleural Glucose Pleural Amylase Vancomycin Trough Random Vancomycin Digoxin Hepatitis A IgM Ab Hep Bs Antigen Hep B Core IgM Ab Hep C IgG Ab Misc Test Result 02/25/18 02/25/18 02/26/18 20:12 23:46 04:30 WBC 31.2 H RBC 3.49 L Hgb 10.8 L Hct 33.2 L MCV 95.1 MCH 31.1 MCHC 32.7 RDW 16.5 Plt Count 123 L MPV 10.9 Prelim Diff (Auto) Slide review pending Neut % (Auto) 94.3 H Lymph % (Auto) 1.5 L Dent % (Auto) 3.6 Eos % (Auto) 0.1 Baso % (Auto) 0.5 Neut # (Auto) 29.5 H Lymph # (Auto) 0.5 L Dent # (Auto) 1.1 H Eos # (Auto) 0.0 Baso # (Auto) 0.2 WBC Differential Manual diff final Diff Scan Seg Neuts % (Manual) 91 H Band Neuts % (Manual) 7 H Lymphocytes % (Manual) 1 L Monocytes % (Manual) Metamyelocytes % (Man) 1 Abs Neuts (Manual) 30.9 H Nucleated RBCs/100 WBC Differential Comment . Toxic Granulation 1+ H Toxic Vacuolation Platelet Estimate Normal Platelet Morphology Normal Tear Drop Cells 1+ H Keratocytes Occ H Puncture Site Patient Temperature O2 Saturation ABG pH ABG pCO2 ABG pO2 ABG HCO3 ABG O2 Content ABG Base Excess ABG Methemoglobin Jeffery Test Hemoglobin Carboxyhemoglobin O2 Delivery Device Vent Setting Inspired O2 Critical Value Sodium Potassium Chloride Carbon Dioxide Anion Gap BUN Creatinine Estimated GFR POC Glucose 118 H 83 Random Glucose Calcium Calcium Adj for Albumin Phosphorus Magnesium Total Bilirubin AST ALT Alkaline Phosphatase Total Creatine Kinase Troponin I Total Protein Albumin Pleural pH Pleural RBC Pleural Nuc Cells Pleural Neutrophils Pleural Lymphocytes Pleural Monocytes Pleural Histocytes Pleural Mesothelial Pleural Total Protein Pleural LDH Pleural Glucose Pleural Amylase Vancomycin Trough Random Vancomycin Digoxin Hepatitis A IgM Ab Hep Bs Antigen Hep B Core IgM Ab Hep C IgG Ab Misc Test Result 02/26/18 02/26/18 02/26/18 04:30 04:36 04:39 WBC RBC Hgb Hct MCV MCH MCHC RDW Plt Count MPV Prelim Diff (Auto) Neut % (Auto) Lymph % (Auto) Dent % (Auto) Eos % (Auto) Baso % (Auto) Neut # (Auto) Lymph # (Auto) Dent # (Auto) Eos # (Auto) Baso # (Auto) WBC Differential Diff Scan Seg Neuts % (Manual) Band Neuts % (Manual) Lymphocytes % (Manual) Monocytes % (Manual) Metamyelocytes % (Man) Abs Neuts (Manual) Nucleated RBCs/100 WBC Differential Comment Toxic Granulation Toxic Vacuolation Platelet Estimate Platelet Morphology Tear Drop Cells Keratocytes Puncture Site Art line Patient Temperature 98.6 O2 Saturation 94 ABG pH 7.27 L* ABG pCO2 47 H ABG pO2 87 ABG HCO3 21 L ABG O2 Content 14.2 ABG Base Excess -5.3 L ABG Methemoglobin 1.3 Jeffery Test Hemoglobin 10.7 L Carboxyhemoglobin 0.7 O2 Delivery Device Ventilator Vent Setting Pc/ac Inspired O2 75 Critical Value Yes Sodium 141 D Potassium 5.5 H D Chloride 109 H D Carbon Dioxide 23.0 Anion Gap 9 BUN 117 H Creatinine 4.19 H Estimated GFR 14 L POC Glucose 82 Random Glucose 87 Calcium 7.0 L* D Calcium Adj for Albumin 9.5 Phosphorus Magnesium Total Bilirubin AST ALT Alkaline Phosphatase Total Creatine Kinase Troponin I 0.81 H* Total Protein Albumin 0.9 L Pleural pH Pleural RBC Pleural Nuc Cells Pleural Neutrophils Pleural Lymphocytes Pleural Monocytes Pleural Histocytes Pleural Mesothelial Pleural Total Protein Pleural LDH Pleural Glucose Pleural Amylase Vancomycin Trough Random Vancomycin Digoxin 1.9 Hepatitis A IgM Ab Hep Bs Antigen Hep B Core IgM Ab Hep C IgG Ab Misc Test Result Result Diagrams: 02/26/18 04:30 02/26/18 04:30 Microbiology: Microbiology 02/23/18 18:00 Gram Stain - Final Fluid - Pleural fluid Body Fluid Culture - Preliminary No growth in 24 hours 02/19/18 21:10 Aerobic Blood Culture - Final Blood - Peripheral No growth in 5 days Anaerobic Blood Culture - Final No growth in 5 days 02/19/18 21:15 Aerobic Blood Culture - Final Blood - Peripheral No growth in 5 days Anaerobic Blood Culture - Final No growth in 5 days 02/23/18 18:00 Fungal Smear - Final Fluid - Pleural fluid No fungal elements seen 02/21/18 11:50 Urine Culture - Final Catheterized Urine No growth in 48 hours Procedures: 02/18/18: Endotracheal intubation 02/23/18: Cardioversion 02/23/18: Right chest tube placement Patient/Family Conference Present at Family Conference: Son Leandro, [id number] Barb and brother Grant. Family Conference Time: 46 Family Conference Location: Bedside, Telephone Issues Discussed: * Palliative care role, purpose, approach * Additional medical, psychosocial, and spiritual history * Patients general health, functional status, and cognitive changes in the months leading up to the current hospitalization * Patient/family understanding of the current medical problems * Patient/family understanding of prognosis -overall poor prognosis for survival * Patients goals of care as best understood from advance directives and/or conversations and/or values * Current medical treatment options and benefits/burdens of those options * Questions answered to the best of my ability * Palliative care contact information provided * Risks, benefits and limitations of CPR given patient's condition Assessment and Plan - Disease Oriented Problem List (1) Septic shock (2) Multisystem organ failure (3) Community acquired pneumonia (4) COPD (chronic obstructive pulmonary disease) with acute bronchitis (5) Respiratory failure requiring intubation (6) Acute kidney failure - Symptom Scale (1) Pain 0-10 Scale: Unable to quantify Pertinent Non-Medical Issues: Psychosocial: Patient is , 1 biological son. Patient used to work in sales, no service. Spiritual: [employer]. Legal: No advance directives reported as completed. Ethical issues impacting care: No ethical issues identified. Important Contacts: Son Leandro Brother Shen Prognosis: Mr. Valencia is a 67-year-old male with a medical history significant for COPD, smoker, peripheral vascular disease and hypertension. Patient presented to ED via EMS after he was found by his neighbor with altered mental status on . Clinical course complicated by respiratory insufficiency which later progressed to respiratory failure requiring intubation and mechanical ventilation. Clinical course further complicated by atrial fibrillation with RVR requiring cardioversion, worsening bronchopneumonia, septic shock and acute kidney injury. Overall poor prognosis for survival in the setting of multisystem organ failure. Code Status: Alternative Code Plan: * CODE STATUS: Alternate code/NO cardiac code. -Intubation only. * HEALTHCARE DECISION-MAKING: Patient unable to participating medical decision making given clinical condition, unresponsive. Patient not anticipated to regain medical decision-making capacity. No advance directives reported as completed. Patient is , 1 biological son. As per [place], healthcare proxy decision making falls to patient's only son Leandro Shields. Son has accepted this role. * GOALS OF CARE: As per patient's son Leandro acting as healthcare proxy decision making, goal of treatment is to continue supportive management short of NO cardiac code and NO escalation of care in the setting of very poor prognosis for survival. Family meeting scheduled with palliative care on 02/27 at 10 AM, vianney Reeves with his Barb and patient's brother Shen expected to attend. * SYMPTOMS: =Pain, history of chronic pain. Acute pain secondary to acute illness, multiple lines/interventions and prolonged hospitalization. Patient currently on fentanyl drip, no signs of discomfort noted. No other recommendations at this time. * Spiritual services offered and accepted. Bus Aide Nate following. * Palliative care contact information has been provided to patient's family. * Case discussed with Dr. Otero, Dr. Muñoz, Dr. He and bedside RN Georgette. * Palliative care will continue to follow-up for further clarifications of goals of care as patient's clinical course continues to evolve. Time Spent Total Floor Time (mins): 62 (Total time to include review of summarization of available medical records to include prior hospitalization in July 2017, physical exam, goals of care conversation with patient's family, case discussion with medical team and bedside RN.) >50% Time in Counseling or Coordination of Care: Yes (Total visit time = 62 minutes; > 50% spent counseling/coordinating care) Appreciation Thank you for the opportunity to participate in the care of Supa Valencia. Attestation Attestation: To help prompt me to consider important information that might be impacting today's encounter and assessment, information from prior notes written by myself or my colleagues may have been "brought forward" into today's note. My signature on this note, however, is an attestation that I personally performed the exam, history, and/or decision-making noted today, and, unless otherwise indicated, the interactions with patient, family, and staff as well as the review of records all occurred today. I also attest that the listed assessment and stated plan reflect my best clinical judgment today based on the combination of historical information, prior notes, and today's exam/ interactions. When time spent is documented, it refers only to time spent today by the signer, or if indicated, combined time spent today by collaborating physician/nurse practitioner.
[2018-02-26] MEDS: Vasopressin Inj 40 UNIT in Dextrose 5% in Water Inj 98 ML IV.CONT SCH ×2 (12:26)
[2018-02-26] MEDS: Propofol 1000 mg/100 ml Inj 1,000 MG/100 ML BOTTLE IV.CONT PRN (12:28)
[2018-02-26] MEDS: Azithromycin Inj 500 MG in Sodium Chlor 0.9% Inj 250 ML IV.SIG SCH (16:44)
[2018-02-26] MEDS: fentaNYL 10 mcg/mL Premix Drip 2,500 MCG/250 ML BAG IV.SIG PRN (17:36)
--- NOTE | 2018-02-26 19:18 | P.PN ---
Subjective Interval history: He is critical and on 80 % FIO2 . In multiorgan failure. On pressors and PEEP +12. Poor output and Hyperkalemic. Physical Exam Vital signs: Vital Signs 02/25/18 19:15 02/25/18 19:30 02/25/18 19:45 Temperature Pulse Rate 74 73 73 Respiratory Rate Blood Pressure Pulse Oximetry 93 L 95 95 02/25/18 19:53 02/25/18 20:00 02/25/18 20:15 Temperature 98.4 F Pulse Rate 73 74 75 Respiratory Rate 24 Blood Pressure 124/80 Pulse Oximetry 94 L 94 L 93 L 02/25/18 20:30 02/25/18 20:45 02/25/18 21:00 Temperature 98.8 F Pulse Rate 74 74 75 Respiratory Rate Blood Pressure 123/77 Pulse Oximetry 93 L 93 L 93 L 02/25/18 21:15 02/25/18 21:30 02/25/18 21:45 Temperature Pulse Rate 75 75 75 Respiratory Rate Blood Pressure Pulse Oximetry 93 L 93 L 93 L 02/25/18 22:00 02/25/18 22:15 02/25/18 22:30 Temperature Pulse Rate 74 75 73 Respiratory Rate Blood Pressure 125/76 Pulse Oximetry 93 L 94 L 93 L 02/25/18 22:45 02/25/18 23:00 02/25/18 23:15 Temperature 99.0 F 99.0 F Pulse Rate 73 74 74 Respiratory Rate Blood Pressure Pulse Oximetry 93 L 92 L 92 L 02/25/18 23:30 02/25/18 23:45 02/26/18 00:00 Temperature 99.0 F 99.0 F 99.1 F Pulse Rate 74 74 74 Respiratory Rate 24 Blood Pressure 110/72 Pulse Oximetry 93 L 93 L 94 L 02/26/18 00:07 02/26/18 00:15 02/26/18 00:30 Temperature 99.1 F 99.1 F Pulse Rate 74 73 Respiratory Rate 24 Blood Pressure Pulse Oximetry 93 L 93 L 93 L 02/26/18 00:45 02/26/18 01:00 02/26/18 01:15 Temperature 99.1 F 99.1 F 99.1 F Pulse Rate 73 73 73 Respiratory Rate Blood Pressure 108/72 Pulse Oximetry 93 L 93 L 93 L 02/26/18 01:30 02/26/18 01:45 02/26/18 02:00 Temperature 99.0 F 99.0 F 99.0 F Pulse Rate 72 71 71 Respiratory Rate Blood Pressure 117/73 Pulse Oximetry 93 L 93 L 93 L 02/26/18 02:15 02/26/18 02:30 02/26/18 02:45 Temperature 99.0 F 99.0 F 99.0 F Pulse Rate 71 71 70 Respiratory Rate Blood Pressure Pulse Oximetry 93 L 93 L 93 L 02/26/18 03:00 02/26/18 03:15 02/26/18 03:30 Temperature 99.0 F 99.0 F 99.0 F Pulse Rate 72 72 71 Respiratory Rate Blood Pressure 104/70 Pulse Oximetry 93 L 93 L 92 L 02/26/18 03:45 02/26/18 03:50 02/26/18 04:00 Temperature 97.9 F 98.8 F Pulse Rate 73 70 Respiratory Rate 24 Blood Pressure 98/61 L Pulse Oximetry 91 L 91 L 91 L 02/26/18 04:15 02/26/18 04:30 02/26/18 04:45 Temperature 99.0 F 99.0 F 99.0 F Pulse Rate 72 71 69 Respiratory Rate 24 Blood Pressure Pulse Oximetry 90 L 90 L 91 L 02/26/18 05:00 02/26/18 05:15 02/26/18 05:30 Temperature 99.0 F 98.8 F 98.8 F Pulse Rate 70 71 72 Respiratory Rate Blood Pressure 126/73 Pulse Oximetry 90 L 90 L 91 L 02/26/18 05:45 02/26/18 06:00 02/26/18 06:15 Temperature 99.0 F 99.0 F 98.8 F Pulse Rate 72 71 71 Respiratory Rate Blood Pressure Pulse Oximetry 91 L 91 L 91 L 02/26/18 06:30 02/26/18 06:45 02/26/18 07:00 Temperature 98.8 F 98.8 F 98.8 F Pulse Rate 70 71 72 Respiratory Rate Blood Pressure 110/67 Pulse Oximetry 91 L 90 L 91 L 02/26/18 07:15 02/26/18 07:30 02/26/18 07:45 Temperature 98.8 F 98.8 F 99.0 F Pulse Rate 73 73 73 Respiratory Rate 24 Blood Pressure Pulse Oximetry 91 L 91 L 91 L 02/26/18 07:46 02/26/18 08:00 02/26/18 08:15 Temperature 99.0 F 98.8 F Pulse Rate 75 73 73 Respiratory Rate 24 24 Blood Pressure 124/73 Pulse Oximetry 91 L 91 L 90 L 02/26/18 08:30 02/26/18 08:45 02/26/18 09:00 Temperature 98.8 F 98.8 F 99.0 F Pulse Rate 74 74 74 Respiratory Rate 24 Blood Pressure 109/69 Pulse Oximetry 89 L 89 L 90 L 02/26/18 09:15 02/26/18 09:30 02/26/18 09:45 Temperature 99.0 F 99.0 F 99.0 F Pulse Rate 75 76 75 Respiratory Rate Blood Pressure Pulse Oximetry 89 L 90 L 90 L 02/26/18 10:00 02/26/18 10:15 02/26/18 10:30 Temperature 99.0 F 99.0 F 99.0 F Pulse Rate 75 75 76 Respiratory Rate 24 Blood Pressure 108/69 Pulse Oximetry 90 L 90 L 91 L 02/26/18 10:45 02/26/18 11:00 02/26/18 11:15 Temperature 98.8 F 98.8 F 98.8 F Pulse Rate 75 75 75 Respiratory Rate 24 Blood Pressure 113/73 Pulse Oximetry 92 L 91 L 90 L 02/26/18 11:30 02/26/18 11:31 02/26/18 11:45 Temperature 98.6 F 98.6 F Pulse Rate 74 74 Respiratory Rate 24 Blood Pressure Pulse Oximetry 91 L 90 L 90 L 02/26/18 12:00 02/26/18 12:15 02/26/18 12:30 Temperature 98.6 F 98.6 F 97.7 F Pulse Rate 74 71 73 Respiratory Rate 24 Blood Pressure 115/72 Pulse Oximetry 90 L 93 L 92 L 02/26/18 12:45 02/26/18 13:00 02/26/18 13:15 Temperature 97.9 F 97.9 F 97.7 F Pulse Rate 66 67 68 Respiratory Rate Blood Pressure 154/89 H Pulse Oximetry 93 L 94 L 94 L 02/26/18 13:30 02/26/18 13:42 02/26/18 13:45 Temperature 97.7 F 97.7 F Pulse Rate 67 67 68 Respiratory Rate 24 24 Blood Pressure Pulse Oximetry 94 L 94 L 94 L 02/26/18 14:00 02/26/18 14:15 02/26/18 14:30 Temperature 97.7 F 97.3 F L 97.9 F Pulse Rate 70 73 74 Respiratory Rate Blood Pressure 128/82 Pulse Oximetry 93 L 91 L 92 L 02/26/18 14:45 02/26/18 15:00 02/26/18 15:15 Temperature 98.1 F 98.1 F 98.1 F Pulse Rate 75 75 74 Respiratory Rate 24 Blood Pressure 120/75 Pulse Oximetry 92 L 92 L 93 L 02/26/18 15:30 02/26/18 15:45 02/26/18 16:00 Temperature 98.1 F 97.9 F 98.1 F Pulse Rate 74 74 79 Respiratory Rate 24 Blood Pressure 105/62 Pulse Oximetry 93 L 93 L 92 L 02/26/18 16:15 02/26/18 16:30 02/26/18 16:45 Temperature 98.1 F 98.1 F 98.1 F Pulse Rate 80 83 84 Respiratory Rate Blood Pressure Pulse Oximetry 91 L 90 L 90 L 02/26/18 17:00 02/26/18 17:15 02/26/18 17:30 Temperature 98.1 F 98.1 F 98.1 F Pulse Rate 85 86 86 Respiratory Rate 24 Blood Pressure 84/65 L Pulse Oximetry 90 L 91 L 91 L 02/26/18 17:45 02/26/18 18:00 02/26/18 18:10 Temperature 98.1 F 98.1 F Pulse Rate 86 85 Respiratory Rate Blood Pressure 86/65 L Pulse Oximetry 91 L 91 L 91 L Intake & Output 02/26/18 02/26/18 02/27/18 06:59 18:59 06:59 Intake Total 750 / 750 1700 / 1700 Output Total 420 / 420 610 / 610 Balance 330 / 330 1090 / 1090 Weight 86.6 kg Intake: IV 750 / 750 1600 / 1600 Cordarone Inj 450 MG In D5W Inj 250 / 250 250 / 250 241 ML @ 1 MG/MIN 33.33 mls/hr IV.CONT TITRATE PRN Rx#: [id number] Versed Inj 100 mg In 100 ml @ 2 100 / 100 MG/HR 2 mls/hr IV.CONT TITRATE PRN Rx#:[id number] Diprivan 1000 mg/100 ml Inj 1, 100 / 100 100 / 100 000 mg In 100 ml @ 5 MCG/KG/MIN 2.172 mls/hr IV.CONT TITRATE PRN Rx#:[id number] Pitressin Inj 40 UNIT In D5W 100 / 100 Inj 98 ML @ 0.04 UNITS/MIN 6 mls/hr IV.CONT CONT ERWIN Rx#: [id number] Azithromycin Inj 500 MG In NS 250 / 250 Inj 250 ML @ 250 mls/hr IV.SIG Q24H ERWIN Rx#:[id number] Merrem Inj 500 MG In NS Inj 100 200 / 200 100 / 100 ML @ 200 mls/hr IV.SIG Q8H ERWIN Rx#:[id number] Levophed-Dextrose 4 mg/250 ml 250 / 250 Drip 4 mg In 250 ml @ 2 MCG/MIN 7.5 mls/hr IV.SIG TITRATE PRN Rx#:[id number] fentaNYL 10 mcg/mL Premix Drip 250 / 250 2,500 mcg In 250 ml @ 50 MCG/HR 5 mls/hr IV.SIG TITRATE PRN Rx #:[id number] Flolan (30,000 ng/mL) Neb 100 100 / 100 100 / 100 ML In NS Inj 0 ML @ 5 mls/hr NEB Q8H ERWIN Rx#:[id number] Tube Irrigant 100 / 100 Output: Urine Amount (Catheter) 10 10 Indwelling Temp Sensing 20 / 20 10 / 10 Catheter Gastric Drainage 300 / 300 500 / 500 Left Nare 300 / 300 500 / 500 Chest Tube Drainage 100 / 100 100 / 100 Right 100 / 100 100 / 100 Other: Date of Last Bowel Movement 02/25/18 02/26/18 # Bowel Movements 1 Narrative: Gen.: Elderly W/M sedated and on the vent, and breathing labored Head: Normocephalic. Atraumatic. EENT: Pupils equal round and reactive to light. Nose without drainage. Cardiovascular: Irregular rate and rhythm. No murmurs, rubs or gallops. Respiratory: Bilateral wheezing with distant breath sounds and basal crackles.. Abdomen: Soft, nondistended. No Mass Musculoskeletal: No gross deformities. Mild edema. Skin: No obvious rashes or erythema. Neuro: Sedated. - Urinary Catheter Management Straight Cath placed during this visit: yes Reason for continuing: Acute urinary retention Insertion date: 02/20/18 Insertion time: 16:45 Indwelling Temp Sensing Catheter Cath placed during this visit: yes Reason for continuing: Hourly intake/output Insertion date: 02/20/18 Insertion time: 18:42 Results - Labs CBC & Chem 7: 02/26/18 04:30 02/26/18 04:30 Laboratory Results - last 24 hr 02/19/18 02/25/18 02/25/18 21:00 20:12 23:46 WBC RBC Hgb Hct MCV MCH MCHC RDW Plt Count MPV Prelim Diff (Auto) Neut % (Auto) Lymph % (Auto) Alpine % (Auto) Eos % (Auto) Baso % (Auto) Neut # (Auto) Lymph # (Auto) [place]pine # (Auto) Eos # (Auto) Baso # (Auto) WBC Differential Seg Neuts % (Manual) Band Neuts % (Manual) Lymphocytes % (Manual) Metamyelocytes % (Man) Abs Neuts (Manual) Differential Comment Toxic Granulation Platelet Estimate Platelet Morphology Tear Drop Cells Keratocytes Puncture Site Patient Temperature O2 Saturation ABG pH ABG pCO2 ABG pO2 ABG HCO3 ABG O2 Content ABG Base Excess ABG Methemoglobin Hemoglobin Carboxyhemoglobin O2 Delivery Device Vent Setting Inspired O2 Critical Value Sodium Potassium Chloride Carbon Dioxide Anion Gap BUN Creatinine Estimated GFR POC Glucose 118 H 83 Random Glucose Calcium Calcium Adj for Albumin Troponin I Albumin Digoxin Misc Test Result 02/26/18 02/26/18 02/26/18 04:30 04:30 04:36 WBC 31.2 H RBC 3.49 L Hgb 10.8 L Hct 33.2 L MCV 95.1 MCH 31.1 MCHC 32.7 RDW 16.5 Plt Count 123 L MPV 10.9 Prelim Diff (Auto) Slide review pending Neut % (Auto) 94.3 H Lymph % (Auto) 1.5 L Alpine % (Auto) 3.6 Eos % (Auto) 0.1 Baso % (Auto) 0.5 Neut # (Auto) 29.5 H Lymph # (Auto) 0.5 L Alpine # (Auto) 1.1 H Eos # (Auto) 0.0 Baso # (Auto) 0.2 WBC Differential Manual diff final Seg Neuts % (Manual) 91 H Band Neuts % (Manual) 7 H Lymphocytes % (Manual) 1 L Metamyelocytes % (Man) 1 Abs Neuts (Manual) 30.9 H Differential Comment . Toxic Granulation 1+ H Platelet Estimate Normal Platelet Morphology Normal Tear Drop Cells 1+ H Keratocytes Occ H Puncture Site Patient Temperature O2 Saturation ABG pH ABG pCO2 ABG pO2 ABG HCO3 ABG O2 Content ABG Base Excess ABG Methemoglobin Hemoglobin Carboxyhemoglobin O2 Delivery Device Vent Setting Inspired O2 Critical Value Sodium 141 D Potassium 5.5 H D Chloride 109 H D Carbon Dioxide 23.0 Anion Gap 9 BUN 117 H Creatinine 4.19 H Estimated GFR 14 L POC Glucose 82 Random Glucose 87 Calcium 7.0 L* D Calcium Adj for Albumin 9.5 Troponin I 0.81 H* Albumin 0.9 L Digoxin 1.9 Misc Test Result 02/26/18 02/26/18 02/26/18 04:39 12:25 13:03 WBC RBC Hgb Hct MCV MCH MCHC RDW Plt Count MPV Prelim Diff (Auto) Neut % (Auto) Lymph % (Auto) Alpine % (Auto) Eos % (Auto) Baso % (Auto) Neut # (Auto) Lymph # (Auto) Alpine # (Auto) Eos # (Auto) Baso # (Auto) WBC Differential Seg Neuts % (Manual) Band Neuts % (Manual) Lymphocytes % (Manual) Metamyelocytes % (Man) Abs Neuts (Manual) Differential Comment Toxic Granulation Platelet Estimate Platelet Morphology Tear Drop Cells Keratocytes Puncture Site Art line Patient Temperature 98.6 O2 Saturation 94 ABG pH 7.27 L* ABG pCO2 47 H ABG pO2 87 ABG HCO3 21 L ABG O2 Content 14.2 ABG Base Excess -5.3 L ABG Methemoglobin 1.3 Hemoglobin 10.7 L Carboxyhemoglobin 0.7 O2 Delivery Device Ventilator Vent Setting Pc/ac Inspired O2 75 Critical Value Yes Sodium Potassium Chloride Carbon Dioxide Anion Gap BUN Creatinine Estimated GFR POC Glucose 65 L 138 H Random Glucose Calcium Calcium Adj for Albumin Troponin I Albumin Digoxin Misc Test Result 02/26/18 17:11 WBC RBC Hgb Hct MCV MCH MCHC RDW Plt Count MPV Prelim Diff (Auto) Neut % (Auto) Lymph % (Auto) Alpine % (Auto) Eos % (Auto) Baso % (Auto) Neut # (Auto) Lymph # (Auto) Alpine # (Auto) Eos # (Auto) Baso # (Auto) WBC Differential Seg Neuts % (Manual) Band Neuts % (Manual) Lymphocytes % (Manual) Metamyelocytes % (Man) Abs Neuts (Manual) Differential Comment Toxic Granulation Platelet Estimate Platelet Morphology Tear Drop Cells Keratocytes Puncture Site Patient Temperature O2 Saturation ABG pH ABG pCO2 ABG pO2 ABG HCO3 ABG O2 Content ABG Base Excess ABG Methemoglobin Hemoglobin Carboxyhemoglobin O2 Delivery Device Vent Setting Inspired O2 Critical Value Sodium Potassium Chloride Carbon Dioxide Anion Gap BUN Creatinine Estimated GFR POC Glucose 100 Random Glucose Calcium Calcium Adj for Albumin Troponin I Albumin Digoxin Misc Test Result Microbiology 02/23/18 18:00 Fluid - Pleural fluid Acid Fast Bacilli Smear - Final No acid fast bacilli seen 02/23/18 18:00 Fluid - Pleural fluid Gram Stain - Final 02/23/18 18:00 Fluid - Pleural fluid Body Fluid Culture - Preliminary - Imaging Impressions Chest X-Ray 02/26/18 04:00 CONCLUSION: Patchy areas of parenchymal consolidation bilaterally with some worsening involving the right basilar component. Assessment and Plan - Assessment (1) COPD (chronic obstructive pulmonary disease) with acute bronchitis Code(s): J44.0 - Chronic obstructive pulmonary disease with acute lower respiratory infection; J20.9 - Acute bronchitis, unspecified Status: Acute (2) Emphysema of lung Code(s): J43.9 - Emphysema, unspecified Status: Acute (3) Encephalopathy Code(s): G93.40 - Encephalopathy, unspecified Status: Acute (4) Atelectasis Code(s): J98.11 - Atelectasis Status: Acute (5) Respiratory failure requiring intubation Code(s): J96.90 - Respiratory failure, unspecified, unspecified whether with hypoxia or hypercapnia Status: Acute (6) Multisystem organ failure Status: Acute - Plan 1. Place Vent with A/C at 24 , PEEP +12 and FIO2 80 % 2. Nebs qid , duoneb. 3. Cont Solumedrol 40 mg IV Q8H 4. Chest Xray , CBC BMP in am 5. Continue antibiotics per ID 6. Mucomyst ,2-0 % 2 CC with nebs q6h 7. Symbicort 160/4.5 mcg , 2 puffs BID 8. Cont sedation. 9. Tube feeds at 60 CC . 10.Cont pressors and wean 11. Poor prognosis . palliative care to see.
[2018-02-27] MEDS: Heparin - SQ 10,000 UNITS/ML Vial SQ SCH (00:38)
[2018-02-27] MEDS: Phenylephrine Inj 160 MG in Sodium Chlor 0.9% Inj 484 ML IV.CONT PRN (00:39)
[2018-02-27] MEDS: Insulin NovoLOG Aspart Correctional Sugar Inj SQ SCH ×2 (00:49→05:32)
[2018-02-27] MEDS: Vasopressin Inj 40 UNIT in Dextrose 5% in Water Inj 98 ML IV.CONT SCH ×2 (03:38)
--- NOTE | 2018-02-27 04:36 | XR ---
EXAM DATE: 02/27/2018 4:31 AM EST AGE/SEX: 67 years / Male INDICATIONS: Respiratory disease. CLINICAL DATA: This is the patient's subsequent encounter. Patient reports that signs and symptoms h ave been present for 2 weeks and indicates a pain score of Nonresponsive. MEDICAL/SURGICAL HISTORY: Hypertension. Chronic obstructive pulmonary disease. Peripheral vas cular disease. Smoker. . Central line. COMPARISON: [facility] – [place], CHEST 1V SINGLE AP, 02/26/2018. . FINDINGS: A single AP view of the chest demonstrates no significant change. Diffuse bilateral pulmonary consoli dations most pronounced within the right base remain. Blunting of left costophrenic angle suggesting a tiny effusion. Heart is normal in size. Tip of endotracheal tube 5 cm from the vicenta. Nasogastric tube tip courses off the inferior margin of the film. Left-sided central line. CONCLUSION: Unchanged bilateral pulmonary infiltrates and tiny left effusion. Electronically signed by: Pedro Simmons MD Board Certified Radiologist 02/27/2018 4:35 AM EST
[2018-02-27] MEDS: Epoprostenol (30,000/mL) Neb 100 ML in Sodium Chlor 0.9% Inj 0 ML NEB SCH (04:43)
[2018-02-27 05:02] LABS: ABG Base Excess -7.4 mmol/L (-2-2); ABG PCO2 52 mmHg (38-42); ABG PO2 76 mmHg (61-120)
[2018-02-27 05:30] LABS: Baso # (Auto) 0.2 th/mm3 (0.0-0.2); Baso % (Auto) 0.5 % (0.0-2.0); Eos % (Auto) 0.1 % (0.0-4.0); Hemoglobin 12.1 gm/dL (13.0-17.0); Lymph # (Auto) 0.3 th/mm3 (1.0-4.8); Mean Corpuscular HGB Conc 32.7 % (32.0-36.0); Mean Corpuscular Hemoglobin 31.1 pg (27.0-34.0); Mean Corpuscular Volume 95.3 fL (80.0-100.0); Mean Platelet Volume 10.8 fL (7.0-11.0); Mono # (Auto) 0.6 th/mm3 (0.0-0.9); Mono % (Auto) 1.8 % (0.0-8.0); Neut # (Auto) 33.7 th/mm3 (1.8-7.7); Neut % (Auto) 96.6 % (16.0-70.0); Platelet Count 146 th/mm3 (150-450); Red Blood Count 3.88 mil/mm3 (4.50-5.90); Red Cell Distribution Width 16.3 % (11.6-17.2); White Blood Count 34.9 th/mm3 (4.0-11.0)
[2018-02-27 06:03] LABS: Albumin 0.9 g/dL (3.4-5.0); Calcium 6.9 mg/dL (8.5-10.1); Carbon Dioxide 20.2 meq/L (21.0-32.0); Magnesium 3.3 mg/dL (1.5-2.5); Potassium 6.4 meq/L (3.5-5.1); Total Protein 5.8 g/dL (6.4-8.2); Vancomycin,Random 21.7 Comment
[2018-02-27] MEDS: MethylPREDNISolone Sod Succinate Inj 40 MG/ML Vial IV.PUSH SCH (06:23)
[2018-02-27] MEDS ORDERED: Dextrose 50% in Water 50 ML Vial IV.PUSH ONE (06:23)
[2018-02-27] MEDS ORDERED: Sodium Polystyrene Sulfate 30 GM/120 ML Enema RECTAL ONE (06:23)
--- NOTE | 2018-02-27 06:48 | P.PNCC ---
Subjective Subjective Remarks/Hospital Course: This is a 67-year-old male. Date of admission 02/13/2018. Date of consultation 02/08/2018. Past medical history includes ongoing tobaccoism, COPD , peripheral vascular disease including sent to the right lower extremity on clopidogrel, hyperlipidemia, essential hypertension who presents to the emergency department at [facility] on 02/13 for the evaluation of altered mental status. Events is document states he had acute delirium times 4-5 days. He also was documented stating he had a nonproductive cough, fever and diarrhea with accompanying shortness of breath. Lack of appetite. He denied any chest pain. According to his neighbor per documentation, they went to check on him and found his door to be partially ajar. They found the patient lying down and he could not remember what day it was. He stated he had not had anything to eat or drink in many days. Patient was admitted on the hospital service after CT of the brain revealed small vessel ischemic changes. Influenza a and B are negative. Blood cultures negative. His urine pneumococcal antigen was positive. He was treated with ceftriaxone and azithromycin. He was treated with bronchodilators every 6 hours and methylprednisolone Succinate 40 mg IV every 8 hours. He is on 2 L nasal cannula. Today, breath. Rapid response was called. He was noted to be febrile temperature of 102.5 Fahrenheit and noted to be tachypneic. He received bronchodilator therapy. Chest x-ray revealed a right middle lobe infiltrate. He was transferred to the ICU for evaluation. On my evaluation patient is on 2 L nasal cannula. He is not using accessory muscles. He is able to complete sentences. He does have a cough present time with white sputum. Denies hemoptysis. 02/17: Afebrile. Continues to be quite wheezy. Slight retractions. Will increase methylprednisolone. On aggressive pulmonary toilet therapy at the present time. CT chest revealed bilateral patchy pneumonia. 02/18: Afebrile. On 3 L nasal cannula satting 94-97%. Less wheezy today. In much better spirits. 02/19: Decompensated overnight requiring mechanical intubation. Hypotensive so central line placed earlier this a.m. Creatinine stable 1.3. White blood cell count slightly improved to 14,000. Continue antibiotic therapy. 02/20: Oxygenation acceptable at 40% FiO2. Glucose control problematic owing largely to tube feeds and steroids. Will augment sliding scale with very low- dose Levemir. Switch to Glucerna if problem continues. GFR declining modestly , concern for osmotic diuresis. Watch carefully, add hydration if necessary. Attempted CPAP trial today which resulted in tachypnea and small volumes; patient appeared to be talking pretty hard despite pressure support of 12. 02/21: Afebrile. Oxygenation 40%. We will continue to wean. Appears volume overloaded with positive intake versus output. Tolerating tube feeding. 02/22: Currently on CPAP trial 08/02 at 50%. Tachypneic. Arousable but not following commands. X-ray possible pleural effusion noted. Will attempt to diurese again. 02/23: FiO2 increased to 70%. Removed filter from expiratory port GE vent... now FiO2 down to 40%. Order written for no more added space. Getting hyperkalemia protocol. Will reassess. 02/24: CT thorax overnight revealed worsening bilateral bronchopneumonia. -625 out of chest tube overnight. We will place on Nimbex drip due to ventilator assynchrony. 1000 cc at OT. Will check KUB now. Switch vasopressors to D5 water if able a maximum concentration CPK and troponin pending. 02/25: Patchy infiltrates persist along with diffuse interstitial process. Despite elevated PEEP 12 and Flolan at 30 ng still requiring 70% oxygen. Good efforts have been made to desiccate the lungs but severe prerenal azotemia probably prohibits further diuresis. White blood cell count 32,000 this morning , trend exacerbated by him. Severely diseased lungs with large chronic component. Update 1600 hrs: On APRV this morning oxygenation started to improve and we were able to slowly wean FiO2 to 65%. However his CO2 retention and respiratory acidosis persisted. I converted back to conventional assist control ventilation and CO2 retention remained a problem. Now we are on pressure control ventilation and achieving slightly larger tidal volumes but this dilemma with CO2 retention bodes poorly for survival. Despite gingerly hydrating the patient urine output remains minimal. 02/26: Patient remains intubated sedated very critical severely hypoxemic. Currently on pressure control mode with PEEP of 12. FiO2 remains at 75% with oxygen saturation hardly 90%. Requiring 2 pressors Glen-Synephrine 90 mcg/min. Vasopressin at 0.04 international units. Urine output diminishing hardly 200 mL in 24 hours. BUN 117 creatinine 4.2. Patient appears to be making no progress has severe multiorgan failure prognosis guarded. I will consult palliative care to assist with goals of care. Nephrology consulted for oliguric renal failure hyperkalemia 02/27: Patient's labs are significantly worse this morning, showing hyperkalemia, progressive renal failure with no urine output and no response to Bumex, and severe metabolic and respiratory acidosis. He remains on neosynephrine and vasopressin, Flolan, and high PEEP with no improvement over the past day. Family meeting scheduled for today at 10 AM, overall prognosis is very poor. Objective Vital Signs / I&O: Vital Signs 02/26/18 06:45 02/26/18 07:00 02/26/18 07:15 Temperature 98.8 F 98.8 F 98.8 F Pulse Rate 71 72 73 Respiratory Rate 24 Blood Pressure 110/67 Pulse Oximetry 90 L 91 L 91 L 02/26/18 07:30 02/26/18 07:45 02/26/18 07:46 Temperature 98.8 F 99.0 F Pulse Rate 73 73 75 Respiratory Rate 24 Blood Pressure Pulse Oximetry 91 L 91 L 91 L 02/26/18 08:00 02/26/18 08:15 02/26/18 08:30 Temperature 99.0 F 98.8 F 98.8 F Pulse Rate 73 73 74 Respiratory Rate 24 Blood Pressure 124/73 Pulse Oximetry 91 L 90 L 89 L 02/26/18 08:45 02/26/18 09:00 02/26/18 09:15 Temperature 98.8 F 99.0 F 99.0 F Pulse Rate 74 74 75 Respiratory Rate 24 Blood Pressure 109/69 Pulse Oximetry 89 L 90 L 89 L 02/26/18 09:30 02/26/18 09:45 02/26/18 10:00 Temperature 99.0 F 99.0 F 99.0 F Pulse Rate 76 75 75 Respiratory Rate 24 Blood Pressure 108/69 Pulse Oximetry 90 L 90 L 90 L 02/26/18 10:15 02/26/18 10:30 02/26/18 10:45 Temperature 99.0 F 99.0 F 98.8 F Pulse Rate 75 76 75 Respiratory Rate Blood Pressure Pulse Oximetry 90 L 91 L 92 L 02/26/18 11:00 02/26/18 11:15 02/26/18 11:30 Temperature 98.8 F 98.8 F 98.6 F Pulse Rate 75 75 74 Respiratory Rate 24 Blood Pressure 113/73 Pulse Oximetry 91 L 90 L 91 L 02/26/18 11:31 02/26/18 11:45 02/26/18 12:00 Temperature 98.6 F 98.6 F Pulse Rate 74 74 Respiratory Rate 24 24 Blood Pressure 115/72 Pulse Oximetry 90 L 90 L 90 L 02/26/18 12:15 02/26/18 12:30 02/26/18 12:45 Temperature 98.6 F 97.7 F 97.9 F Pulse Rate 71 73 66 Respiratory Rate Blood Pressure Pulse Oximetry 93 L 92 L 93 L 02/26/18 13:00 02/26/18 13:15 02/26/18 13:30 Temperature 97.9 F 97.7 F 97.7 F Pulse Rate 67 68 67 Respiratory Rate Blood Pressure 154/89 H Pulse Oximetry 94 L 94 L 94 L 02/26/18 13:42 02/26/18 13:45 02/26/18 14:00 Temperature 97.7 F 97.7 F Pulse Rate 67 68 70 Respiratory Rate 24 24 Blood Pressure 128/82 Pulse Oximetry 94 L 94 L 93 L 02/26/18 14:15 02/26/18 14:30 02/26/18 14:45 Temperature 97.3 F L 97.9 F 98.1 F Pulse Rate 73 74 75 Respiratory Rate Blood Pressure Pulse Oximetry 91 L 92 L 92 L 02/26/18 15:00 02/26/18 15:15 02/26/18 15:30 Temperature 98.1 F 98.1 F 98.1 F Pulse Rate 75 74 74 Respiratory Rate 24 Blood Pressure 120/75 Pulse Oximetry 92 L 93 L 93 L 02/26/18 15:45 02/26/18 16:00 02/26/18 16:15 Temperature 97.9 F 98.1 F 98.1 F Pulse Rate 74 79 80 Respiratory Rate 24 Blood Pressure 105/62 Pulse Oximetry 93 L 92 L 91 L 02/26/18 16:30 02/26/18 16:45 02/26/18 17:00 Temperature 98.1 F 98.1 F 98.1 F Pulse Rate 83 84 85 Respiratory Rate 24 Blood Pressure 84/65 L Pulse Oximetry 90 L 90 L 90 L 02/26/18 17:15 02/26/18 17:30 02/26/18 17:45 Temperature 98.1 F 98.1 F 98.1 F Pulse Rate 86 86 86 Respiratory Rate Blood Pressure Pulse Oximetry 91 L 91 L 91 L 02/26/18 18:00 02/26/18 18:10 02/26/18 18:15 Temperature 98.1 F 97.9 F Pulse Rate 85 84 Respiratory Rate Blood Pressure 86/65 L Pulse Oximetry 91 L 91 L 91 L 02/26/18 18:30 02/26/18 18:45 02/26/18 19:00 Temperature 97.9 F 97.9 F 97.9 F Pulse Rate 85 85 86 Respiratory Rate Blood Pressure 88/69 L Pulse Oximetry 90 L 91 L 90 L 02/26/18 19:15 02/26/18 19:30 02/26/18 19:35 Temperature 97.9 F 97.9 F Pulse Rate 85 86 85 Respiratory Rate 24 Blood Pressure Pulse Oximetry 90 L 90 L 90 L 02/26/18 19:45 02/26/18 20:00 02/26/18 20:15 Temperature 97.9 F 97.9 F 97.9 F Pulse Rate 85 86 87 Respiratory Rate Blood Pressure 92/65 L Pulse Oximetry 90 L 90 L 89 L 02/26/18 20:30 02/26/18 20:45 02/26/18 21:00 Temperature 97.9 F 97.9 F 98.1 F Pulse Rate 88 89 89 Respiratory Rate Blood Pressure 99/65 L Pulse Oximetry 89 L 89 L 89 L 02/26/18 21:15 02/26/18 21:30 02/26/18 21:45 Temperature 98.1 F 98.1 F 98.1 F Pulse Rate 90 86 84 Respiratory Rate Blood Pressure Pulse Oximetry 89 L 90 L 92 L 02/26/18 22:00 02/26/18 22:15 02/26/18 22:30 Temperature 98.1 F 98.1 F 98.1 F Pulse Rate 82 82 82 Respiratory Rate Blood Pressure 109/70 Pulse Oximetry 91 L 90 L 89 L 02/26/18 22:45 02/26/18 23:00 02/26/18 23:15 Temperature 98.1 F 98.1 F 98.2 F Pulse Rate 81 81 81 Respiratory Rate Blood Pressure 103/71 Pulse Oximetry 89 L 89 L 89 L 02/26/18 23:24 02/26/18 23:30 02/26/18 23:45 Temperature 98.2 F 98.2 F Pulse Rate 82 82 Respiratory Rate 24 Blood Pressure Pulse Oximetry 89 L 89 L 89 L 02/27/18 00:00 02/27/18 00:15 02/27/18 00:30 Temperature 98.2 F 98.4 F 98.4 F Pulse Rate 83 83 83 Respiratory Rate Blood Pressure 107/73 Pulse Oximetry 89 L 89 L 89 L 02/27/18 00:45 02/27/18 01:00 02/27/18 01:15 Temperature 98.4 F 98.4 F 98.4 F Pulse Rate 84 85 86 Respiratory Rate Blood Pressure 107/74 Pulse Oximetry 89 L 88 L 88 L 02/27/18 01:30 02/27/18 01:45 02/27/18 02:00 Temperature 98.4 F 98.4 F 98.4 F Pulse Rate 86 90 93 H Respiratory Rate Blood Pressure Pulse Oximetry 89 L 86 L 86 L 02/27/18 02:04 02/27/18 02:07 02/27/18 02:15 Temperature 98.4 F 98.6 F Pulse Rate 95 H 96 H Respiratory Rate 24 Blood Pressure 109/64 Pulse Oximetry 87 L 88 L 89 L 02/27/18 02:30 02/27/18 02:45 02/27/18 03:00 Temperature 98.6 F 98.6 F 98.6 F Pulse Rate 97 H 99 H 100 H Respiratory Rate Blood Pressure 107/77 Pulse Oximetry 89 L 90 L 90 L 02/27/18 03:15 02/27/18 03:30 02/27/18 03:45 Temperature 98.6 F 98.6 F 98.6 F Pulse Rate 100 H 101 H 100 H Respiratory Rate Blood Pressure Pulse Oximetry 93 L 94 L 92 L 02/27/18 04:00 02/27/18 04:02 02/27/18 04:09 Temperature 98.6 F 98.6 F Pulse Rate 100 H 100 H Respiratory Rate 24 Blood Pressure 113/70 Pulse Oximetry 83 L 89 L 92 L 02/27/18 04:15 02/27/18 04:30 02/27/18 04:45 Temperature 98.6 F 98.4 F 98.4 F Pulse Rate 95 H 93 H 91 H Respiratory Rate Blood Pressure Pulse Oximetry 92 L 85 L 84 L 02/27/18 05:00 02/27/18 05:15 02/27/18 05:30 Temperature 98.2 F 98.2 F 98.2 F Pulse Rate 90 88 87 Respiratory Rate Blood Pressure 103/70 Pulse Oximetry 88 L 88 L 89 L Intake & Output 02/26/18 02/26/18 02/27/18 06:59 18:59 06:59 Intake Total 750 / 750 1700 / 1700 950 / 950 Output Total 420 / 420 610 / 610 Balance 330 / 330 1090 / 1090 950 / 950 Weight 86.6 kg Intake: IV 750 / 750 1600 / 1600 950 / 950 Cordarone Inj 450 MG In D5W Inj 250 / 250 250 / 250 250 / 250 241 ML @ 1 MG/MIN 33.33 mls/hr IV.CONT TITRATE PRN Rx#: [id number] Versed Inj 100 mg In 100 ml @ 2 100 / 100 MG/HR 2 mls/hr IV.CONT TITRATE PRN Rx#:[id number] Neosynephrine Inj 160 MG In NS 400 / 400 Inj 484 ML @ 40 MCG/MIN 7.5 mls /hr IV.CONT TITRATE PRN Rx#: [id number] Diprivan 1000 mg/100 ml Inj 1, 100 / 100 100 / 100 000 mg In 100 ml @ 5 MCG/KG/MIN 2.172 mls/hr IV.CONT TITRATE PRN Rx#:[id number] Pitressin Inj 40 UNIT In D5W 100 / 100 100 / 100 Inj 98 ML @ 0.04 UNITS/MIN 6 mls/hr IV.CONT CONT [facility]WIN Rx#: [id number] Azithromycin Inj 500 MG In NS 250 / 250 Inj 250 ML @ 250 mls/hr IV.SIG Q24H [facility] Rx#:[id number] Merrem Inj 500 MG In NS Inj 100 200 / 200 100 / 100 100 / 100 ML @ 200 mls/hr IV.SIG Q8H [facility] Rx#:[id number] Levophed-Dextrose 4 mg/250 ml 250 / 250 Drip 4 mg In 250 ml @ 2 MCG/MIN 7.5 mls/hr IV.SIG TITRATE PRN Rx#:[id number] fentaNYL 10 mcg/mL Premix Drip 250 / 250 2,500 mcg In 250 ml @ 50 MCG/HR 5 mls/hr IV.SIG TITRATE PRN Rx #:[id number] Flolan (30,000 ng/mL) Neb 100 100 / 100 100 / 100 100 / 100 ML In NS Inj 0 ML @ 5 mls/hr NEB Q8H [facility] Rx#:[id number] Tube Irrigant 100 / 100 Output: Urine Amount (Catheter) 20 10 / 10 Indwelling Temp Sensing 20 / 20 10 / 10 Catheter Gastric Drainage 300 / 300 500 / 500 Left Nare 300 / 300 500 / 500 Chest Tube Drainage 100 / 100 100 / 100 Right 100 / 100 100 / 100 Other: Date of Last Bowel Movement 02/25/18 02/26/18 02/26/18 # Bowel Movements 1 Result Diagrams: 02/27/18 04:50 02/27/18 04:50 Objective Remarks: GENERAL: 67-year-old male, sedated, intubated SKIN: Warm and dry. HEAD: Atraumatic. Normocephalic. EYES: No scleral icterus ENT: Mucous membranes pink and moist. Orotracheally intubated NECK: Trachea midline. Left IJ CVL is clean dry and intact. CARDIOVASCULAR: Regular rate and rhythm RESPIRATORY: Diminished breath sounds at bases with faint crackles to mid-lung pastor, R>L GASTROINTESTINAL: Abdomen soft, non-tender, nondistended MUSCULOSKELETAL: Trace peripheral edema NEUROLOGICAL: RASS -2, sedated Assessment and Plan - Assessment and Plan Plan: 67yM with multi-system organ failure secondary to community acquired pneumonia Neuro/Psych: Acute delirium/encephalopathy toxic metabolic due to underlying pneumonia/ community acquired Currently on propofol and fentanyl for sedation/ pain Nimbex discontinued 2 days ago Goal of RASS -2. Daily sedation vacation if hypoxia permits Acetaminophen 650 p.o. every 6 hours as needed fever CT brain 02/13 revealed small vessel ischemic changes bilaterally. No acute infarction. MRI brain 02/23 revealed small vessel ischemic change. No acute findings. Continue sedation for vent synchrony CV: Septic shock progressed to MODS Systolic heart failure ejection fraction 35% unknown if acute or chronic Elevated troponin Essential hypertension Hyperlipidemia Peripheral vascular disease stenting to right lower extremity Now in multi-system organ dysfunction/ failure despite maximally aggressive therapy Currently on Glen-Synephrine 90 mcg/kg/min, vasopressin 0.04 international units Holding olmesartan 40 mg daily/home medication for hypertension. Currently on atorvastatin 80 mg daily for hyperlipidemia. 2D echocardiogram left ventricular systolic function is severely reduced with an estimated ejection fraction in the range of 30-35%. Moderately dilated left ventricle. Elevated troponin 0 0.81. Not a candidate for cardiology consultation or any intervention at this time Continue home medication clopidogrel 75 mg daily Continue amiodarone infusion for atrial fibrillation Persistent low level cardiac enzyme spill Paroxysmal atrial fibrillation with rapid ventricular response -have discontinued Levophed and substituted with Glen-Synephrine. Additional dose of digoxin given 0.25 mg IV. Total dig loading 0.75 mg over the past 24 hours. Follow level closely because of impaired renal function Resp: Acute respiratory failure/hypoxic hypercapnic, acute respiratory distress syndrome (ARDS) COPD with exacerbation Community-acquired pneumonia ongoing tobaccoism Pleural effusion -exudative by light's criteria. Gram stain pending. PRVC ventilation Head of bed at 30 degrees with ventilator bundle Albuterol/ipratropium aerosols every 4 hours with albuterol aerosols every 2 hours PRN Continue budesonide 0.5/2 1 inhalation twice daily CXR continues to show bilateral pulmonary infiltrates and small left pleural effusion Continue methylprednisolone succinate 40 mg every 8 hours Continue nicotine patch 14mg daily CT thorax 02/23 revealed worsening bronchopneumonia bilaterally. ABG this morning shows hypercarbia and worsening acidosis (both respiratory and metabolic components), rate increased from 24 to 26 GI: Hypoalbuminemia Tube feeds/ free water flushes on hold due to high outputs. N.p.o. except for medications Lansoprazole for GI prophylaxis Docusate sodium/senna 1 tablet twice daily for bowel regimen. lactulose 30 cc twice daily Endo: Sliding scale insulin with aspart insulin Accu-Cheks q6h to maintain euglycemia while on steroids Normal TSH 0.398 Renal: Acute kidney with oliguria Right renal cyst Avoid nephrotoxic medications. Patient was on ibuprofen as an outpatient. Renal ultrasound -medical renal disease. Right renal cyst GFR progressively declining, no urine output for the past 24 hrs despite aggressive Bumex dosing Nephrology consulted, will discuss options for [employer] after family meeting this morning Bicarb drip started this AM for worsening acidosis, unlikely that this will help in the setting of MODS though Heme: Leukocytosis Normocytic anemia Thrombocytopenia Thrombocytopenia Monitor CBC daily. Follow trends. No indication for transfusion of blood products at this time. ID: Streptococcal urinary antigen positive for community acquired pneumonia Septic shock Currently on cefepime, azithromycin, vancomycin Previously on ceftriaxone since 02/13. Discontinued 02/17. Piperacillin/ tazobactam discontinued 02/16 -sputum with Aspergillus. Added fluconazole initially but discontinued 02/22 Blood cultures x2/influenza A/B 02/13 no growth to date Appreciated infectious disease consultation. Chlamydia and mycoplasma negative IgM. Positive IgG both Gram stain from pleural fluid 02/23- NGTD FEN: Hypernatremia Hyper magnesium Hyperkalemia Progressive renal failure and anuria, will treat medically for hyper K+ and discuss further goals of care with family today Access -Left internal J CVL day #9 right femoral arterial line day #5 Prophylaxis -GI -lansoprazole -DVT -SCD/heparin subcu Overall impression: This patient is overall worsening from progressive multi- system organ dysfunction/ failure despite maximally aggressive therapies. His prognosis is exceedingly poor. Palliative care spoke with the family yesterday and a family meeting is scheduled for today at 10 AM. Counseling/ Coordination of Care: This patient is critically ill with impairment of one or more vital organ systems with a high probability of imminent or life-threatening deterioration. High-complexity medical decision making was required to support vital organ function and/ or prevent deterioration of the patient's condition. Total critical care time spent is 47 minutes giving full attention to this patient. This includes examining the patient, gathering history from someone other than the patient (i.e. chart review), discussing the patient's care with other providers, managing the patient's blood pressure and ventilator settings, ordering and interpreting radiologic studies, ordering and interpreting laboratory values, treatment of life-threatening acidosis and hyperkalemia, and documentation. Amount of time is separate from teaching, counseling the patient and/or family, and exclusive of procedures. To help prompt me to consider important information that might be impacting today's encounter and assessment, information from prior notes written by myself or my colleagues may have been "brought forward" into today's note. My signature on this note, however, is an attestation that I personally performed the exam, history, and/or decision-making noted today, and, unless otherwise indicated, the interactions with patient, family, and staff as well as the review of records all occurred today. I also attest that the listed assessment and stated plan reflect my best clinical judgment today based on the combination of historical information, prior notes, and today's exam/ interactions. Code Status: Intubation only, DNR
[2018-02-27] MEDS ORDERED: Calcium Chloride Inj 1 GM in Sodium Chlor 0.9% Inj 100 ML IV.SIG ONE (07:00)
[2018-02-27] MEDS ORDERED: Sodium Bicarbonate 8.4% Inj 50 MEQ in Dextrose 5% in Water Inj 950 ML IV.CONT SCH ×2 (07:00)
[2018-02-27 07:30] VITALS: RESP 26
[2018-02-27 07:58] LABS: Lymphocytes 2 % (9-44); Metamyelocytes 1 % (0-1); Monocytes 2 % (0-8); Tallied Nucleated RBC 1 (0-0)
[2018-02-27 07:59] LABS: Platelet Morphology Normal (Normal); Tear Drop Cells 1+
[2018-02-27 08:03] VITALS: TEMP 97.9
[2018-02-27 08:10] VITALS: BP 110/70
[2018-02-27 08:22] VITALS: O2SAT 89
[2018-02-27] MEDS: Artificial Tears Opth Oint 3.5 GM Tube EACH EYE SCH (08:55)
--- NOTE | 2018-02-27 09:33 | P.PNID ---
Subjective Remarks: Patient is a 67-year-old male, brought into the hospital for further evaluation of cough fever diarrhea and confusion. Patient apparently has not been feeling well for about 4-5 days. He has been having a nonproductive cough, fever and diarrhea. He also has significant weakness. His neighbor apparently checked on him on the day of admission and found him lying down and he was somewhat confused. He apparently has not had anything to eat or drink in several days. He was brought into the hospital, and he initial chest x-ray did not show any acute infiltrate. CT of the head did not show any acute disease. His WBC was normal. Creatinine was elevated at 1.75. Urine for pneumococcal antigen came back positive. Blood cultures were negative. Patient was put on empiric antibiotics for community-acquired pneumonia. He was also having a lot of shortness of breath and a lot of wheezing, and has been getting IV steroids. Pulmonary is on the case. Yesterday he had desaturation, and progressive respiratory distress, and ended up getting intubated. Patient currently is on the vent, and sedated. He does not have a lot of secretions from his endotracheal tube. His blood pressure is okay. Temperature is okay. He is currently on vancomycin and Zosyn, as well as Zithromax and Diflucan. The sputum culture from February 17 is reported as growing Aspergillus. His WBC was up to 18,000 yesterday, and is down to 14,000. His creatinine is slowly improving and down to 1.32. CT of the chest showed patchy bilateral pulmonary infiltrates. Infectious disease consultation has been requested to assist with evaluation and treatment, and antibiotic management. Notes reviewed D/W RN Worsening status On pressors Worsening renal function WBC rising, lactic acidosis On the vent Palliative medicine meeting with family this morning Patient has DNR status now Antibiotics: Merem Zithromax Diflucan Vancomycin Past Medical History: COPD (chronic obstructive pulmonary disease) Hyperlipidemia Peripheral vascular disease Hypertension History of hernia repair Allergies/Adverse Reactions: Allergies No Known Allergies Allergy (Verified 02/13/18 18:38) Objective Vital Signs 02/26/18 09:30 02/26/18 09:45 02/26/18 10:00 Temperature 99.0 F 99.0 F 99.0 F Pulse Rate 76 75 75 Respiratory Rate 24 Blood Pressure 108/69 Pulse Oximetry 90 L 90 L 90 L 02/26/18 10:15 02/26/18 10:30 02/26/18 10:45 Temperature 99.0 F 99.0 F 98.8 F Pulse Rate 75 76 75 Respiratory Rate Blood Pressure Pulse Oximetry 90 L 91 L 92 L 02/26/18 11:00 02/26/18 11:15 02/26/18 11:30 Temperature 98.8 F 98.8 F 98.6 F Pulse Rate 75 75 74 Respiratory Rate 24 Blood Pressure 113/73 Pulse Oximetry 91 L 90 L 91 L 02/26/18 11:31 02/26/18 11:45 02/26/18 12:00 Temperature 98.6 F 98.6 F Pulse Rate 74 74 Respiratory Rate 24 24 Blood Pressure 115/72 Pulse Oximetry 90 L 90 L 90 L 02/26/18 12:15 02/26/18 12:30 02/26/18 12:45 Temperature 98.6 F 97.7 F 97.9 F Pulse Rate 71 73 66 Respiratory Rate Blood Pressure Pulse Oximetry 93 L 92 L 93 L 02/26/18 13:00 02/26/18 13:15 02/26/18 13:30 Temperature 97.9 F 97.7 F 97.7 F Pulse Rate 67 68 67 Respiratory Rate Blood Pressure 154/89 H Pulse Oximetry 94 L 94 L 94 L 02/26/18 13:42 02/26/18 13:45 02/26/18 14:00 Temperature 97.7 F 97.7 F Pulse Rate 67 68 70 Respiratory Rate 24 24 Blood Pressure 128/82 Pulse Oximetry 94 L 94 L 93 L 02/26/18 14:15 02/26/18 14:30 02/26/18 14:45 Temperature 97.3 F L 97.9 F 98.1 F Pulse Rate 73 74 75 Respiratory Rate Blood Pressure Pulse Oximetry 91 L 92 L 92 L 02/26/18 15:00 02/26/18 15:15 02/26/18 15:30 Temperature 98.1 F 98.1 F 98.1 F Pulse Rate 75 74 74 Respiratory Rate 24 Blood Pressure 120/75 Pulse Oximetry 92 L 93 L 93 L 02/26/18 15:45 02/26/18 16:00 02/26/18 16:15 Temperature 97.9 F 98.1 F 98.1 F Pulse Rate 74 79 80 Respiratory Rate 24 Blood Pressure 105/62 Pulse Oximetry 93 L 92 L 91 L 02/26/18 16:30 02/26/18 16:45 02/26/18 17:00 Temperature 98.1 F 98.1 F 98.1 F Pulse Rate 83 84 85 Respiratory Rate 24 Blood Pressure 84/65 L Pulse Oximetry 90 L 90 L 90 L 02/26/18 17:15 02/26/18 17:30 02/26/18 17:45 Temperature 98.1 F 98.1 F 98.1 F Pulse Rate 86 86 86 Respiratory Rate Blood Pressure Pulse Oximetry 91 L 91 L 91 L 02/26/18 18:00 02/26/18 18:10 02/26/18 18:15 Temperature 98.1 F 97.9 F Pulse Rate 85 84 Respiratory Rate Blood Pressure 86/65 L Pulse Oximetry 91 L 91 L 91 L 02/26/18 18:30 02/26/18 18:45 02/26/18 19:00 Temperature 97.9 F 97.9 F 97.9 F Pulse Rate 85 85 86 Respiratory Rate Blood Pressure 88/69 L Pulse Oximetry 90 L 91 L 90 L 02/26/18 19:15 02/26/18 19:30 02/26/18 19:35 Temperature 97.9 F 97.9 F Pulse Rate 85 86 85 Respiratory Rate 24 Blood Pressure Pulse Oximetry 90 L 90 L 90 L 02/26/18 19:45 02/26/18 20:00 02/26/18 20:15 Temperature 97.9 F 97.9 F 97.9 F Pulse Rate 85 86 87 Respiratory Rate Blood Pressure 92/65 L Pulse Oximetry 90 L 90 L 89 L 02/26/18 20:30 02/26/18 20:45 02/26/18 21:00 Temperature 97.9 F 97.9 F 98.1 F Pulse Rate 88 89 89 Respiratory Rate Blood Pressure 99/65 L Pulse Oximetry 89 L 89 L 89 L 02/26/18 21:15 02/26/18 21:30 02/26/18 21:45 Temperature 98.1 F 98.1 F 98.1 F Pulse Rate 90 86 84 Respiratory Rate Blood Pressure Pulse Oximetry 89 L 90 L 92 L 02/26/18 22:00 02/26/18 22:15 02/26/18 22:30 Temperature 98.1 F 98.1 F 98.1 F Pulse Rate 82 82 82 Respiratory Rate Blood Pressure 109/70 Pulse Oximetry 91 L 90 L 89 L 02/26/18 22:45 02/26/18 23:00 02/26/18 23:15 Temperature 98.1 F 98.1 F 98.2 F Pulse Rate 81 81 81 Respiratory Rate Blood Pressure 103/71 Pulse Oximetry 89 L 89 L 89 L 02/26/18 23:24 02/26/18 23:30 02/26/18 23:45 Temperature 98.2 F 98.2 F Pulse Rate 82 82 Respiratory Rate 24 Blood Pressure Pulse Oximetry 89 L 89 L 89 L 02/27/18 00:00 02/27/18 00:15 02/27/18 00:30 Temperature 98.2 F 98.4 F 98.4 F Pulse Rate 83 83 83 Respiratory Rate Blood Pressure 107/73 Pulse Oximetry 89 L 89 L 89 L 02/27/18 00:45 02/27/18 01:00 02/27/18 01:15 Temperature 98.4 F 98.4 F 98.4 F Pulse Rate 84 85 86 Respiratory Rate Blood Pressure 107/74 Pulse Oximetry 89 L 88 L 88 L 02/27/18 01:30 02/27/18 01:45 02/27/18 02:00 Temperature 98.4 F 98.4 F 98.4 F Pulse Rate 86 90 93 H Respiratory Rate Blood Pressure Pulse Oximetry 89 L 86 L 86 L 02/27/18 02:04 02/27/18 02:07 02/27/18 02:15 Temperature 98.4 F 98.6 F Pulse Rate 95 H 96 H Respiratory Rate 24 Blood Pressure 109/64 Pulse Oximetry 87 L 88 L 89 L 02/27/18 02:30 02/27/18 02:45 02/27/18 03:00 Temperature 98.6 F 98.6 F 98.6 F Pulse Rate 97 H 99 H 100 H Respiratory Rate Blood Pressure 107/77 Pulse Oximetry 89 L 90 L 90 L 02/27/18 03:15 02/27/18 03:30 02/27/18 03:45 Temperature 98.6 F 98.6 F 98.6 F Pulse Rate 100 H 101 H 100 H Respiratory Rate Blood Pressure Pulse Oximetry 93 L 94 L 92 L 02/27/18 04:00 02/27/18 04:02 02/27/18 04:09 Temperature 98.6 F 98.6 F Pulse Rate 100 H 100 H Respiratory Rate 24 Blood Pressure 113/70 Pulse Oximetry 83 L 89 L 92 L 02/27/18 04:15 02/27/18 04:30 02/27/18 04:45 Temperature 98.6 F 98.4 F 98.4 F Pulse Rate 95 H 93 H 91 H Respiratory Rate Blood Pressure Pulse Oximetry 92 L 85 L 84 L 02/27/18 05:00 02/27/18 05:15 02/27/18 05:30 Temperature 98.2 F 98.2 F 98.2 F Pulse Rate 90 88 87 Respiratory Rate Blood Pressure 103/70 Pulse Oximetry 88 L 88 L 89 L 02/27/18 05:45 02/27/18 06:00 02/27/18 06:15 Temperature 98.1 F 98.1 F 98.1 F Pulse Rate 86 84 85 Respiratory Rate Blood Pressure 107/72 Pulse Oximetry 89 L 91 L 89 L 02/27/18 06:30 02/27/18 06:45 02/27/18 07:00 Temperature 98.1 F 98.1 F 97.9 F Pulse Rate 84 85 85 Respiratory Rate Blood Pressure 110/69 Pulse Oximetry 89 L 91 L 91 L 02/27/18 07:15 02/27/18 07:25 02/27/18 07:30 Temperature 97.9 F 97.9 F Pulse Rate 86 88 86 Respiratory Rate 26 H Blood Pressure Pulse Oximetry 92 L 91 L 91 L 02/27/18 07:45 02/27/18 08:00 02/27/18 08:21 Temperature 97.9 F 97.9 F Pulse Rate 85 85 Respiratory Rate Blood Pressure 110/70 Pulse Oximetry 90 L 90 L 89 L Intake & Output 02/26/18 02/27/18 02/27/18 18:59 06:59 18:59 Intake Total 1700 / 1700 950 / 950 100 / 100 Output Total 610 / 610 508 / 508 Balance 1090 / 1090 442 / 442 100 / 100 Weight 87.4 kg Intake: IV 1600 / 1600 950 / 950 100 / 100 Cordarone Inj 450 MG In D5W Inj 250 / 250 250 / 250 241 ML @ 1 MG/MIN 33.33 mls/hr IV.CONT TITRATE PRN Rx#: [id number] Neosynephrine Inj 160 MG In NS 400 / 400 Inj 484 ML @ 40 MCG/MIN 7.5 mls /hr IV.CONT TITRATE PRN Rx#: [id number] Diprivan 1000 mg/100 ml Inj 1, 100 / 100 000 mg In 100 ml @ 5 MCG/KG/MIN 2.172 mls/hr IV.CONT TITRATE PRN Rx#:[id number] Pitressin Inj 40 UNIT In D5W 100 / 100 100 / 100 Inj 98 ML @ 0.04 UNITS/MIN 6 mls/hr IV.CONT CONT [facility] Rx#: [id number] Azithromycin Inj 500 MG In NS 250 / 250 Inj 250 ML @ 250 mls/hr IV.SIG Q24H [facility] Rx#:[id number] Merrem Inj 500 MG In NS Inj 100 100 / 100 100 / 100 100 / 100 ML @ 200 mls/hr IV.SIG Q8H [facility] Rx#:[id number] Levophed-Dextrose 4 mg/250 ml 250 / 250 Drip 4 mg In 250 ml @ 2 MCG/MIN 7.5 mls/hr IV.SIG TITRATE PRN Rx#:[id number] fentaNYL 10 mcg/mL Premix Drip 250 / 250 2,500 mcg In 250 ml @ 50 MCG/HR 5 mls/hr IV.SIG TITRATE PRN Rx #:[id number] Flolan (30,000 ng/mL) Neb 100 100 / 100 100 / 100 ML In NS Inj 0 ML @ 5 mls/hr NEB Q8H [facility] Rx#:[id number] Tube Irrigant 100 / 100 Output: Urine Amount (Catheter) Indwelling Temp Sensing Catheter Gastric Drainage 500 / 500 400 / 400 Left Nare 500 / 500 400 / 400 Chest Tube Drainage 100 / 100 100 / 100 Right 100 / 100 100 / 100 Other: Date of Last Bowel Movement 02/26/18 02/26/18 # Bowel Movements 1 02/23/18 18:00 Fluid - Pleural fluid Acid Fast Bacilli Smear - Final No acid fast bacilli seen 02/23/18 18:00 Fluid - Pleural fluid Mycobacterial Culture - Pending 02/23/18 18:00 Fluid - Pleural fluid Gram Stain - Final 02/23/18 18:00 Fluid - Pleural fluid Body Fluid Culture - Preliminary 02/19/18 21:10 Blood - Peripheral Aerobic Blood Culture - Final No growth in 5 days 02/19/18 21:10 Blood - Peripheral Anaerobic Blood Culture - Final No growth in 5 days 02/19/18 21:15 Blood - Peripheral Aerobic Blood Culture - Final No growth in 5 days 02/19/18 21:15 Blood - Peripheral Anaerobic Blood Culture - Final No growth in 5 days 02/23/18 18:00 Fluid - Pleural fluid Fungal Smear - Final No fungal elements seen 02/23/18 18:00 Fluid - Pleural fluid Fungal Culture - Pending Lab - Hematology Results 02/25/18 02/26/18 02/27/18 03:55 04:30 04:50 WBC 31.2 H 34.9 H RBC 3.49 L 3.88 L Hgb 10.8 L 12.1 L Hct 33.2 L 37.0 L MCV 95.1 95.3 MCH 31.1 31.1 MCHC 32.7 32.7 RDW 16.5 16.3 Plt Count 123 L 146 L MPV 10.9 10.8 Prelim Diff (Auto) Slide review pending Slide review pending Neut % (Auto) 94.3 H 96.6 H Lymph % (Auto) 1.5 L 1.0 L [place] % (Auto) 3.6 1.8 Eos % (Auto) 0.1 0.1 Baso % (Auto) 0.5 0.5 Neut # (Auto) 29.5 H 33.7 H Lymph # (Auto) 0.5 L 0.3 L [place] # (Auto) 1.1 H 0.6 Eos # (Auto) 0.0 0.0 Baso # (Auto) 0.2 0.2 WBC Differential Manual diff final Manual diff final Manual diff final Seg Neuts % (Manual) 82 H 91 H 88 H Band Neuts % (Manual) 7 H 7 H 9 H Lymphocytes % (Manual) 5 L 1 L 2 L Monocytes % (Manual) 6 2 Metamyelocytes % (Man) 1 1 Abs Neuts (Manual) 28.8 H 30.9 H 34.2 H Nucleated RBCs/100 WBC 1 H 1 H Differential Comment . . Toxic Granulation 1+ H 1+ H Toxic Vacuolation Present H Platelet Estimate Low L Normal Low L Platelet Morphology Normal Normal Normal Tear Drop Cells 1+ H 1+ H Keratocytes Occ H Lab - Chemistry Results 02/25/18 02/25/18 02/25/18 11:45 17:50 20:12 Sodium Potassium Chloride Carbon Dioxide Anion Gap BUN Creatinine Estimated GFR POC Glucose 185 H 154 H 118 H Random Glucose Calcium Calcium Adj for Albumin Magnesium Total Bilirubin AST ALT Alkaline Phosphatase Troponin I Total Protein Albumin 02/25/18 02/26/18 02/26/18 23:46 04:30 04:36 Sodium 141 D Potassium 5.5 H D Chloride 109 H D Carbon Dioxide 23.0 Anion Gap 9 BUN 117 H Creatinine 4.19 H Estimated GFR 14 L POC Glucose 83 82 Random Glucose 87 Calcium 7.0 L* D Calcium Adj for Albumin 9.5 Magnesium Total Bilirubin AST ALT Alkaline Phosphatase Troponin I 0.81 H* Total Protein Albumin 0.9 L 02/26/18 02/26/18 02/26/18 12:25 13:03 17:11 Sodium Potassium Chloride Carbon Dioxide Anion Gap BUN Creatinine Estimated GFR POC Glucose 65 L 138 H 100 Random Glucose Calcium Calcium Adj for Albumin Magnesium Total Bilirubin AST ALT Alkaline Phosphatase Troponin I Total Protein Albumin 02/27/18 02/27/18 02/27/18 00:13 03:37 04:50 Sodium 139 Potassium 6.4 H D Chloride 106 Carbon Dioxide 20.2 L Anion Gap 13 BUN 148 H Creatinine 5.51 H Estimated GFR 10 L POC Glucose 87 82 Random Glucose 87 Calcium 6.9 L* Calcium Adj for Albumin 9.4 Magnesium 3.3 H Total Bilirubin 0.4 AST 411 H ALT 182 H Alkaline Phosphatase 179 H Troponin I Total Protein 5.8 L Albumin 0.9 L Imaging: ITS Impressions Head CT 02/13/18 19:41 CONCLUSION: 1. Mild periventricular white matter small vessel ischemic changes bilaterally. 2. No acute infarct, acute hemorrhage, mass effect or extra axial fluid collections. . Abdomen/Bladder Ultrasound 02/16/18 18:18 CONCLUSION: 1. Echogenic kidneys consistent with medical renal disease. 2. No sonographic evidence for obstructive uropathy. 3. 5 mm cyst in the inferior pole the right kidney. 4. Nonspecific prostate enlargement. Chest CT 02/23/18 00:00 CONCLUSION: 1. Worsening peribronchial thickening and bilateral patchy airspace consolidation in the lungs, right greater than left characteristic of worsening bronchopneumonia. Endotracheal tube and nasogastric tube in good position. Head MRI 02/23/18 14:22 CONCLUSION: Chronic small vessel ischemic and atrophic changes. Abdomen X-Ray 02/24/18 00:00 CONCLUSION: Possible mild colonic ileus. Chest X-Ray 02/27/18 06:00 CONCLUSION: Unchanged bilateral pulmonary infiltrates and tiny left effusion. Physical Exam: GENERAL: sedated on the vent, not in distress SKIN: Cool and dry. EYES: [place] conjunctiva. No petechia or hemorrhage. No scleral icterus. No injection or drainage. EARS, NOSE AND THROAT: He is orally intubated. NECK: Trachea midline. Supple and not tender, no meningeal signs CARDIOVASCULAR: Regular rate and rhythm. No murmurs, rubs or gallops heard RESPIRATORY: Coarse BS bilaterally ABDOMEN: Soft, not distended, no reaction to palpation. Bowel sounds are present and hypoactive. EXTREMITIES: No clubbing, cyanosis, or edema. NEUROLOGICAL: Sedated on the vent PSYCHIATRIC: Unable to assess LINE: No evidence of infection Assessment and Plan - Plan Impression Pneumonia, bilateral. - urine pneumococcal Ag (+) - ?other pathogens COPD MOSF, worsening Respiratory failure, increasing FiO2 requirement Shock Aspergillus in sputum likely contaminant Renal insufficiency, worse Worsening leukocytosis, etiology? Recommendations On Alyson Bryantx Palliative to have meeting with family Very poor prognosis MOSF and continue to worsen D/W RN
[2018-02-27] MEDS: Insulin Detemir Inj 1,000 UNIT/10 ML Vial SQ SCH (09:38)
[2018-02-27] MEDS: Sodium Polystyrene Sulfonate Powder 15 GM Bottle RECTAL ONE ×2 (10:32→10:53)
[2018-02-27] MEDS: Senna/Docusate Sodium 8.6/50 MG Tablet PO SCH (10:34)
--- NOTE | 2018-02-27 10:59 | P.PNPAL ---
Reason for Visit Reason for visit: a. To assist with evaluation and management of symptoms including: Pain. b. To assist medical decision maker(s) with: better understanding of current medical conditions; weighing benefits/burdens of medical treatment options; making medical treatment decisions. Subjective Subjective/Interval History: Follow-up for further clarifications of goals of care. Patient seen in ICU, remains endotracheally intubated on mechanical ventilation. Worsening multisystem organ failure. Currently on 90% FiO2 while on Flolan. Remains on 2 vasopressors and amiodarone drip. Severe septic shock and worsening lactic acidosis while on bicarbonate drip. Prognosis is exceedingly poor. Met with patient's son Wilfred and his Babr, patient's brother Shen. Dr. Muñoz provided medical update and review of current treatment plan and overall prognosis. Reviewed that patient's clinical condition has continued to worsening in spite of maximum aggressive therapies. Reviewed continuation of medical management versus transition patient to comfort-directed care/ withdrawal of life support given very poor prognosis. Patient's son Wilfred acting as healthcare surrogate decision-maker has elected to transition patient to comfort-directed care, withdrawal of life support. Exhibits BNC have been signed and anticipatory guidance provided. Wood Lathe Operator team providing spiritual support. All questions were answered in great detail. Family appreciative of care provided to patient. Ongoing emotional support and active listening provided to patient's family. Advance Directives Living Will: Never completed Health Care Surrogate: Never completed Durable Power of [employer] Vulcanizer: Never completed Objective Vital Signs: Vital Signs 02/26/18 11:00 02/26/18 11:15 02/26/18 11:30 Temperature 98.8 F 98.8 F 98.6 F Pulse Rate 75 75 74 Respiratory Rate 24 Blood Pressure 113/73 Pulse Oximetry 91 L 90 L 91 L 02/26/18 11:31 02/26/18 11:45 02/26/18 12:00 Temperature 98.6 F 98.6 F Pulse Rate 74 74 Respiratory Rate 24 24 Blood Pressure 115/72 Pulse Oximetry 90 L 90 L 90 L 02/26/18 12:15 02/26/18 12:30 02/26/18 12:45 Temperature 98.6 F 97.7 F 97.9 F Pulse Rate 71 73 66 Respiratory Rate Blood Pressure Pulse Oximetry 93 L 92 L 93 L 02/26/18 13:00 02/26/18 13:15 02/26/18 13:30 Temperature 97.9 F 97.7 F 97.7 F Pulse Rate 67 68 67 Respiratory Rate Blood Pressure 154/89 H Pulse Oximetry 94 L 94 L 94 L 02/26/18 13:42 02/26/18 13:45 02/26/18 14:00 Temperature 97.7 F 97.7 F Pulse Rate 67 68 70 Respiratory Rate 24 24 Blood Pressure 128/82 Pulse Oximetry 94 L 94 L 93 L 02/26/18 14:15 02/26/18 14:30 02/26/18 14:45 Temperature 97.3 F L 97.9 F 98.1 F Pulse Rate 73 74 75 Respiratory Rate Blood Pressure Pulse Oximetry 91 L 92 L 92 L 02/26/18 15:00 02/26/18 15:15 02/26/18 15:30 Temperature 98.1 F 98.1 F 98.1 F Pulse Rate 75 74 74 Respiratory Rate 24 Blood Pressure 120/75 Pulse Oximetry 92 L 93 L 93 L 02/26/18 15:45 02/26/18 16:00 02/26/18 16:15 Temperature 97.9 F 98.1 F 98.1 F Pulse Rate 74 79 80 Respiratory Rate 24 Blood Pressure 105/62 Pulse Oximetry 93 L 92 L 91 L 02/26/18 16:30 02/26/18 16:45 02/26/18 17:00 Temperature 98.1 F 98.1 F 98.1 F Pulse Rate 83 84 85 Respiratory Rate 24 Blood Pressure 84/65 L Pulse Oximetry 90 L 90 L 90 L 02/26/18 17:15 02/26/18 17:30 02/26/18 17:45 Temperature 98.1 F 98.1 F 98.1 F Pulse Rate 86 86 86 Respiratory Rate Blood Pressure Pulse Oximetry 91 L 91 L 91 L 02/26/18 18:00 02/26/18 18:10 02/26/18 18:15 Temperature 98.1 F 97.9 F Pulse Rate 85 84 Respiratory Rate Blood Pressure 86/65 L Pulse Oximetry 91 L 91 L 91 L 02/26/18 18:30 02/26/18 18:45 02/26/18 19:00 Temperature 97.9 F 97.9 F 97.9 F Pulse Rate 85 85 86 Respiratory Rate Blood Pressure 88/69 L Pulse Oximetry 90 L 91 L 90 L 02/26/18 19:15 02/26/18 19:30 02/26/18 19:35 Temperature 97.9 F 97.9 F Pulse Rate 85 86 85 Respiratory Rate 24 Blood Pressure Pulse Oximetry 90 L 90 L 90 L 02/26/18 19:45 02/26/18 20:00 02/26/18 20:15 Temperature 97.9 F 97.9 F 97.9 F Pulse Rate 85 86 87 Respiratory Rate Blood Pressure 92/65 L Pulse Oximetry 90 L 90 L 89 L 02/26/18 20:30 02/26/18 20:45 02/26/18 21:00 Temperature 97.9 F 97.9 F 98.1 F Pulse Rate 88 89 89 Respiratory Rate Blood Pressure 99/65 L Pulse Oximetry 89 L 89 L 89 L 02/26/18 21:15 02/26/18 21:30 02/26/18 21:45 Temperature 98.1 F 98.1 F 98.1 F Pulse Rate 90 86 84 Respiratory Rate Blood Pressure Pulse Oximetry 89 L 90 L 92 L 02/26/18 22:00 02/26/18 22:15 02/26/18 22:30 Temperature 98.1 F 98.1 F 98.1 F Pulse Rate 82 82 82 Respiratory Rate Blood Pressure 109/70 Pulse Oximetry 91 L 90 L 89 L 02/26/18 22:45 02/26/18 23:00 02/26/18 23:15 Temperature 98.1 F 98.1 F 98.2 F Pulse Rate 81 81 81 Respiratory Rate Blood Pressure 103/71 Pulse Oximetry 89 L 89 L 89 L 02/26/18 23:24 02/26/18 23:30 02/26/18 23:45 Temperature 98.2 F 98.2 F Pulse Rate 82 82 Respiratory Rate 24 Blood Pressure Pulse Oximetry 89 L 89 L 89 L 02/27/18 00:00 02/27/18 00:15 02/27/18 00:30 Temperature 98.2 F 98.4 F 98.4 F Pulse Rate 83 83 83 Respiratory Rate Blood Pressure 107/73 Pulse Oximetry 89 L 89 L 89 L 02/27/18 00:45 02/27/18 01:00 02/27/18 01:15 Temperature 98.4 F 98.4 F 98.4 F Pulse Rate 84 85 86 Respiratory Rate Blood Pressure 107/74 Pulse Oximetry 89 L 88 L 88 L 02/27/18 01:30 02/27/18 01:45 02/27/18 02:00 Temperature 98.4 F 98.4 F 98.4 F Pulse Rate 86 90 93 H Respiratory Rate Blood Pressure Pulse Oximetry 89 L 86 L 86 L 02/27/18 02:04 02/27/18 02:07 02/27/18 02:15 Temperature 98.4 F 98.6 F Pulse Rate 95 H 96 H Respiratory Rate 24 Blood Pressure 109/64 Pulse Oximetry 87 L 88 L 89 L 02/27/18 02:30 02/27/18 02:45 02/27/18 03:00 Temperature 98.6 F 98.6 F 98.6 F Pulse Rate 97 H 99 H 100 H Respiratory Rate Blood Pressure 107/77 Pulse Oximetry 89 L 90 L 90 L 02/27/18 03:15 02/27/18 03:30 02/27/18 03:45 Temperature 98.6 F 98.6 F 98.6 F Pulse Rate 100 H 101 H 100 H Respiratory Rate Blood Pressure Pulse Oximetry 93 L 94 L 92 L 02/27/18 04:00 02/27/18 04:02 02/27/18 04:09 Temperature 98.6 F 98.6 F Pulse Rate 100 H 100 H Respiratory Rate 24 Blood Pressure 113/70 Pulse Oximetry 83 L 89 L 92 L 02/27/18 04:15 02/27/18 04:30 02/27/18 04:45 Temperature 98.6 F 98.4 F 98.4 F Pulse Rate 95 H 93 H 91 H Respiratory Rate Blood Pressure Pulse Oximetry 92 L 85 L 84 L 02/27/18 05:00 02/27/18 05:15 02/27/18 05:30 Temperature 98.2 F 98.2 F 98.2 F Pulse Rate 90 88 87 Respiratory Rate Blood Pressure 103/70 Pulse Oximetry 88 L 88 L 89 L 02/27/18 05:45 02/27/18 06:00 02/27/18 06:15 Temperature 98.1 F 98.1 F 98.1 F Pulse Rate 86 84 85 Respiratory Rate Blood Pressure 107/72 Pulse Oximetry 89 L 91 L 89 L 02/27/18 06:30 02/27/18 06:45 02/27/18 07:00 Temperature 98.1 F 98.1 F 97.9 F Pulse Rate 84 85 85 Respiratory Rate Blood Pressure 110/69 Pulse Oximetry 89 L 91 L 91 L 02/27/18 07:15 02/27/18 07:25 02/27/18 07:30 Temperature 97.9 F 97.9 F Pulse Rate 86 88 86 Respiratory Rate 26 H Blood Pressure Pulse Oximetry 92 L 91 L 91 L 02/27/18 07:45 02/27/18 08:00 02/27/18 08:21 Temperature 97.9 F 97.9 F Pulse Rate 85 85 Respiratory Rate Blood Pressure 110/70 Pulse Oximetry 90 L 90 L 89 L Intake & Output 02/26/18 02/27/18 02/27/18 18:59 06:59 18:59 Intake Total 1700 / 1700 950 / 950 100 / 100 Output Total 610 / 610 508 / 508 Balance 1090 / 1090 442 / 442 100 / 100 Weight 87.4 kg Intake: IV 1600 / 1600 950 / 950 100 / 100 Cordarone Inj 450 MG In D5W Inj 250 / 250 250 / 250 241 ML @ 1 MG/MIN 33.33 mls/hr IV.CONT TITRATE PRN Rx#: [id number] Neosynephrine Inj 160 MG In NS 400 / 400 Inj 484 ML @ 40 MCG/MIN 7.5 mls /hr IV.CONT TITRATE PRN Rx#: [id number] Diprivan 1000 mg/100 ml Inj 1, 100 / 100 000 mg In 100 ml @ 5 MCG/KG/MIN 2.172 mls/hr IV.CONT TITRATE PRN Rx#:[id number] Pitressin Inj 40 UNIT In D5W 100 / 100 100 / 100 Inj 98 ML @ 0.04 UNITS/MIN 6 mls/hr IV.CONT CONT ERWIN Rx#: [id number] Azithromycin Inj 500 MG In NS 250 / 250 Inj 250 ML @ 250 mls/hr IV.SIG Q24H [facility] Rx#:[id number] Merrem Inj 500 MG In NS Inj 100 100 / 100 100 / 100 100 / 100 ML @ 200 mls/hr IV.SIG Q8H [facility] Rx#:[id number] Levophed-Dextrose 4 mg/250 ml 250 / 250 Drip 4 mg In 250 ml @ 2 MCG/MIN 7.5 mls/hr IV.SIG TITRATE PRN Rx#:[id number] fentaNYL 10 mcg/mL Premix Drip 250 / 250 2,500 mcg In 250 ml @ 50 MCG/HR 5 mls/hr IV.SIG TITRATE PRN Rx #:[id number] Flolan (30,000 ng/mL) Neb 100 100 / 100 100 / 100 ML In NS Inj 0 ML @ 5 mls/hr NEB Q8H [facility] Rx#:[id number] Tube Irrigant 100 / 100 Output: Urine Amount (Catheter) Indwelling Temp Sensing Catheter Gastric Drainage 500 / 500 400 / 400 Left Nare 500 / 500 400 / 400 Chest Tube Drainage 100 / 100 100 / 100 Right 100 / 100 100 / 100 Other: Date of Last Bowel Movement 02/26/18 02/26/18 # Bowel Movements 1 Physical Exam: CONSTITUTIONAL/GENERAL: This is an adequately nourished patient, in no apparent distress. TUBES/LINES/DRAINS: ETT, OG, PIV's, Armstrong catheter, bilateral soft wrist restraints, chest tube to right side, SCDs. SKIN: No jaundice, rashes, or lesions. Ecchymoses on upper extremities. No wounds seen anteriorly. Skin temperature appropriate. Not diaphoretic. HEAD: Atraumatic. Normocephalic. EYES: Bilateral pupils sluggish. No scleral icterus. No injection or drainage. ENT: Unable to evaluate hearing given clinical condition. Nose without bleeding or purulent drainage. Moist oral mucosa. NECK: Trachea midline. Supple, nontender. CARDIOVASCULAR: Regular rate and rhythm. Peripheral pulses symmetric. RESPIRATORY/CHEST: Symmetric, unlabored respirations while on vent support. Diminished breath sounds bilaterally with expiratory wheezes. Chest tube to right side. GASTROINTESTINAL: Abdomen soft, non-tender, nondistended. Bowel sounds present. GENITOURINARY: Without palpable bladder distension. Armstrong catheter in place with scant amount of urine. MUSCULOSKELETAL: Extremities without clubbing, cyanosis, or edema. No mottling or clubbing. LYMPHATICS: No palpable cervical or supraclavicular adenopathy. NEUROLOGICAL: Unresponsive to verbal or tactile stimuli. PSYCHIATRIC: Unable to evaluate given clinical condition, unresponsive. Diagnostic Tests Laboratory: Laboratory Results - last 72 hr 02/19/18 02/24/18 02/24/18 21:00 12:14 12:19 WBC RBC Hgb Hct MCV MCH MCHC RDW Plt Count MPV Prelim Diff (Auto) Neut % (Auto) Lymph % (Auto) [place] % (Auto) Eos % (Auto) Baso % (Auto) Neut # (Auto) Lymph # (Auto) [place] # (Auto) Eos # (Auto) Baso # (Auto) WBC Differential Seg Neuts % (Manual) Band Neuts % (Manual) Lymphocytes % (Manual) Monocytes % (Manual) Metamyelocytes % (Man) Abs Neuts (Manual) Nucleated RBCs/100 WBC Differential Comment Toxic Granulation Toxic Vacuolation Platelet Estimate Platelet Morphology Tear Drop Cells Keratocytes Puncture Site Art line Patient Temperature 98.6 O2 Saturation 90 ABG pH 7.40 ABG pCO2 42 ABG pO2 69 ABG HCO3 25 ABG O2 Content 14.4 ABG Base Excess 0.9 ABG Methemoglobin 1.3 Hemoglobin 11.4 L Carboxyhemoglobin 0.8 O2 Delivery Device Ventilator Vent Setting 600/24/+12/0.65 Inspired O2 60 Critical Value No Sodium Potassium Chloride Carbon Dioxide Anion Gap BUN Creatinine Estimated GFR POC Glucose 123 H Random Glucose Calcium Calcium Adj for Albumin Phosphorus Magnesium Total Bilirubin AST ALT Alkaline Phosphatase Troponin I Total Protein Albumin Random Vancomycin Digoxin Misc Test Result 02/24/18 02/24/18 02/24/18 13:50 17:25 17:37 WBC RBC Hgb Hct MCV MCH MCHC RDW Plt Count MPV Prelim Diff (Auto) Neut % (Auto) Lymph % (Auto) [place] % (Auto) Eos % (Auto) Baso % (Auto) Neut # (Auto) Lymph # (Auto) [place] # (Auto) Eos # (Auto) Baso # (Auto) WBC Differential Seg Neuts % (Manual) Band Neuts % (Manual) Lymphocytes % (Manual) Monocytes % (Manual) Metamyelocytes % (Man) Abs Neuts (Manual) Nucleated RBCs/100 WBC Differential Comment Toxic Granulation Toxic Vacuolation Platelet Estimate Platelet Morphology Tear Drop Cells Keratocytes Puncture Site Art line Patient Temperature 98.6 O2 Saturation 91 ABG pH 7.31 L ABG pCO2 51 H* ABG pO2 76 ABG HCO3 25 ABG O2 Content 14.8 ABG Base Excess -0.9 ABG Methemoglobin 1.4 Hemoglobin 11.5 L Carboxyhemoglobin 0.5 O2 Delivery Device Ventilator Vent Setting Inspired O2 65 Critical Value Yes Sodium Potassium Chloride Carbon Dioxide Anion Gap BUN Creatinine Estimated GFR POC Glucose 142 H Random Glucose Calcium Calcium Adj for Albumin Phosphorus Magnesium Total Bilirubin AST ALT Alkaline Phosphatase Troponin I 0.43 H Total Protein Albumin Random Vancomycin Digoxin Misc Test Result 02/24/18 02/24/18 02/24/18 20:55 23:17 23:24 WBC RBC Hgb Hct MCV MCH MCHC RDW Plt Count MPV Prelim Diff (Auto) Neut % (Auto) Lymph % (Auto) [place] % (Auto) Eos % (Auto) Baso % (Auto) Neut # (Auto) Lymph # (Auto) [place] # (Auto) Eos # (Auto) Baso # (Auto) WBC Differential Seg Neuts % (Manual) Band Neuts % (Manual) Lymphocytes % (Manual) Monocytes % (Manual) Metamyelocytes % (Man) Abs Neuts (Manual) Nucleated RBCs/100 WBC Differential Comment Toxic Granulation Toxic Vacuolation Platelet Estimate Platelet Morphology Tear Drop Cells Keratocytes Puncture Site Cherelle Patient Temperature 98.6 O2 Saturation 92 ABG pH 7.34 L ABG pCO2 47 H ABG pO2 77 ABG HCO3 25 ABG O2 Content 15.0 ABG Base Excess -0.3 ABG Methemoglobin 1.3 Hemoglobin 11.6 L Carboxyhemoglobin 0.7 O2 Delivery Device Ventilator Vent Setting See comment Inspired O2 70 Critical Value No Sodium Potassium Chloride Carbon Dioxide Anion Gap BUN Creatinine Estimated GFR POC Glucose 175 H 134 H Random Glucose Calcium Calcium Adj for Albumin Phosphorus Magnesium Total Bilirubin AST ALT Alkaline Phosphatase Troponin I Total Protein Albumin Random Vancomycin Digoxin Misc Test Result 02/25/18 02/25/18 02/25/18 03:55 03:55 05:36 WBC 32.4 H RBC 3.68 L Hgb 11.5 L Hct 34.2 L MCV 92.8 MCH 31.1 MCHC 33.5 RDW 16.3 Plt Count 123 L MPV 10.9 Prelim Diff (Auto) Slide review pending Neut % (Auto) 94.4 H Lymph % (Auto) 1.5 L [place] % (Auto) 3.8 Eos % (Auto) 0.0 Baso % (Auto) 0.3 Neut # (Auto) 30.6 H Lymph # (Auto) 0.5 L [place] # (Auto) 1.2 H Eos # (Auto) 0.0 Baso # (Auto) 0.1 WBC Differential Manual diff final Seg Neuts % (Manual) 82 H Band Neuts % (Manual) 7 H Lymphocytes % (Manual) 5 L Monocytes % (Manual) 6 Metamyelocytes % (Man) Abs Neuts (Manual) 28.8 H Nucleated RBCs/100 WBC 1 H Differential Comment . Toxic Granulation 1+ H Toxic Vacuolation Present H Platelet Estimate Low L Platelet Morphology Normal Tear Drop Cells Keratocytes Puncture Site Patient Temperature O2 Saturation ABG pH ABG pCO2 ABG pO2 ABG HCO3 ABG O2 Content ABG Base Excess ABG Methemoglobin Hemoglobin Carboxyhemoglobin O2 Delivery Device Vent Setting Inspired O2 Critical Value Sodium 151 H Potassium 4.5 Chloride 118 H Carbon Dioxide 26.9 Anion Gap 6 BUN 96 H Creatinine 2.81 H Estimated GFR 23 L POC Glucose 107 Random Glucose 132 H Calcium 7.8 L Calcium Adj for Albumin Phosphorus 5.4 H D Magnesium 3.1 H Total Bilirubin 0.3 AST 121 H ALT 90 H Alkaline Phosphatase 107 Troponin I 0.47 H Total Protein 5.5 L Albumin 1.1 L Random Vancomycin 26.3 Digoxin 1.1 Misc Test Result 02/25/18 02/25/18 02/25/18 07:40 09:35 11:45 WBC RBC Hgb Hct MCV MCH MCHC RDW Plt Count MPV Prelim Diff (Auto) Neut % (Auto) Lymph % (Auto) [place] % (Auto) Eos % (Auto) Baso % (Auto) Neut # (Auto) Lymph # (Auto) [place] # (Auto) Eos # (Auto) Baso # (Auto) WBC Differential Seg Neuts % (Manual) Band Neuts % (Manual) Lymphocytes % (Manual) Monocytes % (Manual) Metamyelocytes % (Man) Abs Neuts (Manual) Nucleated RBCs/100 WBC Differential Comment Toxic Granulation Toxic Vacuolation Platelet Estimate Platelet Morphology Tear Drop Cells Keratocytes Puncture Site Cherelle Villarreal Patient Temperature 98.6 98.6 O2 Saturation 88 L* 87 L* ABG pH 7.18 L* 7.22 L* ABG pCO2 67 H* 54 H* ABG pO2 76 71 ABG HCO3 24 21 L ABG O2 Content 14.8 14.4 ABG Base Excess -3.2 L -5.5 L ABG Methemoglobin 1.3 1.2 Hemoglobin 11.9 L 11.7 L Carboxyhemoglobin 0.4 0.4 O2 Delivery Device Vent Vent Vent Setting Aprv/4.0/32/0.8/0/0/ Aprv/3/35/1/0/0/2 Inspired O2 80 80 Critical Value Yes Yes Sodium Potassium Chloride Carbon Dioxide Anion Gap BUN Creatinine Estimated GFR POC Glucose 185 H Random Glucose Calcium Calcium Adj for Albumin Phosphorus Magnesium Total Bilirubin AST ALT Alkaline Phosphatase Troponin I Total Protein Albumin Random Vancomycin Digoxin Misc Test Result 02/25/18 02/25/18 02/25/18 11:55 15:12 17:10 WBC RBC Hgb Hct MCV MCH MCHC RDW Plt Count MPV Prelim Diff (Auto) Neut % (Auto) Lymph % (Auto) [place] % (Auto) Eos % (Auto) Baso % (Auto) Neut # (Auto) Lymph # (Auto) [place] # (Auto) Eos # (Auto) Baso # (Auto) WBC Differential Seg Neuts % (Manual) Band Neuts % (Manual) Lymphocytes % (Manual) Monocytes % (Manual) Metamyelocytes % (Man) Abs Neuts (Manual) Nucleated RBCs/100 WBC Differential Comment Toxic Granulation Toxic Vacuolation Platelet Estimate Platelet Morphology Tear Drop Cells Keratocytes Puncture Site Cherelle Villarreal Patient Temperature 98.6 98.6 98.6 O2 Saturation 92 90 92 ABG pH 7.21 L* 7.13 L* 7.25 L* ABG pCO2 58 H* 74 H* 49 H ABG pO2 82 85 79 ABG HCO3 22 23 21 L ABG O2 Content 13.4 14.3 14.0 ABG Base Excess -4.3 L -4.8 L -4.9 L ABG Methemoglobin 1.2 1.4 1.3 Hemoglobin 10.2 L 11.1 L 10.8 L Carboxyhemoglobin 0.5 0.4 0.7 O2 Delivery Device Vent Vent Vent Vent Setting Aprv/3/37/1.5/5/0/2 Prvc/24/350/.9/16/75 Pc/24/34/.9// Inspired O2 80 75 75 Critical Value Yes Yes Yes Sodium Potassium Chloride Carbon Dioxide Anion Gap BUN Creatinine Estimated GFR POC Glucose Random Glucose Calcium Calcium Adj for Albumin Phosphorus Magnesium Total Bilirubin AST ALT Alkaline Phosphatase Troponin I Total Protein Albumin Random Vancomycin Digoxin Misc Test Result 02/25/18 02/25/18 02/25/18 17:50 20:12 23:46 WBC RBC Hgb Hct MCV MCH MCHC RDW Plt Count MPV Prelim Diff (Auto) Neut % (Auto) Lymph % (Auto) [place] % (Auto) Eos % (Auto) Baso % (Auto) Neut # (Auto) Lymph # (Auto) [place] # (Auto) Eos # (Auto) Baso # (Auto) WBC Differential Seg Neuts % (Manual) Band Neuts % (Manual) Lymphocytes % (Manual) Monocytes % (Manual) Metamyelocytes % (Man) Abs Neuts (Manual) Nucleated RBCs/100 WBC Differential Comment Toxic Granulation Toxic Vacuolation Platelet Estimate Platelet Morphology Tear Drop Cells Keratocytes Puncture Site Patient Temperature O2 Saturation ABG pH ABG pCO2 ABG pO2 ABG HCO3 ABG O2 Content ABG Base Excess ABG Methemoglobin Hemoglobin Carboxyhemoglobin O2 Delivery Device Vent Setting Inspired O2 Critical Value Sodium Potassium Chloride Carbon Dioxide Anion Gap BUN Creatinine Estimated GFR POC Glucose 154 H 118 H 83 Random Glucose Calcium Calcium Adj for Albumin Phosphorus Magnesium Total Bilirubin AST ALT Alkaline Phosphatase Troponin I Total Protein Albumin Random Vancomycin Digoxin Misc Test Result 02/26/18 02/26/18 02/26/18 04:30 04:30 04:36 WBC 31.2 H RBC 3.49 L Hgb 10.8 L Hct 33.2 L MCV 95.1 MCH 31.1 MCHC 32.7 RDW 16.5 Plt Count 123 L MPV 10.9 Prelim Diff (Auto) Slide review pending Neut % (Auto) 94.3 H Lymph % (Auto) 1.5 L [place] % (Auto) 3.6 Eos % (Auto) 0.1 Baso % (Auto) 0.5 Neut # (Auto) 29.5 H Lymph # (Auto) 0.5 L [place] # (Auto) 1.1 H Eos # (Auto) 0.0 Baso # (Auto) 0.2 WBC Differential Manual diff final Seg Neuts % (Manual) 91 H Band Neuts % (Manual) 7 H Lymphocytes % (Manual) 1 L Monocytes % (Manual) Metamyelocytes % (Man) 1 Abs Neuts (Manual) 30.9 H Nucleated RBCs/100 WBC Differential Comment . Toxic Granulation 1+ H Toxic Vacuolation Platelet Estimate Normal Platelet Morphology Normal Tear Drop Cells 1+ H Keratocytes Occ H Puncture Site Patient Temperature O2 Saturation ABG pH ABG pCO2 ABG pO2 ABG HCO3 ABG O2 Content ABG Base Excess ABG Methemoglobin Hemoglobin Carboxyhemoglobin O2 Delivery Device Vent Setting Inspired O2 Critical Value Sodium 141 D Potassium 5.5 H D Chloride 109 H D Carbon Dioxide 23.0 Anion Gap 9 BUN 117 H Creatinine 4.19 H Estimated GFR 14 L POC Glucose 82 Random Glucose 87 Calcium 7.0 L* D Calcium Adj for Albumin 9.5 Phosphorus Magnesium Total Bilirubin AST ALT Alkaline Phosphatase Troponin I 0.81 H* Total Protein Albumin 0.9 L Random Vancomycin Digoxin 1.9 Misc Test Result 02/26/18 02/26/18 02/26/18 04:39 12:25 13:03 WBC RBC Hgb Hct MCV MCH MCHC RDW Plt Count MPV Prelim Diff (Auto) Neut % (Auto) Lymph % (Auto) [place] % (Auto) Eos % (Auto) Baso % (Auto) Neut # (Auto) Lymph # (Auto) [place] # (Auto) Eos # (Auto) Baso # (Auto) WBC Differential Seg Neuts % (Manual) Band Neuts % (Manual) Lymphocytes % (Manual) Monocytes % (Manual) Metamyelocytes % (Man) Abs Neuts (Manual) Nucleated RBCs/100 WBC Differential Comment Toxic Granulation Toxic Vacuolation Platelet Estimate Platelet Morphology Tear Drop Cells Keratocytes Puncture Site Art line Patient Temperature 98.6 O2 Saturation 94 ABG pH 7.27 L* ABG pCO2 47 H ABG pO2 87 ABG HCO3 21 L ABG O2 Content 14.2 ABG Base Excess -5.3 L ABG Methemoglobin 1.3 Hemoglobin 10.7 L Carboxyhemoglobin 0.7 O2 Delivery Device Ventilator Vent Setting Pc/ac Inspired O2 75 Critical Value Yes Sodium Potassium Chloride Carbon Dioxide Anion Gap BUN Creatinine Estimated GFR POC Glucose 65 L 138 H Random Glucose Calcium Calcium Adj for Albumin Phosphorus Magnesium Total Bilirubin AST ALT Alkaline Phosphatase Troponin I Total Protein Albumin Random Vancomycin Digoxin Misc Test Result 02/26/18 02/27/18 02/27/18 17:11 00:13 03:37 WBC RBC Hgb Hct MCV MCH MCHC RDW Plt Count MPV Prelim Diff (Auto) Neut % (Auto) Lymph % (Auto) [place] % (Auto) Eos % (Auto) Baso % (Auto) Neut # (Auto) Lymph # (Auto) [place] # (Auto) Eos # (Auto) Baso # (Auto) WBC Differential Seg Neuts % (Manual) Band Neuts % (Manual) Lymphocytes % (Manual) Monocytes % (Manual) Metamyelocytes % (Man) Abs Neuts (Manual) Nucleated RBCs/100 WBC Differential Comment Toxic Granulation Toxic Vacuolation Platelet Estimate Platelet Morphology Tear Drop Cells Keratocytes Puncture Site Patient Temperature O2 Saturation ABG pH ABG pCO2 ABG pO2 ABG HCO3 ABG O2 Content ABG Base Excess ABG Methemoglobin Hemoglobin Carboxyhemoglobin O2 Delivery Device Vent Setting Inspired O2 Critical Value Sodium Potassium Chloride Carbon Dioxide Anion Gap BUN Creatinine Estimated GFR POC Glucose 100 87 82 Random Glucose Calcium Calcium Adj for Albumin Phosphorus Magnesium Total Bilirubin AST ALT Alkaline Phosphatase Troponin I Total Protein Albumin Random Vancomycin Digoxin Misc Test Result 02/27/18 02/27/18 02/27/18 04:47 04:50 04:50 WBC 34.9 H RBC 3.88 L Hgb 12.1 L Hct 37.0 L MCV 95.3 MCH 31.1 MCHC 32.7 RDW 16.3 Plt Count 146 L MPV 10.8 Prelim Diff (Auto) Slide review pending Neut % (Auto) 96.6 H Lymph % (Auto) 1.0 L [place] % (Auto) 1.8 Eos % (Auto) 0.1 Baso % (Auto) 0.5 Neut # (Auto) 33.7 H Lymph # (Auto) 0.3 L [place] # (Auto) 0.6 Eos # (Auto) 0.0 Baso # (Auto) 0.2 WBC Differential Manual diff final Seg Neuts % (Manual) 88 H Band Neuts % (Manual) 9 H Lymphocytes % (Manual) 2 L Monocytes % (Manual) 2 Metamyelocytes % (Man) 1 Abs Neuts (Manual) 34.2 H Nucleated RBCs/100 WBC 1 H Differential Comment . Toxic Granulation Toxic Vacuolation Platelet Estimate Low L Platelet Morphology Normal Tear Drop Cells 1+ H Keratocytes Puncture Site Art line Patient Temperature 98.6 O2 Saturation 90 ABG pH 7.20 L* ABG pCO2 52 H* ABG pO2 76 ABG HCO3 19 L ABG O2 Content 15.4 ABG Base Excess -7.4 L ABG Methemoglobin 1.3 Hemoglobin 12.1 Carboxyhemoglobin 0.4 O2 Delivery Device Ventilator Vent Setting Pc/ac Inspired O2 85 Critical Value Yes Sodium 139 Potassium 6.4 H D Chloride 106 Carbon Dioxide 20.2 L Anion Gap 13 BUN 148 H Creatinine 5.51 H Estimated GFR 10 L POC Glucose Random Glucose 87 Calcium 6.9 L* Calcium Adj for Albumin 9.4 Phosphorus Magnesium 3.3 H Total Bilirubin 0.4 AST 411 H ALT 182 H Alkaline Phosphatase 179 H Troponin I Total Protein 5.8 L Albumin 0.9 L Random Vancomycin 21.7 Digoxin Misc Test Result Result Diagrams: 02/27/18 04:50 02/27/18 04:50 Microbiology: Microbiology 02/23/18 18:00 Gram Stain - Final Fluid - Pleural fluid Body Fluid Culture - Final No growth in 72 hours (aerobically and anaerobically) 02/23/18 18:00 Acid Fast Bacilli Smear - Final Fluid - Pleural fluid No acid fast bacilli seen 02/19/18 21:10 Aerobic Blood Culture - Final Blood - Peripheral No growth in 5 days Anaerobic Blood Culture - Final No growth in 5 days 02/19/18 21:15 Aerobic Blood Culture - Final Blood - Peripheral No growth in 5 days Anaerobic Blood Culture - Final No growth in 5 days 02/23/18 18:00 Fungal Smear - Final Fluid - Pleural fluid No fungal elements seen Procedures: 02/18/18: Endotracheal intubation 02/23/18: Cardioversion 02/23/18: Right chest tube placement Assessment and Plan - Disease Oriented Problem List (1) Septic shock (2) Multisystem organ failure (3) Community acquired pneumonia (4) COPD (chronic obstructive pulmonary disease) with acute bronchitis (5) Respiratory failure requiring intubation (6) Acute kidney failure - Symptom Scale (1) Pain 0-10 Scale: Unable to quantify Pertinent Non-Medical Issues: Psychosocial: Patient is , 1 biological son. Patient used to work in sales, no service. Spiritual: Scientology annie. Legal: No advance directives reported as completed. Ethical issues impacting care: No ethical issues identified. Important Contacts: Son Leandro Brother Shen Prognosis: Mr. Valencia is a 67-year-old male with a medical history significant for COPD, smoker, peripheral vascular disease and hypertension. Patient presented to ED via EMS after he was found by his neighbor with altered mental status on . Clinical course complicated by respiratory insufficiency which later progressed to respiratory failure requiring intubation and mechanical ventilation. Clinical course further complicated by atrial fibrillation with RVR requiring cardioversion, worsening bronchopneumonia, septic shock and acute kidney injury. Overall poor prognosis for survival in the setting of multisystem organ failure. Code Status: No Code DNR Plan: * CODE STATUS: NO code. * HEALTHCARE DECISION-MAKING: Patient unable to participating medical decision making given clinical condition, unresponsive. Patient not anticipated to regain medical decision-making capacity. No advance directives reported as completed. Patient is , 1 biological son. As per [place] statue, healthcare proxy decision making falls to patient's only son Wilfred Shields. Son has accepted this role. * GOALS OF CARE: Patient's son Wilfred acting as healthcare proxy decision making has elected to transition patient to comfort-directed care/withdraw of life support given overall poor prognosis for survival/recovery and patient's known wishes. Exhibits B & C signed. * SYMPTOMS: Comfort-oriented care plan in place for pain, shortness of breath, anxiety and secretions. * Spiritual services following. Wood Lathe Operator Nate at bedside offering support. * Anticipatory guidance provided. * Palliative care contact information has been provided to patient's family. * Case discussed with Dr. Muñoz and bedside RN Georgette. Time Spent Time Periods: 10:10 to 11:16 Total Floor Time (mins): 66 (Total time to include review of summarization of available medical records, physical exam, goals of care conversation/meeting with patient's family, case discussion with attending, nephrology and bedside RN. Changes in plan of care and initiation of comfort care orders. Case discussion with Dr. Renee.) >50% Time in Counseling or Coordination of Care: Yes (Total visit time = 66 minutes; > 50% spent counseling/coordinating care) Attestation Attestation: To help prompt me to consider important information that might be impacting today's encounter and assessment, information from prior notes written by myself or my colleagues may have been "brought forward" into today's note. My signature on this note, however, is an attestation that I personally performed the exam, history, and/or decision-making noted today, and, unless otherwise indicated, the interactions with patient, family, and staff as well as the review of records all occurred today. I also attest that the listed assessment and stated plan reflect my best clinical judgment today based on the combination of historical information, prior notes, and today's exam/ interactions. When time spent is documented, it refers only to time spent today by the signer, or if indicated, combined time spent today by collaborating physician/nurse practitioner.
[2018-02-27] MEDS ORDERED: fentaNYL 10 mcg/mL Premix Drip 2,500 MCG/250 ML BAG IV.SIG PRN (11:05)
[2018-02-27] MEDS ORDERED: Hyoscyamine Inj 0.5 MG/ML Ampul IV.PUSH ONE (11:30)
[2018-02-27] MEDS ORDERED: fentaNYL Citrate Inj 100 MCG/2 ML Ampul IV.PUSH ONE ×2 (11:30→12:00)
[2018-02-27] MEDS ORDERED: Hyoscyamine Inj 0.5 MG/ML Ampul IV.PUSH PRN (12:30)
--- NOTE | 2018-02-27 12:51 | P.DN ---
- Provider Primary care physician: Yogi Lee MD Admitting clinician: Cayden Du Attending physician on admission: Cayden Du Consults: 02/22/18 10:31 HUB Only Consult Order Routine Consulting Provider: [facility] Flavio Hopson Reason for Consultation: LTAC referral 02/26/18 06:39 Consult to Palliative Care Routine Consulting Provider: Silas Renee Reason for Consultation: Multi organ failure Notified:: Service Spoke with:: SHAWN Date Notified:: 02/26/18 Time Notified:: 07:34 Ordering Provider: CECILIA 02/26/18 06:43 Consult to Nephrology Routine Consulting Provider: Alden He Does the patient have a Print Production Associate who follows them?: No Preferred Nephrology Server Developer:: Follow Up Specialist Physician Reason for Consultation: Acute renal failure, fluid overlaod Notified:: Service Spoke with:: GAYLE Date Notified:: 02/26/18 Time Notified:: 08:03 Ordering Provider: CECILIA 02/16/18 17:45 Consult to Pulmonology Routine Consulting Provider: Jessie Valdez Reason for Consultation: Respiratory distress, pneumonia, underlying COPD Notified:: Service Spoke with:: HAI Date Notified:: 02/16/18 Time Notified:: 17:52 Ordering Provider: AMADO 02/19/18 15:09 Consult to Infectious Diseases Routine Consulting Provider: Carolynn Moss Reason for Consultation: Strep PNA, Aspirgillus in sputum. Resp failure intubated. Assistance with antimicrobial management. Notified:: Service Spoke with:: SREE Date Notified:: 02/19/18 Time Notified:: 15:57 Ordering Provider: ELSA Pronouncing clinician: Keyla Rapp - Admitting Diagnosis (1) COPD (chronic obstructive pulmonary disease) with acute bronchitis (2) Emphysema of lung (3) Encephalopathy (4) Sepsis (5) Community acquired pneumonia (6) Pain - Diagnosis at Time of (1) COPD (chronic obstructive pulmonary disease) with acute bronchitis Diagnosis: Secondary (2) Emphysema of lung Diagnosis: Secondary (3) Encephalopathy Diagnosis: Secondary (4) Atelectasis Diagnosis: Secondary (5) Respiratory failure requiring intubation Diagnosis: Secondary (6) Acute kidney failure Diagnosis: Secondary (7) Sepsis Diagnosis: Secondary (8) Hyperkalemia Diagnosis: Secondary (9) Respiratory failure Diagnosis: Secondary (10) Septic shock Diagnosis: Secondary (11) Multisystem organ failure Diagnosis: Principal (12) Community acquired pneumonia Diagnosis: Principal (13) Pain Diagnosis: Secondary - Date and Time Date of admission: 02/13/18 22:07 Date of : 02/27/18 Time of : 12:19 - Summary Details: Family transitioned the patient to comfort-based measures on 02/27/18 around noon , and the patient was pronounced at 12:18. Procedures: Intubation Central line Arterial line Pigtail chest tube insertion Electrical cardioversion Brief History: 67-year-old male with a past medical history significant for peripheral vascular disease s/p right leg stent on Plavix, COPD, hypertension and hyperlipidemia presents to the emergency department for the evaluation of altered mental status. The patient is unclear as to the events that transpired earlier this evening that resulted in his coming to the emergency department for further evaluation. The patient reports he has been feeling ill for approximately 4-5 days. He states he has had a nonproductive cough, fever and diarrhea with accompanying shortness of breath. He endorses associated nausea and anorexia. Denies any chest pain. No focal neurologic deficits. According to his neighbor who is bedside, they went to check on him today and found his door to be partially ajar. They found the patient lying down and he could not remember what day it was. He stated he had not had anything to eat or drink in many days. Result Diagrams: 02/27/18 04:50 02/27/18 04:50 Significant Findings: Abnormal Lab Results 02/26/18 02/26/18 02/26/18 12:25 13:03 17:11 WBC RBC Hgb Hct MCV MCH MCHC RDW Plt Count MPV Prelim Diff (Auto) Neut % (Auto) Lymph % (Auto) Smith % (Auto) Eos % (Auto) Baso % (Auto) Neut # (Auto) Lymph # (Auto) Smith # (Auto) Eos # (Auto) Baso # (Auto) WBC Differential Seg Neuts % (Manual) Band Neuts % (Manual) Lymphocytes % (Manual) Monocytes % (Manual) Metamyelocytes % (Man) Abs Neuts (Manual) Nucleated RBCs/100 WBC Differential Comment Platelet Estimate Platelet Morphology Tear Drop Cells Puncture Site Patient Temperature O2 Saturation ABG pH ABG pCO2 ABG pO2 ABG HCO3 ABG O2 Content ABG Base Excess ABG Methemoglobin Hemoglobin Carboxyhemoglobin O2 Delivery Device Vent Setting Inspired O2 Critical Value Sodium Potassium Chloride Carbon Dioxide Anion Gap BUN Creatinine Estimated GFR POC Glucose 65 L 138 H 100 Random Glucose Calcium Calcium Adj for Albumin Magnesium Total Bilirubin AST ALT Alkaline Phosphatase Total Protein Albumin Random Vancomycin 02/27/18 02/27/18 02/27/18 00:13 03:37 04:47 WBC RBC Hgb Hct MCV MCH MCHC RDW Plt Count MPV Prelim Diff (Auto) Neut % (Auto) Lymph % (Auto) Smith % (Auto) Eos % (Auto) Baso % (Auto) Neut # (Auto) Lymph # (Auto) Smith # (Auto) Eos # (Auto) Baso # (Auto) WBC Differential Seg Neuts % (Manual) Band Neuts % (Manual) Lymphocytes % (Manual) Monocytes % (Manual) Metamyelocytes % (Man) Abs Neuts (Manual) Nucleated RBCs/100 WBC Differential Comment Platelet Estimate Platelet Morphology Tear Drop Cells Puncture Site Art line Patient Temperature 98.6 O2 Saturation 90 ABG pH 7.20 L* ABG pCO2 52 H* ABG pO2 76 ABG HCO3 19 L ABG O2 Content 15.4 ABG Base Excess -7.4 L ABG Methemoglobin 1.3 Hemoglobin 12.1 Carboxyhemoglobin 0.4 O2 Delivery Device Ventilator Vent Setting Pc/ac Inspired O2 85 Critical Value Yes Sodium Potassium Chloride Carbon Dioxide Anion Gap BUN Creatinine Estimated GFR POC Glucose 87 82 Random Glucose Calcium Calcium Adj for Albumin Magnesium Total Bilirubin AST ALT Alkaline Phosphatase Total Protein Albumin Random Vancomycin 02/27/18 02/27/18 04:50 04:50 WBC 34.9 H RBC 3.88 L Hgb 12.1 L Hct 37.0 L MCV 95.3 MCH 31.1 MCHC 32.7 RDW 16.3 Plt Count 146 L MPV 10.8 Prelim Diff (Auto) Slide review pending Neut % (Auto) 96.6 H Lymph % (Auto) 1.0 L Smith % (Auto) 1.8 Eos % (Auto) 0.1 Baso % (Auto) 0.5 Neut # (Auto) 33.7 H Lymph # (Auto) 0.3 L Smith # (Auto) 0.6 Eos # (Auto) 0.0 Baso # (Auto) 0.2 WBC Differential Manual diff final Seg Neuts % (Manual) 88 H Band Neuts % (Manual) 9 H Lymphocytes % (Manual) 2 L Monocytes % (Manual) 2 Metamyelocytes % (Man) 1 Abs Neuts (Manual) 34.2 H Nucleated RBCs/100 WBC 1 H Differential Comment . Platelet Estimate Low L Platelet Morphology Normal Tear Drop Cells 1+ H Puncture Site Patient Temperature O2 Saturation ABG pH ABG pCO2 ABG pO2 ABG HCO3 ABG O2 Content ABG Base Excess ABG Methemoglobin Hemoglobin Carboxyhemoglobin O2 Delivery Device Vent Setting Inspired O2 Critical Value Sodium 139 Potassium 6.4 H D Chloride 106 Carbon Dioxide 20.2 L Anion Gap 13 BUN 148 H Creatinine 5.51 H Estimated GFR 10 L POC Glucose Random Glucose 87 Calcium 6.9 L* Calcium Adj for Albumin 9.4 Magnesium 3.3 H Total Bilirubin 0.4 AST 411 H ALT 182 H Alkaline Phosphatase 179 H Total Protein 5.8 L Albumin 0.9 L Random Vancomycin 21.7 Hospital Course: This is a 67-year-old male. Date of admission 02/13/2018. Date of consultation 02/08/2018. Past medical history includes ongoing tobaccoism, COPD , peripheral vascular disease including sent to the right lower extremity on clopidogrel, hyperlipidemia, essential hypertension who presents to the emergency department at [facility] on 02/13 for the evaluation of altered mental status. Events is document states he had acute delirium times 4-5 days. He also was documented stating he had a nonproductive cough, fever and diarrhea with accompanying shortness of breath. Lack of appetite. He denied any chest pain. According to his neighbor per documentation, they went to check on him and found his door to be partially ajar. They found the patient lying down and he could not remember what day it was. He stated he had not had anything to eat or drink in many days. Patient was admitted on the hospital service after CT of the brain revealed small vessel ischemic changes. Influenza a and B are negative. Blood cultures negative. His urine pneumococcal antigen was positive. He was treated with ceftriaxone and azithromycin. He was treated with bronchodilators every 6 hours and methylprednisolone Succinate 40 mg IV every 8 hours. He is on 2 L nasal cannula. Today, breath. Rapid response was called. He was noted to be febrile temperature of 102.5 Fahrenheit and noted to be tachypneic. He received bronchodilator therapy. Chest x-ray revealed a right middle lobe infiltrate. He was transferred to the ICU for evaluation. On my evaluation patient is on 2 L nasal cannula. He is not using accessory muscles. He is able to complete sentences. He does have a cough present time with white sputum. Denies hemoptysis. 02/17: Afebrile. Continues to be quite wheezy. Slight retractions. Will increase methylprednisolone. On aggressive pulmonary toilet therapy at the present time. CT chest revealed bilateral patchy pneumonia. 02/18: Afebrile. On 3 L nasal cannula satting 94-97%. Less wheezy today. In much better spirits. 02/19: Decompensated overnight requiring mechanical intubation. Hypotensive so central line placed earlier this a.m. Creatinine stable 1.3. White blood cell count slightly improved to 14,000. Continue antibiotic therapy. 02/20: Oxygenation acceptable at 40% FiO2. Glucose control problematic owing largely to tube feeds and steroids. Will augment sliding scale with very low- dose Levemir. Switch to Glucerna if problem continues. GFR declining modestly , concern for osmotic diuresis. Watch carefully, add hydration if necessary. Attempted CPAP trial today which resulted in tachypnea and small volumes; patient appeared to be talking pretty hard despite pressure support of 12. 02/21: Afebrile. Oxygenation 40%. We will continue to wean. Appears volume overloaded with positive intake versus output. Tolerating tube feeding. 02/22: Currently on CPAP trial 08/02 at 50%. Tachypneic. Arousable but not following commands. X-ray possible pleural effusion noted. Will attempt to diurese again. 02/23: FiO2 increased to 70%. Removed filter from expiratory port GE vent... now FiO2 down to 40%. Order written for no more added space. Getting hyperkalemia protocol. Will reassess. 02/24: CT thorax overnight revealed worsening bilateral bronchopneumonia. -625 out of chest tube overnight. We will place on Nimbex drip due to ventilator assynchrony. 1000 cc at OT. Will check KUB now. Switch vasopressors to D5 water if able a maximum concentration CPK and troponin pending. 02/25: Patchy infiltrates persist along with diffuse interstitial process. Despite elevated PEEP 12 and Flolan at 30 ng still requiring 70% oxygen. Good efforts have been made to desiccate the lungs but severe prerenal azotemia probably prohibits further diuresis. White blood cell count 32,000 this morning , trend exacerbated by him. Severely diseased lungs with large chronic component. Update 1600 hrs: On APRV this morning oxygenation started to improve and we were able to slowly wean FiO2 to 65%. However his CO2 retention and respiratory acidosis persisted. I converted back to conventional assist control ventilation and CO2 retention remained a problem. Now we are on pressure control ventilation and achieving slightly larger tidal volumes but this dilemma with CO2 retention bodes poorly for survival. Despite gingerly hydrating the patient urine output remains minimal. 02/26: Patient remains intubated sedated very critical severely hypoxemic. Currently on pressure control mode with PEEP of 12. FiO2 remains at 75% with oxygen saturation hardly 90%. Requiring 2 pressors Glen-Synephrine 90 mcg/min. Vasopressin at 0.04 international units. Urine output diminishing hardly 200 mL in 24 hours. BUN 117 creatinine 4.2. Patient appears to be making no progress has severe multiorgan failure prognosis guarded. I will consult palliative care to assist with goals of care. Nephrology consulted for oliguric renal failure hyperkalemia 02/27: Patient's labs are significantly worse this morning, showing hyperkalemia, progressive renal failure with no urine output and no response to Bumex, and severe metabolic and respiratory acidosis. He remains on neosynephrine and vasopressin, Flolan, and high PEEP with no improvement over the past day. Family meeting scheduled for today at 10 AM, overall prognosis is very poor. - Additional Data Confirmation of as documented by pronouncing clinician: no pulse, no respirations, no heart sounds, pupils fixed and dilated Family: at bedside Attending/PCP notified?: Yes Attending physician: Dionte Was code activated?: No Advance directives: Yes Hospice patient?: Yes
[2018-02-27 13:14] VITALS: PULSE 94
== END 2018-02-27 12:19 | disposition expired | DRG 870 ==
LOC: NEPE 18:20 → NEDA 22:07 → N04 02-14 01:30 → N03 02-16 17:47
PROVIDERS: ADMIT Internal Medicine Critical Care Medicine; ATTEND Internal Medicine Critical Care Medicine
CPT/HCPCS: 31500; 36600; 70450; 70551; 71010; 71045; 71250; 74000; 74018; 76775; 80048; 80053; 80074; 80162; 80202; 81001; 82040; 82150; 82550; 82552; 82570; 82805; 82945; 82948; 82962; 83010; 83520; 83605; 83615; 83735; 83880; 83986; 84100; 84132; 84155; 84157; 84300; 84443; 84484; 85025; 86631; 86632; 86738; 87015; 87040; 87070; 87081; 87086; 87102; 87107; 87116; 87205; 87206; 87275; 87276; 87449; 87804; 87880; 88112; 89051; 90761; 90765; 90767; 93005; 93308; 94002; 94003; 94150; 94640; 94651; 94656; 94657; 94664; 94665; 94799; 96361; 96365; 96367; 97110; 97162; 97164; 99285; J0282; J0456; J0692; J0696; J1120; J1160; J1325; J1450; J1644; J1815; J1940; J1980; J2060; J2185; J2250; J2370; J2543; J2704; J2765; J2920; J3010; J3370; J3480; J7030; J7040; J7050; J7060; J7070; J7120; P9045